=== PATIENT | female | born 1955 | race Caucasian/White ===

== ENCOUNTER 2020-07-11 12:40 | Inpatient (IN) ==
[2020-07-11] MEDS ORDERED: 0.9 % SODIUM CHLORIDE 1,000 ML IV ONE ×2 (13:06→14:48)
--- NOTE | 2020-07-11 13:45 | Cat Scan Report ---
CLINICAL INFORMATION: Acute confusion COMPARISON: 10/19/2019 TECHNIQUE: 2.5 mm helical slices were obtained in the skull base to vertex. Following reconstruction, axial reformatted images were reviewed at bone and parenchymal windows. The exam was performed using radiation dose optimization techniques including, but not limited to, automated exposure control, adjustment of the mA and/or kV according to patient size and use of iterative reconstruction technique. FINDINGS: The ventricles, sulci, fissures, and cisterns are symmetrically enlarged patible with mild age-related atrophy. No extra-axial fluid collections are identified. Mild patchy chronic ischemic changes in the deep cerebral white matter, slightly more than expected for age, are unchanged. There is no lytic hemorrhage, mass effect, or edema. Bone windows show no osseous abnormality. IMPRESSION: Mild atrophy and patchy chronic ischemic changes in the cerebral white matter, slightly more than expected for age, but unchanged. No acute finding. Interpreted and Authenticated by: Rory High 07/11/20
--- NOTE | 2020-07-11 14:06 | Emergency Department Note ---
Weakness HPI General Chief complaint: Weakness Stated complaint: weakness Time Seen by Provider: 07/11/20 12:57 Mode of arrival: wheelchair Limitations: no limitations History of Present Illness HPI Narrative: This is a 61-year-old female patient at [facility] who was sent over for acute weakness and some increased confusion. She was evaluated here in the ER for stroke given confusion with an NIH score of 2. She was sent to CT for urgent head imaging, which came back negative for acute intracranial bleeding. She is tachycardic to 104 and IV fluids were started. She became more alert and was able to tell me that she has been having increased weakness and not feeling well for the past 4 days. She denies fever/chills/sw eats. She denies abdominal pain, hematuria or dysuria, shortness of breath. She does endorse some "chest pressure" across the bilateral front of the chest. Initial troponin is less than 0.01 and an EKG shows sinus tachycardia with a rate of 105 bpm, normal axis and normal intervals and no acute ST changes. Related Data Home Medications Medication Instructions Recorded Confirmed lubiprostone 24 mcg capsule 24 mcg PO DAILY 11/17/16 03/14/20 bisacodyl 10 mg PO DAILY 10/28/17 03/14/20 lactulose 10 gram/15 mL oral 20 g PO BID 01/07/18 03/14/20 solution hydrochlorothiazide 12.5 mg capsule 12.5 mg PO QDAY 07/07/18 03/14/20 insulin glargine 100 unit/mL (3 44 unit SUB-Q QDAY ml 07/07/18 03/14/20 mL) subcutaneous pen lisinopril 5 mg tablet 2.5 mg PO QDAY tab 07/07/18 03/14/20 pregabalin 150 mg capsule 150 mg PO Q8H cap 07/07/18 03/14/20 cholecalciferol (vitamin D3) 25 1,000 unit PO QDAY 12/02/18 03/14/20 mcg (1,000 unit) capsule docusate sodium 100 mg capsule 100 mg PO QDAY 12/02/18 03/14/20 ibuprofen 200 mg tablet 600 mg PO BID PRN tab 05/04/19 03/14/20 rifaximin 550 mg tablet 550 mg PO BID 05/04/19 03/14/20 pravastatin 20 mg PO DAILY 01/29/20 03/14/20 Previous Rx's Medication Instructions Recorded Disability Parking Permit #1 each 10/27/14 blood-glucose meter #1 each 01/23/16 pen needle, diabetic 32 gauge x #100 each 09/23/17 1/" lancets #100 each 01/26/18 allopurinol 100 mg tablet 100 mg PO QDAY #30 tab 02/08/18 blood sugar diagnostic #100 each 02/08/18 levothyroxine 137 mcg capsule 137 mcg PO QDAY #30 cap 02/08/18 metformin 500 mg tablet,extended 1,000 mg PO BID #120 tab 02/08/18 release 24 hr polyethylene glycol 3350 17 gram 17 g PO BID #100 each 11/30/18 oral powder packet albuterol sulfate 90 mcg/actuation 2 puff INHALATION 6XD PRN #18 g 04/21/19 aerosol inhaler aripiprazole 400 mg intramuscular See Rx Instructions IM PER PKG DIR 03/13/20 suspension,extended release #1 each bupropion HCl 150 mg 24 hr tablet, 150 mg PO QAM #30 tab 03/14/20 extended release duloxetine 60 mg capsule,delayed 120 mg PO QDAY #60 cap 03/14/20 release lamotrigine 150 mg tablet 150 mg PO QHS #30 tab 03/14/20 quetiapine 25 mg tablet See Rx Instructions .ROUTE 03/14/20 .COMPLEX #75 tab Allergies Allergy/AdvReac Type Severity Reaction Status Date / Time morphine AdvReac Mild Agitated Verified 07/11/20 12:48 Trulicity AdvReac pancreatiti Uncoded 03/14/20 13:20 s Review of Systems ROS ROS Narrative: Narrative: PFSH Narrative Patient History Narrative: Narrative: Medical/Surgical/Family History All Active Problems (Updated 07/11/20 @ 18:47 by Suly Arango PA-C) AMS (altered mental status) (Acute) Sepsis (Acute) Weakness (Acute) NATASHA (acute kidney injury) (Acute) Tremor (Chronic) Type 2 diabetes mellitus (Acute) Hyperglycemia due to type 2 diabetes mellitus (Acute) Acidosis, lactic (Acute) Expiratory wheezing (Acute) Depression (Chronic) Hypertension (Chronic) Low back pain (Chronic) Chronic pain (Chronic) Spinal stenosis, lumbar region with neurogenic claudication (Chronic) Fall from, out of or through window, initial encounter (Acute) Laceration of scalp (Acute) Acute pain of right knee (Acute) Acute pain of right hip (Acute) Major neurocognitive disorder (Acute) Concussion without loss of consciousness (Acute) Head contusion (Acute) Abdominal distention, non-gaseous (Acute) Anxiety disorder, unspecified (Acute) Acute bronchitis (Acute) Bipolar affective disorder (Chronic) Edema of lower extremity (Chronic) Allergic rhinitis (Chronic) Tinea corporis (Chronic) Dyspnea (Chronic) Liver function test abnormality (Chronic) Postmenopausal (Chronic) Excessive bleeding (Chronic) Easy bruising (Chronic) Rash (Chronic) Urinary frequency (Chronic) Ankle swelling (Chronic) Sinus problem (Chronic) Flatulence (Chronic) Bloating (Chronic) RUQ abdominal pain (Chronic) Chest pressure (Chronic) Parkinson disease (Chronic) Confusion (Chronic) Edema (Chronic) Morbid obesity (Chronic) Hallucination (Chronic) SOB (shortness of breath) (Chronic) Nonalcoholic steatohepatitis (Chronic) Abnormal MRI of head (Chronic) Carpal tunnel syndrome, bilateral (Chronic) Pain in both hands (Chronic) Fall in home (Chronic) Fall (Chronic) Suicide attempt (Chronic) Local infection of wound (Chronic) Amnesia (Chronic) Costal chondritis (Chronic) Trigger finger of both hands (Chronic) Joint pain (Chronic) Cirrhosis of liver (Chronic) Homonymous hemianopia (Chronic) Diabetic neuropathy (Chronic) Psychotic disorder (Acute) Spinal stenosis (Chronic) Lumbar spinal stenosis (Chronic) Calcium oxalate crystals in urine (Chronic) Diffuse abdominal pain (Chronic) Urinary tract infection (Chronic) Upper respiratory infection (Chronic) Sinusitis, acute (Chronic) Lumbar radiculopathy (Chronic) Spinal stenosis at L4-L5 level (Chronic) Pancreatitis (Chronic) Back pain (Chronic) Lumbar disc disease (Chronic) Obesity (BMI 30-39.9) (Chronic) Abdominal pain (Chronic) Depression, major, recurrent, severe with psychosis (Chronic) Snoring (Chronic) Daytime somnolence (Chronic) Atypical nevus (Chronic) Chest pain of unknown etiology (Chronic) Insomnia (Chronic) Arthralgia of both hands (Chronic) Paresthesia and pain of extremity (Chronic) Weight gain (Chronic) Abnormality of gait (Chronic) White matter abnormality on MRI of brain (Chronic) Diabetes mellitus (Chronic) Postcholecystectomy syndrome (Chronic) Post traumatic stress disorder (Chronic) Microscopic hematuria (Chronic 03/31/13) Memory loss (Chronic) Chronic nonalcoholic liver disease (Chronic) Hypothyroidism (acquired) (Chronic) Essential hypertension (Chronic 01/06/14) Head injury, closed (Chronic) Gout (Chronic) Diabetes mellitus with neurological manifestation (Chronic 02/17/13) Deviated nasal septum (Chronic) Depressive disorder (Chronic) Degeneration of thoracic or thoracolumbar intervertebral disc (Chronic) Constipation (Chronic) Chronic interstitial cystitis (Chronic) Anxiety (Acute) Medical History (Updated 07/11/20 @ 18:47 by Suly Arango PA-C) Abdominal pain Abnormal MRI of head Abnormality of gait 11/23/2014 - Poli Virgen PA-C Allergic rhinitis Amnesia Ankle swelling Anxiety Arthralgia (07/06/13) Bilateral Hands Arthralgia of both hands Back pain Bilateral carpal tunnel syndrome Bloating Carpal tunnel syndrome, bilateral Chest pressure Chronic interstitial cystitis Chronic nonalcoholic liver disease Secondary to cholecystectomy complications Chronic pain Cirrhosis of liver Confusion Constipation Costal chondritis Costochondritis Daytime somnolence Degeneration of thoracic or thoracolumbar intervertebral disc L5-S1 documented on CT of Abdomen 03/24/2013 Depression Depressive disorder Deviated nasal septum 05/01/2014 Diabetes mellitus Diabetes mellitus with neurological manifestation (02/17/13) Diabetic neuropathy Dyspnea Easy bruising Edema Edema of lower extremity Essential hypertension (01/06/14) Excessive bleeding Fall 04/14/17 down escalator Fall Fall at home recurrent falls at home, not precipitated by any movement or event Fall in home Flatulence Gout Hallucination Head injury, closed Homonymous hemianopia Homonymous hemianopsia Hypertension Hypothyroidism (acquired) Insomnia Joint pain Liver function test abnormality Local infection of wound Low back pain Lumbar disc disease CT 10/2017 showed Large broad L4-5 disc spur complex resulting in severe central canal, left lateral recess and IV foraminal narrowing. The exiting left L4 descending L5 nerve roots are impinged. 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 Rash RUQ abdominal pain Sinus problem Snoring SOB (shortness of breath) Spinal stenosis at L4-L5 level Spinal stenosis, lumbar region with neurogenic claudication Suicide attempt 2010-Pill overdose in [place] Suicide attempt Tinea corporis Tremor Trigger finger of both hands bilateral 3rd digit Trigger finger of both hands Urinary frequency Weight gain White matter abnormality on MRI of brain White matter abnormality advanced for age 709/26/14 Wound infection Minor Surgical History History of breast surgery 1999-Breast Lift History of section 1974, 1978 x2 History of ECG 10/11/14 - Shaye History of esophagogastroduodenoscopy (05/05/13) History of esophagogastroduodenoscopy (EGD) (11/20/17) History of liver biopsy (08/31/13) Right History of liver excision (08/31/13) Right 60% removal History of plastic surgery Juventino Young History of surgery LESI #1 L4-5 w/o sed 08/08/201902/24 LESI #2 L4-5 w/o sed 02/09/201901/25 LESI #1 L4-5 w/o sed 01/20/1910/25 LESI #3 L4-5 w/o sed 10/14/201807/25 LESI #2 L4-5 w/o sed 07/07/1804/27 LESI #1 L4-5 w/o sed 04/26/18 Hx of cholecystectomy August 1997- Had complication with this of having her bile duct stapled shut with subsequent bile leakage into her peritoneum; she had to have 5 additio nal surgeries Hx of colonoscopy (03/21/13) Family History (Updated 07/06/20 @ 10:46 by Ivis Haines) Mother , age 83. Cardiomyopathy Cerebrovascular accident, Onset Age: 79 Lost Vision in one eye Depression Lung cancer Father Chronic Kidney Disease Atherosclerosis of coronary artery Dementia Hyperlipidemia Cerebrovascular accident, Onset Age: 82 x3 Unknown Diabetes mellitus Daughter Disorder of thyroid Social History Smoking Status: Never smoker Alcohol Intake Frequency: does not drink Substance Use: does not use Exam Narrative Narrative: Narrative: General Limitations: no limitations Course Course Course Narrative: 65-year-old female presents with acute weakness and confusion Reevaluation(s) Reevaluation #1: EKG acute ST changes and initial troponin is negative. CBC shows an elevated blood cell count of 13,200 CMP with creatinine of 1.8 which is up from 1.0 in 02/25. No history of CKD. Anion gap is elevated at 20 Reevaluation #2: Check lactic acid Give additional 1 L IV fluids Awaiting urine sample Reevaluation #3: Lactic acid is 4.1. Anion gap is 20. Blood glucose is 318. White count is elevated at 13,200. Urinalysis shows leukocyte esterase and few bacteria but it is not all that remarkable. Chest x-ray without infiltrates. I have started ceftriaxone IV for this patient and she is received 2 L of normal saline. She is had improvement of her heart rate to below 100. She been ruled out for ACS with negative troponin and negative EKG. At this time source is not been identified. I discussed case with Dr. Page, hospitalist and he has requested I obtain a CT without contrast of the abdomen chest and pelvis to look for source. He has accepted the patient for admission. Vital Signs Vital signs: Vital Signs Temperature 98.8 F 07/11/20 12:40 Pulse Rate 111 H 07/11/20 12:40 Respiratory Rate 16 07/11/20 12:40 Blood Pressure 101/89 07/11/20 12:40 Pulse Oximetry (%) 2 L 07/11/20 12:40 Temperature 98.8 F 07/11/20 12:40 Pulse Rate 91 H 07/11/20 17:31 Respiratory Rate 14 07/11/20 18:16 Blood Pressure 131/71 07/11/20 18:16 Pulse Oximetry (%) 92 07/11/20 17:31 [facility] MDM Narrative Medical decision making narrative: Altered mental status Weakness Sepsis Acute kidney injury Patient is being admitted to the hospitalist service and has been signed out to Dr. Page. CT of the C/A/P are pending. 2 g IV ceftriaxone infusing. She is finishing her second liter of fluid resuscitation. Lab Data Result diagrams: 07/11/20 12:58 07/11/20 12:58 Labs: Lab Results 07/11/20 07/11/20 07/11/20 Range/Units 12:58 12:58 12:58 WBC 13.2 H (4.5-11.0) K/mcL RBC 4.73 (4.00-5.20) M/mcL Hgb 13.8 (12.0-15.0) g/dL Hct 41.4 (36.0-48.0) % MCV 87.5 (80.0-100.0) fL MCH 29.2 (26.0-34.0) pg MCHC 33.3 (31.0-36.0) g/dL RDW 13.0 (11.5-14.5) % Plt Count 215 (140-440) K/mcL MPV 12.5 H (7.4-10.4) fL Seg Neutrophils % 69 (38-78) % Lymphocytes % 21 (15-49) % Monocytes % (Manual) 6 (1-12) % Eosinophils % (Manual) 1 (0-7) % Myelocytes % 1 % Reactive Lymphocytes 2 (0-2) % Platelet Estimate Normal (Normal) RBC Morphology Abnormal A (Normal) VBG Lactic Acid (0.5-2.0) mmol/L Sodium 135 (133-145) mmol/L Potassium 5.2 H (3.3-5.1) mmol/L Chloride 92 L (96-108) mmol/L Carbon Dioxide 23 (22-30) mmol/L Anion Gap 20.0 H (8.0-16.0) BUN 39 H (8-23) mg/dL Creatinine 1.8 H (0.6-1.1) mg/dL GFR Calculation 29 Glucose 318 H (70-105) mg/dL Calcium 10.0 (8.6-10.4) mg/dL Total Bilirubin 0.6 (0.1-1.0) mg/dL AST 43 H (<32) U/L ALT 38 (<40) U/L Alkaline Phosphatase 160 H (39-117) U/L Troponin T < 0.01 (<0.03) ng/mL Total Protein 7.0 (5.9-8.4) gm/dL Albumin 4.5 (3.2-5.2) gm/dL Globulin 2.5 (2.2-3.7) gm/dL Albumin/Globulin Ratio 1.8 (1.0-2.3) Urine Color Urine Appearance (Clear) Urine pH (5.0-9.0) Ur Specific [place] (1.000-1.035) Urine Protein (Negative) mg/dL Urine Glucose (UA) (Negative) mg/dL Urine Ketones (Negative) mg/dL Urine Occult Blood (Negative) mg/dL Urine Nitrate (Negative) Urine Bilirubin (Negative) mg/dL Urine Urobilinogen mg/dL Ur Leukocyte Esterase (Negative) /ug Urine RBC (0-3) /hpf Urine WBC (0-4) /hpf Ur Squamous Epith Cells (0-4) /hpf Urine Bacteria (0) /hpf Hyaline Casts (0-2) /lph Ur Culture Indicated? 07/11/20 07/11/20 Range/Units 15:00 15:20 WBC (4.5-11.0) K/mcL RBC (4.00-5.20) M/mcL Hgb (12.0-15.0) g/dL Hct (36.0-48.0) % MCV (80.0-100.0) fL MCH (26.0-34.0) pg MCHC (31.0-36.0) g/dL RDW (11.5-14.5) % Plt Count (140-440) K/mcL MPV (7.4-10.4) fL Seg Neutrophils % (38-78) % Lymphocytes % (15-49) % Monocytes % (Manual) (1-12) % Eosinophils % (Manual) (0-7) % Myelocytes % % Reactive Lymphocytes (0-2) % Platelet Estimate (Normal) RBC Morphology (Normal) VBG Lactic Acid 4.1 H* (0.5-2.0) mmol/L Sodium (133-145) mmol/L Potassium (3.3-5.1) mmol/L Chloride (96-108) mmol/L Carbon Dioxide (22-30) mmol/L Anion Gap (8.0-16.0) BUN (8-23) mg/dL Creatinine (0.6-1.1) mg/dL GFR Calculation Glucose (70-105) mg/dL Calcium (8.6-10.4) mg/dL Total Bilirubin (0.1-1.0) mg/dL AST (<32) U/L ALT (<40) U/L Alkaline Phosphatase (39-117) U/L Troponin T (<0.03) ng/mL Total Protein (5.9-8.4) gm/dL Albumin (3.2-5.2) gm/dL Globulin (2.2-3.7) gm/dL Albumin/Globulin Ratio (1.0-2.3) Urine Color Yellow Urine Appearance Hazy A (Clear) Urine pH 5.0 (5.0-9.0) Ur Specific [place] 1.014 (1.000-1.035) Urine Protein Negative (Negative) mg/dL Urine Glucose (UA) Negative (Negative) mg/dL Urine Ketones Negative (Negative) mg/dL Urine Occult Blood Negative (Negative) mg/dL Urine Nitrate Negative (Negative) Urine Bilirubin Negative (Negative) mg/dL Urine Urobilinogen 2.0 A mg/dL Ur Leukocyte Esterase 25 A (Negative) /ug Urine RBC 1 (0-3) /hpf Urine WBC 4 (0-4) /hpf Ur Squamous Epith Cells 11 H (0-4) /hpf Urine Bacteria Few A (0) /hpf Hyaline Casts 24 H (0-2) /lph Ur Culture Indicated? No ED POC Tests ED POC Tests: AIME - SARS Antigen Negative Discharge Plan Patient/Caregiver Discharge Instructions Pt seen by WEB OPERATIONS MANAGER/PA only: Yes Clinical Impression: AMS (altered mental status), Sepsis, Weakness, NATASHA (acute kidney injury) Patient Disposition: Xfer As Inpt ([facility]) Condition: Fair Follow up with: Maryuri Cr, OSVALDO, MANAGER CARDIAC CATH [Primary Care Provider] - Prescriptions: No Action rifaximin 550 mg tablet 550 mg PO BID RF: 0 ibuprofen 200 mg tablet 600 mg PO BID PRN (Reason: Pain) RF: 0 bupropion HCl 150 mg tablet extended release 24 hr 150 mg PO QAM Qty: 30 RF: 5 duloxetine 60 mg capsule,delayed release(DR/EC) 120 mg PO QDAY Qty: 60 RF: 3 lamotrigine 150 mg tablet 150 mg PO QHS Qty: 30 RF: 3 quetiapine 25 mg tablet See Rx Instructions .ROUTE .COMPLEX Qty: 75 RF: 2 (DME) Disability Parking Permit Qty: 1 RF: 0 (DME) blood-glucose meter [True Metrix Air Glucose Meter] mis See Dose Instructions .ROUTE .MEDSUPPLY Qty: 1 RF: 0 (DME) pen needle, diabetic [Comfort EZ Pen Breaks] 32 gauge x 1/4" needle See Dose Instructions .ROUTE .MEDSUPPLY Qty: 100 RF: 12 (DME) lancets [facility] [place] See Dose Instructions .ROUTE .MEDSUPPLY Qty: 100 RF: 2 allopurinol 100 mg tablet 100 mg PO QDAY Qty: 30 RF: 5 (DME) blood sugar diagnostic [True Metrix Glucose Test Strip] strip See Dose Instructions .ROUTE .MEDSUPPLY Qty: 100 RF: 5 levothyroxine 137 mcg capsule 137 mcg PO QDAY Qty: 30 RF: 5 metformin 500 mg tablet extended release 24 hr 1,000 mg PO BID Qty: 120 RF: 5 Abilify Maintena 400 mg suspension,extended rel recon See Rx Instructions IM PER PKG DIR Qty: 1 RF: 5 lubiprostone [Amitiza] 24 mcg capsule 24 mcg PO DAILY RF: 0 lactulose [Constulose] 10 gram/15 mL solution 20 g PO BID RF: 0 Basaglar KwikPen U-100 Insulin 100 unit/mL (3 mL) insulin pen 44 unit SUB-Q QDAY RF: 0 hydrochlorothiazide 12.5 mg capsule 12.5 mg PO QDAY RF: 0 lisinopril 5 mg tablet 2.5 mg PO QDAY RF: 0 pregabalin 150 mg capsule 150 mg PO Q8H RF: 0 polyethylene glycol 3350 [Miralax] 17 gram powder in packet 17 g PO BID Qty: 100 RF: 0 albuterol sulfate [ProAir HFA] 90 mcg/actuation HFA aerosol inhaler 2 puff INHALATION 6XD PRN (Reason: shortness of breath or wheezing) Qty: 18 RF: 0 bisacodyl 5 MG tablet 10 mg PO DAILY RF: 0 pravastatin 20 mg Tablet 20 mg PO DAILY RF: 0 docusate sodium [Stool Softener] 100 mg capsule 100 mg PO QDAY RF: 0 cholecalciferol (vitamin D3) 1,000 unit capsule 1,000 unit PO QDAY RF: 0
[2020-07-11 14:18] LABS: Hematocrit 41.4 % (36.0-48.0); Hemoglobin 13.8 g/dL (12.0-15.0); Mean Cell Volume 87.5 fL (80.0-100.0); Mean Corpuscular HGB Conc 33.3 g/dL (31.0-36.0); Mean Platelet Volume 12.5 fL (7.4-10.4); Platelet Count 215 K/mcL (140-440); RBC 4.73 M/mcL (4.00-5.20); WBC 13.2 K/mcL (4.5-11.0)
[2020-07-11 14:20] LABS: ALT/SGPT 38 U/L (<40); AST/SGOT 43 U/L (<32); Albumin 4.5 gm/dL (3.2-5.2); Albumin/Globulin Ratio 1.8 (1.0-2.3); Alkaline Phosphatase 160 U/L (39-117); Bilirubin,Total 0.6 mg/dL (0.1-1.0); Blood Urea Nitrogen 39 mg/dL (8-23); Carbon Dioxide 23 mmol/L (22-30); Chloride 92 mmol/L (96-108); Globulin 2.5 gm/dL (2.2-3.7); Glomerular Filtration Rate 29; Glucose 318 mg/dL (70-105)
--- NOTE | 2020-07-11 15:37 | XRay Report ---
CLINICAL INFORMATION: Weakness and chest pain COMPARISON: 03/03/2020. TECHNIQUE: Portable FINDINGS: The heart size, mediastinum and pulmonary vessels are unremarkable. The lungs are clear. There are no effusions. The bones and soft tissues are within normal limits. IMPRESSION: Normal chest. Interpreted and Authenticated by: Rory High 07/11/20
[2020-07-11 15:38] LABS: Eosinophils % (Manual) 1 % (0-7); Lymphocytes % 21 % (15-49); Monocytes % (Manual) 6 % (1-12); Myelocytes % 1 %; RBC Morphology ABNORMAL (Normal); Reactive Lymphocytes 2 % (0-2); Segmented Neutrophils % 69 % (38-78)
[2020-07-11 15:39] LABS: Platelet Estimate NORMAL (Normal)
[2020-07-11] MEDS ORDERED: cefTRIAXone 2 GM in DEXTROSE 5% IN WATER 50 ML IV ONE (16:16)
[2020-07-11 16:42] LABS: Appearance,Urine HAZY (Clear); Bacteria,Urine FEW /hpf (0); Bilirubin,Urine Negative (Negative); Color,Urine YELLOW; Culture Indicated,Urine No; Glucose,Urine (UA) Negative (Negative); Ketones,Urine Negative (Negative); Leukocyte Esterase,Urine 25 /ug (Negative); Nitrate,Urine Negative (Negative); Protein,Urine Negative (Negative); Specific Gravity,Urine 1.014 (1.000-1.035); Urine Blood Negative (Negative); Urine Hyaline Cast 24 /lph (0-2); Urine RBC 1 /hpf (0-3); Urine Squamous Epithelial Cell 11 /hpf (0-4); Urine WBC 4 /hpf (0-4)
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
[2020-07-11] MEDS ORDERED: ONDANSETRON 4 MG/2 ML VIAL IV PRN (20:11)
[2020-07-11] MEDS ORDERED: 0.9 % SODIUM CHLORIDE 1,000 ML IV SCH (20:11)
[2020-07-11] MEDS ORDERED: DEXTROSE 50% 50 ML VIAL IV PRN (20:11)
[2020-07-11] MEDS ORDERED: ACETAMINOPHEN 650 MG/65 ML BAG IV PRN (20:11)
[2020-07-11] MEDS ORDERED: MAGNESIUM SULFATE 2 GM/50 ML BAG IV PRN (20:11)
[2020-07-11] MEDS ORDERED: VANCOMYCIN PER PHARMACY IV SCH (20:11)
[2020-07-11] MEDS ORDERED: POTASSIUM CHLORIDE 40 MEQ in DEXTROSE 5% IN WATER 500 ML IV PRN (20:11)
[2020-07-11] MEDS ORDERED: DEXTROSE 31 GM ORAL.SUSP PO PRN (20:11)
[2020-07-11] MEDS ORDERED: ONDANSETRON 4 MG ODT TABLET SL PRN (20:11)
[2020-07-11] MEDS ORDERED: MELATONIN 3 MG TABLET PO PRN (20:11)
[2020-07-11] MEDS ORDERED: POLYETHYLENE GLYCOL 3350 17 GM PACKET PO PRN (20:11)
[2020-07-11] MEDS ORDERED: BISACODYL 10 MG SUPP.RECT PR PRN (20:11)
[2020-07-11] MEDS ORDERED: ACETAMINOPHEN 325 MG TABLET PO PRN (20:11)
[2020-07-11] MEDS ORDERED: NEUTRA PHOS 1 PACKET PO PRN (20:11)
[2020-07-11] MEDS ORDERED: SENNOSIDES/DOCUSATE SODIUM 1 TAB TABLET PO SCH (21:00)
[2020-07-11] MEDS: DOCUSATE SODIUM 100 MG CAPSULE PO SCH (21:13)
[2020-07-11] MEDS: HEPARIN 5,000 UNIT/ML VIAL SQ SCH (21:13)
[2020-07-11] MEDS: INSULIN LISPRO 1 UNIT/0.01 ML UNIT SQ SCH (21:13)
[2020-07-11] MEDS: 0.9 % SODIUM CHLORIDE 10 ML SYRINGE IV SCH (21:15)
[2020-07-11] MEDS: VANCOMYCIN 1,000 MG in 0.9 % SODIUM CHLORIDE 250 ML IV SCH (21:16)
[2020-07-11] MEDS: PIPERACILLIN SODIUM/TAZOBACTAM 3.375 GM in DEXTROSE 5% IN WATER 50 ML IV SCH (23:46)
--- NOTE | 2020-07-12 04:33 | Cat Scan Report ---
CLINICAL INFORMATION: Sepsis COMPARISON: Abdomen and pelvic CT 09/12/2019. Chest CT 06/27/2016 TECHNIQUE: 0.625 mm helical slices were obtained from the lung apices through the subtrochanteric regions of the femurs. Following reconstruction, 2.5 mm sagittal, coronal and axial reformatted images were processed and reviewed at multiple windows and levels. 7 mm MIP reconstructions were obtained through the lungs to optimize nodule detection.The exam was performed using radiation dose optimization techniques including, but not limited to, automated exposure control, adjustment of the mA and/or kV according to patient size and use of iterative reconstruction technique. FINDINGS: Pulmonary parenchymal windows show only minimal scattered scarring and/or atelectasis in both mid and lower lungs. There are no infiltrates or nodules. No effusions. Mediastinal windows show the heart is normal in size. There is moderate calcific plaque in the proximal LAD and scattered throughout the remaining coronary arteries. The noncontrast thoracic aorta and pulmonary arteries are normal in contour and caliber. There is no adenopathy in the mediastinal hilar or axillary region. The esophagus is grossly normal. Thyroid is diminutive but without focal lesion. Abdominal images show resection of the right hepatic lobe with compensatory hypertrophy of the caudate and left hepatic lobes. No focal lesions appreciated this noncontrast exam. Spleen is moderately enlarged spanning 17 cm in length. Both noncontrasted kidneys, adrenal glands, pancreas and aorta are unremarkable. There is no free air, free fluid or adenopathy. Pelvic images show anteflexed uterus which is normal in size 8 x 3 cm. The region of the ovaries is normal. Urinary bladder is mildly distended. The stomach, small and large bowel show mild symmetric dilatation with a moderate amount of colonic stool compatible with mild ileus. Bone windows show large L4-5 disc spur complex resulting in severe central canal, left lateral recess and left IV foraminal narrowing. There is impingement of the exiting left L4 and descending left L5 nerve root.. IMPRESSION: 1. No evidence of infection throughout the chest, abdomen or pelvis. Sepsis source is not identified. 2. Partial hepatectomy-resection of the right hepatic lobe with compensatory hypertrophy of the left hepatic lobe and caudate lobe. 3. Moderate splenomegaly-stable. Although unlikely, given the stability of the spleen, the possibility of lymphoma or leukemia should be entertained as a cause cause for patient's symptoms 4. Mild ileus with moderate colonic stool. 5. At L4-5: large broad disc spur complex resulting in severe central canal, left lateral recess and IV foraminal narrowing with impingement of the exiting left L4 and descending left L5 nerve roots. L5-S1 large broad disc spur complex results in severe right IV foraminal narrowing with impingement of the exiting right L5 nerve root. Interpreted and Authenticated by: Rory High 07/12/20
[2020-07-12] MEDS: PIPERACILLIN SODIUM/TAZOBACTAM 3.375 GM in DEXTROSE 5% IN WATER 50 ML IV SCH ×4 (05:28→23:30)
[2020-07-12] MEDS: 0.9 % SODIUM CHLORIDE 10 ML SYRINGE IV SCH ×3 (05:28→20:44)
[2020-07-12] MEDS: INSULIN LISPRO 1 UNIT/0.01 ML UNIT SQ SCH ×4 (07:33→20:40)
[2020-07-12 07:39] LABS: Basophils # (Auto) 0.07 K/mcL (0.00-0.20); Basophils % (Auto) 0.8 % (0.0-2.0); Eosinophils # (Auto) 0.44 K/mcL (0.00-0.70); Eosinophils % (Auto) 5.2 % (0.0-7.0); Hematocrit 36.4 % (36.0-48.0); Hemoglobin 11.8 g/dL (12.0-15.0); Lymphocytes # (Auto) 3.63 K/mcL (1.50-4.80); Lymphocytes % (Auto) 42.7 % (15.0-49.0); Mean Cell Volume 89.7 fL (80.0-100.0); Mean Corpuscular HGB Conc 32.4 g/dL (31.0-36.0); Mean Platelet Volume 11.8 fL (7.4-10.4); Monocytes # (Auto) 0.67 K/mcL (0.10-0.90); Monocytes % (Auto) 7.9 % (1.0-12.0); Neutrophils % (Auto) 43.4 % (38.0-78.0); Platelet Count 144 K/mcL (140-440); RBC 4.06 M/mcL (4.00-5.20); Red Cell Distribution Width 13.1 % (11.5-14.5); WBC 8.5 K/mcL (4.5-11.0)
[2020-07-12] MEDS: HEPARIN 5,000 UNIT/ML VIAL SQ SCH ×2 (08:47→20:40)
[2020-07-12] MEDS: VANCOMYCIN 1,000 MG in 0.9 % SODIUM CHLORIDE 250 ML IV SCH ×2 (08:47→20:41)
[2020-07-12] MEDS: DOCUSATE SODIUM 100 MG CAPSULE PO SCH ×2 (08:47→20:43)
[2020-07-12 08:58] LABS: ALT/SGPT 30 U/L (<40); AST/SGOT 36 U/L (<32); Albumin 3.7 gm/dL (3.2-5.2); Albumin/Globulin Ratio 1.6 (1.0-2.3); Alkaline Phosphatase 134 U/L (39-117); Bilirubin,Direct 0.2 mg/dL (<0.3); Bilirubin,Total 0.6 mg/dL (0.1-1.0); Blood Urea Nitrogen 26 mg/dL (8-23); Calcium 8.5 mg/dL (8.6-10.4); Carbon Dioxide 27 mmol/L (22-30); Chloride 101 mmol/L (96-108); Globulin 2.3 gm/dL (2.2-3.7); Glomerular Filtration Rate 53; Glucose 221 mg/dL (70-105); Lactate Dehydrogenase 200 U/L (135-225); Phosphorous 3.3 mg/dL (2.5-4.5); Triglycerides 214 mg/dL (<150); Uric Acid 6.7 mg/dL (2.5-8.0)
[2020-07-12] MEDS ORDERED: MULTIVIT,THER IRON,CA,FA & MIN 1 TABLET PO SCH (09:00)
[2020-07-12] MEDS ORDERED: BUTALB/ACETAMINOPHEN/CAFFEINE 1 TABLET PO PRN (09:09)
[2020-07-12] MEDS ORDERED: POLYETHYLENE GLYCOL 3350 17 GM PACKET PO PRN ×2 (11:34→14:36)
[2020-07-12] MEDS ORDERED: ALBUTEROL SULFATE 200 PUFF INHALER INH PRN ×2 (11:34→14:36)
--- NOTE | 2020-07-12 11:34 | Internal Med Progress Note ---
SUBJECTIVE Subjective Patient information: Note initiated : 07/12/20 at 11:28 am Service Date, if different from initiated Date: [] Patient: Mic Hein a 65 y/o F admitted on 07/11/20 for Weakness. Chief Complaint: Interval history: Ms. Hein is a 65 year old F with a history of HTN/anxiety/DM type II/hypothyroidism/neuropathy/DJD residing at [place] and was referred to [facility] ER with progressive worsening weakness over the last few days. This morning she was unable to get out of bed. She says that her body felt like noodles. She became increasingly confused and concerns was raised at the facility about possible stroke. Initial work-up in the ER was unremarkable negative head CT however NIH score of 2. Patient was hypotensive tachycardic and with a high white count. CT chest abdomen pelvis did not reveal obvious source of infection. Minimal pyuria on UA. Cultures were drawn and antibiotics initiated. Hospitalist service was consulted for admission in light of severe sepsis with mental status change, white count 3.2, elevated lactic acid 4.1, potassium 5.2, creatinine 1.8 and blood sugar 318. At the time of my evaluation patient is very drowsy. She endorses to progression of symptoms over the last 3 months with increasing weakness however this morning she was unable to get out of bed. She endorses to history as above. She endorses to associated cough but denies fever, diarrhea, dysuria, bloody urine or bloody stool. She further denies weight loss or weight gain. She denies headache, photophobia, chills 5/6-patient doing a lot better. No overnight events. More lucid since admission but remains intermittently confused. Responding well to crystalloids/antibiotics. White count down from 13.2-8.5. Renal function improved from creatinine 1.8-1.1. Restart home medications. Continue physical therapy/nutrition support. Transfer to medical floor Constitutional Vitals: Vital Signs Temp Pulse Resp BP Pulse Ox 98.1 F 84 16 131/62 97 07/12/20 08:02 07/12/20 06:09 07/12/20 08:02 07/12/20 08:02 07/12/20 06:09 Period Temp Pulse Resp BP Sys/Panchal Pulse Ox Last 24 Hr 98.1 F-98.8 F 84-111 9-20 101-137/59-89 2-97 Intake and Output 07/11/20 07/12/20 07/12/20 21:59 05:59 13:59 Intake Total 2050 350 490 Output Total 700 0 1150 Balance 1350 350 -660 Weight 95.118 kg More alert and lucid Nonlabored breathing No anxiety Nondistended abdomen Intake & Output: Intake & Output 07/11/20 07/12/20 07/12/20 21:59 05:59 13:59 Intake Total 2050 350 490 Output Total 700 0 1150 Balance 1350 350 -660 Weight 95.118 kg Intake: IV 2049 350 250 Sodium Chloride 0.9% 1,000 ml @ 2000 Wide Open IV [facility] Rx#: [id number] Zosyn 3.375 gm In Dextrose 5% 100 in Water 50 ml @ 100 mls/hr IV Q6H [facility] Rx#:[id number] Vancomycin 1,000 mg In Sodium 250 250 Chloride 0.9% 250 ml @ 250 mls/ hr IV Q12H [facility] Rx#:[id number] Rocephin 2 gm In Dextrose 5% in 50 Water 50 ml @ 100 mls/hr IV ONCE ONE Rx#:[id number] Oral 0 240 Output: Void Amount 700 0 1150 Other: Meal Breakfast Percent of Meal Consumed 100% Urine Appearance Sediment Cloudy Mucous Threads Urine Color Dark Yellow Bright Yellow Urine Odor Foul OBJ DATA Labs CBC & Chem 7: 07/12/20 06:26 07/12/20 06:26 Labs: Abnormal Lab Results 07/12/20 07/12/20 07/11/20 06:26 06:26 20:50 WBC Hgb 11.8 L MPV 11.8 H RBC Morphology VBG Lactic Acid Potassium Chloride Anion Gap BUN 26 H Creatinine Glucose 221 H Calcium 8.5 L GGT 73 H AST 36 H Alkaline Phosphatase 134 H Ammonia 86 H Triglycerides 214 H Procalcitonin Urine Appearance Urine Urobilinogen Ur Leukocyte Esterase Ur Squamous Epith Cells Urine Bacteria Hyaline Casts 07/11/20 07/11/20 07/11/20 15:20 15:00 12:58 WBC Hgb MPV RBC Morphology VBG Lactic Acid 4.1 H* Potassium Chloride Anion Gap BUN Creatinine Glucose Calcium GGT AST Alkaline Phosphatase Ammonia Triglycerides Procalcitonin 0.46 H Urine Appearance Hazy A Urine Urobilinogen 2.0 A Ur Leukocyte Esterase 25 A Ur Squamous Epith Cells 11 H Urine Bacteria Few A Hyaline Casts 24 H 07/11/20 07/11/20 12:58 12:58 WBC 13.2 H Hgb MPV 12.5 H RBC Morphology Abnormal A VBG Lactic Acid Potassium 5.2 H Chloride 92 L Anion Gap 20.0 H BUN 39 H Creatinine 1.8 H Glucose 318 H Calcium GGT AST 43 H Alkaline Phosphatase 160 H Ammonia Triglycerides Procalcitonin Urine Appearance Urine Urobilinogen Ur Leukocyte Esterase Ur Squamous Epith Cells Urine Bacteria Hyaline Casts Meds: Medications Acetaminophen (Acetaminophen 325 Mg Tablet) 650 mg PO Q6HP PRN; Protocol PRN Reason: Per Pain Protocol/Fever > 101 Acetaminophen/Butalbital/Caffeine (Butalb/Acetaminophen/Caffeine 1 Tablet) 1 tab PO Q6HP PRN PRN Reason: Headache Last Admin: 07/12/20 10:11 Dose: 1 tab Documented by: Bisacodyl (Bisacodyl 10 Mg Supp.Rect) 10 mg [place] Q2-3DAYS PRN PRN Reason: Constipation Dextrose (Dextrose 50% 50 Ml Vial) 0 ml IV UD PRN PRN Reason: Hypoglycemia Diagnostic Test (Pha) (Accu-Chek 1 Each Strip) 1 each FS ACHS [facility] Last Admin: 07/12/20 07:33 Dose: 1 each Documented by: Docusate Sodium (Docusate Sodium 100 Mg Capsule) 100 mg PO BID [facility] Last Admin: 07/12/20 08:47 Dose: 100 mg Documented by: Glucose (Dextrose 31 Gm Oral.Susp) 15 gm PO PRN PRN PRN Reason: Hypoglycemia Heparin Sodium (Porcine) (Heparin 5,000 Unit/Ml Vial) 5,000 unit SQ Q12 [facility] Last Admin: 07/12/20 08:47 Dose: 5,000 unit Documented by: Potassium Chloride 40 meq/ (Dextrose) 520 mls @ 130 mls/hr IV UD PRN PRN Reason: K+ = or < 3.5 Acetaminophen (Ofirmev) 650 mg in 65 mls @ 130 mls/hr IV Q6HP PRN; Protocol PRN Reason: Per Pain Protocol/Fever > 101 Magnesium Sulfate (Magnesium Sulfate) 2 gm in 50 mls @ 50 mls/hr IV UD PRN PRN Reason: MG = or < 1.7 Last Admin: 07/12/20 11:04 Dose: 50 mls/hr Documented by: Sodium Chloride (Sodium Chloride 0.9%) 1,000 mls @ 50 mls/hr IV .Q20H [facility] Stop: 07/14/20 08:10 Last Admin: 07/11/20 20:38 Dose: 50 mls/hr Documented by: Piperacillin Sod/Tazobactam (Sod 3.375 gm/ Dextrose) 50 mls @ 100 mls/hr IV Q6H [facility]; Protocol Last Infusion: 07/12/20 05:58 Dose: Infused Documented by: Vancomycin HCl 1,000 mg/ (Sodium Chloride) 250 mls @ 250 mls/hr IV Q12H [facility] Last Infusion: 07/12/20 09:47 Dose: Infused Documented by: Insulin Human Lispro (Insulin Lispro 1 Unit/0.01 Ml Unit) 0 unit SQ ACHS [facility]; Protocol Last Admin: 07/12/20 07:33 Dose: 3 units Documented by: Iron Carb/Multivit/[place]/Folic Acid (Multivit,Ther Iron,Ca,Fa & Min 1 Tablet) 1 tab PO DAILY [facility] Last Admin: 07/12/20 08:47 Dose: 1 tab Documented by: Melatonin (Melatonin 3 Mg Tablet) 3 mg PO HSP PRN PRN Reason: Insomnia Ondansetron HCl (Ondansetron 4 Mg Odt Tablet) 4 mg SL Q4-6HP PRN; Protocol PRN Reason: Nausea And Vomiting Ondansetron HCl (Ondansetron 4 Mg/2 Ml Vial) 4 mg IV Q4-6HP PRN; Protocol PRN Reason: Nausea And Vomiting Polyethylene Glycol (Polyethylene Glycol 3350 17 Gm Packet) 17 gm PO DAILYP PRN PRN Reason: Constipation Potassium/Phosphorus/Sodium (Neutra Phos 1 Packet) 2 packet PO DAILY PRN PRN Reason: PHOS <2.5 Senna/Docusate Sodium (Sennosides/Docusate Sodium 1 Tab Tablet) 1 tab PO HS [facility] Last Admin: 07/11/20 21:13 Dose: 1 tab Documented by: Sodium Chloride (0.9 % Sodium Chloride 10 Ml Syringe) 10 ml IV Q8 [facility] Last Admin: 07/12/20 05:28 Dose: 10 ml Documented by: Vancomycin HCl (Vancomycin Per Pharmacy) 1 order IV UD [facility]; Protocol A/P Narrative A/P Narrative: * Acute change in mental status-secondary to volume depletion severe sepsis endorgan manifestation -clinically improved. * Severe sepsis secondary with evidence of endorgan dysfunction, clinically improving, white count down from 13.2-8.1. Abdominal imaging negative. * Hyperkalemia 5.2 resolved * Acute renal failure, Creatinine down from 1.8 to 1.1 * anion gap acidosis secondary to lactic acidosis-resolved * Poorly controlled diabetes-continue basal prandial insulin/CC diet * History of hepatic encephalopathy restart home dose lactulose and rifaximin * Neuropathy continue Lyrica * Hyperlipidemia continue statin * Hypertension-held antihypertensives until sepsis resolves * Hypothyroidism continue thyroxine * Bipolar disorder continue lamotrigine * Anxiety disorder continue duloxetine * History of reactive airway disease continue bronchodilators * Full code * Prophylaxis Heparin Plan * Transfer to medical floor * De-escalate antibiotics in 24 hours * Continue crystalloid * Pre-existing medical condition management as above * PT OT nutrition support * Discharge planning per case management Time Spent With Patient Time: Total time spent is greater than 50% in coordination of care (as documented) at patient's floor/unit and/or counseling patient: QUALITY VTE Deep Vein Thrombosis/Pulmonary Embolism Present on Admission: No
[2020-07-12] MEDS ORDERED: ARIPIPRAZOLE 400 MG IM SCH (11:45)
[2020-07-12] MEDS ORDERED: PREGABALIN 150 MG CAPSULE PO SCH (14:00)
[2020-07-12] MEDS ORDERED: DEXTROSE 50% 50 ML VIAL IV PRN (14:36)
[2020-07-12] MEDS ORDERED: BISACODYL 10 MG SUPP.RECT PR PRN (14:36)
[2020-07-12] MEDS ORDERED: ONDANSETRON 4 MG/2 ML VIAL IV PRN (14:36)
[2020-07-12] MEDS ORDERED: VANCOMYCIN PER PHARMACY IV SCH (14:36)
[2020-07-12] MEDS ORDERED: DEXTROSE 31 GM ORAL.SUSP PO PRN (14:36)
[2020-07-12] MEDS ORDERED: ACETAMINOPHEN 650 MG/65 ML BAG IV PRN (14:36)
[2020-07-12] MEDS ORDERED: ONDANSETRON 4 MG ODT TABLET SL PRN (14:36)
[2020-07-12] MEDS ORDERED: POTASSIUM CHLORIDE 40 MEQ in DEXTROSE 5% IN WATER 500 ML IV PRN (14:36)
[2020-07-12] MEDS ORDERED: NEUTRA PHOS 1 PACKET PO PRN (14:36)
[2020-07-12] MEDS ORDERED: ACETAMINOPHEN 325 MG TABLET PO PRN (14:36)
[2020-07-12] MEDS ORDERED: LACTULOSE 20 GM/30 ML ORAL.SOL PO SCH (15:00)
[2020-07-12] MEDS: 0.9 % SODIUM CHLORIDE 1,000 ML IV SCH ×2 (16:39→20:46)
[2020-07-12] MEDS: LACTULOSE 20 GM/30 ML ORAL.SOL PO SCH ×3 (16:39→20:53)
[2020-07-12] MEDS: metFORMIN 500 MG TAB.XL.24H PO SCH (17:07)
[2020-07-12] MEDS ORDERED: metFORMIN 500 MG TAB.XL.24H PO SCH (17:30)
[2020-07-12] MEDS: INSULIN GLARGINE, HUMAN 1 UNIT/0.01 ML SQ SCH (20:40)
[2020-07-12] MEDS: DULoxetine 30 MG CAPSULE PO SCH (20:41)
[2020-07-12] MEDS: SENNOSIDES/DOCUSATE SODIUM 1 TAB TABLET PO SCH (20:42)
[2020-07-12] MEDS: lamoTRIgine 100 MG TABLET PO SCH (20:42)
[2020-07-12] MEDS: PREGABALIN 150 MG CAPSULE PO SCH (20:43)
[2020-07-12] MEDS: RIFAXIMIN 550 MG TABLET PO SCH (20:43)
[2020-07-12] MEDS: QUEtiapine 25 MG TABLET PO SCH (20:43)
[2020-07-12] MEDS: NYSTATIN POWDER BOTTLE 15GM TOPICAL SCH (20:44)
[2020-07-12] MEDS ORDERED: SIMVASTATIN 10 MG TABLET PO SCH (21:00)
[2020-07-12] MEDS ORDERED: DULoxetine 30 MG CAPSULE PO SCH (21:00)
[2020-07-12] MEDS ORDERED: NYSTATIN POWDER BOTTLE 15GM TOPICAL SCH (21:00)
[2020-07-12] MEDS ORDERED: MELATONIN 3 MG TABLET PO PRN (21:00)
[2020-07-12] MEDS ORDERED: lamoTRIgine 100 MG TABLET PO SCH (21:00)
[2020-07-12] MEDS ORDERED: RIFAXIMIN 550 MG TABLET PO SCH (21:00)
[2020-07-12] MEDS ORDERED: INSULIN GLARGINE, HUMAN 1 UNIT/0.01 ML SQ SCH (21:00)
[2020-07-13] MEDS: PIPERACILLIN SODIUM/TAZOBACTAM 3.375 GM in DEXTROSE 5% IN WATER 50 ML IV SCH ×3 (05:47→17:19)
[2020-07-13] MEDS: 0.9 % SODIUM CHLORIDE 10 ML SYRINGE IV SCH ×3 (05:47→20:48)
[2020-07-13] MEDS: LEVOTHYROXINE 25 MCG TABLET PO SCH (07:06)
[2020-07-13] MEDS: LEVOTHYROXINE SODIUM 112 MCG TABLET PO SCH (07:07)
[2020-07-13] MEDS: metFORMIN 500 MG TAB.XL.24H PO SCH ×2 (07:07→17:19)
[2020-07-13] MEDS: INSULIN LISPRO 1 UNIT/0.01 ML UNIT SQ SCH ×4 (07:48→20:47)
[2020-07-13 07:58] LABS: Basophils # (Auto) 0.04 K/mcL (0.00-0.20); Basophils % (Auto) 0.7 % (0.0-2.0); Eosinophils # (Auto) 0.31 K/mcL (0.00-0.70); Eosinophils % (Auto) 5.3 % (0.0-7.0); Hematocrit 36.2 % (36.0-48.0); Hemoglobin 11.8 g/dL (12.0-15.0); Lymphocytes # (Auto) 2.75 K/mcL (1.50-4.80); Lymphocytes % (Auto) 47.3 % (15.0-49.0); Mean Cell Volume 90.5 fL (80.0-100.0); Mean Corpuscular HGB Conc 32.6 g/dL (31.0-36.0); Mean Platelet Volume 12.2 fL (7.4-10.4); Monocytes # (Auto) 0.37 K/mcL (0.10-0.90); Monocytes % (Auto) 6.4 % (1.0-12.0); Neutrophils % (Auto) 40.3 % (38.0-78.0); Platelet Count 118 K/mcL (140-440); WBC 5.8 K/mcL (4.5-11.0)
[2020-07-13] MEDS: MULTIVIT,THER IRON,CA,FA & MIN 1 TABLET PO SCH (08:45)
[2020-07-13] MEDS: buPROPion 150 MG TAB.XL.24H PO SCH (08:46)
[2020-07-13] MEDS: ALLOPURINOL 100 MG TABLET PO SCH (08:46)
[2020-07-13] MEDS: FUROSEMIDE 40 MG TABLET PO SCH (08:47)
[2020-07-13] MEDS: LISINOPRIL 5 MG TABLET PO SCH (08:49)
[2020-07-13 08:50] LABS: ALT/SGPT 32 U/L (<40); AST/SGOT 36 U/L (<32); Albumin 3.7 gm/dL (3.2-5.2); Albumin/Globulin Ratio 1.5 (1.0-2.3); Alkaline Phosphatase 135 U/L (39-117); Bilirubin,Direct 0.2 mg/dL (<0.3); Bilirubin,Total 0.6 mg/dL (0.1-1.0); Blood Urea Nitrogen 16 mg/dL (8-23); Calcium 8.7 mg/dL (8.6-10.4); Carbon Dioxide 23 mmol/L (22-30); Chloride 103 mmol/L (96-108); Globulin 2.5 gm/dL (2.2-3.7); Glomerular Filtration Rate 59; Glucose 172 mg/dL (70-105); Lactate Dehydrogenase 194 U/L (135-225); Phosphorous 2.9 mg/dL (2.5-4.5); Triglycerides 179 mg/dL (<150)
[2020-07-13] MEDS: SIMVASTATIN 10 MG TABLET PO SCH (08:50)
[2020-07-13] MEDS: SPIRONOLACTONE 25 MG TABLET PO SCH (08:53)
[2020-07-13] MEDS: RIFAXIMIN 550 MG TABLET PO SCH ×2 (08:54→20:51)
[2020-07-13] MEDS: CETIRIZINE 10 MG TABLET PO SCH (08:54)
[2020-07-13] MEDS: DOCUSATE SODIUM 100 MG CAPSULE PO SCH ×2 (08:55→20:51)
[2020-07-13] MEDS: HEPARIN 5,000 UNIT/ML VIAL SQ SCH ×2 (08:56→20:48)
[2020-07-13] MEDS: LACTULOSE 20 GM/30 ML ORAL.SOL PO SCH ×3 (08:58→20:47)
[2020-07-13] MEDS ORDERED: LISINOPRIL 5 MG TABLET PO SCH (09:00)
[2020-07-13] MEDS ORDERED: QUEtiapine 25 MG TABLET PO SCH (09:00)
[2020-07-13] MEDS ORDERED: buPROPion 150 MG TAB.XL.24H PO SCH (09:00)
[2020-07-13] MEDS ORDERED: SPIRONOLACTONE 25 MG TABLET PO SCH (09:00)
[2020-07-13] MEDS ORDERED: FUROSEMIDE 20 MG TABLET PO SCH (09:00)
[2020-07-13] MEDS ORDERED: LEVOTHYROXINE 137 MCG PO SCH (09:00)
[2020-07-13] MEDS ORDERED: CETIRIZINE 10 MG TABLET PO SCH (09:00)
[2020-07-13] MEDS ORDERED: ALLOPURINOL 100 MG TABLET PO SCH (09:00)
[2020-07-13] MEDS: BUTALB/ACETAMINOPHEN/CAFFEINE 1 TABLET PO PRN ×2 (09:50→21:03)
[2020-07-13] MEDS: NYSTATIN POWDER BOTTLE 15GM TOPICAL SCH ×2 (09:57→20:52)
[2020-07-13] MEDS: QUEtiapine 25 MG TABLET PO SCH ×2 (09:58→20:51)
--- NOTE | 2020-07-13 10:05 | XRay Report ---
CLINICAL INFORMATION: Interval Change COMPARISON: 07/11/2020 FINDINGS: Heart size, mediastinum and pulmonary vessels are normal. Lungs are clear. No effusions. Bones soft tissues normal. IMPRESSION: Normal Interpreted and Authenticated by: Rory High 07/13/20
[2020-07-13] MEDS: VANCOMYCIN 1,000 MG in 0.9 % SODIUM CHLORIDE 250 ML IV SCH ×2 (10:33→20:54)
[2020-07-13] MEDS: 0.9 % SODIUM CHLORIDE 1,000 ML IV SCH ×2 (12:18→16:31)
[2020-07-13] MEDS: INSULIN GLARGINE, HUMAN 1 UNIT/0.01 ML SQ SCH (20:47)
[2020-07-13] MEDS: DULoxetine 30 MG CAPSULE PO SCH (20:48)
[2020-07-13] MEDS: PREGABALIN 150 MG CAPSULE PO SCH (20:48)
[2020-07-13] MEDS: lamoTRIgine 100 MG TABLET PO SCH (20:49)
[2020-07-13] MEDS: SENNOSIDES/DOCUSATE SODIUM 1 TAB TABLET PO SCH (20:51)
[2020-07-14] MEDS: PIPERACILLIN SODIUM/TAZOBACTAM 3.375 GM in DEXTROSE 5% IN WATER 50 ML IV SCH ×5 (00:16→23:38)
[2020-07-14] MEDS: 0.9 % SODIUM CHLORIDE 10 ML SYRINGE IV SCH ×4 (04:05→20:06)
[2020-07-14] MEDS: 0.9 % SODIUM CHLORIDE 1,000 ML IV SCH (06:36)
[2020-07-14 06:55] LABS: Basophils # (Auto) 0.06 K/mcL (0.00-0.20); Basophils % (Auto) 0.9 % (0.0-2.0); Eosinophils # (Auto) 0.31 K/mcL (0.00-0.70); Eosinophils % (Auto) 4.7 % (0.0-7.0); Hematocrit 35.7 % (36.0-48.0); Hemoglobin 11.7 g/dL (12.0-15.0); Lymphocytes # (Auto) 3.16 K/mcL (1.50-4.80); Lymphocytes % (Auto) 47.5 % (15.0-49.0); Mean Cell Volume 90.2 fL (80.0-100.0); Mean Corpuscular HGB Conc 32.8 g/dL (31.0-36.0); Mean Platelet Volume 11.9 fL (7.4-10.4); Monocytes # (Auto) 0.39 K/mcL (0.10-0.90); Monocytes % (Auto) 5.9 % (1.0-12.0); Platelet Count 116 K/mcL (140-440); RBC 3.96 M/mcL (4.00-5.20); Red Cell Distribution Width 12.9 % (11.5-14.5); WBC 6.7 K/mcL (4.5-11.0)
[2020-07-14 07:07] LABS: ALT/SGPT 33 U/L (<40); AST/SGOT 37 U/L (<32); Albumin 3.7 gm/dL (3.2-5.2); Albumin/Globulin Ratio 1.5 (1.0-2.3); Alkaline Phosphatase 134 U/L (39-117); Bilirubin,Direct < 0.2 mg/dL (0-0.3); Bilirubin,Total 0.5 mg/dL (0.1-1.0); Blood Urea Nitrogen 14 mg/dL (8-23); Calcium 8.8 mg/dL (8.6-10.4); Carbon Dioxide 24 mmol/L (22-30); Chloride 105 mmol/L (96-108); Globulin 2.4 gm/dL (2.2-3.7); Glomerular Filtration Rate 59; Glucose 140 mg/dL (70-105); Lactate Dehydrogenase 194 U/L (135-225); Phosphorous 3.5 mg/dL (2.5-4.5); Triglycerides 192 mg/dL (<150); Uric Acid 4.2 mg/dL (2.5-8.0)
[2020-07-14] MEDS: INSULIN LISPRO 1 UNIT/0.01 ML UNIT SQ SCH ×4 (07:10→20:26)
[2020-07-14] MEDS: DOCUSATE SODIUM 100 MG CAPSULE PO SCH ×2 (08:36→20:27)
[2020-07-14] MEDS: LEVOTHYROXINE 25 MCG TABLET PO SCH (08:36)
[2020-07-14] MEDS: LACTULOSE 20 GM/30 ML ORAL.SOL PO SCH ×3 (08:36→20:05)
[2020-07-14] MEDS: LEVOTHYROXINE SODIUM 112 MCG TABLET PO SCH (08:36)
[2020-07-14] MEDS: SPIRONOLACTONE 25 MG TABLET PO SCH (08:37)
[2020-07-14] MEDS: RIFAXIMIN 550 MG TABLET PO SCH ×2 (08:38→20:28)
[2020-07-14] MEDS: BUTALB/ACETAMINOPHEN/CAFFEINE 1 TABLET PO PRN (08:38)
[2020-07-14] MEDS: LISINOPRIL 5 MG TABLET PO SCH (08:39)
[2020-07-14] MEDS: ALLOPURINOL 100 MG TABLET PO SCH (08:39)
[2020-07-14] MEDS: FUROSEMIDE 40 MG TABLET PO SCH (08:39)
[2020-07-14] MEDS: buPROPion 150 MG TAB.XL.24H PO SCH (08:39)
[2020-07-14] MEDS: CETIRIZINE 10 MG TABLET PO SCH (08:39)
[2020-07-14] MEDS: SIMVASTATIN 10 MG TABLET PO SCH (08:39)
[2020-07-14] MEDS: metFORMIN 500 MG TAB.XL.24H PO SCH ×2 (08:40→16:54)
[2020-07-14] MEDS: QUEtiapine 25 MG TABLET PO SCH ×2 (08:40→20:27)
[2020-07-14] MEDS: MULTIVIT,THER IRON,CA,FA & MIN 1 TABLET PO SCH (08:40)
[2020-07-14] MEDS: HEPARIN 5,000 UNIT/ML VIAL SQ SCH ×2 (08:41→20:27)
[2020-07-14] MEDS: MAGNESIUM SULFATE 2 GM/50 ML BAG IV PRN (08:41)
[2020-07-14] MEDS: NYSTATIN POWDER BOTTLE 15GM TOPICAL SCH ×2 (08:51→20:06)
[2020-07-14] MEDS: VANCOMYCIN 1,000 MG in 0.9 % SODIUM CHLORIDE 250 ML IV SCH ×2 (10:06→20:22)
--- NOTE | 2020-07-14 10:23 | Internal Med Progress Note ---
SUBJECTIVE Subjective Patient information: Note initiated : 07/13/20 at 10:18 am Service Date, if different from initiated Date: [] Patient: Mic Hein a 65 y/o F admitted on 07/11/20 for Weakness. Chief Complaint: [] Interval history: Ms. Hein is a 65 year old F with a history of HTN/anxiety/DM type II/hypothyroidism/neuropathy/DJD residing at [place] and was referred to located within [facility] ER with progressive worsening weakness over the last f ew days. This morning she was unable to get out of bed. She says that her body felt like noodles. She became increasingly confused and concerns was raised at the facility about possible stroke. Initial work-up in the ER was unremarkable negative head CT however NIH score of 2. Patient was hypotensive tachycardic and with a high white count. CT chest abdomen pelvis did not reveal obvious source of infection. Minimal pyuria on UA. Cultures were drawn and antibiotics initiated. Hospitalist service was consulted for admission in light of severe sepsis with mental status change, white count 3.2, elevated lactic acid 4.1, potassium 5.2, creatinine 1.8 and blood sugar 318. At the time of my evaluation patient is very drowsy. She endorses to progression of symptoms over the last 3 months with increasing weakness however this morning she was unable to get out of bed. She endorses to history as above. She endorses to associated cough but denies fever, diarrhea, dysuria, bloody urine or bloody stool. She further denies weight loss or weight gain. She denies headache, photophobia, chills 5/6-patient doing a lot better. No overnight events. More lucid since admission but remains intermittently confused. Responding well to crystalloids/antibiotics. White count down from 13.2-8.5. Renal function improved from creatinine 1.8-1.1. Restart home medications. Continue physical therapy/nutrition support. Transfer to medical floor 07/13-patient clinically improving. White count normalizing. Tolerating diet. No concerns expressed with nursing staff. Hemoglobin 11.7, blood sugars improving, magnesium 1.8, LFTs downtrending, cultures negative so far, GNR on urine culture. De-escalate antibiotics in 24 hours Constitutional Vitals: Vital Signs Temp Pulse Resp BP Pulse Ox 97.8 F 68 20 115/69 95 05/08/21 06:47 07/14/20 06:47 07/14/20 06:47 07/14/20 06:47 07/14/20 06:47 Period Temp Pulse Resp BP Sys/Panchal Pulse Ox Last 24 Hr 97.1 F-98.2 F 63-82 16-20 110-134/64-84 95-97 Intake and Output 07/13/20 07/14/20 07/14/20 21:59 05:59 13:59 Intake Total 1338 780 290 Output Total 900 400 Balance 438 380 290 Weight 94.999 kg alert and respond to commands, nonlabored breathing Nondistended abdomen No anxiety Intake & Output: Intake & Output 07/13/20 07/14/20 07/14/20 21:59 05:59 13:59 Intake Total 1338 780 290 Output Total 900 400 Balance 438 380 290 Weight 94.999 kg Intake: IV 1338 300 50 Sodium Chloride 0.9% 1,000 ml @ 988 50 mls/hr IV .Q20H [facility] Rx#: [id number] Zosyn 3.375 gm In Dextrose 5% 100 50 50 in Water 50 ml @ 100 mls/hr IV Q6H [facility] Rx#:[id number] Vancomycin 1,000 mg In Sodium 250 250 Chloride 0.9% 250 ml @ 250 mls/ hr IV Q12H [facility] Rx#:[id number] Oral 480 240 Output: Void Amount 900 400 Other: Meal Dinner Breakfast Percent of Meal Consumed 100% 100% Feeding Ability Independent Urine Appearance Clear Clear Urine Color Dark Yellow Bright Yellow Stool Size Moderate # Bowel Movements 1 OBJ DATA Labs CBC & Chem 7: 07/14/20 05:49 07/14/20 05:49 Labs: Abnormal Lab Results 07/14/20 07/14/20 07/13/20 05:49 05:49 06:25 WBC RBC 3.96 L Hgb 11.7 L Hct 35.7 L Plt Count 116 L MPV 11.9 H RBC Morphology VBG Lactic Acid Potassium Chloride Anion Gap BUN Creatinine Glucose 140 H 172 H Calcium Magnesium 1.5 L GGT 79 H 79 H AST 37 H 36 H Alkaline Phosphatase 134 H 135 H Ammonia Triglycerides 192 H 179 H Procalcitonin Urine Appearance Urine Urobilinogen Ur Leukocyte Esterase Ur Squamous Epith Cells Urine Bacteria Hyaline Casts 07/13/20 07/12/20 07/12/20 05:25 06:26 06:26 WBC RBC Hgb 11.8 L 11.8 L Hct Plt Count 118 L MPV 12.2 H 11.8 H RBC Morphology VBG Lactic Acid Potassium Chloride Anion Gap BUN 26 H Creatinine Glucose 221 H Calcium 8.5 L Magnesium GGT 73 H AST 36 H Alkaline Phosphatase 134 H Ammonia Triglycerides 214 H Procalcitonin Urine Appearance Urine Urobilinogen Ur Leukocyte Esterase Ur Squamous Epith Cells Urine Bacteria Hyaline Casts 07/11/20 07/11/20 07/11/20 20:50 15:20 15:00 WBC RBC Hgb Hct Plt Count MPV RBC Morphology VBG Lactic Acid 4.1 H* Potassium Chloride Anion Gap BUN Creatinine Glucose Calcium Magnesium GGT AST Alkaline Phosphatase Ammonia 86 H Triglycerides Procalcitonin Urine Appearance Hazy A Urine Urobilinogen 2.0 A Ur Leukocyte Esterase 25 A Ur Squamous Epith Cells 11 H Urine Bacteria Few A Hyaline Casts 24 H 07/11/20 07/11/20 07/11/20 12:58 12:58 12:58 WBC 13.2 H RBC Hgb Hct Plt Count MPV 12.5 H RBC Morphology Abnormal A VBG Lactic Acid Potassium 5.2 H Chloride 92 L Anion Gap 20.0 H BUN 39 H Creatinine 1.8 H Glucose 318 H Calcium Magnesium GGT AST 43 H Alkaline Phosphatase 160 H Ammonia Triglycerides Procalcitonin 0.46 H Urine Appearance Urine Urobilinogen Ur Leukocyte Esterase Ur Squamous Epith Cells Urine Bacteria Hyaline Casts Meds: Medications Acetaminophen (Acetaminophen 325 Mg Tablet) 650 mg PO Q6HP PRN; Protocol PRN Reason: Per Pain Protocol/Fever > 101 Acetaminophen/Butalbital/Caffeine (Butalb/Acetaminophen/Caffeine 1 Tablet) 1 tab PO Q6HP PRN PRN Reason: Headache Last Admin: 07/14/20 08:38 Dose: 1 tab Documented by: Albuterol Sulfate (Albuterol Sulfate 200 Puff Inhaler) 2 puff INH Q4HP PRN PRN Reason: shortness of breath or wheezin Allopurinol (Allopurinol 100 Mg Tablet) 100 mg PO QDAY [facility] Last Admin: 07/14/20 08:39 Dose: 100 mg Documented by: Bisacodyl (Bisacodyl 10 Mg Supp.Rect) 10 mg [place] Q2-3DAYS PRN PRN Reason: Constipation Bupropion HCl (Bupropion 150 Mg Tab.Xl.24h) 150 mg PO QAM [facility] Last Admin: 07/14/20 08:39 Dose: 150 mg Documented by: Cetirizine HCl (Cetirizine 10 Mg Tablet) 10 mg PO QDAY [facility] Last Admin: 07/14/20 08:39 Dose: 10 mg Documented by: Dextrose (Dextrose 50% 50 Ml Vial) 0 ml IV UD PRN PRN Reason: Hypoglycemia Diagnostic Test (Pha) (Accu-Chek 1 Each Strip) 1 each FS ACHS [facility] Last Admin: 07/14/20 07:10 Dose: 1 each Documented by: Docusate Sodium (Docusate Sodium 100 Mg Capsule) 100 mg PO BID [facility] Last Admin: 07/14/20 08:36 Dose: 100 mg Documented by: Duloxetine HCl (Duloxetine 30 Mg Capsule) 120 mg PO HS [facility] Last Admin: 07/13/20 20:48 Dose: 120 mg Documented by: Furosemide (Furosemide 40 Mg Tablet) [facility] Last Admin: 07/14/20 08:39 Dose: 20 mg Documented by: Glucose (Dextrose 31 Gm Oral.Susp) 15 gm PO PRN PRN PRN Reason: Hypoglycemia Heparin Sodium (Porcine) (Heparin 5,000 Unit/Ml Vial) 5,000 unit SQ Q12 [facility] Last Admin: 07/14/20 08:41 Dose: 5,000 unit Documented by: Acetaminophen (Ofirmev) 650 mg in 65 mls @ 130 mls/hr IV Q6HP PRN; Protocol PRN Reason: Per Pain Protocol/Fever > 101 Last Admin: 07/14/20 10:17 Dose: 130 mls/hr Documented by: Magnesium Sulfate (Magnesium Sulfate) 2 gm in 50 mls @ 50 mls/hr IV UD PRN PRN Reason: MG = or < 1.7 Last Admin: 07/14/20 08:41 Dose: 50 mls/hr Documented by: Piperacillin Sod/Tazobactam (Sod 3.375 gm/ Dextrose) 50 mls @ 100 mls/hr IV Q6H [facility]; Protocol Last Infusion: 07/14/20 06:30 Dose: Infused Documented by: Vancomycin HCl 1,000 mg/ (Sodium Chloride) 250 mls @ 250 mls/hr IV Q12H [facility] Last Admin: 07/14/20 10:06 Dose: 250 mls/hr Documented by: Potassium Chloride 40 meq/ (Dextrose) 520 mls @ 130 mls/hr IV UD PRN PRN Reason: K+ = or < 3.5 Insulin Glargine (Insulin Glargine, Human 1 Unit/0.01 Ml) 50 unit SQ [facility] Last Admin: 07/13/20 20:47 Dose: 50 unit Documented by: Insulin Human Lispro (Insulin Lispro 1 Unit/0.01 Ml Unit) 0 unit SQ [facility]; Protocol Last Admin: 07/14/20 07:10 Dose: 1 units Documented by: Iron Carb/Multivit/[place]/Folic Acid (Multivit,Ther Iron,Ca,Fa & Min 1 Tablet) 1 tab PO DAILY [facility] Last Admin: 07/14/20 08:40 Dose: 1 tab Documented by: Lactulose (Lactulose 20 Gm/30 Ml Oral.Oct[place]) 20 gm PO TID [facility] Last Admin: 07/14/20 08:36 Dose: 20 gm Documented by: Lamotrigine (Lamotrigine 100 Mg Tablet) 150 mg PO [facility] Last Admin: 07/13/20 20:49 Dose: 150 mg Documented by: Levothyroxine Sodium ([facility] 25 Mcg Tablet) [facility] Admin: 07/14/20 08:36 Dose: 25 mcg Documented by: Levothyroxine Sodium (Levothyroxine Sodium 112 Mcg Tablet) 112 mcg PO [facility] Last Admin: 07/14/20 08:36 Dose: 112 mcg Documented by: Lisinopril (Lisinopril 5 Mg Tablet) 2.5 mg PO QDAY [facility] Last Admin: 07/14/20 08:39 Dose: 2.5 mg Documented by: Melatonin (Melatonin 3 Mg Tablet) 3 mg PO HSP PRN PRN Reason: Insomnia Metformin HCl (Metformin 500 Mg Tab.Xl.24h) 1,000 mg PO BIDCC [facility] Last Admin: 07/14/20 08:40 Dose: 1,000 mg Documented by: Nystatin (Nystatin Powder Bottle 15gm) 1 dose TOPICAL BID [facility] Last Admin: 07/14/20 08:51 Dose: Not Given Documented by: Ondansetron HCl (Ondansetron 4 Mg Odt Tablet) 4 mg SL Q4-6HP PRN; Protocol PRN Reason: Nausea And Vomiting Ondansetron HCl (Ondansetron 4 Mg/2 Ml Vial) 4 mg IV Q4-6HP PRN; Protocol PRN Reason: Nausea And Vomiting Lubiprostone [ Amitiza] 24 Mcg Capsule 1 dose PO BID [facility] Last Admin: 07/14/20 08:51 Dose: Not Given Documented by: Polyethylene Glycol (Polyethylene Glycol 3350 17 Gm Packet) 17 gm PO DAILYP PRN PRN Reason: Constipation Potassium/Phosphorus/Sodium (Neutra Phos 1 Packet) 2 packet PO DAILY PRN PRN Reason: PHOS <2.5 Pregabalin (Pregabalin 150 Mg Capsule) 150 mg PO 2200 [facility] Last Admin: 07/13/20 20:48 Dose: 150 mg Documented by: Quetiapine Fumarate (Quetiapine 25 Mg Tablet) 50 mg PO [facility] Last Admin: 07/13/20 20:51 Dose: 50 mg Documented by: Quetiapine Fumarate (Quetiapine 25 Mg Tablet) 12.5 mg PO DAILY [facility] Last Admin: 07/14/20 08:40 Dose: 12.5 mg Documented by: Senna/Docusate Sodium (Sennosides/Docusate Sodium 1 Tab Tablet) 1 tab PO [facility] Last Admin: 07/13/20 20:51 Dose: 1 tab Documented by: Simvastatin (Simvastatin 10 Mg Tablet) 10 mg PO DAILY [facility] Last Admin: 07/14/20 08:39 Dose: 10 mg Documented by: Sodium Chloride (0.9 % Sodium Chloride 10 Ml Syringe) 10 ml IV Q8 [facility] Last Admin: 07/14/20 04:05 Dose: 10 ml Documented by: Spironolactone (Spironolactone 25 Mg Tablet) 50 mg PO DAILY [facility] Last Admin: 07/14/20 08:37 Dose: 50 mg Documented by: Vancomycin HCl (Vancomycin Per Pharmacy) 1 order IV UD [facility]; Protocol A/P Narrative A/P Narrative: * Acute change in mental status-secondary sepsis/volume depletion, clinically improved * Severe sepsis secondary with evidence of endorgan dysfunction, clinically improved white count down from 13.2-8.5 * Complicated GNR UTI-clinically improving. Continue antibiotic coverage and de-escalate in 24 hours * Acute renal failure, Creatinine down from 1.8 to 1 * anion gap acidosis secondary to lactic acidosis-resolved * Poorly controlled diabetes-continue basal prandial insulin/CC diet * History of hepatic encephalopathy continue home dose lactulose and rifaximin * Neuropathy continue Lyrica * Hyperlipidemia continue statin * Hypertension-held antihypertensives until sepsis resolves * Hypothyroidism continue thyroxine * Bipolar disorder continue lamotrigine * Anxiety disorder continue duloxetine * History of reactive airway disease continue bronchodilators * Full code * Prophylaxis Heparin Plan * De-escalate antibiotics in 24 hours * Continue crystalloid * Pre-existing medical condition management as above * PT OT nutrition support * Discharge planning per case management Time Spent With Patient Time: Total time spent is greater than 50% in coordination of care (as document ed) at patient's floor/unit and/or counseling patient: QUALITY VTE Deep Vein Thrombosis/Pulmonary Embolism Present on Admission: No
--- NOTE | 2020-07-14 10:53 | Internal Med Progress Note ---
SUBJECTIVE Subjective Patient information: Note initiated : 07/14/20 at 10:51 am Service Date, if different from initiated Date: [] Patient: Mic Hein a 65 y/o F admitted on 07/11/20 for Weakness. Chief Complaint: [] Interval history: Ms. Hein is a 65 year old F with a history of HTN/anxiety/DM type II/hypothyroidism/neuropathy/DJD residing at [place] and was referred to [facility] ER with progressive worsening weakness over the last f ew days. This morning she was unable to get out of bed. She says that her body felt like noodles. She became increasingly confused and concerns was raised at the facility about possible stroke. Initial work-up in the ER was unremarkable negative head CT however NIH score of 2. Patient was hypotensive tachycardic and with a high white count. CT chest abdomen pelvis did not reveal obvious source of infection. Minimal pyuria on UA. Cultures were drawn and antibiotics initiated. Hospitalist service was consulted for admission in light of severe sepsis with mental status change, white count 3.2, elevated lactic acid 4.1, potassium 5.2, creatinine 1.8 and blood sugar 318. At the time of my evaluation patient is very drowsy. She endorses to progression of symptoms over the last 3 months with increasing weakness however this morning she was unable to get out of bed. She endorses to history as above. She endorses to associated cough but denies fever, diarrhea, dysuria, bloody urine or bloody stool. She further denies weight loss or weight gain. She denies headache, photophobia, chills 07/12-patient doing a lot better. No overnight events. More lucid since admission but remains intermittently confused. Responding well to crystalloids/antibiotics. White count down from 13.2-8.5. Renal function improved from creatinine 1.8-1.1. Restart home medications. Continue physical therapy/nutrition support. Transfer to medical floor 07/13-patient clinically improving. White count normalizing. Tolerating diet. No concerns expressed with nursing staff. Hemoglobin 11.7, blood sugars improving, magnesium 1.8, LFTs downtrending, cultures negative so far, GNR on urine culture. De-escalate antibiotics in 24 hours 07/14-patient clinically improved. White count stable. GNR on urine culture. No fever chills. Clinically responding to treatment. Magnesium 1.5 on replacemen t. LFTs downtrending. Tolerating diet and ambulating. No concerns per nursing staff. DC IV fluids Constitutional Vitals: Vital Signs Temp Pulse Resp BP Pulse Ox 97.8 F 68 20 115/69 95 07/14/20 06:47 07/14/20 06:47 07/14/20 06:47 07/14/20 06:47 07/14/20 06:47 Period Temp Pulse Resp BP Sys/Panchal Pulse Ox Last 24 Hr 97.1 F-98.2 F 63-82 16-20 110-134/64-84 95-97 Intake and Output 07/13/20 07/14/20 07/14/20 21:59 05:59 13:59 Intake Total 2812 771 7998 Output Total 900 400 Balance 869 822 2214 Weight 94.999 kg Alert and respond to commands Only breathing No anxiety Nondistended abdomen Intake & Output: Intake & Output 07/13/20 07/14/20 07/14/20 21:59 05:59 13:59 Intake Total 7653 547 6925 Output Total 900 400 Balance 809 585 6780 Weight 94.999 kg Intake: IV 3306 957 7854 Sodium Chloride 0.9% 1,000 ml @ 988 1000 50 mls/hr IV .Q20H [facility] Rx#: [id number] Zosyn 3.375 gm In Dextrose 5% 100 50 50 in Water 50 ml @ 100 mls/hr IV Q6H [facility] Rx#:[id number] Vancomycin 1,000 mg In Sodium 250 250 250 Chloride 0.9% 250 ml @ 250 mls/ hr IV Q12H [facility] Rx#:[id number] Oral 480 240 Output: Void Amount 900 400 Other: Meal Dinner Breakfast Percent of Meal Consumed 100% 100% Feeding Ability Independent Urine Appearance Clear Clear Urine Color Dark Yellow Bright Yellow Stool Size Moderate # Bowel Movements 1 OBJ DATA Labs CBC & Chem 7: 07/14/20 05:49 07/14/20 05:49 Labs: Abnormal Lab Results 07/14/20 07/14/20 07/13/20 05:49 05:49 06:25 WBC RBC 3.96 L Hgb 11.7 L Hct 35.7 L Plt Count 116 L MPV 11.9 H RBC Morphology VBG Lactic Acid Potassium Chloride Anion Gap BUN Creatinine Glucose 140 H 172 H Calcium Magnesium 1.5 L GGT 79 H 79 H AST 37 H 36 H Alkaline Phosphatase 134 H 135 H Ammonia Triglycerides 192 H 179 H Procalcitonin Urine Appearance Urine Urobilinogen Ur Leukocyte Esterase Ur Squamous Epith Cells Urine Bacteria Hyaline Casts 07/13/20 07/12/20 07/12/20 05:25 06:26 06:26 WBC RBC Hgb 11.8 L 11.8 L Hct Plt Count 118 L MPV 12.2 H 11.8 H RBC Morphology VBG Lactic Acid Potassium Chloride Anion Gap BUN 26 H Creatinine Glucose 221 H Calcium 8.5 L Magnesium GGT 73 H AST 36 H Alkaline Phosphatase 134 H Ammonia Triglycerides 214 H Procalcitonin Urine Appearance Urine Urobilinogen Ur Leukocyte Esterase Ur Squamous Epith Cells Urine Bacteria Hyaline Casts 07/11/20 07/11/20 07/11/20 20:50 15:20 15:00 WBC RBC Hgb Hct Plt Count MPV RBC Morphology VBG Lactic Acid 4.1 H* Potassium Chloride Anion Gap BUN Creatinine Glucose Calcium Magnesium GGT AST Alkaline Phosphatase Ammonia 86 H Triglycerides Procalcitonin Urine Appearance Hazy A Urine Urobilinogen 2.0 A Ur Leukocyte Esterase 25 A Ur Squamous Epith Cells 11 H Urine Bacteria Few A Hyaline Casts 24 H 07/11/20 07/11/20 07/11/20 12:58 12:58 12:58 WBC 13.2 H RBC Hgb Hct Plt Count MPV 12.5 H RBC Morphology Abnormal A VBG Lactic Acid Potassium 5.2 H Chloride 92 L Anion Gap 20.0 H BUN 39 H Creatinine 1.8 H Glucose 318 H Calcium Magnesium GGT AST 43 H Alkaline Phosphatase 160 H Ammonia Triglycerides Procalcitonin 0.46 H Urine Appearance Urine Urobilinogen Ur Leukocyte Esterase Ur Squamous Epith Cells Urine Bacteria Hyaline Casts Meds: Medications Acetaminophen (Acetaminophen 325 Mg Tablet) 650 mg PO Q6HP PRN; Protocol PRN Reason: Per Pain Protocol/Fever > 101 Acetaminophen/Butalbital/Caffeine (Butalb/Acetaminophen/Caffeine 1 Tablet) 1 tab PO Q6HP PRN PRN Reason: Headache Last Admin: 07/14/20 08:38 Dose: 1 tab Documented by: Albuterol Sulfate (Albuterol Sulfate 200 Puff Inhaler) 2 puff INH Q4HP PRN PRN Reason: shortness of breath or wheezin Allopurinol (Allopurinol 100 Mg Tablet) 100 mg PO QDAY [facility] Last Admin: 07/14/20 08:39 Dose: 100 mg Documented by: Bisacodyl (Bisacodyl 10 Mg Supp.Rect) 10 mg [place] Q2-3DAYS PRN PRN Reason: Constipation Bupropion HCl (Bupropion 150 Mg Tab.Xl.24h) 150 mg PO QAM [facility] Last Admin: 07/14/20 08:39 Dose: 150 mg Documented by: Cetirizine HCl (Cetirizine 10 Mg Tablet) 10 mg PO QDAY [facility] Last Admin: 07/14/20 08:39 Dose: 10 mg Documented by: Dextrose (Dextrose 50% 50 Ml Vial) 0 ml IV UD PRN PRN Reason: Hypoglycemia Diagnostic Test (Pha) (Accu-Chek 1 Each Strip) 1 each FS ACHS [facility] Last Admin: 07/14/20 07:10 Dose: 1 each Documented by: Docusate Sodium (Docusate Sodium 100 Mg Capsule) 100 mg PO BID [facility] Last Admin: 07/14/20 08:36 Dose: 100 mg Documented by: Duloxetine HCl (Duloxetine 30 Mg Capsule) 120 mg PO [facility] Last Admin: 07/13/20 20:48 Dose: 120 mg Documented by: Furosemide (Furosemide 40 Mg Tablet) [facility] Admin: 07/14/20 08:39 Dose: 20 mg Documented by: Glucose (Dextrose 31 Gm Oral.Susp) 15 gm PO PRN PRN PRN Reason: Hypoglycemia Heparin Sodium (Porcine) (Heparin 5,000 Unit/Ml Vial) 5,000 unit SQ Q12 [facility] Last Admin: 07/14/20 08:41 Dose: 5,000 unit Documented by: Acetaminophen (Ofirmev) 650 mg in 65 mls @ 130 mls/hr IV Q6HP PRN; Protocol PRN Reason: Per Pain Protocol/Fever > 101 Last Infusion: 07/14/20 10:50 Dose: Infused Documented by: Magnesium Sulfate (Magnesium Sulfate) 2 gm in 50 mls @ 50 mls/hr IV UD PRN PRN Reason: MG = or < 1.7 Last Infusion: 07/14/20 10:22 Dose: Infused Documented by: Piperacillin Sod/Tazobactam (Sod 3.375 gm/ Dextrose) 50 mls @ 100 mls/hr IV Q6H [facility]; Protocol Last Infusion: 07/14/20 06:30 Dose: Infused Documented by: Vancomycin HCl 1,000 mg/ (Sodium Chloride) 250 mls @ 250 mls/hr IV Q12H [facility] Last Infusion: 07/14/20 10:22 Dose: Infused Documented by: Potassium Chloride 40 meq/ (Dextrose) 520 mls @ 130 mls/hr IV UD PRN PRN Reason: K+ = or < 3.5 Insulin Glargine (Insulin Glargine, Human 1 Unit/0.01 Ml) 50 unit SQ [facility] Last Admin: 07/13/20 20:47 Dose: 50 unit Documented by: Insulin Human Lispro (Insulin Lispro 1 Unit/0.01 Ml Unit) 0 unit SQ [facility]; Protocol Last Admin: 07/14/20 07:10 Dose: 1 units Documented by: Iron Carb/Multivit/[place]/Folic Acid (Multivit,Ther Iron,Ca,Fa & Min 1 Tablet) 1 tab PO DAILY [facility] Last Admin: 07/14/20 08:40 Dose: 1 tab Documented by: Lactulose (Lactulose 20 Gm/30 Ml Oral.Octavia) 20 gm PO TID [facility] Last Admin: 07/14/20 08:36 Dose: 20 gm Documented by: Lamotrigine (Lamotrigine 100 Mg Tablet) 150 mg PO [facility] Last Admin: 07/13/20 20:49 Dose: 150 mg Documented by: Levothyroxine Sodium (Levothyroxine 25 Mcg Tablet) 25 mcg PO [facility] Last Admin: 07/14/20 08:36 Dose: 25 mcg Documented by: Levothyroxine Sodium (Levothyroxine Sodium 112 Mcg Tablet) [facility] Last Admin: 07/14/20 08:36 Dose: 112 mcg Documented by: Lisinopril (Lisinopril 5 Mg Tablet) 2.5 mg PO QDAY [facility] Last Admin: 07/14/20 08:39 Dose: 2.5 mg Documented by: Melatonin (Melatonin 3 Mg Tablet) 3 mg PO HSP PRN PRN Reason: Insomnia Metformin HCl (Metformin 500 Mg Tab.Xl.24h) 1,000 mg PO BIDCC [facility] Last Admin: 07/14/20 08:40 Dose: 1,000 mg Documented by: Nystatin (Nystatin Powder Bottle 15gm) 1 dose TOPICAL BID [facility] Last Admin: 07/14/20 08:51 Dose: Not Given Documented by: Ondansetron HCl (Ondansetron 4 Mg Odt Tablet) 4 mg SL Q4-6HP PRN; Protocol PRN Reason: Nausea And Vomiting Ondansetron HCl (Ondansetron 4 Mg/2 Ml Vial) 4 mg IV Q4-6HP PRN; Protocol PRN Reason: Nausea And Vomiting Lubiprostone [ Amitiza] 24 Mcg Capsule 1 dose PO BID [facility] Last Admin: 07/14/20 08:51 Dose: Not Given Documented by: Polyethylene Glycol (Polyethylene Glycol 3350 17 Gm Packet) 17 gm PO DAILYP PRN PRN Reason: Constipation Potassium/Phosphorus/Sodium (Neutra Phos 1 Packet) 2 packet PO DAILY PRN PRN Reason: PHOS <2.5 Pregabalin (Pregabalin 150 Mg Capsule) 150 mg PO 2200 [facility] Last Admin: 07/13/20 20:48 Dose: 150 mg Documented by: Quetiapine Fumarate (Quetiapine 25 Mg Tablet) 50 mg PO [facility] Last Admin: 07/13/20 20:51 Dose: 50 mg Documented by: Quetiapine Fumarate (Quetiapine 25 Mg Tablet) 12.5 mg PO DAILY [facility] Last Admin: 07/14/20 08:40 Dose: 12.5 mg Documented by: Senna/Docusate Sodium (Sennosides/Docusate Sodium 1 Tab Tablet) 1 tab PO [facility] Last Admin: 07/13/20 20:51 Dose: 1 tab Documented by: Simvastatin (Simvastatin 10 Mg Tablet) 10 mg PO DAILY [facility] Last Admin: 07/14/20 08:39 Dose: 10 mg Documented by: Sodium Chloride (0.9 % Sodium Chloride 10 Ml Syringe) 10 ml IV Q8 [facility] Last Admin: 07/14/20 04:05 Dose: 10 ml Documented by: Spironolactone (Spironolactone 25 Mg Tablet) 50 mg PO DAILY [facility] Last Admin: 07/14/20 08:37 Dose: 50 mg Documented by: Vancomycin HCl (Vancomycin Per Pharmacy) 1 order IV UD [facility]; Protocol A/P Narrative A/P Narrative: * Acute change in mental status-secondary sepsis/volume depletion, clinically resolved * Severe sepsis secondary with evidence of endorgan dysfunction, clinically improved white count down from 13.2-> 5.5 * Complicated GNR UTI-clinically improving. De-escalate antibiotics * Acute renal failure, Creatinine down from 1.8 to 1 * anion gap acidosis secondary to lactic acidosis-resolved * Poorly controlled diabetes-continue basal prandial insulin/CC diet * History of hepatic encephalopathy continue home dose lactulose and rifaximin * Neuropathy continue Lyrica * Hyperlipidemia continue statin * Hypertension-held antihypertensives until sepsis resolves * Hypothyroidism continue thyroxine * Bipolar disorder continue lamotrigine * Anxiety disorder continue duloxetine * History of reactive airway disease continue bronchodilators * Full code * Prophylaxis Heparin Plan * De-escalate antibiotics today * Encourage oral fluids, DC crystalloids * Pre-existing medical condition management as above * PT OT nutrition support * Discharge planning per case management Time Spent With Patient Time: Total time spent is greater than 50% in coordination of care (as documented) at patient's floor/unit and/or counseling patient: QUALITY VTE Deep Vein Thrombosis/Pulmonary Embolism Present on Admission: No
[2020-07-14] MEDS ORDERED: FUROSEMIDE 40 MG/4 ML VIAL IV ONE (11:08)
[2020-07-14] MEDS ORDERED: SPIRONOLACTONE 25 MG TABLET PO ONE (11:12)
[2020-07-14] MEDS: INSULIN GLARGINE, HUMAN 1 UNIT/0.01 ML SQ SCH (20:26)
[2020-07-14] MEDS: DULoxetine 30 MG CAPSULE PO SCH (20:27)
[2020-07-14] MEDS: PREGABALIN 150 MG CAPSULE PO SCH (20:28)
[2020-07-14] MEDS: lamoTRIgine 100 MG TABLET PO SCH (20:28)
[2020-07-14] MEDS: SENNOSIDES/DOCUSATE SODIUM 1 TAB TABLET PO SCH (20:28)
[2020-07-15] MEDS: PIPERACILLIN SODIUM/TAZOBACTAM 3.375 GM in DEXTROSE 5% IN WATER 50 ML IV SCH (05:22)
[2020-07-15] MEDS: 0.9 % SODIUM CHLORIDE 10 ML SYRINGE IV SCH ×3 (05:23→20:43)
[2020-07-15 06:22] LABS: Basophils # (Auto) 0.05 K/mcL (0.00-0.20); Basophils % (Auto) 0.7 % (0.0-2.0); Eosinophils # (Auto) 0.38 K/mcL (0.00-0.70); Eosinophils % (Auto) 5.3 % (0.0-7.0); Hemoglobin 12.6 g/dL (12.0-15.0); Lymphocytes # (Auto) 3.01 K/mcL (1.50-4.80); Lymphocytes % (Auto) 41.9 % (15.0-49.0); Mean Corpuscular HGB Conc 33.2 g/dL (31.0-36.0); Mean Platelet Volume 11.9 fL (7.4-10.4); Monocytes # (Auto) 0.46 K/mcL (0.10-0.90); Monocytes % (Auto) 6.4 % (1.0-12.0); Neutrophils % (Auto) 45.7 % (38.0-78.0); Platelet Count 115 K/mcL (140-440); RBC 4.22 M/mcL (4.00-5.20); WBC 7.2 K/mcL (4.5-11.0)
[2020-07-15 06:34] LABS: ALT/SGPT 34 U/L (<40); AST/SGOT 36 U/L (<32); Albumin 3.8 gm/dL (3.2-5.2); Albumin/Globulin Ratio 1.7 (1.0-2.3); Alkaline Phosphatase 137 U/L (39-117); Bilirubin,Direct < 0.2 mg/dL (0-0.3); Bilirubin,Total 0.4 mg/dL (0.1-1.0); Blood Urea Nitrogen 12 mg/dL (8-23); Calcium 9.1 mg/dL (8.6-10.4); Carbon Dioxide 25 mmol/L (22-30); Chloride 103 mmol/L (96-108); Globulin 2.3 gm/dL (2.2-3.7); Glomerular Filtration Rate 53; Glucose 117 mg/dL (70-105); Lactate Dehydrogenase 199 U/L (135-225); Triglycerides 168 mg/dL (<150); Uric Acid 4.7 mg/dL (2.5-8.0)
[2020-07-15] MEDS: NYSTATIN POWDER BOTTLE 15GM TOPICAL SCH ×2 (08:06→20:05)
[2020-07-15] MEDS: INSULIN LISPRO 1 UNIT/0.01 ML UNIT SQ SCH ×5 (08:11→20:40)
[2020-07-15] MEDS: RIFAXIMIN 550 MG TABLET PO SCH ×2 (08:37→20:41)
[2020-07-15] MEDS: ALLOPURINOL 100 MG TABLET PO SCH (08:37)
[2020-07-15] MEDS: CETIRIZINE 10 MG TABLET PO SCH (08:37)
[2020-07-15] MEDS: metFORMIN 500 MG TAB.XL.24H PO SCH ×2 (08:37→16:26)
[2020-07-15] MEDS: FUROSEMIDE 40 MG TABLET PO SCH (08:38)
[2020-07-15] MEDS: DOCUSATE SODIUM 100 MG CAPSULE PO SCH ×2 (08:38→20:41)
[2020-07-15] MEDS: SPIRONOLACTONE 25 MG TABLET PO SCH (08:38)
[2020-07-15] MEDS: MULTIVIT,THER IRON,CA,FA & MIN 1 TABLET PO SCH (08:38)
[2020-07-15] MEDS: SIMVASTATIN 10 MG TABLET PO SCH (08:38)
[2020-07-15] MEDS: LEVOTHYROXINE SODIUM 112 MCG TABLET PO SCH (08:39)
[2020-07-15] MEDS: LISINOPRIL 5 MG TABLET PO SCH (08:39)
[2020-07-15] MEDS: QUEtiapine 25 MG TABLET PO SCH ×2 (08:39→20:42)
[2020-07-15] MEDS: LACTULOSE 20 GM/30 ML ORAL.SOL PO SCH ×3 (08:40→20:40)
[2020-07-15] MEDS: HEPARIN 5,000 UNIT/ML VIAL SQ SCH ×2 (08:40→20:40)
[2020-07-15] MEDS: LEVOTHYROXINE 25 MCG TABLET PO SCH (08:40)
[2020-07-15] MEDS: buPROPion 150 MG TAB.XL.24H PO SCH (08:40)
[2020-07-15] MEDS: VANCOMYCIN 1,000 MG in 0.9 % SODIUM CHLORIDE 250 ML IV SCH (09:00)
[2020-07-15] MEDS: MAGNESIUM SULFATE 2 GM/50 ML BAG IV PRN (10:13)
--- NOTE | 2020-07-15 11:13 | Internal Med Progress Note ---
SUBJECTIVE Subjective Patient information: Note initiated : 07/15/20 at 11:09 am Service Date, if different from initiated Date: [] Patient: Mic Hein a 65 y/o F admitted on 07/11/20 for Weakness. Chief Complaint: [] Interval history: Ms. Hein is a 65 year old F with a history of HTN/anxiety/DM type II/hypothyroidism/neuropathy/DJD residing at [place] and was referred to [facility] ER with progressive worsening weakness over the last f ew days. This morning she was unable to get out of bed. She says that her body felt like noodles. She became increasingly confused and concerns was raised at the facility about possible stroke. Initial work-up in the ER was unremarkable negative head CT however NIH score of 2. Patient was hypotensive tachycardic and with a high white count. CT chest abdomen pelvis did not reveal obvious source of infection. Minimal pyuria on UA. Cultures were drawn and antibiotics initiated. Hospitalist service was consulted for admission in light of severe sepsis with mental status change, white count 3.2, elevated lactic acid 4.1, potassium 5.2, creatinine 1.8 and blood sugar 318. At the time of my evaluation patient is very drowsy. She endorses to progression of symptoms over the last 3 months with increasing weakness however this morning she was unable to get out of bed. She endorses to history as above. She endorses to associated cough but denies fever, diarrhea, dysuria, bloody urine or bloody stool. She further denies weight loss or weight gain. She denies headache, photophobia, chills 07/12-patient doing a lot better. No overnight events. More lucid since admission but remains intermittently confused. Responding well to crystalloids/antibiotics. White count down from 13.2-8.5. Renal function improved from creatinine 1.8-1.1. Restart home medications. Continue physical therapy/nutrition support. Transfer to medical floor 07/13-patient clinically improving. White count normalizing. Tolerating diet. No concerns expressed with nursing staff. Hemoglobin 11.7, blood sugars improving, magnesium 1.8, LFTs downtrending, cultures negative so far, GNR on urine culture. De-escalate antibiotics in 24 hours 07/14-patient clinically improved. White count stable. GNR on urine culture. No fever chills. Clinically responding to treatment. Magnesium 1.5 on replacemen t. LFTs downtrending. Tolerating diet and ambulating. No concerns per nursing staff. DC IV fluids 07/15-patient doing well. No overnight events. Feels 70% back to passive baseline. Refusing SNF transfer. Would want to return to [place] assisted. Continuing diet and therapies. Responding to diuretics. Tolerating diet. No concerns expressed with nursing staff Constitutional Vitals: Vital Signs Temp Pulse Resp BP Pulse Ox 98 F 73 16 120/67 95 07/15/20 07:21 07/15/20 07:21 07/15/20 07:21 07/15/20 07:21 07/15/20 07:21 Period Temp Pulse Resp BP Sys/Panchal Pulse Ox Last 24 Hr 96.9 F-98.8 F 66-76 16-18 97-120/57-73 94-96 Intake and Output 07/14/20 07/15/20 07/15/20 21:59 05:59 13:59 Intake Total 980 770 450 Output Total 1600 400 Balance -620 370 450 Weight 94.546 kg Alert oriented Nonlabored breathing Minimal distended abdomen No lymphedema Intake & Output: Intake & Output 07/14/20 07/15/20 07/15/20 21:59 05:59 13:59 Intake Total 980 770 450 Output Total 1600 400 Balance -620 370 450 Weight 94.546 kg Intake: IV 300 50 50 Zosyn 3.375 gm In Dextrose 5% 50 50 50 in Water 50 ml @ 100 mls/hr IV Q6H [facility] Rx#:[id number] Vancomycin 1,000 mg In Sodium 250 Chloride 0.9% 250 ml @ 250 mls/ hr IV Q12H [facility] Rx#:[id number] Oral 680 720 400 Output: Void Amount 1600 400 Other: Meal Dinner Breakfast Percent of Meal Consumed 100% 100% Feeding Ability Independent Independent Urine Appearance Clear Urine Color Bright Yellow Urine Odor Normal OBJ DATA Labs CBC & Chem 7: 07/15/20 05:20 07/15/20 05:20 Labs: Abnormal Lab Results 07/15/20 07/15/20 07/14/20 05:20 05:20 05:49 RBC Hgb Hct Plt Count 115 L MPV 11.9 H Glucose 117 H 140 H Magnesium 1.5 L GGT 87 H 79 H AST 36 H 37 H Alkaline Phosphatase 137 H 134 H Triglycerides 168 H 192 H 07/14/20 07/13/20 07/13/20 05:49 06:25 05:25 RBC 3.96 L Hgb 11.7 L 11.8 L Hct 35.7 L Plt Count 116 L 118 L MPV 11.9 H 12.2 H Glucose 172 H Magnesium GGT 79 H AST 36 H Alkaline Phosphatase 135 H Triglycerides 179 H Meds: Medications Acetaminophen (Acetaminophen 325 Mg Tablet) 650 mg PO Q6HP PRN; Protocol PRN Reason: Per Pain Protocol/Fever > 101 Acetaminophen/Butalbital/Caffeine (Butalb/Acetaminophen/Caffeine 1 Tablet) 1 tab PO Q6HP PRN PRN Reason: Headache Last Admin: 07/14/20 08:38 Dose: 1 tab Documented by: Albuterol Sulfate (Albuterol Sulfate 200 Puff Inhaler) 2 puff INH Q4HP PRN PRN Reason: shortness of breath or wheezin Allopurinol (Allopurinol 100 Mg Tablet) 100 mg PO QDAY [facility] Last Admin: 07/15/20 08:37 Dose: 100 mg Documented by: Bisacodyl (Bisacodyl 10 Mg Supp.Rect) 10 mg [place] Q2-3DAYS PRN PRN Reason: Constipation Bupropion HCl (Bupropion 150 Mg Tab.Xl.24h) [facility] Last Admin: 07/15/20 08:40 Dose: 150 mg Documented by: Cetirizine HCl (Cetirizine 10 Mg Tablet) 10 mg PO QDAY [facility] Last Admin: 07/15/20 08:37 Dose: 10 mg Documented by: Dextrose (Dextrose 50% 50 Ml Vial) 0 ml IV UD PRN PRN Reason: Hypoglycemia Diagnostic Test (Pha) (Accu-Chek 1 Each Strip) 1 each FS ACHS [facility] Last Admin: 07/15/20 08:11 Dose: 1 each Documented by: Docusate Sodium (Docusate Sodium 100 Mg Capsule) 100 mg PO BID [facility] Last Admin: 07/15/20 08:38 Dose: 100 mg Documented by: Duloxetine HCl (Duloxetine 30 Mg Capsule) 120 mg PO HS [facility] Last Admin: 07/14/20 20:27 Dose: 120 mg Documented by: Furosemide (Furosemide 40 Mg Tablet) 40 mg PO QAM [facility] Last Admin: 07/15/20 08:38 Dose: 40 mg Documented by: Glucose (Dextrose 31 Gm Oral.Susp) 15 gm PO PRN PRN PRN Reason: Hypoglycemia Heparin Sodium (Porcine) (Heparin 5,000 Unit/Ml Vial) 5,000 unit SQ Q12 [facility] Last Admin: 07/15/20 08:40 Dose: 5,000 unit Documented by: Acetaminophen (Ofirmev) 650 mg in 65 mls @ 130 mls/hr IV Q6HP PRN; Protocol PRN Reason: Per Pain Protocol/Fever > 101 Last Infusion: 07/14/20 10:50 Dose: Infused Documented by: Magnesium Sulfate (Magnesium Sulfate) 2 gm in 50 mls @ 50 mls/hr IV UD PRN PRN Reason: MG = or < 1.7 Last Admin: 07/15/20 10:13 Dose: 50 mls/hr Documented by: Piperacillin Sod/Tazobactam (Sod 3.375 gm/ Dextrose) 50 mls @ 100 mls/hr IV Q6H [facility]; Protocol Last Infusion: 07/15/20 06:00 Dose: Infused Documented by: Vancomycin HCl 1,000 mg/ (Sodium Chloride) 250 mls @ 250 mls/hr IV Q12H [facility] Last Admin: 07/15/20 09:00 Dose: 250 mls/hr Documented by: Potassium Chloride 40 meq/ (Dextrose) 520 mls @ 130 mls/hr IV UD PRN PRN Reason: K+ = or < 3.5 Insulin Glargine (Insulin Glargine, Human 1 Unit/0.01 Ml) 50 unit SQ HS [facility] Last Admin: 07/14/20 20:26 Dose: 50 unit Documented by: Insulin Human Lispro (Insulin Lispro 1 Unit/0.01 Ml Unit) 0 unit SQ ACHS [facility]; Protocol Last Admin: 07/15/20 08:11 Dose: Not Given Documented by: Iron Carb/Multivit/[place]/Folic Acid (Multivit,Ther Iron,Ca,Fa & Min 1 Tablet) 1 tab PO DAILY [facility] Last Admin: 07/15/20 08:38 Dose: 1 tab Documented by: Lactulose (Lactulose 20 Gm/30 Ml Oral.Octavia) 20 gm PO TID [facility] Last Admin: 07/15/20 08:40 Dose: 20 gm Documented by: Lamotrigine (Lamotrigine 100 Mg Tablet) 150 mg PO HS [facility] Last Admin: 07/14/20 20:28 Dose: 150 mg Documented by: Levothyroxine Sodium (Levothyroxine 25 Mcg Tablet) [facility] Last Admin: 07/15/20 08:40 Dose: 25 mcg Documented by: Levothyroxine Sodium (Levothyroxine Sodium 112 Mcg Tablet) 112 [facility] Last Admin: 07/15/20 08:39 Dose: 112 mcg Documented by: Lisinopril (Lisinopril 5 Mg Tablet) 2.5 mg PO QDAY [facility] Last Admin: 07/15/20 08:39 Dose: 2.5 mg Documented by: Melatonin (Melatonin 3 Mg Tablet) 3 mg PO HSP PRN PRN Reason: Insomnia Metformin HCl (Metformin 500 Mg Tab.Xl.24h) 1,000 mg PO BIDCC [facility] Last Admin: 07/15/20 08:37 Dose: 1,000 mg Documented by: Nystatin (Nystatin Powder Bottle 15gm) 1 dose TOPICAL BID [facility] Last Admin: 07/15/20 08:06 Dose: Not Given Documented by: Ondansetron HCl (Ondansetron 4 Mg Odt Tablet) 4 mg SL Q4-6HP PRN; Protocol PRN Reason: Nausea And Vomiting Ondansetron HCl (Ondansetron 4 Mg/2 Ml Vial) 4 mg IV Q4-6HP PRN; Protocol PRN Reason: Nausea And Vomiting Lubiprostone [ Amitiza] 24 Mcg Capsule 1 dose PO BID [facility] Last Admin: 07/15/20 08:06 Dose: Not Given Documented by: Polyethylene Glycol (Polyethylene Glycol 3350 17 Gm Packet) 17 gm PO DAILYP PRN PRN Reason: Constipation Potassium/Phosphorus/Sodium (Neutra Phos 1 Packet) 2 packet PO DAILY PRN PRN Reason: PHOS <2.5 Pregabalin (Pregabalin 150 Mg Capsule) 150 mg PO 2200 [facility] Last Admin: 07/14/20 20:28 Dose: 150 mg Documented by: Quetiapine Fumarate (Quetiapine 25 Mg Tablet) 50 mg PO HS [facility] Last Admin: 07/14/20 20:27 Dose: 50 mg Documented by: Quetiapine Fumarate (Quetiapine 25 Mg Tablet) 12.5 mg PO DAILY [facility] Last Admin: 07/15/20 08:39 Dose: 12.5 mg Documented by: Senna/Docusate Sodium (Sennosides/Docusate Sodium 1 Tab Tablet) 1 tab PO HS [facility] Last Admin: 07/14/20 20:28 Dose: 1 tab Documented by: Simvastatin (Simvastatin 10 Mg Tablet) 10 mg PO DAILY [facility] Last Admin: 07/15/20 08:38 Dose: 10 mg Documented by: Sodium Chloride (0.9 % Sodium Chloride 10 Ml Syringe) 10 ml IV Q8 [facility] Last Admin: 07/15/20 05:23 Dose: 10 ml Documented by: Spironolactone (Spironolactone 25 Mg Tablet) 100 mg PO DAILY [facility] Last Admin: 07/15/20 08:38 Dose: 100 mg Documented by: Vancomycin HCl (Vancomycin Per Pharmacy) 1 order IV UD [facility]; Protocol A/P Narrative A/P Narrative: * Acute change in mental status-secondary sepsis/volume depletion, clinically resolved * Severe sepsis-clinically resolved * Complicated pansensitive E. coli UTI-transition to oral ciprofloxacin * Acute renal failure, resolved creatinine now at baseline * Poorly controlled diabetes-continue basal prandial insulin/CC diet * History of hepatic encephalopathy -stable on lactulose and rifaximin * History of cirrhosis continue with spironolactone/Lasix * Neuropathy continue Lyrica * Hyperlipidemia continue statin * Hypertension-restart with holding parameters * Hypothyroidism continue thyroxine * Bipolar disorder continue lamotrigine * Anxiety disorder continue duloxetine * History of reactive airway disease continue bronchodilators * Full code * Prophylaxis Heparin Plan * Switch to ciprofloxacin * Pre-existing medical condition management as above * PT OT nutrition support * Discharge planning per case management Time Spent With Patient Time: Total time spent is greater than 50% in coordination of care (as documented) at patient's floor/unit and/or counseling patient: QUALITY VTE Deep Vein Thrombosis/Pulmonary Embolism Present on Admission: No
[2020-07-15] MEDS: INSULIN GLARGINE, HUMAN 1 UNIT/0.01 ML SQ SCH (20:40)
[2020-07-15] MEDS: PREGABALIN 150 MG CAPSULE PO SCH (20:41)
[2020-07-15] MEDS: DULoxetine 30 MG CAPSULE PO SCH (20:42)
[2020-07-15] MEDS: CIPROFLOXACIN 500 MG TABLET PO SCH (20:43)
[2020-07-15] MEDS: SENNOSIDES/DOCUSATE SODIUM 1 TAB TABLET PO SCH (20:43)
[2020-07-15] MEDS: lamoTRIgine 100 MG TABLET PO SCH (20:44)
[2020-07-16] MEDS: 0.9 % SODIUM CHLORIDE 10 ML SYRINGE IV SCH ×2 (03:38→04:45)
[2020-07-16 06:49] LABS: Basophils # (Auto) 0.06 K/mcL (0.00-0.20); Basophils % (Auto) 0.8 % (0.0-2.0); Eosinophils # (Auto) 0.35 K/mcL (0.00-0.70); Eosinophils % (Auto) 4.4 % (0.0-7.0); Hematocrit 40.7 % (36.0-48.0); Hemoglobin 12.9 g/dL (12.0-15.0); Lymphocytes # (Auto) 2.79 K/mcL (1.50-4.80); Lymphocytes % (Auto) 35.1 % (15.0-49.0); Mean Cell Volume 92.1 fL (80.0-100.0); Mean Corpuscular HGB Conc 31.7 g/dL (31.0-36.0); Mean Platelet Volume 12.1 fL (7.4-10.4); Monocytes % (Auto) 6.3 % (1.0-12.0); Neutrophils % (Auto) 53.4 % (38.0-78.0); Platelet Count 118 K/mcL (140-440); RBC 4.42 M/mcL (4.00-5.20); Red Cell Distribution Width 13.2 % (11.5-14.5); WBC 7.9 K/mcL (4.5-11.0)
[2020-07-16] MEDS: INSULIN LISPRO 1 UNIT/0.01 ML UNIT SQ SCH ×2 (07:11→11:55)
[2020-07-16] MEDS: LEVOTHYROXINE SODIUM 112 MCG TABLET PO SCH (07:28)
[2020-07-16] MEDS: metFORMIN 500 MG TAB.XL.24H PO SCH (07:28)
[2020-07-16] MEDS: LEVOTHYROXINE 25 MCG TABLET PO SCH (07:28)
[2020-07-16 07:43] LABS: ALT/SGPT 32 U/L (<40); AST/SGOT 39 U/L (<32); Albumin 3.8 gm/dL (3.2-5.2); Albumin/Globulin Ratio 1.5 (1.0-2.3); Alkaline Phosphatase 144 U/L (39-117); Bilirubin,Direct < 0.2 mg/dL (0-0.3); Bilirubin,Total 0.3 mg/dL (0.1-1.0); Blood Urea Nitrogen 16 mg/dL (8-23); Calcium 9.3 mg/dL (8.6-10.4); Carbon Dioxide 21 mmol/L (22-30); Chloride 103 mmol/L (96-108); Globulin 2.5 gm/dL (2.2-3.7); Glomerular Filtration Rate 48; Glucose 179 mg/dL (70-105); Lactate Dehydrogenase 260 U/L (135-225); Phosphorous 4.3 mg/dL (2.5-4.5); Triglycerides 255 mg/dL (<150); Uric Acid 6.1 mg/dL (2.5-8.0)
[2020-07-16] MEDS: LACTULOSE 20 GM/30 ML ORAL.SOL PO SCH (09:08)
[2020-07-16] MEDS: HEPARIN 5,000 UNIT/ML VIAL SQ SCH (09:09)
[2020-07-16] MEDS: SIMVASTATIN 10 MG TABLET PO SCH (09:10)
[2020-07-16] MEDS: ALLOPURINOL 100 MG TABLET PO SCH (09:10)
[2020-07-16] MEDS: RIFAXIMIN 550 MG TABLET PO SCH (09:10)
[2020-07-16] MEDS: MULTIVIT,THER IRON,CA,FA & MIN 1 TABLET PO SCH (09:10)
[2020-07-16] MEDS: buPROPion 150 MG TAB.XL.24H PO SCH (09:10)
[2020-07-16] MEDS: QUEtiapine 25 MG TABLET PO SCH (09:10)
[2020-07-16] MEDS: SPIRONOLACTONE 25 MG TABLET PO SCH (09:12)
[2020-07-16] MEDS: DOCUSATE SODIUM 100 MG CAPSULE PO SCH (09:13)
[2020-07-16] MEDS: LISINOPRIL 5 MG TABLET PO SCH (09:13)
[2020-07-16] MEDS: NYSTATIN POWDER BOTTLE 15GM TOPICAL SCH (09:13)
[2020-07-16] MEDS: CETIRIZINE 10 MG TABLET PO SCH (09:13)
[2020-07-16] MEDS: FUROSEMIDE 40 MG TABLET PO SCH (09:13)
[2020-07-16] MEDS: CIPROFLOXACIN 500 MG TABLET PO SCH (09:13)
[2020-07-16] MEDS: MAGNESIUM SULFATE 2 GM/50 ML BAG IV PRN (09:35)
--- NOTE | 2020-07-16 10:38 | Discharge Summary ---
Discharge Provider Provider Patient information: Note initiated : 07/16/20 at 10:35 am Service Date, if different from initiated Date: [] Patient: Mic Hein a 65 y/o F admitted on 07/11/20 for Weakness. Discharge diagnosis * Complicated UTI secondary to pansensitive E. coli. Continue additional 48 hours ciprofloxacin * Acute change in mental status- clinically resolved now at baseline * Severe sepsis with endorgan dysfunction clinically resolved * Acute renal failure, resolved creatinine now at baseline * Poorly controlled diabetes-improved control basal prandial insulin/CC diet * History of hepatic encephalopathy -stable on lactulose and rifaximin * History of cirrhosis stable onhome dose spironolactone/Lasix * Neuropathy continue Lyrica * Hyperlipidemia continue statin * Hypertension-restart with holding parameters * Hypothyroidism continue thyroxine * Bipolar disorder continue lamotrigine * Anxiety disorder continue duloxetine * History of reactive airway disease continue bronchodilators Brief hospital course Ms. Hein is a 65 year old F with a history of HTN/anxiety/DM type II/hypothyroidism/neuropathy/DJD residing at [place] and was referred to [facility] ER with progressive worsening weakness over the last few days. This m orning she was unable to get out of bed. She says that her body felt like noodles. She became increasingly confused and concerns was raised at the facility about possible stroke. Initial work-up in the ER was unremarkable negative head CT however NIH score of 2. Patient was hypotensive tachycardic and with a high white count. CT chest abdomen pelvis did not reveal obvious source of infection. Minimal pyuria on UA. Cultures were drawn and antibiotics initiated. Hospitalist service was consulted for admission in light of severe sepsis with mental status change, white count 3.2, elevated lactic acid 4.1, potassium 5.2, creatinine 1.8 and blood sugar 318. At the time of my evaluation patient is very drowsy. She endorses to progression of symptoms over the last 3 months with increasing weakness however this morning she was unable to get out of bed. She endorses to history as above. She endorses to associated cough but denies fever, diarrhea, dysuria, bloody urine or bloody stool. She further denies weight loss or weight gain. She denies headache, photophobia, chills 5/6-patient doing a lot better. No overnight events. More lucid since admission but remains intermittently confused. Responding well to crystalloids/antibiotics. White count down from 13.2-8.5. Renal function improved from creatinine 1.8-1.1. Restart home medications. Continue physical therapy/nutrition support. Transfer to medical floor 07/13-patient clinically improving. White count normalizing. Tolerating diet. No concerns expressed with nursing staff. Hemoglobin 11.7, blood sugars improvi ng, magnesium 1.8, LFTs downtrending, cultures negative so far, GNR on urine culture. De-escalate antibiotics in 24 hours 07/14-patient clinically improved. White count stable. GNR on urine culture. No fever chills. Clinically responding to treatment. Magnesium 1.5 on replacement. LFTs downtrending. Tolerating diet and ambulating. No concerns per nursing staff. DC IV fluids 07/15-patient doing well. No overnight events. Feels 70% back to passive baseline. Refusing SNF transfer. Would want to return to [place] assisted. Continuing diet and therapies. Responding to diuretics. Tolerating diet. No concerns expressed with nursing staff 07/16- patient clinically improved. No overnight events. No concerns per staff. No fever chills nausea vomiting. Tolerating diet and ambulating. Lymphedema improved. Mentation back at baseline. Stable labs and hemodynamics. Please ready for discharge. Refusing SNF and would want to go back to assisted living. Date of admission: 07/11/20 20:08 Discharge date: 07/16/20 Primary care physician: Maryuri Cr Consults: 07/11/20 Consult to Physician [CONS] Stat Comment: Consulting Provider: Georgi Manning Reason For Exam: Physician to Consult Discharge Meds Discharge Medications Home Medications Disability Parking Permit #1 each 10/27/14 [Rx Confirmed 07/12/20 Last Taken Unknown] blood-glucose meter #1 each 01/23/16 [Rx Confirmed 07/12/20 Last Taken Unknown] lubiprostone 24 mcg capsule 24 mcg PO BID 11/17/16 [History Confirmed 07/12/20 Last Taken 07/11/20 09:00] pen needle, diabetic 32 gauge x 1/4" #100 each 09/23/17 [Rx Confirmed 07/12/20 Last Taken Unknown] bisacodyl 10 mg PO DAILY 10/28/17 [History Confirmed 07/12/20 Last Taken 07/11/20 08:00] lactulose 10 gram/15 mL oral solution 20 g PO TID 01/07/18 [History Confirmed 07/12/20 Last Taken 07/11/20 06:00] lancets #100 each 01/26/18 [Rx Confirmed 07/12/20 Last Taken Unknown] allopurinol 100 mg tablet 100 mg PO QDAY #30 tab 02/08/18 [Rx Confirmed 07/12/20 Last Taken 07/11/20 08:00] blood sugar diagnostic #100 each 02/08/18 [Rx Confirmed 07/12/20 Last Taken Unknown] levothyroxine 137 mcg capsule 137 mcg PO QDAY #30 cap 02/08/18 [Rx Confirmed 07/12/20 Last Taken 07/12/20 06:00] metformin 500 mg tablet,extended release 24 hr 1,000 mg PO BID #120 tab 02/08/18 [Rx Confirmed 07/12/20 Last Taken 07/11/20 08:00] insulin glargine 100 unit/mL (3 mL) subcutaneous pen 50 unit SUB-Q QHS ml 07/07/18 [History Confirmed 07/12/20 Last Taken 07/11/20 17:00] lisinopril 5 mg tablet 2.5 mg PO QDAY tab 07/07/18 [History Confirmed 07/12/20 Last Taken 07/12/20 09:00] pregabalin 150 mg capsule 150 mg PO Q8H cap 07/07/18 [History Confirmed 07/12/20 Last Taken 07/11/20 17:00] cholecalciferol (vitamin D3) 25 mcg (1,000 unit) capsule 1,000 unit PO QDAY 12/02/18 [History Confirmed 07/12/20 Last Taken 07/12/20 08:00] docusate sodium 100 mg capsule 100 mg PO QDAY 12/02/18 [History Confirmed 08/27 Last Taken 07/11/20 08:00] ibuprofen 200 mg tablet 600 mg PO BID PRN tab 05/04/19 [History Confirmed 07/12/20 Last Taken Unknown] rifaximin 550 mg tablet 550 mg PO BID 05/04/19 [History Confirmed 07/12/20 Last Taken 07/11/20 08:00] pravastatin 20 mg PO DAILY 01/29/20 [History Confirmed 07/12/20 Last Taken 07/10/20 20:00] aripiprazole 400 mg intramuscular suspension,extended release See Rx In structions IM PER PKG DIR #1 each 03/13/20 [Rx Confirmed 07/12/20 Last Taken 07/09/20 10:00] bupropion HCl 150 mg 24 hr tablet, extended release 150 mg PO QAM #30 tab 03/14/20 [Rx Confirmed 07/12/20 Last Taken 07/11/20 09:00] lamotrigine 150 mg tablet 150 mg PO QHS #30 tab 03/14/20 [Rx Confirmed 07/12/20 Last Taken 07/12/20] quetiapine 25 mg tablet See Rx Instructions .ROUTE .COMPLEX #75 tab 03/14/20 [Rx Confirmed 07/12/20 Last Taken 07/11/20 09:00] albuterol sulfate [ProAir HFA] 2 puff INHALATION Q4H PRN 07/12/20 [History Confirmed 07/12/20 Last Taken Unknown] carboxymethylcellulose sodium 1 - 2 drp OPHTHALMIC (EYE) Q1H PRN 07/12/20 [History Confirmed 07/12/20 Last Taken Unknown] cetirizine 10 mg PO QDAY 07/12/20 [History Confirmed 07/12/20 Last Taken 07/11/20 09:00] duloxetine 120 mg PO QHS 07/12/20 [History Confirmed 07/12/20 Last Taken 07/10/20 20:00] furosemide 40 mg PO QAM 07/12/20 [History Confirmed 07/12/20 Last Taken 07/11/20 06:00] insulin aspart U-100 [Novolog Flexpen U-100 Insulin] See Rx Instructions .ROUTE .COMPLEX 07/12/20 [History Confirmed 07/12/20 Last Taken Unknown] nystatin 1 applic TOPICAL BID 07/12/20 [History Confirmed 07/12/20 Last Taken 07/11/20 10:00] polyethylene glycol 3350 [Miralax] 17 g PO BID PRN 07/12/20 [History Confirmed 07/12/20 Last Taken Unknown] spironolactone 100 mg PO QAM 07/12/20 [History Confirmed 07/12/20 Last Taken 07/10/20 14:00] ciprofloxacin HCl 500 mg PO BID #5 tab 07/16/20 [Rx Last Taken Unknown] COURSE Hospital Course Hospital course: . Discharge diagnosis: . Time Spent with Patient Time attestation: Total time spent providing and/or coordinating discharge services: EXAM Constitutional Vitals: Temp Pulse Resp BP Pulse Ox 97.9 F 79 14 134/70 95 07/16/20 07:01 07/16/20 07:01 07/16/20 07:01 07/16/20 07:01 07/16/20 07:01 Discharge Data Data Completed and Pending Labs on day of discharge: Labs from last 24 hours 07/16/20 07/16/20 05:25 05:25 WBC 7.9 RBC 4.42 Hgb 12.9 Hct 40.7 MCV 92.1 MCH 29.2 MCHC 31.7 RDW 13.2 Plt Count 118 L MPV 12.1 H Neut % (Auto) 53.4 Lymph % (Auto) 35.1 [place] % (Auto) 6.3 Eos % (Auto) 4.4 Baso % (Auto) 0.8 Lymph # (Auto) 2.79 [place] # (Auto) 0.50 Eos # (Auto) 0.35 Baso # (Auto) 0.06 Absolute Neutrophils 4.24 Sodium 138 Potassium 4.4 Chloride 103 Carbon Dioxide 21 L Anion Gap 14.0 BUN 16 Creatinine 1.2 H GFR Calculation 48 Glucose 179 H Uric Acid 6.1 Calcium 9.3 Phosphorus 4.3 Magnesium 1.6 Total Bilirubin 0.3 Direct Bilirubin < 0.2 GGT 94 H AST 39 H ALT 32 Alkaline Phosphatase 144 H Lactate Dehydrogenase 260 H Total Protein 6.3 Albumin 3.8 Globulin 2.5 Albumin/Globulin Ratio 1.5 Triglycerides 255 H Preliminary micro results at discharge 07/11/20 16:33 Blood Culture - Preliminary Blood 07/11/20 16:30 Blood Culture - Preliminary Blood Discharge Plan Patient/Caregiver Discharge Instructions Activity: increase activity as tolerated Diet: Consistent Carbohydrate Activity Restrictions/Additional Instructions: Continue antibiotic for additional 48 hours Return to ER if fever chills nausea vomiting Continue therapies as advised Prescriptions: New ciprofloxacin HCl 500 mg Tablet 500 mg PO BID Qty: 5 RF: 0 Continued rifaximin 550 mg tablet 550 mg PO BID RF: 0 ibuprofen 200 mg tablet 600 mg PO BID PRN (Reason: Pain) RF: 0 bupropion HCl 150 mg tablet extended release 24 hr 150 mg PO QAM Qty: 30 RF: 5 lamotrigine 150 mg tablet 150 mg PO QHS Qty: 30 RF: 3 quetiapine 25 mg tablet See Rx Instructions .ROUTE .COMPLEX Qty: 75 RF: 2 (DME) Disability Parking Permit Qty: 1 RF: 0 (DME) blood-glucose meter [True Metrix Air Glucose Meter] misc See Dose Instructions .ROUTE .MEDSUPPLY Qty: 1 RF: 0 (DME) pen needle, diabetic [Comfort EZ Pen [place]] 32 gauge x 1/4" needle See Dose Instructions .ROUTE .MEDSUPPLY Qty: 100 RF: 12 (DME) lancets misc See Dose Instructions .ROUTE .MEDSUPPLY Qty: 100 RF: 2 allopurinol 100 mg tablet 100 mg PO QDAY Qty: 30 RF: 5 (DME) blood sugar diagnostic [True Metrix Glucose Test Strip] strip See Dose Instructions .ROUTE .MEDSUPPLY Qty: 100 RF: 5 levothyroxine 137 mcg capsule 137 mcg PO QDAY Qty: 30 RF: 5 metformin 500 mg tablet extended release 24 hr 1,000 mg PO BID Qty: 120 RF: 5 Abilify Maintena 400 mg suspension,extended rel recon See Rx Instructions IM PER PKG DIR Qty: 1 RF: 5 lubiprostone [Amitiza] 24 mcg capsule 24 mcg PO BID RF: 0 lactulose [Constulose] 10 gram/15 mL solution 20 g PO TID RF: 0 Basaglar KwikPen U-100 Insulin 100 unit/mL (3 mL) insulin pen 50 unit SUB-Q QHS RF: 0 lisinopril 5 mg tablet 2.5 mg PO QDAY RF: 0 pregabalin 150 mg capsule 150 mg PO Q8H RF: 0 bisacodyl 5 MG tablet 10 mg PO DAILY RF: 0 pravastatin 20 mg Tablet 20 mg PO DAILY RF: 0 albuterol sulfate [ProAir HFA] 90 mcg/actuation HFA aerosol inhaler 2 puff INHALATION Q4H PRN (Reason: shortness of breath or wheezing) RF: 0 duloxetine 60 mg capsule,delayed release(DR/EC) 120 mg PO QHS RF: 0 furosemide 40 mg Tablet 40 mg PO QAM RF: 0 cetirizine 10 mg Tablet 10 mg PO QDAY RF: 0 spironolactone 100 mg Tablet 100 mg PO QAM RF: 0 nystatin 100,000 unit/gram Powder 1 applic TOPICAL BID RF: 0 polyethylene glycol 3350 [Miralax] 17 gram powder in packet 17 g PO BID PRN (Reason: constipation ) RF: 0 insulin aspart U-100 [Novolog Flexpen U-100 Insulin] 100 unit/mL (3 mL) Insulin Pen See Rx Instructions .ROUTE .COMPLEX RF: 0 carboxymethylcellulose sodium 1 % Drops, Liquid Gel 1 - 2 drp OPHTHALMIC (EYE) Q1H PRN (Reason: Eye Irritation) RF: 0 docusate sodium [Stool Softener] 100 mg capsule 100 mg PO QDAY RF: 0 cholecalciferol (vitamin D3) 1,000 unit capsule 1,000 unit PO QDAY RF: 0 Follow Up Plan Follow up with: Maryuri Cr, [employer], [employer] [Primary Care Provider] - Patient Disposition: Xfer Assisted Living Facility Prognosis: Fair Rehab Potential: Fair I certify that the patient requires SNF services: No Overall status at discharge: patient is progressing back to baseline Discharge Orders: Discharge Order (Routine); Ordered 07/16/20 Ordered By: Georgi HOLLIS VTE Deep Vein Thrombosis/Pulmonary Embolism Present on Admission: No
== END 2020-07-16 15:35 | DRG 871 ==
LOC: ED 12:40 → ICU 20:08 → MEDSUR 07-12 14:45
PROVIDERS: ADMIT Internal Medicine; ATTEND Internal Medicine

== ENCOUNTER 2020-08-05 12:00 | Inpatient (IN) ==
[~2020-08-05 12:00] MED LIST: 0.9 % SODIUM CHLORIDE 1,000 ML IV ONE
[2020-08-05] MEDS ORDERED: 0.9 % SODIUM CHLORIDE 1,000 ML IV ONE (12:36)
[2020-08-05] MEDS ORDERED: cefTRIAXone 1 GM VIAL IV ONE (12:45)
--- NOTE | 2020-08-05 12:47 | Emergency Department Note ---
Weakness HPI General Chief complaint: Weakness Stated complaint: Shaky/weak Time Seen by Provider: 08/05/20 12:35 Mode of arrival: wheelchair History of Present Illness HPI Narrative: This a 65-year-old female who was seen in our ER on for drug rash related to ciprofloxacin that she had been on for lutz sensitive e coli urinary tract infection during an admission here from 07/11/20-07/16/20. She was given 125 IV Solu-Medrol and sent home on a prednisone taper. Her drug rash has resolved, but unfortunately, she developed fairly severe weakness this morning with acute fall x2 and came into the emergency room for evaluation. She is currently tachycardic and unwell appearing. She's had some nausea, but no vomiting. No changes in bowel habits. She denies significant abdominal pain. Denies hematuria or dysuria. No cough or shortness of breath. Work-up for sepsis during her admission in early July found no clear source; however, she was treated for pansensitive E. coli UTI. She had a CT of the chest abdomen and pelvis at that time which identified no source. Related Data Home Medications Medication Instructions Recorded Confirmed lubiprostone 24 mcg capsule 24 mcg PO BID 11/17/16 07/12/20 bisacodyl 10 mg PO DAILY 10/28/17 07/12/20 lactulose 10 gram/15 mL oral 20 g PO TID 01/07/18 07/12/20 solution insulin glargine 100 unit/mL (3 50 unit SUB-Q QHS ml 07/07/18 07/12/20 mL) subcutaneous pen lisinopril 5 mg tablet 2.5 mg PO QDAY tab 07/07/18 07/12/20 pregabalin 150 mg capsule 150 mg PO Q8H cap 07/07/18 07/12/20 cholecalciferol (vitamin D3) 25 1,000 unit PO QDAY 12/02/18 07/12/20 mcg (1,000 unit) capsule docusate sodium 100 mg capsule 100 mg PO QDAY 12/02/18 07/12/20 ibuprofen 200 mg tablet 600 mg PO BID PRN tab 05/04/19 07/12/20 rifaximin 550 mg tablet 550 mg PO BID 05/04/19 07/12/20 pravastatin 20 mg PO DAILY 01/29/20 07/12/20 albuterol sulfate [ProAir HFA] 2 puff INHALATION Q4H PRN 07/12/20 07/12/20 carboxymethylcellulose sodium 1 - 2 drp OPHTHALMIC (EYE) Q1H PRN 07/12/20 07/12/20 cetirizine 10 mg PO QDAY 07/12/20 07/12/20 duloxetine 120 mg PO QHS 07/12/20 07/12/20 furosemide 40 mg PO QAM 07/12/20 07/12/20 insulin aspart U-100 [Novolog See Rx Instructions .ROUTE .COMPLEX 07/12/20 07/12/20 Flexpen U-100 Insulin] nystatin 1 applic TOPICAL BID 07/12/20 07/12/20 polyethylene glycol 3350 [Miralax] 17 g PO BID PRN 07/12/20 07/12/20 spironolactone 100 mg PO QAM 07/12/20 07/12/20 Previous Rx's Medication Instructions Recorded Disability Parking Permit #1 each 10/27/14 blood-glucose meter #1 each 01/23/16 pen needle, diabetic 32 gauge x #100 each 09/23/1703/12" lancets #100 each 01/26/18 allopurinol 100 mg tablet 100 mg PO QDAY #30 tab 02/08/18 blood sugar diagnostic #100 each 02/08/18 levothyroxine 137 mcg capsule 137 mcg PO QDAY #30 cap 02/08/18 metformin 500 mg tablet,extended 1,000 mg PO BID #120 tab 02/08/18 release 24 hr aripiprazole 400 mg intramuscular See Rx Instructions IM PER PKG DIR 03/13/20 suspension,extended release #1 each bupropion HCl 150 mg 24 hr tablet, 150 mg PO QAM #30 tab 03/14/20 extended release lamotrigine 150 mg tablet 150 mg PO QHS #30 tab 03/14/20 quetiapine 25 mg tablet See Rx Instructions .ROUTE 03/14/20 .COMPLEX #75 tab ciprofloxacin HCl 500 mg PO BID #5 tab 07/16/20 diphenhydramine HCl [Benadryl] 50 mg PO Q6H PRN #30 cap 07/19/20 methylprednisolone [Medrol (Cj)] 4 mg PO DAILY #21 tab 07/19/20 diphenhydramine HCl [Benadryl] 25 mg PO TID #30 cap 07/23/20 prednisone 60 mg PO QDAY #21 tab 07/23/20 Allergies Allergy/AdvReac Type Severity Reaction Status Date / Time morphine AdvReac Mild Agitated Verified 07/19/20 13:32 Trulicity AdvReac pancreatiti Uncoded 03/14/20 13:20 s Review of Systems ROS ROS Narrative: Narrative: All systems ED: reviewed and negative except as stated. [facility] Narrative Patient History Narrative: Narrative: Medical/Surgical/Family History All Active Problems (Updated 08/05/20 @ 16:48 by Don Vogel MD) Diabetes mellitus with stage 3 chronic kidney disease (Acute) Hyperkalemia (Acute) Hyponatremia (Acute) Stage 1 acute kidney injury (Acute) AMS (altered mental status) (Acute) Sepsis (Acute) Weakness (Acute) NATASHA (acute kidney injury) (Acute) Allergic drug reaction (Acute) Urticaria (Acute) Uncontrolled diabetes mellitus (Acute) Allergic reaction caused by a drug (Acute) Steroid-induced hyperglycemia (Acute) Tremor (Chronic) Type 2 diabetes mellitus (Acute) Hyperglycemia due to type 2 diabetes mellitus (Acute) Acidosis, lactic (Acute) Expiratory wheezing (Acute) Depression (Chronic) Hypertension (Chronic) Low back pain (Chronic) Chronic pain (Chronic) Spinal stenosis, lumbar region with neurogenic claudication (Chronic) Fall from, out of or through window, initial encounter (Acute) Laceration of scalp (Acute) Acute pain of right knee (Acute) Acute pain of right hip (Acute) Major neurocognitive disorder (Acute) Concussion without loss of consciousness (Acute) Head contusion (Acute) Abdominal distention, non-gaseous (Acute) Anxiety disorder, unspecified (Acute) Acute bronchitis (Acute) Bipolar affective disorder (Chronic) Edema of lower extremity (Chronic) Allergic rhinitis (Chronic) Tinea corporis (Chronic) Dyspnea (Chronic) Liver function test abnormality (Chronic) Postmenopausal (Chronic) Excessive bleeding (Chronic) Easy bruising (Chronic) Rash (Chronic) Urinary frequency (Chronic) Ankle swelling (Chronic) Sinus problem (Chronic) Flatulence (Chronic) Bloating (Chronic) RUQ abdominal pain (Chronic) Chest pressure (Chronic) Parkinson disease (Chronic) Confusion (Chronic) Edema (Chronic) Morbid obesity (Chronic) Hallucination (Chronic) SOB (shortness of breath) (Chronic) Nonalcoholic steatohepatitis (Chronic) Abnormal MRI of head (Chronic) Carpal tunnel syndrome, bilateral (Chronic) Pain in both hands (Chronic) Fall in home (Chronic) Fall (Chronic) Suicide attempt (Chronic) Local infection of wound (Chronic) Amnesia (Chronic) Costal chondritis (Chronic) Trigger finger of both hands (Chronic) Joint pain (Chronic) Cirrhosis of liver (Chronic) Homonymous hemianopia (Chronic) Diabetic neuropathy (Chronic) Psychotic disorder (Acute) Spinal stenosis (Chronic) Lumbar spinal stenosis (Chronic) Calcium oxalate crystals in urine (Chronic) Diffuse abdominal pain (Chronic) Urinary tract infection (Chronic) Upper respiratory infection (Chronic) Sinusitis, acute (Chronic) Lumbar radiculopathy (Chronic) Spinal stenosis at L4-L5 level (Chronic) Pancreatitis (Chronic) Back pain (Chronic) Lumbar disc disease (Chronic) Obesity (BMI 30-39.9) (Chronic) Abdominal pain (Chronic) Depression, major, recurrent, severe with psychosis (Chronic) Snoring (Chronic) Daytime somnolence (Chronic) Atypical nevus (Chronic) Chest pain of unknown etiology (Chronic) Insomnia (Chronic) Arthralgia of both hands (Chronic) Paresthesia and pain of extremity (Chronic) Weight gain (Chronic) Abnormality of gait (Chronic) White matter abnormality on MRI of brain (Chronic) Diabetes mellitus (Chronic) Postcholecystectomy syndrome (Chronic) Post traumatic stress disorder (Chronic) Microscopic hematuria (Chronic 03/31/13) Memory loss (Chronic) Chronic nonalcoholic liver disease (Chronic) Hypothyroidism (acquired) (Chronic) Essential hypertension (Chronic 01/06/14) Head injury, closed (Chronic) Gout (Chronic) Diabetes mellitus with neurological manifestation (Chronic 02/17/13) Deviated nasal septum (Chronic) Depressive disorder (Chronic) Degeneration of thoracic or thoracolumbar intervertebral disc (Chronic) Constipation (Chronic) Chronic interstitial cystitis (Chronic) Anxiety (Acute) Medical History Abdominal pain Abnormal MRI of head Abnormality of gait 11/23/2014 - Poli Virgen PA-C Allergic rhinitis Amnesia Ankle swelling Anxiety Arthralgia (07/06/13) Bilateral Hands Arthralgia of both hands Back pain Bilateral carpal tunnel syndrome Bloating Carpal tunnel syndrome, bilateral Chest pressure Chronic interstitial cystitis Chronic nonalcoholic liver disease Secondary to cholecystectomy complications Chronic pain Cirrhosis of liver Confusion Constipation Costal chondritis Costochondritis Daytime somnolence Degeneration of thoracic or thoracolumbar intervertebral disc L5-S1 documented on CT of Abdomen 03/24/2013 Depression Depressive disorder Deviated nasal septum 05/01/2014 Diabetes mellitus Diabetes mellitus with neurological manifestation (02/17/13) Diabetic neuropathy Dyspnea Easy bruising Edema Edema of lower extremity Essential hypertension (01/06/14) Excessive bleeding Fall 04/14/17 down escalator Fall Fall at home recurrent falls at home, not precipitated by any movement or event Fall in home Flatulence Gout Hallucination Head injury, closed Homonymous hemianopia Homonymous hemianopsia Hypertension Hypothyroidism (acquired) Insomnia Joint pain Liver function test abnormality Local infection of wound Low back pain Lumbar disc disease CT 10/2017 showed Large broad L4-5 disc spur complex resulting in severe central canal, left lateral recess and IV foraminal narrowing. The exiting left L4 descending L5 nerve roots are impinged. Lumbar radiculopathy Memory loss slowed mental cognition Microscopic hematuria (03/31/13) Morbid obesity Nonalcoholic steatohepatitis Obesity (BMI 30-39.9) Pain in both hands Paresthesia hands and feet Paresthesia and pain of extremity Parkinson disease Post traumatic stress disorder Postcholecystectomy syndrome Postmenopausal Psychotic disorder Likely due to CAMP NURSE diseaseparkinsonism Rash RUQ abdominal pain Sinus problem Snoring SOB (shortness of breath) Spinal stenosis at L4-L5 level Spinal stenosis, lumbar region with neurogenic claudication Suicide attempt 2010-Pill overdose in [place] Suicide attempt Tinea corporis Tremor Trigger finger of both hands bilateral 3rd digit Trigger finger of both hands Urinary frequency Weight gain White matter abnormality on MRI of brain White matter abnormality advanced for age 709/26/14 Wound infection Minor Surgical History History of breast surgery 1999-Breast Lift History of section 1974, 1978 x2 History of ECG 10/11/14 - Shaye History of esophagogastroduodenoscopy (05/05/13) History of esophagogastroduodenoscopy (EGD) (11/20/17) History of liver biopsy (08/31/13) Right History of liver excision (08/31/13) Right 60% removal History of plastic surgery Juventino Young History of surgery LESI #1 L4-5 w/o sed 08/08/201902/24 LESI #2 L4-5 w/o sed 02/09/201901/25 LESI #1 L4-5 w/o sed 01/20/1910/25 LESI #3 L4-5 w/o sed 10/14/201807/25 LESI #2 L4-5 w/o sed 07/07/1804/27 LESI #1 L4-5 w/o sed 04/26/18 Hx of cholecystectomy August 1997- Had complication with this of having her bile duct stapled shut with subsequent bile leakage into her peritoneum; she had to have 5 additional surgeries Hx of colonoscopy (03/21/13) Family History Mother , age 83. Cardiomyopathy Cerebrovascular accident, Onset Age: 79 Lost Vision in one eye Depression Lung cancer Father Chronic Kidney Disease Atherosclerosis of coronary artery Dementia Hyperlipidemia Cerebrovascular accident, Onset Age: 82 x3 Unknown Diabetes mellitus Daughter Disorder of thyroid Social History Smoking Status: Never smoker Alcohol Intake Frequency: does not drink Substance Use: does not use Exam Narrative Narrative: General: AOx3, NAD, toxic appearing. Pleasant and conversant. HEENT: PERRLA, EOMI, normocephalic. Moist mucous membranes. Normal facies and normal dentition. Chest: Symmetric, no pain to palpation Respiratory: Lungs clear to auscultation bilaterally. No respiratory distress. Unlabored breathing. Heart: Tachycardic rate and normal normal rhythm, no murmurs/clicks/rubs. Abdomen: Non-tender, Non distended, normal bowel tones. No organomegaly. Extremities: Warm and well perfused. No edema. DP 2+ bilaterally. No venous stasis. Neuro: No focal deficits. Cranial nerves II-XII normal. Skin: Warm dry, no rashes or lesions, no cyanosis. Psych: Normal mood and affect Heme/Lymph: No bruising Course Course Course Narrative: This a 65-year-old female patient who presents with weakness, fall x2 this morning with altered mental status, and sepsis. Reevaluation(s) Reevaluation #1: CBC with manual differential, CMP, lactic acid, UA Head CT and chest x-ray Start IV fluids 30 mL/kg Start IV ceftriaxone with urosepsis as suspected source given recent admission for UTI. Reevaluation #2: Patient's lactic acid is 3.9, CBC shows a elevated white blood cell cell count of 17,900. UA is negative. CMP shows endorgan dysfunction with a creatinine that is now 2.0. Patient also has a sodium of 125. Potassium of 5.3. Head CT is negative and chest x-ray is within normal limits. Will order a non CT of the abdomen pelvis to query for source of infection. Patient meets criteria for admission and I am awaiting the call from the hospitalist if a bed is available Vital Signs Vital signs: Vital Signs Temperature 98 F 08/05/20 12:01 Pulse Rate 106 H 08/05/20 12:01 Respiratory Rate 16 08/05/20 12:01 Blood Pressure 120/64 08/05/20 12:01 Pulse Oximetry (%) 94 08/05/20 12:01 Temperature 100.1 F H 08/05/20 18:01 Pulse Rate 103 H 08/05/20 17:01 Respiratory Rate 16 08/05/20 18:01 Blood Pressure 103/53 08/05/20 18:01 Pulse Oximetry (%) 97 08/05/20 18:01 [facility] MDM Narrative Medical decision making narrative: Sepsis Patient meets criteria for admission with a elevated lactic acid of 3.9, and evidence of endorgan dysfunction with a rising creatinine to 2.0. In addition, she has a fairly significant hyponatremia and mild hyperkalemia. Source has not been identified as a chest x-ray is negative and her urine is normal. I have discussed this case with the hospitalist who states that this may be related to administration of steroids for her recent acute drug reaction. Regardless, she has been started on IV ceftriaxone and given 2 L of IV fluids with an additional liter anticipated for the 30 mL/kg goal. Repeat lactic acid has been ordered. Cultures x2 are pending. Lab Data Result diagrams: 08/05/20 17:08 08/05/20 18:15 Labs: Lab Results 08/05/20 08/05/20 08/05/20 Range/Units 12:51 12:51 12:51 WBC 17.9 H (4.5-11.0) K/mcL RBC 4.30 (4.00-5.20) M/mcL Hgb 12.8 (12.0-15.0) g/dL Hct 38.1 (36.0-48.0) % MCV 88.6 (80.0-100.0) fL MCH 29.8 (26.0-34.0) pg MCHC 33.6 (31.0-36.0) g/dL RDW 14.9 H (11.5-14.5) % Plt Count 197 (140-440) K/mcL MPV 11.9 H (7.4-10.4) fL Neut % (Auto) (38.0-78.0) % Lymph % (Auto) (15.0-49.0) % [place] % (Auto) (1.0-12.0) % Eos % (Auto) (0.0-7.0) % Baso % (Auto) (0.0-2.0) % Lymph # (Auto) (1.50-4.80) K/mcL [place] # (Auto) (0.10-0.90) K/mcL Eos # (Auto) (0.00-0.70) K/mcL Baso # (Auto) (0.00-0.20) K/mcL Seg Neutrophils % 73 (38-78) % Band Neutrophils % 1 (0-10) % Lymphocytes % 18 (15-49) % Monocytes % (Manual) 5 (1-12) % Absolute Neutrophils (1.80-8.00) K/mcL Reactive Lymphocytes 2 (0-2) % Platelet Estimate Normal (Normal) RBC Morphology Normal (Normal) VBG Lactic Acid 3.9 H* (0.5-2.0) mmol/L Sodium 125 L (133-145) mmol/L Potassium 5.3 H (3.3-5.1) mmol/L Chloride 87 L (96-108) mmol/L Carbon Dioxide 20 L (22-30) mmol/L Anion Gap 18.0 H (8.0-16.0) BUN 58 H (8-23) mg/dL Creatinine 2.0 H (0.6-1.1) mg/dL GFR Calculation 26 Glucose 176 H (70-105) mg/dL Hemoglobin A1c (4.0-6.0) % Hgb Estim Average Glucose mg/dL Calcium 9.7 (8.6-10.4) mg/dL Total Bilirubin 0.9 (0.1-1.0) mg/dL AST 137 H (<32) U/L ALT 145 H (<40) U/L Alkaline Phosphatase 173 H (39-117) U/L Total Protein 6.4 (5.9-8.4) gm/dL Albumin 4.1 (3.2-5.2) gm/dL Globulin 2.3 (2.2-3.7) gm/dL Albumin/Globulin Ratio 1.8 (1.0-2.3) Urine Color Urine Appearance (Clear) Urine pH (5.0-9.0) Ur Specific [place] (1.000-1.035) Urine Protein (Negative) mg/dL Urine Glucose (UA) (Negative) mg/dL Urine Ketones (Negative) mg/dL Urine Occult Blood (Negative) mg/dL Urine Nitrate (Negative) Urine Bilirubin (Negative) mg/dL Urine Urobilinogen mg/dL Ur Leukocyte Esterase (Negative) /ug Ur Culture Indicated? 08/05/20 08/05/20 08/05/20 Range/Units 13:57 16:45 17:08 WBC 15.8 H (4.5-11.0) K/mcL RBC 3.78 L (4.00-5.20) M/mcL Hgb 11.2 L (12.0-15.0) g/dL Hct 34.3 L (36.0-48.0) % MCV 90.7 (80.0-100.0) fL MCH 29.6 (26.0-34.0) pg MCHC 32.7 (31.0-36.0) g/dL RDW 15.0 H (11.5-14.5) % Plt Count 156 (140-440) K/mcL MPV 12.3 H (7.4-10.4) fL Neut % (Auto) 61.4 (38.0-78.0) % Lymph % (Auto) 30.9 (15.0-49.0) % [place] % (Auto) 6.9 (1.0-12.0) % Eos % (Auto) 0.4 (0.0-7.0) % Baso % (Auto) 0.4 (0.0-2.0) % Lymph # (Auto) 4.88 H (1.50-4.80) K/mcL [place] # (Auto) 1.09 H (0.10-0.90) K/mcL Eos # (Auto) 0.06 (0.00-0.70) K/mcL Baso # (Auto) 0.06 (0.00-0.20) K/mcL Seg Neutrophils % (38-78) % Band Neutrophils % (0-10) % Lymphocytes % (15-49) % Monocytes % (Manual) (1-12) % Absolute Neutrophils 9.71 H (1.80-8.00) K/mcL Reactive Lymphocytes (0-2) % Platelet Estimate (Normal) RBC Morphology (Normal) VBG Lactic Acid 1.8 (0.5-2.0) mmol/L Sodium (133-145) mmol/L Potassium (3.3-5.1) mmol/L Chloride (96-108) mmol/L Carbon Dioxide (22-30) mmol/L Anion Gap (8.0-16.0) BUN (8-23) mg/dL Creatinine (0.6-1.1) mg/dL GFR Calculation Glucose (70-105) mg/dL Hemoglobin A1c (4.0-6.0) % Hgb Estim Average Glucose mg/dL Calcium (8.6-10.4) mg/dL Total Bilirubin (0.1-1.0) mg/dL AST (<32) U/L ALT (<40) U/L Alkaline Phosphatase (39-117) U/L Total Protein (5.9-8.4) gm/dL Albumin (3.2-5.2) gm/dL Globulin (2.2-3.7) gm/dL Albumin/Globulin Ratio (1.0-2.3) Urine Color Yellow Urine Appearance Clear (Clear) Urine pH 5.0 (5.0-9.0) Ur Specific [place] 1.008 (1.000-1.035) Urine Protein Negative (Negative) mg/dL Urine Glucose (UA) Negative (Negative) mg/dL Urine Ketones Negative (Negative) mg/dL Urine Occult Blood Negative (Negative) mg/dL Urine Nitrate Negative (Negative) Urine Bilirubin Negative (Negative) mg/dL Urine Urobilinogen Negative mg/dL Ur Leukocyte Esterase Negative (Negative) /ug Ur Culture Indicated? No 08/05/20 Range/Units 17:08 WBC (4.5-11.0) K/mcL RBC (4.00-5.20) M/mcL Hgb (12.0-15.0) g/dL Hct (36.0-48.0) % MCV (80.0-100.0) fL MCH (26.0-34.0) pg MCHC (31.0-36.0) g/dL RDW (11.5-14.5) % Plt Count (140-440) K/mcL MPV (7.4-10.4) fL Neut % (Auto) (38.0-78.0) % Lymph % (Auto) (15.0-49.0) % [place] % (Auto) (1.0-12.0) % Eos % (Auto) (0.0-7.0) % Baso % (Auto) (0.0-2.0) % Lymph # (Auto) (1.50-4.80) K/mcL [place] # (Auto) (0.10-0.90) K/mcL Eos # (Auto) (0.00-0.70) K/mcL Baso # (Auto) (0.00-0.20) K/mcL Seg Neutrophils % (38-78) % Band Neutrophils % (0-10) % Lymphocytes % (15-49) % Monocytes % (Manual) (1-12) % Absolute Neutrophils (1.80-8.00) K/mcL Reactive Lymphocytes (0-2) % Platelet Estimate (Normal) RBC Morphology (Normal) VBG Lactic Acid (0.5-2.0) mmol/L Sodium (133-145) mmol/L Potassium (3.3-5.1) mmol/L Chloride (96-108) mmol/L Carbon Dioxide (22-30) mmol/L Anion Gap (8.0-16.0) BUN (8-23) mg/dL Creatinine (0.6-1.1) mg/dL GFR Calculation Glucose (70-105) mg/dL Hemoglobin A1c 8.8 H (4.0-6.0) % Hgb Estim Average Glucose 206 mg/dL Calcium (8.6-10.4) mg/dL Total Bilirubin (0.1-1.0) mg/dL AST (<32) U/L ALT (<40) U/L Alkaline Phosphatase (39-117) U/L Total Protein (5.9-8.4) gm/dL Albumin (3.2-5.2) gm/dL Globulin (2.2-3.7) gm/dL Albumin/Globulin Ratio (1.0-2.3) Urine Color Urine Appearance (Clear) Urine pH (5.0-9.0) Ur Specific [place] (1.000-1.035) Urine Protein (Negative) mg/dL Urine Glucose (UA) (Negative) mg/dL Urine Ketones (Negative) mg/dL Urine Occult Blood (Negative) mg/dL Urine Nitrate (Negative) Urine Bilirubin (Negative) mg/dL Urine Urobilinogen mg/dL Ur Leukocyte Esterase (Negative) /ug Ur Culture Indicated? ED POC Tests ED POC Tests: AIME - SARS Antigen Negative Discharge Plan Patient/Caregiver Discharge Instructions Pt seen by BURNING MACHINE OPERATOR/PA only: Yes Patient Disposition: Xfer As Inpt ([facility]) Condition: Fair Discharge Date/Time: 08/05/20 17:20
[2020-08-05 13:40] LABS: Hematocrit 38.1 % (36.0-48.0); Hemoglobin 12.8 g/dL (12.0-15.0); Mean Cell Volume 88.6 fL (80.0-100.0); Mean Corpuscular HGB Conc 33.6 g/dL (31.0-36.0); Mean Platelet Volume 11.9 fL (7.4-10.4); Platelet Count 197 K/mcL (140-440); Red Cell Distribution Width 14.9 % (11.5-14.5); WBC 17.9 K/mcL (4.5-11.0)
[2020-08-05 13:55] LABS: ALT/SGPT 145 U/L (<40); AST/SGOT 137 U/L (<32); Albumin 4.1 gm/dL (3.2-5.2); Albumin/Globulin Ratio 1.8 (1.0-2.3); Alkaline Phosphatase 173 U/L (39-117); Bilirubin,Total 0.9 mg/dL (0.1-1.0); Blood Urea Nitrogen 58 mg/dL (8-23); Calcium 9.7 mg/dL (8.6-10.4); Carbon Dioxide 20 mmol/L (22-30); Chloride 87 mmol/L (96-108); Globulin 2.3 gm/dL (2.2-3.7); Glomerular Filtration Rate 26; Glucose 176 mg/dL (70-105)
--- NOTE | 2020-08-05 14:08 | Cat Scan Report ---
INDICATION: fall, weakness COMPARISON: Previous CT scans dated 07/11/2020, 10/19/2019. Previous MRI scan dated 04/02/2015 TECHNIQUE: Axial noncontrast-enhanced images through the brain. Sagittally and coronally reformatted images. FINDINGS: Cerebral hemispheres:Negative. No intra-axial abnormality. No intra-axial hematoma. No localized mass effect. There is cerebral atrophy for age. There are prominent superficial subarachnoid spaces. There is ventricular enlargement. Findings are unchanged. There is white matter abnormality in a predominantly periventricular distribution. Findings are nonspecific. This is also slightly advanced for age. Clinical correlation for diabetes or hypertension recommended. Brainstem and cerebellum:No intra-axial abnormality Extra-axial:No acute hemorrhage. No subdural or epidural hematoma. No subarachnoid hemorrhage. Basilar cisterns are normal Calvarial:No calvarial fracture. No lytic lesion Temporal bones are negative. No destructive lesions Soft tissue, orbits, sinuses:Orbits and visualized facial soft tissues and paranasal sinuses are negative IMPRESSION: 1. Mild cerebral atrophy and white matter abnormality. No change 2. No acute abnormality The exam was performed using radiation dose optimization techniques including, but not limited to, automated exposure control, adjustment of the mA and/or kV according to patient size and use of iterative reconstruction technique. Interpreted and Authenticated by: Rory Sheets 08/05/20
[2020-08-05 14:15] LABS: Band Neutrophils % 1 % (0-10); Lymphocytes % 18 % (15-49); Monocytes % (Manual) 5 % (1-12); Platelet Estimate NORMAL (Normal); RBC Morphology NORMAL (Normal); Reactive Lymphocytes 2 % (0-2); Segmented Neutrophils % 73 % (38-78)
--- NOTE | 2020-08-05 14:17 | XRay Report ---
INDICATION: sepsis TECHNIQUE: AP portable semierect chest x-ray COMPARISON: Previous examinations dated 07/13/2020, 07/11/2020 FINDINGS: Lungs:Lungs are negative. No focal pulmonary parenchymal infiltrate or mass Heart, vascular:No significant cardiomegaly. Pulmonary vascularity is normal. No pulmonary edema or pulmonary congestion Mediastinum, lesa:No mediastinal widening. No hilar mass Pleura:No pleural fluid. No pleural-based mass or calcification Skeletal:Negative. IMPRESSION: Negative AP chest x-ray Interpreted and Authenticated by: Rory Sheets 08/05/20
[2020-08-05 15:02] LABS: Appearance,Urine CLEAR (Clear); Bilirubin,Urine Negative (Negative); Color,Urine YELLOW; Culture Indicated,Urine No; Glucose,Urine (UA) Negative (Negative); Ketones,Urine Negative (Negative); Leukocyte Esterase,Urine Negative /ug (Negative); Nitrate,Urine Negative (Negative); Protein,Urine Negative (Negative); Specific Gravity,Urine 1.008 (1.000-1.035); Urine Blood Negative (Negative); Urobilinogen,Urine Negative
--- NOTE | 2020-08-05 16:01 | Cat Scan Report ---
INDICATION: Sepsis, ro source COMPARISON: Previous noncontrast enhanced CT scan dated 07/11/2020 TECHNIQUE: Axial images were obtained through the abdomen and pelvis. Sagittally and coronally reformatted images. FINDINGS: Lung bases:No pulmonary parenchymal density. No calcified or noncalcified nodule. No pleural or pericardial effusion Liver:Previous partial hepatectomy. There are changes consistent with compensatory hypertrophy of the caudate and left lobes. Gallbladder, bilary:Gallbladder is not present. No dilated bile ducts Spleen:Splenomegaly. Spleen measures 10.4 x 5.1 x 16.2. The findings are unchanged since 07/11/2020 Pancreas:There are pancreatic calcifications. No pancreatic mass. No peripancreatic abnormality Adrenal glands:Negative Kidneys, ureters, bladder:No obstructing or nonobstructing renal calculi. No hydronephrosis. No renal mass identified on this noncontrast enhanced examination No hydroureter. No ureteral stone No bladder calculus Gastrointestinal:No significant diverticulosis or evidence for diverticulitis. No detectable colonic mass No mechanical small bowel obstruction. No small bowel dilatation. Appendix: The appendix is negative Vascular:There is severe calcification of the abdominal aorta. No abdominal aortic aneurysm. There is severe calcification of the common iliac arteries with probable high-grade left common iliac artery stenosis. Lymphatic:No retroperitoneal adenopathy. No significant mesenteric adenopathy. Mesentery, peritoneum:No free intraperitoneal fluid. No intra-abdominal abscess. No pneumoperitoneum. No intra-abdominal abscess Reproductive:Uterus is anteflexed. No adnexal mass Musculoskeletal:Severe degenerative disc disease at L4-L5 and L5-S1. There is a large calcified disc osteophyte at L4-L5 with high-grade spinal canal stenosis. Sacrum is negative. Pelvis is negative. No lytic lesions. No fracture. There is a 1.4 cm umbilical hernia containing only fat. No inguinal hernia IMPRESSION: 1. Previous partial hepatectomy 2. Splenomegaly 3. Atherosclerotic calcification. Probable stenosis of the left common iliac artery 4. No intra-abdominal abscess 5. Degenerative disc disease and spinal canal stenosis at L4-L5 6. No interval change since 07/11/2020 The exam was performed using radiation dose optimization techniques including, but not limited to, automated exposure control, adjustment of the mA and/or kV according to patient size and use of iterative reconstruction technique. Interpreted and Authenticated by: Rory Sheets 08/05/20
[2020-08-05] MEDS ORDERED: SENNOSIDES 1 TABLET PO PRN ×2 (16:29→17:40)
[2020-08-05] MEDS ORDERED: ONDANSETRON 4 MG/2 ML VIAL IV PRN ×2 (16:29→17:40)
[2020-08-05] MEDS ORDERED: 0.9 % SODIUM CHLORIDE 1,000 ML IV SCH (16:30)
[2020-08-05] MEDS ORDERED: PIPERACILLIN SODIUM/TAZOBACTAM 3.375 GM in DEXTROSE 5% IN WATER 50 ML IV SCH ×2 (16:30→22:30)
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
[2020-08-05] MEDS ORDERED: VANCOMYCIN 1,000 MG in 0.9 % SODIUM CHLORIDE 250 ML IV SCH (17:40)
[2020-08-05] MEDS ORDERED: DEXTROSE 31 GM ORAL.SUSP PO PRN (17:40)
[2020-08-05] MEDS ORDERED: FUROSEMIDE 40 MG/4 ML VIAL IV ONE (17:40)
[2020-08-05] MEDS ORDERED: DEXTROSE 50% 50 ML VIAL IV PRN (17:40)
[2020-08-05 17:57] LABS: Basophils # (Auto) 0.06 K/mcL (0.00-0.20); Basophils % (Auto) 0.4 % (0.0-2.0); Eosinophils # (Auto) 0.06 K/mcL (0.00-0.70); Eosinophils % (Auto) 0.4 % (0.0-7.0); Hematocrit 34.3 % (36.0-48.0); Hemoglobin 11.2 g/dL (12.0-15.0); Lymphocytes # (Auto) 4.88 K/mcL (1.50-4.80); Lymphocytes % (Auto) 30.9 % (15.0-49.0); Mean Cell Volume 90.7 fL (80.0-100.0); Mean Corpuscular HGB Conc 32.7 g/dL (31.0-36.0); Mean Platelet Volume 12.3 fL (7.4-10.4); Monocytes # (Auto) 1.09 K/mcL (0.10-0.90); Monocytes % (Auto) 6.9 % (1.0-12.0); Neutrophils % (Auto) 61.4 % (38.0-78.0); Platelet Count 156 K/mcL (140-440); RBC 3.78 M/mcL (4.00-5.20); WBC 15.8 K/mcL (4.5-11.0)
[2020-08-05 18:10] LABS: Hemoglobin A1C 8.8 % Hgb (4.0-6.0)
[2020-08-05] MEDS ORDERED: VANCOMYCIN PER PHARMACY IV SCH (18:15)
[2020-08-05] MEDS ORDERED: VANCOMYCIN 1,500 MG in 0.9 % SODIUM CHLORIDE 500 ML IV ONE (19:00)
[2020-08-05] MEDS: 0.9 % SODIUM CHLORIDE 1,000 ML IV SCH (19:07)
[2020-08-05 19:41] LABS: Blood Urea Nitrogen 53 mg/dL (8-23); Calcium 8.7 mg/dL (8.6-10.4); Carbon Dioxide 22 mmol/L (22-30); Chloride 95 mmol/L (96-108); Glomerular Filtration Rate 29; Glucose 140 mg/dL (70-105)
[2020-08-05] MEDS: PIPERACILLIN SODIUM/TAZOBACTAM 2.25 GM in DEXTROSE 5% IN WATER 50 ML IV SCH (19:43)
[2020-08-05] MEDS: INSULIN LISPRO 1 UNIT/0.01 ML UNIT SQ SCH ×2 (19:56→22:47)
[2020-08-05] MEDS ORDERED: LACTULOSE 20 GM/30 ML ORAL.SOL PO SCH (21:00)
[2020-08-05] MEDS ORDERED: DOCUSATE SODIUM 100 MG CAPSULE PO SCH (21:00)
[2020-08-05] MEDS ORDERED: INSULIN GLARGINE, HUMAN 1 UNIT/0.01 ML SQ SCH (21:00)
[2020-08-05] MEDS ORDERED: 0.9 % SODIUM CHLORIDE 10 ML SYRINGE IV SCH (22:00)
[2020-08-05] MEDS: 0.9 % SODIUM CHLORIDE 10 ML SYRINGE IV SCH (22:40)
[2020-08-05] MEDS: LACTULOSE 20 GM/30 ML ORAL.SOL PO SCH (22:46)
[2020-08-05] MEDS: DOCUSATE SODIUM 100 MG CAPSULE PO SCH (22:46)
[2020-08-05] MEDS: ACETAMINOPHEN 325 MG TABLET PO PRN (23:30)
[2020-08-05] MEDS ORDERED: ACETAMINOPHEN 325 MG TABLET PO ONE (23:48)
[2020-08-06] MEDS: PIPERACILLIN SODIUM/TAZOBACTAM 2.25 GM in DEXTROSE 5% IN WATER 50 ML IV SCH ×2 (00:02→05:31)
[2020-08-06 01:06] LABS: Blood Urea Nitrogen 54 mg/dL (8-23); Calcium 8.6 mg/dL (8.6-10.4); Carbon Dioxide 22 mmol/L (22-30); Chloride 97 mmol/L (96-108); Glomerular Filtration Rate 27; Glucose 168 mg/dL (70-105)
[2020-08-06] MEDS: 0.9 % SODIUM CHLORIDE 10 ML SYRINGE IV SCH ×3 (06:00→21:40)
[2020-08-06] MEDS: 0.9 % SODIUM CHLORIDE 1,000 ML IV SCH (06:35)
[2020-08-06 06:39] LABS: Basophils # (Auto) 0.05 K/mcL (0.00-0.20); Basophils % (Auto) 0.4 % (0.0-2.0); Eosinophils # (Auto) 0.14 K/mcL (0.00-0.70); Eosinophils % (Auto) 1.2 % (0.0-7.0); Hematocrit 33.6 % (36.0-48.0); Lymphocytes % (Auto) 26.8 % (15.0-49.0); Mean Cell Volume 88.9 fL (80.0-100.0); Mean Corpuscular HGB Conc 32.7 g/dL (31.0-36.0); Mean Platelet Volume 12.3 fL (7.4-10.4); Monocytes # (Auto) 0.68 K/mcL (0.10-0.90); Monocytes % (Auto) 5.9 % (1.0-12.0); Neutrophils % (Auto) 65.7 % (38.0-78.0); Platelet Count 142 K/mcL (140-440); RBC 3.78 M/mcL (4.00-5.20); Red Cell Distribution Width 15.3 % (11.5-14.5); WBC 11.6 K/mcL (4.5-11.0)
[2020-08-06 07:13] LABS: ALT/SGPT 242 U/L (<40); AST/SGOT 241 U/L (<32); Albumin 3.2 gm/dL (3.2-5.2); Albumin/Globulin Ratio 1.8 (1.0-2.3); Alkaline Phosphatase 137 U/L (39-117); Bilirubin,Total 0.7 mg/dL (0.1-1.0); Blood Urea Nitrogen 51 mg/dL (8-23); Calcium 8.1 mg/dL (8.6-10.4); Carbon Dioxide 22 mmol/L (22-30); Chloride 101 mmol/L (96-108); Globulin 1.8 gm/dL (2.2-3.7); Glomerular Filtration Rate 29; Glucose 136 mg/dL (70-105)
[2020-08-06] MEDS: INSULIN LISPRO 1 UNIT/0.01 ML UNIT SQ SCH ×4 (07:59→21:54)
[2020-08-06] MEDS: DOCUSATE SODIUM 100 MG CAPSULE PO SCH ×2 (08:00→21:27)
[2020-08-06] MEDS: LACTULOSE 20 GM/30 ML ORAL.SOL PO SCH ×3 (08:00→21:39)
[2020-08-06 08:42] LABS: Vancomycin,Random 18.4 ug/mL
[2020-08-06] MEDS ORDERED: diphenhydrAMINE 25 MG CAPSULE PO PRN ×2 (08:44→12:24)
[2020-08-06] MEDS ORDERED: POLYETHYLENE GLYCOL 3350 17 GM PACKET PO PRN ×2 (08:44→12:24)
[2020-08-06] MEDS ORDERED: BROMPHENIRAMINE PO PRN (08:44)
[2020-08-06] MEDS ORDERED: PSEUDOEPHEDRINE PO PRN (08:44)
[2020-08-06] MEDS ORDERED: [UNRECOGNIZED DRUG - OTHER] PO PRN (08:44)
[2020-08-06] MEDS ORDERED: DEXTROMETHORPHAN PO PRN (08:44)
[2020-08-06] MEDS ORDERED: ALBUTEROL SULFATE 200 PUFF INHALER INH PRN ×2 (08:44→12:24)
[2020-08-06] MEDS ORDERED: CARBOXYMETHYLCELLULOSE SODIUM 1 EACH DROPER.GEL OU PRN ×2 (08:56→12:24)
[2020-08-06] MEDS ORDERED: SPIRONOLACTONE 25 MG TABLET PO SCH (09:00)
[2020-08-06] MEDS ORDERED: PREGABALIN 75 MG CAPSULE PO SCH (09:00)
[2020-08-06] MEDS ORDERED: DOCUSATE SODIUM 100 MG CAPSULE PO SCH (09:00)
[2020-08-06] MEDS ORDERED: ALLOPURINOL 100 MG TABLET PO SCH (09:00)
[2020-08-06] MEDS ORDERED: CETIRIZINE 10 MG TABLET PO SCH (09:00)
[2020-08-06] MEDS ORDERED: VITAMIN D3 1,000 UNIT TABLET PO SCH (09:00)
[2020-08-06] MEDS ORDERED: ATORVASTATIN 10 MG TABLET PO SCH (09:00)
[2020-08-06] MEDS ORDERED: RIFAXIMIN 550 MG TABLET PO SCH (09:00)
[2020-08-06] MEDS ORDERED: buPROPion 150 MG TAB.XL.24H PO SCH (09:00)
[2020-08-06] MEDS ORDERED: LACTULOSE 20 GM/30 ML ORAL.SOL PO SCH (09:00)
[2020-08-06] MEDS ORDERED: FUROSEMIDE 40 MG TABLET PO SCH (09:00)
[2020-08-06] MEDS ORDERED: NYSTATIN POWDER BOTTLE 15GM TOPICAL SCH (09:00)
[2020-08-06] MEDS ORDERED: IBUPROFEN 600 MG TABLET PO PRN ×2 (09:04→12:24)
--- NOTE | 2020-08-06 09:40 | Internal Med Progress Note ---
SUBJECTIVE Subjective Patient information: Note initiated : 08/06/20 at 9:35 am Service Date, if different from initiated Date: [] Patient: Mic Hein a 65 y/o F admitted on 08/05/20 for Shaky/weak. Chief Complaint: [General body weakness] History of present illness: Ms. Hein is a 65 year old F history of type 2 diabetes mellitus insulin dependent, recent UTI, cirrhosis, presenting with 2- week history of general body weakness. She was recently been hospitalized in our facility from 07/11 to 07/16 for pansensitive E. coli urinary tract infections. She was being prescribed with ciprofloxacin. She was seen again in the ED on 07/23 for drug related skin rash. She was being given 1 dose of Solu-Medrol and was sent home on a prednisone taper. Today she presented to the ED for 2 weeks history of general body weakness. She is complaining of decreased appetite. She denies any dysuria but she is complaining of increased urinary symptoms. She denies any fever or chills. She denies any chest pain or shortness of breath. She denies any fever or chills. Vital signs were within normal limits. Labs significant with leukocytosis with WBC 17.9. Serum lactic acid 3.9. Serum creatinine level 2.0 with baseline of 1.5. Hyponatremia of 125 and hyperkalemia of 5.3 also presents. Chest x-ray no sign of pneumonia. Urine analysis does not show any signs of ongoing urinary tract infections. 08/06/20: Afebrile overnight. Cultures no growth to date. Hyponatremia and hyperkalemia resolved. Constitutional Vitals: Vital Signs Temp Pulse Resp BP Pulse Ox 36.3 C 94 H 15 125/66 96 08/06/20 08:20 08/06/20 00:05 08/06/20 07:09 08/06/20 07:50 08/06/20 08:20 Period Temp Pulse Resp BP Sys/Panchal Pulse Ox Last 24 Hr 36.3 C-37.8 C 94-111 86-132/53-100 91-99 Intake and Output 08/05/20 08/06/20 08/06/20 21:59 05:59 13:59 Intake Total 2550 100 50 Output Total 1 275 400 Balance 2549 -175 -350 Weight 90.718 kg 89.993 kg Intake & Output: Intake & Output 08/05/20 08/06/20 08/06/20 21:59 05:59 13:59 Intake Total 2550 100 50 Output Total 1 275 400 Balance 6264 -175 -350 Weight 90.718 kg 89.993 kg Intake: IV 2550 50 50 Sodium Chloride 0.9% 1,000 ml @ 2000 Wide Open IV BOLUS ONE Rx#: [id number] Zosyn 2.25 gm In Dextrose 5% in 50 50 50 Water 50 ml @ 100 mls/hr IV Q6H [facility] Rx#:[id number] Vancomycin 1,500 mg In Sodium 500 Chloride 0.9% 500 ml @ 333.3 mls/hr IV ONCE ONE Rx#: [id number] Oral 50 Output: Void Amount 275 400 # of times incontinent of urine 1 Other: Urine Appearance Clear Clear Urine Color Bright Yellow Dark Yellow Urine Odor Strong # Voids 1 General appearance: cooperative and no acute distress Head Head exam: Present atraumatic and normocephalic Eye Eye exam: Present EOMI and PERRL ENT ENT exam: Present mucous membranes moist, normal exam and normal external ear exam Neck Neck exam: Present normal inspection; Absent lymphadenopathy, tenderness and thyromegaly Respiratory Respiratory exam: Absent accessory muscle use, respiratory distress and wheezes Cardiovascular Cardiovascular exam: Present normal rate and rhythm; Absent JVD GI/Abdominal GI/Abdominal exam: Present normal bowel sounds and soft; Absent organomegaly and tenderness Extremities Exam Extremities exam: Present full ROM, normal capillary refill and normal inspection; Absent tenderness Neurological Exam Neurological exam: Present alert, CN II-XII intact and oriented X3; Absent motor sensory deficit Psychiatric Psychiatric exam: Present normal affect and normal mood; Absent anxious and depressed Skin Skin exam: Present dry and intact OBJ DATA Labs CBC & Chem 7: 08/06/20 05:05 08/06/20 05:05 Labs: Abnormal Lab Results 08/06/20 08/06/20 08/05/20 05:05 05:05 23:40 WBC 11.6 H RBC 3.78 L Hgb 11.0 L Hct 33.6 L RDW 15.3 H MPV 12.3 H Lymph # (Auto) Mathews # (Auto) Absolute Neutrophils VBG Lactic Acid Sodium 131 L Potassium Chloride Carbon Dioxide Anion Gap BUN 51 H 54 H Creatinine 1.8 H 1.9 H Glucose 136 H 168 H Hemoglobin A1c Calcium 8.1 L AST 241 H ALT 242 H Alkaline Phosphatase 137 H Ammonia C-Reactive Protein Total Protein 5.0 L Globulin 1.8 L Procalcitonin 08/05/20 08/05/20 08/05/20 18:15 18:15 18:15 WBC RBC Hgb Hct RDW MPV Lymph # (Auto) Mathews # (Auto) Absolute Neutrophils VBG Lactic Acid Sodium 131 L Potassium Chloride 95 L Carbon Dioxide Anion Gap BUN 53 H Creatinine 1.8 H Glucose 140 H Hemoglobin A1c Calcium AST ALT Alkaline Phosphatase Ammonia 156 H C-Reactive Protein 1.80 H Total Protein Globulin Procalcitonin 1.38 H 08/05/20 08/05/20 08/05/20 17:08 17:08 12:51 WBC 15.8 H 17.9 H RBC 3.78 L Hgb 11.2 L Hct 34.3 L RDW 15.0 H 14.9 H MPV 12.3 H 11.9 H Lymph # (Auto) 4.88 H Mathews # (Auto) 1.09 H Absolute Neutrophils 9.71 H VBG Lactic Acid Sodium Potassium Chloride Carbon Dioxide Anion Gap BUN Creatinine Glucose Hemoglobin A1c 8.8 H Calcium AST ALT Alkaline Phosphatase Ammonia C-Reactive Protein Total Protein Globulin Procalcitonin 08/05/20 08/05/20 12:51 12:51 WBC RBC Hgb Hct RDW MPV Lymph # (Auto) Mathews # (Auto) Absolute Neutrophils VBG Lactic Acid 3.9 H* Sodium 125 L Potassium 5.3 H Chloride 87 L Carbon Dioxide 20 L Anion Gap 18.0 H BUN 58 H Creatinine 2.0 H Glucose 176 H Hemoglobin A1c Calcium AST 137 H ALT 145 H Alkaline Phosphatase 173 H Ammonia C-Reactive Protein Total Protein Globulin Procalcitonin Meds: Medications Acetaminophen (Acetaminophen 325 Mg Tablet) 650 mg PO Q6HP PRN; Protocol PRN Reason: Per Pain Protocol/Fever > 101 Last Admin: 08/05/20 23:30 Dose: 650 mg Documented by: Albuterol Sulfate (Albuterol Sulfate 200 Puff Inhaler) 2 puff INH Q4HP PRN PRN Reason: shortness of breath or wheezin Allopurinol (Allopurinol 100 Mg Tablet) 50 mg PO DAILY ABBY Artificial Tears (Carboxymethylcellulose Sodium 1 Each Droper.Gel) 1 - 2 each OU Q1HP PRN PRN Reason: DRY EYES Atorvastatin Calcium (Atorvastatin 10 Mg Tablet) 5 mg PO DAILY ABBY Bupropion HCl (Bupropion 150 Mg Tab.Xl.24h) 150 mg PO QAM [facility] Ceftriaxone Sodium (Ceftriaxone 1 Gm Vial) 1 gm IV Q24H [facility]; Protocol Cetirizine HCl (Cetirizine 10 Mg Tablet) 10 mg PO DAILY ABBY Dextrose (Dextrose 50% 50 Ml Vial) 0 ml IV UD PRN PRN Reason: Hypoglycemia Diagnostic Test (Pha) (Accu-Chek 1 Each Strip) 1 each FS [facility] Last Admin: 08/06/20 07:06 Dose: 1 each Documented by: Diphenhydramine HCl (Diphenhydramine 25 Mg Capsule) 50 mg PO Q6HP PRN PRN Reason: allergic reaction Docusate Sodium (Docusate Sodium 100 Mg Capsule) 100 mg PO BID [facility] Last Admin: 08/06/20 08:00 Dose: 100 mg Documented by: Duloxetine HCl (Duloxetine 30 Mg Capsule) 120 mg PO HS [facility] Furosemide (Furosemide 40 Mg Tablet) 40 mg PO QAM [facility] Glucose (Dextrose 31 Gm Oral.Susp) 15 gm PO PRN PRN PRN Reason: Hypoglycemia Ibuprofen (Ibuprofen 600 Mg Tablet) 600 mg PO BIDP PRN PRN Reason: Pain Insulin Glargine (Insulin Glargine, Human 1 Unit/0.01 Ml) 50 unit SQ HS [facility] Last Admin: 08/05/20 22:43 Dose: 50 unit Documented by: Insulin Human Lispro (Insulin Lispro 1 Unit/0.01 Ml Unit) 0 unit SQ [facility]; Protocol Last Admin: 08/06/20 07:59 Dose: 1 unit Documented by: Lactulose (Lactulose 20 Gm/30 Ml Oral.Octavia) 20 gm PO TID [facility] Lamotrigine (Lamotrigine 100 Mg Tablet) 150 mg PO HS [facility] Levothyroxine Sodium (Levothyroxine Sodium 112 Mcg Tablet) 112 mcg PO QAMAC [facility] Levothyroxine Sodium (Levothyroxine 25 Mcg Tablet) 25 mcg PO QAMAC [facility] Nystatin (Nystatin Powder Bottle 15gm) 1 dose TOPICAL BID [facility] Ondansetron HCl (Ondansetron 4 Mg/2 Ml Vial) 4 mg IV Q4HP PRN; Protocol PRN Reason: Nausea And Vomiting Lubiprostone [ Amitiza] 24 Mcg Capsule 1 dose PO BID [facility] Polyethylene Glycol (Polyethylene Glycol 3350 17 Gm Packet) 17 gm PO BIDP PRN PRN Reason: constipation Pregabalin (Pregabalin 75 Mg Capsule) 75 mg PO Q8H [facility] Quetiapine Fumarate (Quetiapine 25 Mg Tablet) 12.5 mg PO DAILY [facility] Quetiapine Fumarate (Quetiapine 25 Mg Tablet) 50 mg PO HS [facility] Senna (Sennosides 1 Tablet) 2 tab PO HSP PRN PRN Reason: Constipation Sodium Chloride (0.9 % Sodium Chloride 10 Ml Syringe) 10 ml IV Q8 [facility] Last Admin: 08/06/20 06:00 Dose: 10 ml Documented by: Spironolactone (Spironolactone 25 Mg Tablet) 100 mg PO DAILY [facility] Vitamin D (Vitamin D3 1,000 Unit Tablet) 1,000 unit PO DAILY [facility] A/P Assessment and plan (1) Hyperkalemia: Status: Acute (2) Hyponatremia: Status: Acute (3) Diabetes mellitus with stage 3 chronic kidney disease: Status: Acute (4) Stage 1 acute kidney injury: Status: Acute (5) AMS (altered mental status): Status: Acute (6) Type 2 diabetes mellitus: Status: Acute Qualifiers: Diabetes mellitus complication status: with hyperglycemia Diabetes mellitus jail insulin use: with jail use Qualified Code(s): E11.65 - Type 2 diabetes mellitus with hyperglycemia; Z79.4 - penitentiary (current) use of insulin (7) Cirrhosis of liver: Status: Chronic Narrative A/P Narrative: 1. General body weakness: Sepsis with unknown source of infection vs adrenal insufficiency from high dose sternoid therapy: Transfer from PCU to inpatient med surg Serial lactic acid ESR CRP 1.80 elevated procalcitonin 1.38 elevated, suggesting ongoing infection. Given presence of symptoms (increased urinary frequency), will treat for presumed UTI Blood culture X2, no growth to date Urine culture, no growth to date d/c Vancomycin and Zosyn and switch to Rocephin for continue treatment for UTI, until repeat urine cultures results available for further antibiotics guidance Saline lock cbc w/ auto diff in the AM to trend WBC AM cortisol 8.2, suggests AGAINST adrenal insufficiency ; and random plasma ACTH level to look for evidence of adrenal insufficiency; if proven, will given glucocorticoid and mineralocorticoid PT OT evaluation and treatment and for placement planning 2. Hyperkalemia, Hyponatremia: RESOLVED DDx: Adrenal insufficiency vs isolated electrolyte imbalance AM cortisol 8.2, suggests AGAINST adrenal insufficiency Saline lock CMP daily to continue to trend electrolytes levels 3. T2DM: HgA1c 8.8 Hold oral hypoglycemics Glargine 50 unit HS Tier 1 SSI AC HS Accu Chek AC HS Hypoglycemia protocol Diabetic diet 4. Dehydration and Stage 1 acute kidney injury (in the context of CKD stage 3) Avoid nephrotoxic agents 2L NS bolus followed by NS@75cc/hr CMP in the AM to trend kidney functions 5. h/o cirrhosis: Continue lactulose and rifaximin and Spironolactone Check serum ammonium level--> 156 elevated 6. Hypothyroidism: TSH level 0.50 within normal limits Continue oral thyroid replacement therapy GI ppx: not currently indicated DVT ppx: SCDs Code status: Full Prognosis: stable Disposition: inpatient med surg; PT OT evaluation and treatment and for placement planning Time Spent With Patient Time: Total time spent is greater than 50% in coordination of care (as documented) at patient's floor/unit and/or counseling patient: Total time spent with greater than 50% in coordination of care (as documented) at patient's floor/unit and/or counseling patient:: 25 - 35 minutes QUALITY VTE Deep Vein Thrombosis/Pulmonary Embolism Present on Admission: No
[2020-08-06] MEDS ORDERED: cefTRIAXone 1 GM VIAL IV SCH (09:45)
[2020-08-06] MEDS: ACETAMINOPHEN 325 MG TABLET PO PRN (10:45)
[2020-08-06] MEDS ORDERED: VANCOMYCIN 750 MG in 0.9 % SODIUM CHLORIDE 250 ML IV ONE (12:00)
[2020-08-06] MEDS ORDERED: DEXTROSE 31 GM ORAL.SUSP PO PRN (12:24)
[2020-08-06] MEDS ORDERED: DEXTROSE 50% 50 ML VIAL IV PRN (12:24)
[2020-08-06] MEDS ORDERED: SENNOSIDES 1 TABLET PO PRN (12:24)
[2020-08-06] MEDS ORDERED: ONDANSETRON 4 MG/2 ML VIAL IV PRN (12:24)
[2020-08-06] MEDS ORDERED: ACETAMINOPHEN 325 MG TABLET PO PRN (12:24)
[2020-08-06] MEDS: PREGABALIN 75 MG CAPSULE PO SCH (16:36)
[2020-08-06] MEDS ORDERED: NON FORMULARY MEDICATION 1 DOSE MISCELL (Insulin Glargine [Basaglar Kwikpen U-100 Insulin] SUB-Q SCH (21:00)
[2020-08-06] MEDS ORDERED: lamoTRIgine 100 MG TABLET PO SCH (21:00)
[2020-08-06] MEDS ORDERED: DULoxetine 30 MG CAPSULE PO SCH (21:00)
[2020-08-06] MEDS ORDERED: INSULIN GLARGINE, HUMAN 1 UNIT/0.01 ML SQ SCH (21:00)
[2020-08-06] MEDS ORDERED: QUEtiapine 25 MG TABLET PO SCH (21:00)
[2020-08-06] MEDS: DULoxetine 30 MG CAPSULE PO SCH (21:23)
[2020-08-06] MEDS: RIFAXIMIN 550 MG TABLET PO SCH (21:23)
[2020-08-06] MEDS: QUEtiapine 25 MG TABLET PO SCH (21:24)
[2020-08-06] MEDS: lamoTRIgine 100 MG TABLET PO SCH (21:27)
[2020-08-06] MEDS: NYSTATIN POWDER BOTTLE 15GM TOPICAL SCH (21:29)
[2020-08-07] MEDS: PREGABALIN 75 MG CAPSULE PO SCH ×3 (00:44→17:36)
[2020-08-07] MEDS: INSULIN LISPRO 1 UNIT/0.01 ML UNIT SQ SCH ×5 (07:20→20:43)
[2020-08-07] MEDS: LEVOTHYROXINE SODIUM 112 MCG TABLET PO SCH (07:24)
[2020-08-07] MEDS: LEVOTHYROXINE 25 MCG TABLET PO SCH (07:24)
[2020-08-07] MEDS ORDERED: LEVOTHYROXINE 25 MCG TABLET PO SCH (07:30)
[2020-08-07] MEDS ORDERED: LEVOTHYROXINE SODIUM 112 MCG TABLET PO SCH (07:30)
[2020-08-07] MEDS ORDERED: cefTRIAXone 1 GM VIAL IV SCH (09:00)
[2020-08-07] MEDS ORDERED: QUEtiapine 25 MG TABLET PO SCH (09:00)
[2020-08-07] MEDS ORDERED: SPIRONOLACTONE 25 MG TABLET PO SCH (09:00)
[2020-08-07] MEDS ORDERED: FUROSEMIDE 40 MG TABLET PO SCH (09:00)
[2020-08-07] MEDS: LACTULOSE 20 GM/30 ML ORAL.SOL PO SCH ×3 (09:03→20:19)
[2020-08-07] MEDS: CETIRIZINE 10 MG TABLET PO SCH (09:03)
[2020-08-07] MEDS: ATORVASTATIN 10 MG TABLET PO SCH (09:03)
[2020-08-07] MEDS: VITAMIN D3 1,000 UNIT TABLET PO SCH (09:04)
[2020-08-07] MEDS: buPROPion 150 MG TAB.XL.24H PO SCH (09:04)
[2020-08-07] MEDS: ALLOPURINOL 100 MG TABLET PO SCH (09:04)
[2020-08-07] MEDS: QUEtiapine 25 MG TABLET PO SCH ×2 (09:04→20:18)
[2020-08-07] MEDS: RIFAXIMIN 550 MG TABLET PO SCH ×2 (09:05→20:18)
[2020-08-07] MEDS: 0.9 % SODIUM CHLORIDE 10 ML SYRINGE IV SCH ×3 (09:05→20:19)
[2020-08-07] MEDS: DOCUSATE SODIUM 100 MG CAPSULE PO SCH ×2 (09:05→20:19)
[2020-08-07 09:56] LABS: Basophils # (Auto) 0.05 K/mcL (0.00-0.20); Basophils % (Auto) 0.3 % (0.0-2.0); Eosinophils # (Auto) 0.37 K/mcL (0.00-0.70); Eosinophils % (Auto) 2.1 % (0.0-7.0); Hemoglobin 12.3 g/dL (12.0-15.0); Lymphocytes # (Auto) 4.28 K/mcL (1.50-4.80); Lymphocytes % (Auto) 24.5 % (15.0-49.0); Mean Cell Volume 88.9 fL (80.0-100.0); Mean Corpuscular HGB Conc 33.2 g/dL (31.0-36.0); Mean Platelet Volume 12.6 fL (7.4-10.4); Monocytes # (Auto) 0.96 K/mcL (0.10-0.90); Monocytes % (Auto) 5.5 % (1.0-12.0); Neutrophils % (Auto) 67.6 % (38.0-78.0); Platelet Count 137 K/mcL (140-440); RBC 4.16 M/mcL (4.00-5.20); Red Cell Distribution Width 15.6 % (11.5-14.5); WBC 17.4 K/mcL (4.5-11.0)
[2020-08-07 10:32] LABS: ALT/SGPT 377 U/L (<40); AST/SGOT 279 U/L (<32); Albumin 3.6 gm/dL (3.2-5.2); Albumin/Globulin Ratio 1.6 (1.0-2.3); Alkaline Phosphatase 217 U/L (39-117); Bilirubin,Total 0.7 mg/dL (0.1-1.0); Blood Urea Nitrogen 47 mg/dL (8-23); Calcium 8.8 mg/dL (8.6-10.4); Carbon Dioxide 16 mmol/L (22-30); Chloride 98 mmol/L (96-108); Globulin 2.2 gm/dL (2.2-3.7); Glomerular Filtration Rate 29; Glucose 244 mg/dL (70-105)
[2020-08-07] MEDS: NYSTATIN POWDER BOTTLE 15GM TOPICAL SCH ×2 (10:55→20:20)
[2020-08-07] MEDS ORDERED: DEXTROSE 31 GM ORAL.SUSP PO PRN (11:34)
[2020-08-07] MEDS ORDERED: DEXTROSE 50% 50 ML VIAL IV PRN (11:34)
[2020-08-07] MEDS ORDERED: VANCOMYCIN PER PHARMACY IV SCH (11:55)
--- NOTE | 2020-08-07 12:02 | Internal Med Progress Note ---
SUBJECTIVE Subjective Patient information: Note initiated : 08/07/20 at 11:55 am Service Date, if different from initiated Date: [] Patient: Mic Hein 65 y/o F admitted on 08/05/20 for Shaky/weak. Chief Complaint: [UTI] History of present illness: Ms. Hein is a 65 year old F history of type 2 diabetes mellitus insulin dependent, recent UTI, cirrhosis, presenting with 2- week history of general body weakness. She was recently been hospitalized in our facility from 07/11 to 07/16 for pansensitive E. coli urinary tract infections. She was being prescribed with ciprofloxacin. She was seen again in the ED on 07/23 for drug related skin rash. She was being given 1 dose of Solu-Medrol and was sent home on a prednisone taper. Today she presented to the ED for 2 weeks history of general body weakness. She is complaining of decreased appetite. She denies any dysuria but she is complaining of increased urinary symptoms. She denies any fever or chills. She denies any chest pain or shortness of breath. She denies any fever or chills. Vital signs were within normal limits. Labs significant with leukocytosis with WBC 17.9. Serum lactic acid 3.9. Serum creatinine level 2.0 with baseline of 1.5. Hyponatremia of 125 and hyperkalemia of 5.3 also presents. Chest x-ray no sign of pneumonia. Urine analysis does not show any signs of ongoing urinary tract infections. 08/06/20: Afebrile overnight. Cultures no growth to date. Hyponatremia and hyperkalemia resolved. 08/07: Afebrile overnight. Leukocytosis with WBC 17.4. Fasting glucose 244. Blood and urine cultures no growth to date. Patient is feeling very weak. Denies any fever or chills. Denies any dysuria. Constitutional Vitals: Vital Signs Temp Pulse Resp BP Pulse Ox 36.7 C 94 H 18 125/61 97 08/07/20 08:00 08/07/20 08:00 08/07/20 08:00 08/07/20 08:00 08/07/20 08:00 Period Temp Pulse Resp BP Sys/Panchal Pulse Ox Last 24 Hr 36.2 C-37.1 C 72-108 14-18 105-125/61-69 91-97 Intake and Output 05/31/21 06/01/21 06/01/21 21:59 05:59 13:59 Intake Total 680 400 Output Total 750 100 Balance -70 400 -100 Weight 92.941 kg Intake & Output: Intake & Output 08/06/20 08/07/20 08/07/20 21:59 05:59 13:59 Intake Total 680 400 Output Total 750 100 Balance -70 400 -100 Weight 92.941 kg Intake: Oral 680 400 Output: Void Amount 750 100 Other: Meal Dinner Percent of Meal Consumed 100% Feeding Ability Independent Urine Appearance Clear Clear Urine Color Bright Yellow Dark Yellow Urine Odor Normal Normal Stool Size Moderate Large Stool Color Brown Brown Stool Consistency Dry and Hard Dry and Hard Formed # Voids 1 1 # Bowel Movements 1 General appearance: cooperative and no acute distress Head Head exam: Present atraumatic and normocephalic Eye Eye exam: Present EOMI and PERRL ENT ENT exam: Present mucous membranes moist, normal exam and normal external ear exam Neck Neck exam: Present normal inspection; Absent lymphadenopathy, tenderness and thyromegaly Respiratory Respiratory exam: Absent accessory muscle use, respiratory distress and wheezes Cardiovascular Cardiovascular exam: Present normal rate and rhythm; Absent JVD GI/Abdominal GI/Abdominal exam: Present normal bowel sounds and soft; Absent organomegaly and tenderness Extremities Exam Extremities exam: Present full ROM, normal capillary refill and normal inspection; Absent tenderness Neurological Exam Neurological exam: Present alert, CN II-XII intact and oriented X3; Absent motor sensory deficit Psychiatric Psychiatric exam: Present normal affect and normal mood; Absent anxious and depressed Skin Skin exam: Present dry and intact OBJ DATA Labs CBC & Chem 7: 08/07/20 07:20 08/07/20 07:20 Labs: Abnormal Lab Results 08/07/20 08/07/20 08/06/20 07:20 07:20 05:05 WBC 17.4 H 11.6 H RBC 3.78 L Hgb 11.0 L Hct 33.6 L RDW 15.6 H 15.3 H Plt Count 137 L MPV 12.6 H 12.3 H Lymph # (Auto) Bennett # (Auto) 0.96 H Absolute Neutrophils 11.78 H VBG Lactic Acid Sodium Potassium 5.4 H Chloride Carbon Dioxide 16 L Anion Gap 21.0 H BUN 47 H Creatinine 1.8 H Glucose 244 H Hemoglobin A1c Calcium AST 279 H ALT 377 H Alkaline Phosphatase 217 H Ammonia C-Reactive Protein Total Protein 5.8 L Globulin Procalcitonin 08/06/20 08/05/20 08/05/20 05:05 23:40 18:15 WBC RBC Hgb Hct RDW Plt Count MPV Lymph # (Auto) Bennett # (Auto) Absolute Neutrophils VBG Lactic Acid Sodium 131 L Potassium Chloride Carbon Dioxide Anion Gap BUN 51 H 54 H Creatinine 1.8 H 1.9 H Glucose 136 H 168 H Hemoglobin A1c Calcium 8.1 L AST 241 H ALT 242 H Alkaline Phosphatase 137 H Ammonia C-Reactive Protein Total Protein 5.0 L Globulin 1.8 L Procalcitonin 1.38 H 08/05/20 08/05/20 08/05/20 18:15 18:15 17:08 WBC RBC Hgb Hct RDW Plt Count MPV Lymph # (Auto) Bennett # (Auto) Absolute Neutrophils VBG Lactic Acid Sodium 131 L Potassium Chloride 95 L Carbon Dioxide Anion Gap BUN 53 H Creatinine 1.8 H Glucose 140 H Hemoglobin A1c 8.8 H Calcium AST ALT Alkaline Phosphatase Ammonia 156 H C-Reactive Protein 1.80 H Total Protein Globulin Procalcitonin 08/05/20 08/05/20 08/05/20 17:08 12:51 12:51 WBC 15.8 H 17.9 H RBC 3.78 L Hgb 11.2 L Hct 34.3 L RDW 15.0 H 14.9 H Plt Count MPV 12.3 H 11.9 H Lymph # (Auto) 4.88 H Bennett # (Auto) 1.09 H Absolute Neutrophils 9.71 H VBG Lactic Acid 3.9 H* Sodium Potassium Chloride Carbon Dioxide Anion Gap BUN Creatinine Glucose Hemoglobin A1c Calcium AST ALT Alkaline Phosphatase Ammonia C-Reactive Protein Total Protein Globulin Procalcitonin 08/05/20 12:51 WBC RBC Hgb Hct RDW Plt Count MPV Lymph # (Auto) Bennett # (Auto) Absolute Neutrophils VBG Lactic Acid Sodium 125 L Potassium 5.3 H Chloride 87 L Carbon Dioxide 20 L Anion Gap 18.0 H BUN 58 H Creatinine 2.0 H Glucose 176 H Hemoglobin A1c Calcium AST 137 H ALT 145 H Alkaline Phosphatase 173 H Ammonia C-Reactive Protein Total Protein Globulin Procalcitonin Meds: Medications Acetaminophen (Acetaminophen 325 Mg Tablet) 650 mg PO Q6HP PRN; Protocol PRN Reason: Per Pain Protocol/Fever > 101 Albuterol Sulfate (Albuterol Sulfate 200 Puff Inhaler) 2 puff INH Q4HP PRN PRN Reason: shortness of breath or wheezin Allopurinol (Allopurinol 100 Mg Tablet) 50 mg PO DAILY [facility] Last Admin: 08/07/20 09:04 Dose: 50 mg Documented by: Artificial Tears (Carboxymethylcellulose Sodium 1 Each Droper.Gel) 1 - 2 each OU Q1HP PRN PRN Reason: DRY EYES Atorvastatin Calcium (Atorvastatin 10 Mg Tablet) 5 mg PO DAILY [facility] Last Admin: 08/07/20 09:03 Dose: 5 mg Documented by: Bupropion HCl (Bupropion 150 Mg Tab.Xl.24h) 150 mg PO QAM [facility] Last Admin: 08/07/20 09:04 Dose: 150 mg Documented by: Cetirizine HCl (Cetirizine 10 Mg Tablet) 10 mg PO DAILY [facility] Last Admin: 08/07/20 09:03 Dose: 10 mg Documented by: Dextrose (Dextrose 50% 50 Ml Vial) 0 ml IV UD PRN PRN Reason: Hypoglycemia Dextrose (Dextrose 50% 50 Ml Vial) 0 ml IV UD PRN PRN Reason: Hypoglycemia Diagnostic Test (Pha) (Accu-Chek 1 Each Strip) 1 each FS ACHS [facility] Last Admin: 08/07/20 07:20 Dose: 1 each Documented by: Diagnostic Test (Pha) (Accu-Chek 1 Each Strip) 1 each FS [facility] Diphenhydramine HCl (Diphenhydramine 25 Mg Capsule) 50 mg PO Q6HP PRN PRN Reason: allergic reaction Docusate Sodium (Docusate Sodium 100 Mg Capsule) 100 mg PO BID [facility] Last Admin: 08/07/20 09:05 Dose: 100 mg Documented by: Duloxetine HCl (Duloxetine 30 Mg Capsule) 120 mg PO HS [facility] Last Admin: 08/06/20 21:23 Dose: 120 mg Documented by: Furosemide (Furosemide 40 Mg Tablet) 40 mg PO QAM [facility] Last Admin: 08/07/20 09:05 Dose: 40 mg Documented by: Glucose (Dextrose 31 Gm Oral.Susp) 15 gm PO PRN PRN PRN Reason: Hypoglycemia Glucose (Dextrose 31 Gm Oral.Susp) 15 gm PO PRN PRN PRN Reason: Hypoglycemia Ibuprofen (Ibuprofen 600 Mg Tablet) 600 mg PO BIDP PRN PRN Reason: Pain Last Admin: 08/06/20 19:07 Dose: 600 mg Documented by: Insulin Glargine (Insulin Glargine, Human 1 Unit/0.01 Ml) 60 unit SQ [facility] Insulin Human Lispro (Insulin Lispro 1 Unit/0.01 Ml Unit) 0 unit SQ [facility]; Protocol Lactulose (Lactulose 20 Gm/30 Ml Oral.Octavia) 20 gm PO TID [facility] Last Admin: 08/07/20 09:03 Dose: 20 gm Documented by: Lamotrigine (Lamotrigine 100 Mg Tablet) 150 mg PO [facility] Last Admin: 08/06/20 21:27 Dose: 150 mg Documented by: Levothyroxine Sodium (Levothyroxine Sodium 112 Mcg Tablet) 112 mcg PO [facility] Last Admin: 08/07/20 07:24 Dose: 112 mcg Documented by: Levothyroxine Sodium (Levothyroxine 25 Mcg Tablet) 25 mcg PO [facility] Last Admin: 08/07/20 07:24 Dose: 25 mcg Documented by: Nystatin (Nystatin Powder Bottle 15gm) 1 dose TOPICAL BID [facility] Last Admin: 08/07/20 10:55 Dose: 1 dose Documented by: Ondansetron HCl (Ondansetron 4 Mg/2 Ml Vial) 4 mg IV Q4HP PRN; Protocol PRN Reason: Nausea And Vomiting Lubiprostone [ Amitiza] 24 Mcg Capsule 1 dose PO BID [facility] Last Admin: 08/07/20 09:31 Dose: Not Given Documented by: Polyethylene Glycol (Polyethylene Glycol 3350 17 Gm Packet) 17 gm PO BIDP PRN PRN Reason: constipation Last Admin: 08/06/20 16:36 Dose: 17 gm Documented by: Pregabalin (Pregabalin 75 Mg Capsule) 75 mg PO Q8H [facility] Last Admin: 08/07/20 10:55 Dose: 75 mg Documented by: Quetiapine Fumarate (Quetiapine 25 Mg Tablet) 12.5 mg PO DAILY [facility] Last Admin: 08/07/20 09:04 Dose: 12.5 mg Documented by: Quetiapine Fumarate (Quetiapine 25 Mg Tablet) 50 mg PO [facility] Last Admin: 08/06/20 21:24 Dose: 50 mg Documented by: Senna (Sennosides 1 Tablet) 2 tab PO HSP PRN PRN Reason: Constipation Sodium Chloride (0.9 % Sodium Chloride 10 Ml Syringe) 10 ml IV Q8 [facility] Last Admin: 08/07/20 09:05 Dose: 10 ml Documented by: Spironolactone (Spironolactone 25 Mg Tablet) 100 mg PO DAILY [facility] Last Admin: 08/07/20 09:05 Dose: 100 mg Documented by: Vitamin D (Vitamin D3 1,000 Unit Tablet) 1,000 unit PO DAILY [facility] Last Admin: 08/07/20 09:04 Dose: 1,000 unit Documented by: A/P Assessment and plan (1) Hyperkalemia: Status: Acute (2) Hyponatremia: Status: Acute (3) Diabetes mellitus with stage 3 chronic kidney disease: Status: Acute (4) Stage 1 acute kidney injury: Status: Acute (5) AMS (altered mental status): Status: Acute (6) Type 2 diabetes mellitus: Status: Acute Qualifiers: Diabetes mellitus complication status: with hyperglycemia Diabetes mellitus assisted insulin use: with assisted use Qualified Code(s): E11.65 - Type 2 diabetes mellitus with hyperglycemia; Z79.4 - intermediate card tender (current) use of insulin (7) Cirrhosis of liver: Status: Chronic (8) Metabolic acidosis: Status: Acute Narrative A/P Narrative: 1. General body weakness: Sepsis with unknown source of infection vs adrenal insufficiency from high dose sternoid therapy: Serial lactic acid ESR CRP 1.80 elevated procalcitonin 1.38 elevated, suggesting ongoing infection. Given presence of symptoms (increased urinary frequency), will treat for presumed UTI Blood culture X2, no growth to date Urine culture, no growth to date Switching back from Rocephin to Vancomycin and Zosyn given increased tiredness and increasing WBC for broader antibiotics spectrum Saline lock cbc w/ auto diff in the AM to trend WBC AM cortisol 8.2, suggests AGAINST adrenal insufficiency ; and random plasma ACTH level to look for evidence of adrenal insufficiency; if proven, will given glu cocorticoid and mineralocorticoid PT OT evaluation and treatment and for placement planning 2. Hyperkalemia: DDx: Adrenal insufficiency vs isolated electrolyte imbalance AM cortisol 8.2, suggests AGAINST adrenal insufficiency Saline lock CMP daily to continue to trend electrolytes levels Consult nephrology Dr. Cohen, recs. appreciated 3. T2DM: HgA1c 8.8 Hold oral hypoglycemics Glargine 50-->60 unit HS for better glycemic coverage Tier 1-->2 SSI AC HS for better glycemic coverage Accu Chek AC HS Hypoglycemia protocol Diabetic diet 4. Dehydration and Stage 1 acute kidney injury (in the context of CKD stage 3): Avoid nephrotoxic agents Currently saline lock CMP in the AM to trend kidney functions 5. h/o cirrhosis: Continue lactulose and rifaximin and Spironolactone Check serum ammonium level--> 156 elevated 6. Hypothyroidism: TSH level 0.50 within normal limits Continue oral thyroid replacement therapy 7. Metabolic acidosis: Consult nephrology Dr. Cohen, recs. appreciated GI ppx: not currently indicated DVT ppx: SCDs Code status: Full Prognosis: Guarded Disposition: inpatient med surg telemetry; PT OT evaluation and treatment and for placement planning Time Spent With Patient Time: Total time spent is greater than 50% in coordination of care (as documented) at patient's floor/unit and/or counseling patient: Total time spent with greater than 50% in coordination of care (as documented) at patient's floor/unit and/or counseling patient:: 25 - 35 minutes QUALITY VTE Deep Vein Thrombosis/Pulmonary Embolism Present on Admission: No
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
[2020-08-07] MEDS: VANCOMYCIN 1,500 MG in 0.9 % SODIUM CHLORIDE 500 ML IV SCH (13:01)
[2020-08-07] MEDS: PIPERACILLIN SODIUM/TAZOBACTAM 3.375 GM in DEXTROSE 5% IN WATER 50 ML IV SCH ×2 (15:28→17:36)
[2020-08-07] MEDS: lamoTRIgine 100 MG TABLET PO SCH (20:19)
[2020-08-07] MEDS: DULoxetine 30 MG CAPSULE PO SCH (20:19)
[2020-08-07] MEDS ORDERED: INSULIN GLARGINE, HUMAN 1 UNIT/0.01 ML SQ SCH (21:00)
[2020-08-08] MEDS: PIPERACILLIN SODIUM/TAZOBACTAM 3.375 GM in DEXTROSE 5% IN WATER 50 ML IV SCH ×4 (00:01→17:59)
[2020-08-08] MEDS: PREGABALIN 75 MG CAPSULE PO SCH ×3 (03:25→17:59)
[2020-08-08] MEDS: 0.9 % SODIUM CHLORIDE 10 ML SYRINGE IV SCH ×3 (05:45→21:37)
--- NOTE | 2020-08-08 06:38 | Nephrology Progress Note ---
SUBJECTIVE Subjective Patient information: Note initiated : 08/08/20 at 6:31 am Service Date, if different from initiated Date: [] Patient: Mic Hein 65 y/o F admitted on 08/05/20 for Shaky/weak. Chief Complaint: [weakness] Polypharmacy in the setting of ARF and pre-existing hepatic disease. In terms of acute renal failure, the combination of nonsteroidal anti- inflammatories, and ABEBA inhibitor, spironolactone and furosemide would be to acute renal failure interference with the renal autoregulation glomerular filtration and blood flow. The offending medications were stopped last yesterday and this could take to 72 hours to improve. Bigger concern is the number of psychotropic medications given this patient, and some of her confusion, myoclonic jerking and perhaps tardive dyskinesia. There is no fever or stiff muscles to suggest malignant neuroleptic syndrome. Her metabolic acidosis is new and in the past she has had no evidence of an RTA, or lithium carbonate. Will require a lactate level if she remains acidotic with positive anion gap. Anticipate her hyperkalemia will improve after stopping nonsteroidals, lisinopril, and spironolactone. Laboratory Tests 08/05/20 08/08/20 08/08/20 18:15 06:10 06:10 Sodium 134 Potassium 4.8 Chloride 100 Carbon Dioxide 23 Anion Gap 11.0 BUN 27 H Creatinine 1.3 H GFR Calculation 43 Glucose 223 H Osmolality 294 Calcium 8.5 L Total Bilirubin 0.6 AST 158 H ALT 296 H Alkaline Phosphatase 198 H Ammonia 156 H Total Protein 5.4 L Albumin 3.2 Globulin 2.2 Albumin/Globulin Ratio 1.5 08/05/20 08/05/20 12:51 13:57 VBG Lactic Acid 3.9 H* Urine Color Yellow Urine Appearance Clear Urine pH 5.0 Ur Specific [place] 1.008 Urine Protein Negative Urine Glucose (UA) Negative Urine Ketones Negative Urine Occult Blood Negative Urine Nitrate Negative Urine Bilirubin Negative Urine Urobilinogen Negative Ur Leukocyte Esterase Negative Ur Culture Indicated? No MELD Score on 08/05 was 13 and based largely on ARF/elevated SCr CT 08/05/20: Liver:Previous partial hepatectomy. There are changes consistent with compensatory hypertrophy of the caudate and left lobes. Gallbladder, bilary:Gallbladder is not present. No dilated bile ducts Spleen:Splenomegaly. Spleen measures 10.4 x 5.1 x 16.2. The findings are unchanged since 07/11/2020 Pancreas:There are pancreatic calcifications. No pancreatic mass. No peripancreatic abnormality Adrenal glands:Negative Kidneys, ureters, bladder:No obstructing or nonobstructing renal calculi. No hydronephrosis. No renal mass identified on this noncontrast enhanced examination So the real question is how to this lady's ammonia level to 156 given infection trivial increase in her meld, lack of any coagulopathy, and the absence of any radiographic evidence of cirrhosis. Options are medication effect (have not seen any valproic acid but there are other medications including thiazide diuretics) as well as metabolic defects such as urea cycle issues. If she does have hepatic insufficiency then perhaps the problem is lack of lactic acid metabolism as opposed to overproduction of lactic acid. Constitutional Vitals: Vital Signs Temp Pulse Resp BP Pulse Ox 36.8 C 89 18 125/60 97 08/08/20 04:17 08/08/20 04:17 08/08/20 04:17 08/08/20 04:17 08/08/20 04:17 Period Temp Pulse Resp BP Sys/Panchal Pulse Ox Last 24 Hr 36.6 C-37.2 C 89-103 16-18 101-132/60-70 94-97 Intake and Output 08/07/20 08/08/20 08/08/20 21:59 05:59 13:59 Intake Total 1090 1650 Output Total 452 800 Balance 638 850 Weight 93.168 kg Intake & Output: Intake & Output 08/07/20 08/08/20 08/08/20 21:59 05:59 13:59 Intake Total 1090 1650 Output Total 452 800 Balance 638 850 Weight 93.168 kg Intake: IV 600 50 Zosyn 3.375 gm In Dextrose 5% 100 50 in Water 50 ml @ 100 mls/hr IV Q6H [facility] Rx#:[id number] Vancomycin 1,500 mg In Sodium 500 Chloride 0.9% 500 ml @ 333.3 mls/hr IV Q24H [facility] Rx#: [id number] Oral 490 1600 Output: Void Amount 450 800 # of times incontinent of urine 2 Other: Meal Dinner Percent of Meal Consumed 75% Feeding Ability Independent Urine Appearance Clear Urine Color Bright Yellow Bright Yellow Urine Odor Normal Stool Size Moderate Moderate Stool Color Brown Brown Stool Consistency Soft Formed # Bowel Movements 1 Physical Exam: Exam Narrative: Obese, non-toxic but sluggish speech EENT EENT: ATNC, PERRL, mucous membranes moist, mucous membranes dry, hearing intact and vision intact Neck Neck: no JVD, no carotid bruit and supple Respiratory Respiratory: clear and rhonchi Cardiovascular Cardiology: no rub, no gallops, edema (trace), regular rate, regular rhythm, normal S1 and normal S2 Gastrointestinal Gastrointestinal: no tenderness Integumentary Integumentary: warm and dry and erythema (actually, more like flushed) Neurologic Neurologic: asterixis (and myoclonic twitching), confused and CN 3-12 intact Musculoskeletal Musculoskeletal: decreased ROM Psychiatric Psychiatric: depressed A/P Assessment and plan (1) NATASAH (acute kidney injury): Assessment and plan: Improved with d/c of offending Rx and IVF Status: Acute Comment: Recurrent Stop RAASI (ACEi and aldactone), Stop loop diuretic, stop NSAIDs Trend GFR (2) Hyperkalemia: Status: Acute Comment: Stop ACEi and spironolactone=> probably forever Stop NSAIDS (3) Metabolic acidosis: Status: Chronic Comment: Check urine AG => improved If lactate elevated may need to stop metformin...It is not (4) Polypharmacy: Status: Acute Comment: Not only involved in ARF with metabolic acidosis and hyperkalemia But I suspect too many psychiatric Rx..Need to start tapering down Who ever is prescribing all this needs to be involved (Dr Maurice Castro). Here are my suggestions to run by mental health: 1. I'd start by tapering the aripipraole as its side effect profile looks similar to her neurologic Sx, flushing etc => apparently this has been completed/discontinued 2. Get rid of bromphemiramine/pseudophen DM 3. Buproprion has a lot of drug interactions based on P450 interference and can cause constipation so taper to off. 4. Duloxetine with SNRI effect + Buproprion with DNRI means two Rx effecting Norepi Reuptake pathway in [employer]. Pick bupropinion to taper slowly. 5. Stop Benadryl with anticholinergic activity 5. Quetiapine further inhibits central dopamine and serotonin pathways, however, since the aripiprazole has been stopped, you should chose either this or lamotrigine BUT NOT BOTH DUE TO DRUG INTERACTION RISK 6. Pregabalin: not a fan but in this case anti-seizure activity may be keeping the lid on other adverse effects. Taper to lowest effective dose for neuropathic pain. (5) Hyperammonemia: Assessment and plan: This patient presented with encephalopathy and a serum ammonia level 152. Sent to have hepatic cirrhosis but I do not get it. Her liver is not small, there is a diffusely echogenic 1 would expect with Le or alcoholic liver disease. She has had a partial hepatectomy with compensatory hypertrophy of the left lobe of liver. She has no coagulopathy, MELD scores are not elevated now that her ARF has improved. She has a mild transaminitis but this could easily be from one of the 100 symptom medicine she takes. Unlikely that she has a congenital urea cycle term and long ago. Not been on any valproic acid but that is not to say some of the combinations of medicine she has been on could impair hepatic metabolism of ammonia through the urea cycle. At best thought though is that she has such severe constipation that t his leads for increased generation of ammonia by an alteration in her bowel ericka that cannot be cleared by her current level of liver function. Therefore every effort to stop any of her constipating medications. She is on at least 3 different medicines to promote GI motility but they are obviously ineffective and probably will remain that way until her constipating medicines have been completely weaned off. Status: Acute Narrative A/P Narrative: Upon discharge, snf, physician in charge, and her mental health physician must have a clear medication list and a plan of action to get this patient off many of her medicines to see if this improves her elevated ammonia levels, transaminitis, mental status, myoclonus (which has already improved), and perhaps even her tardive dyskinesia which does not seem all that bad to me. If she has Parkinson's disease I think this was myoclonic jerking. As for the reason I was consulted, should not have access to nonsteroidal anti- inflammatories, ABEBA inhibitors or ARB medications, spironolactone, review loop diuretics at this point. Time Spent With Patient Time: Total time spent is greater than 50% in coordination of care (as documented) at patient's floor/unit and/or counseling patient:
[2020-08-08 07:01] LABS: Basophils # (Auto) 0.02 K/mcL (0.00-0.20); Basophils % (Auto) 0.2 % (0.0-2.0); Eosinophils # (Auto) 0.21 K/mcL (0.00-0.70); Eosinophils % (Auto) 2.3 % (0.0-7.0); Hematocrit 30.8 % (36.0-48.0); Hemoglobin 10.1 g/dL (12.0-15.0); Lymphocytes % (Auto) 26.5 % (15.0-49.0); Mean Cell Volume 90.1 fL (80.0-100.0); Mean Corpuscular HGB Conc 32.8 g/dL (31.0-36.0); Mean Platelet Volume 11.9 fL (7.4-10.4); Monocytes # (Auto) 0.54 K/mcL (0.10-0.90); Platelet Count 103 K/mcL (140-440); RBC 3.42 M/mcL (4.00-5.20); Red Cell Distribution Width 15.4 % (11.5-14.5)
[2020-08-08] MEDS: INSULIN LISPRO 1 UNIT/0.01 ML UNIT SQ SCH ×4 (07:55→21:30)
[2020-08-08] MEDS: LEVOTHYROXINE 25 MCG TABLET PO SCH (07:56)
[2020-08-08] MEDS: LEVOTHYROXINE SODIUM 112 MCG TABLET PO SCH (07:56)
[2020-08-08 08:00] LABS: ALT/SGPT 296 U/L (<40); AST/SGOT 158 U/L (<32); Albumin 3.2 gm/dL (3.2-5.2); Albumin/Globulin Ratio 1.5 (1.0-2.3); Alkaline Phosphatase 198 U/L (39-117); Bilirubin,Total 0.6 mg/dL (0.1-1.0); Blood Urea Nitrogen 27 mg/dL (8-23); Calcium 8.5 mg/dL (8.6-10.4); Carbon Dioxide 23 mmol/L (22-30); Chloride 100 mmol/L (96-108); Globulin 2.2 gm/dL (2.2-3.7); Glomerular Filtration Rate 43; Glucose 223 mg/dL (70-105)
[2020-08-08] MEDS: LACTULOSE 20 GM/30 ML ORAL.SOL PO SCH ×3 (09:57→21:31)
[2020-08-08] MEDS: DOCUSATE SODIUM 100 MG CAPSULE PO SCH ×2 (09:57→21:32)
[2020-08-08] MEDS: VANCOMYCIN 1,500 MG in 0.9 % SODIUM CHLORIDE 500 ML IV SCH (09:57)
[2020-08-08] MEDS: buPROPion 150 MG TAB.XL.24H PO SCH (09:57)
[2020-08-08] MEDS: ATORVASTATIN 10 MG TABLET PO SCH (09:58)
[2020-08-08] MEDS: CETIRIZINE 10 MG TABLET PO SCH (09:58)
[2020-08-08] MEDS: VITAMIN D3 1,000 UNIT TABLET PO SCH (09:58)
[2020-08-08] MEDS: QUEtiapine 25 MG TABLET PO SCH ×2 (09:59→21:33)
[2020-08-08] MEDS: ALLOPURINOL 100 MG TABLET PO SCH (09:59)
[2020-08-08] MEDS: NYSTATIN POWDER BOTTLE 15GM TOPICAL SCH ×2 (10:01→21:32)
[2020-08-08] MEDS: RIFAXIMIN 550 MG TABLET PO SCH ×2 (10:57→21:31)
--- NOTE | 2020-08-08 16:13 | Internal Med Progress Note ---
SUBJECTIVE Subjective Patient information: Note initiated : 08/08/20 at 4:04 pm Service Date, if different from initiated Date: [] Patient: Mic Hein a 65 y/o F admitted on 08/05/20 for Shaky/weak. Chief Complaint: [] History of present illness: Ms. Hein is a 65 year old F history of type 2 diabetes mellitus insulin dependent, recent UTI, cirrhosis, presenting with 2- week history of general body weakness. She was recently been hospitalized in our facility from 07/11 to 07/16 for pansensitive E. coli urinary tract infections. She was being prescribed with ciprofloxacin. She was seen again in the ED on 07/23 for drug related skin rash. She was being given 1 dose of Solu-Medrol and was sent home on a prednisone taper. Today she presented to the ED for 2 weeks history of general body weakness. She is complaining of decreased appetite. She denies any dysuria but she is complaining of increased urinary symptoms. She denies any fever or chills. She denies any chest pain or shortness of breath. She denies any fever or chills. Vital signs were within normal limits. Labs significant with leukocytosis with WBC 17.9. Serum lactic acid 3.9. Serum creatinine level 2.0 with baseline of 1.5. Hyponatremia of 125 and hyperkalemia of 5.3 also presents. Chest x-ray no sign of pneumonia. Urine analysis does not show any signs of ongoing urinary tract infections. 08/06/20: Afebrile overnight. Cultures no growth to date. Hyponatremia and hyperkalemia resolved. 08/07: Afebrile overnight. Leukocytosis with WBC 17.4. Fasting glucose 244. Blood and urine cultures no growth to date. Patient is feeling very weak. Denies any fever or chills. Denies any dysuria. 08/08: NSAID, Lasix, Lisinopril, and Spironolactone were stopped yesterday as per Dr. Noel pascal. Patient is c/o general body weakness. She is c/o insomnia. Denies depression or anxiety. Constitutional Vitals: Vital Signs Temp Pulse Resp BP Pulse Ox 36.9 C 93 H 20 111/67 95 08/08/20 15:39 08/08/20 15:39 08/08/20 15:39 08/08/20 15:39 08/08/20 15:39 Period Temp Pulse Resp BP Sys/Panchal Pulse Ox Last 24 Hr 36.1 C-37.2 C 84-103 16-22 101-125/60-68 94-97 Intake and Output 08/08/20 08/08/20 08/08/20 05:59 13:59 21:59 Intake Total 1650 550 290 Output Total 800 Balance 850 550 290 Intake & Output: Intake & Output 08/08/20 08/08/20 08/08/20 05:59 13:59 21:59 Intake Total 1650 550 290 Output Total 800 Balance 850 550 290 Intake: IV 50 550 50 Zosyn 3.375 gm In Dextrose 5% 50 50 50 in Water 50 ml @ 100 mls/hr IV Q6H [facility] Rx#:[id number] Vancomycin 1,500 mg In Sodium 500 Chloride 0.9% 500 ml @ 333.3 mls/hr IV Q24H [facility] Rx#: [id number] Oral 1600 240 Output: Void Amount 800 Other: Meal Lunch Percent of Meal Consumed 100% Urine Appearance Clear Urine Color Bright Yellow Urine Odor Normal Stool Size Moderate Stool Color Brown Stool Consistency Formed # Voids 1 # Bowel Movements 1 General appearance: cooperative and no acute distress Head Head exam: Present atraumatic and normocephalic Eye Eye exam: Present EOMI and PERRL ENT ENT exam: Present mucous membranes moist, normal exam and normal external ear exam Neck Neck exam: Present normal inspection; Absent lymphadenopathy, tenderness and thyromegaly Respiratory Respiratory exam: Absent accessory muscle use, respiratory distress and wheezes Cardiovascular Cardiovascular exam: Present normal rate and rhythm; Absent JVD GI/Abdominal GI/Abdominal exam: Present normal bowel sounds and soft; Absent organomegaly and tenderness Extremities Exam Extremities exam: Present full ROM, normal capillary refill and normal inspection; Absent tenderness Neurological Exam Neurological exam: Present alert, CN II-XII intact and oriented X3; Absent motor sensory deficit Psychiatric Psychiatric exam: Present normal affect and normal mood; Absent anxious and depressed Skin Skin exam: Present dry and intact OBJ DATA Labs CBC & Chem 7: 08/08/20 06:10 08/08/20 06:10 Labs: Abnormal Lab Results 08/08/20 08/08/20 08/07/20 06:10 06:10 07:20 WBC 17.4 H RBC 3.42 L Hgb 10.1 L Hct 30.8 L RDW 15.4 H 15.6 H Plt Count 103 L 137 L MPV 11.9 H 12.6 H Lymph # (Auto) [place] # (Auto) 0.96 H Absolute Neutrophils 11.78 H Sodium Potassium Chloride Carbon Dioxide Anion Gap BUN 27 H Creatinine 1.3 H Glucose 223 H Hemoglobin A1c Calcium 8.5 L AST 158 H ALT 296 H Alkaline Phosphatase 198 H Ammonia C-Reactive Protein Total Protein 5.4 L Globulin Procalcitonin 08/07/20 08/06/20 08/06/20 07:20 05:05 05:05 WBC 11.6 H RBC 3.78 L Hgb 11.0 L Hct 33.6 L RDW 15.3 H Plt Count MPV 12.3 H Lymph # (Auto) [place] # (Auto) Absolute Neutrophils Sodium Potassium 5.4 H Chloride Carbon Dioxide 16 L Anion Gap 21.0 H BUN 47 H 51 H Creatinine 1.8 H 1.8 H Glucose 244 H 136 H Hemoglobin A1c Calcium 8.1 L AST 279 H 241 H ALT 377 H 242 H Alkaline Phosphatase 217 H 137 H Ammonia C-Reactive Protein Total Protein 5.8 L 5.0 L Globulin 1.8 L Procalcitonin 08/05/20 08/05/20 08/05/20 23:40 18:15 18:15 WBC RBC Hgb Hct RDW Plt Count MPV Lymph # (Auto) [place] # (Auto) Absolute Neutrophils Sodium 131 L Potassium Chloride Carbon Dioxide Anion Gap BUN 54 H Creatinine 1.9 H Glucose 168 H Hemoglobin A1c Calcium AST ALT Alkaline Phosphatase Ammonia 156 H C-Reactive Protein Total Protein Globulin Procalcitonin 1.38 H 08/05/20 08/05/20 08/05/20 18:15 17:08 17:08 WBC 15.8 H RBC 3.78 L Hgb 11.2 L Hct 34.3 L RDW 15.0 H Plt Count MPV 12.3 H Lymph # (Auto) 4.88 H [place] # (Auto) 1.09 H Absolute Neutrophils 9.71 H Sodium 131 L Potassium Chloride 95 L Carbon Dioxide Anion Gap BUN 53 H Creatinine 1.8 H Glucose 140 H Hemoglobin A1c 8.8 H Calcium AST ALT Alkaline Phosphatase Ammonia C-Reactive Protein 1.80 H Total Protein Globulin Procalcitonin Meds: Medications Acetaminophen (Acetaminophen 325 Mg Tablet) 650 mg PO Q6HP PRN; Protocol PRN Reason: Per Pain Protocol/Fever > 101 Last Admin: 08/08/20 09:59 Dose: 650 mg Documented by: Albuterol Sulfate (Albuterol Sulfate 200 Puff Inhaler) 2 puff INH Q4HP PRN PRN Reason: shortness of breath or wheezin Allopurinol (Allopurinol 100 Mg Tablet) 50 mg PO DAILY [facility] Last Admin: 08/08/20 09:59 Dose: 50 mg Documented by: Artificial Tears (Carboxymethylcellulose Sodium 1 Each Droper.Gel) 1 - 2 each OU Q1HP PRN PRN Reason: DRY EYES Atorvastatin Calcium (Atorvastatin 10 Mg Tablet) 5 mg PO DAILY [facility] Last Admin: 08/08/20 09:58 Dose: 5 mg Documented by: Bupropion HCl (Bupropion 150 Mg Tab.Xl.24h) 150 mg PO QAM [facility] Last Admin: 08/08/20 09:57 Dose: 150 mg Documented by: Cetirizine HCl (Cetirizine 10 Mg Tablet) 10 mg PO DAILY [facility] Last Admin: 08/08/20 09:58 Dose: 10 mg Documented by: Dextrose (Dextrose 50% 50 Ml Vial) 0 ml IV UD PRN PRN Reason: Hypoglycemia Diagnostic Test (Pha) (Accu-Chek 1 Each Strip) 1 each FS ACHS [facility] Last Admin: 08/08/20 12:09 Dose: 1 each Documented by: Diphenhydramine HCl (Diphenhydramine 25 Mg Capsule) 50 mg PO Q6HP PRN PRN Reason: allergic reaction Docusate Sodium (Docusate Sodium 100 Mg Capsule) 100 mg PO BID [facility] Last Admin: 08/08/20 09:57 Dose: 100 mg Documented by: Duloxetine HCl (Duloxetine 30 Mg Capsule) 120 mg PO HS [facility] Last Admin: 08/07/20 20:19 Dose: 120 mg Documented by: Glucose (Dextrose 31 Gm Oral.Susp) 15 gm PO PRN PRN PRN Reason: Hypoglycemia Piperacillin Sod/Tazobactam (Sod 3.375 gm/ Dextrose) 50 mls @ 100 mls/hr IV Q6H [facility]; Protocol Last Infusion: 08/08/20 14:15 Dose: Infused Documented by: Vancomycin HCl 1,500 mg/ (Sodium Chloride) 500 mls @ 333.3 mls/hr IV Q24H [facility] Last Infusion: 08/08/20 11:28 Dose: Infused Documented by: Insulin Glargine (Insulin Glargine, Human 1 Unit/0.01 Ml) 60 unit SQ [facility] Last Admin: 08/07/20 20:43 Dose: 60 units Documented by: Insulin Human Lispro (Insulin Lispro 1 Unit/0.01 Ml Unit) 0 unit SQ [facility]; Protocol Last Admin: 08/08/20 12:09 Dose: 6 units Documented by: Lactulose (Lactulose 20 Gm/30 Ml Oral.Octavia) 20 gm PO TID [facility] Last Admin: 08/08/20 09:57 Dose: 20 gm Documented by: Lamotrigine (Lamotrigine 100 Mg Tablet) 150 mg PO [facility] Last Admin: 08/07/20 20:19 Dose: 150 mg Documented by: Levothyroxine Sodium (Levothyroxine Sodium 112 Mcg Tablet) 112 mcg PO [facility] Last Admin: 08/08/20 07:56 Dose: 112 mcg Documented by: Levothyroxine Sodium (Levothyroxine 25 Mcg Tablet) 25 mcg PO [facility] Last Admin: 08/08/20 07:56 Dose: 25 mcg Documented by: Nystatin (Nystatin Powder Bottle 15gm) 1 dose TOPICAL BID [facility] Last Admin: 08/08/20 10:01 Dose: 1 dose Documented by: Ondansetron HCl (Ondansetron 4 Mg/2 Ml Vial) 4 mg IV Q4HP PRN; Protocol PRN Reason: Nausea And Vomiting Lubiprostone [ Amitiza] 24 Mcg Capsule 1 dose PO BID [facility] Last Admin: 08/08/20 09:28 Dose: Not Given Documented by: Polyethylene Glycol (Polyethylene Glycol 3350 17 Gm Packet) 17 gm PO BIDP PRN PRN Reason: constipation Last Admin: 08/06/20 16:36 Dose: 17 gm Documented by: Pregabalin (Pregabalin 75 Mg Capsule) 75 mg PO Q8H [facility] Last Admin: 08/08/20 10:04 Dose: 75 mg Documented by: Quetiapine Fumarate (Quetiapine 25 Mg Tablet) 12.5 mg PO DAILY [facility] Last Admin: 08/08/20 09:59 Dose: 12.5 mg Documented by: Quetiapine Fumarate (Quetiapine 25 Mg Tablet) 50 mg PO [facility] Last Admin: 08/07/20 20:18 Dose: 50 mg Documented by: Senna (Sennosides 1 Tablet) 2 tab PO [facility] PRN PRN Reason: Constipation Sodium Chloride (0.9 % Sodium Chloride 10 Ml Syringe) 10 ml IV Q8 [facility] Last Admin: 08/08/20 12:57 Dose: 10 ml Documented by: Vancomycin HCl (Vancomycin Per Pharmacy) 1 order IV UD [facility]; Protocol Vitamin D (Vitamin D3 1,000 Unit Tablet) 1,000 unit PO DAILY [facility] Last Admin: 08/08/20 09:58 Dose: 1,000 unit Documented by: A/P Assessment and plan (1) Hyperkalemia: Status: Acute Comment: Stop ACEi and spironolactone=> probably forever Stop NSAIDS (2) Hyponatremia: Status: Acute (3) Diabetes mellitus with stage 3 chronic kidney disease: Status: Acute (4) Stage 1 acute kidney injury: Status: Acute (5) AMS (altered mental status): Status: Acute (6) Type 2 diabetes mellitus: Status: Acute Qualifiers: Diabetes mellitus complication status: with hyperglycemia Diabetes mellitus senior living insulin use: with senior living use Qualified Code(s): E11.65 - Type 2 diabetes mellitus with hyperglycemia; Z79.4 - care home (current) use of insulin (7) Cirrhosis of liver: Status: Chronic (8) Metabolic acidosis: Status: Chronic Comment: Check urine AG If lactate elevated may need to stop metformin (9) Polypharmacy: Status: Acute Comment: Not only involved in ARF with metabolic acidosis and hyperkalemia But I suspect too many psychiatric Rx..Need to start tapering down Who ever is prescribing all this needs to be involved (Dr Maurice Castro). Here are my suggestions to run by mental health: I'd start by tapering the aripipraole as its side effect profile looks similar to her neurologic Sx, flushing etc Get rid of bromphemiramine/pseudophen DM Buproprion has a lot of drug interactions base on P450 interference Duloxetine with SNRI effect + Buproprion with DNRI means two Rx effecting Norepi Reuptake pathway in [employer]. Pick either /or bupropinion or duloxetine but not both. Taper slowly. Benadryl with anticholinergic activity Quetiapine further inhibits central dopamine and seritonin pathways Pregabalin: not a fan but in this case anti-seizure activity may be keeping the lid on other adverse effects Narrative A/P Narrative: 1. Sepsis with unknown source of infection: Serial lactic acid ESR CRP 1.80 elevated procalcitonin 1.38 elevated, suggesting ongoing infection. Given presence of symptoms (increased urinary frequency), will treat for presumed UTI Blood culture X2, no growth to date Urine culture, no growth to date Vancomycin and Zosyn for now. Consider de-escalate when clinical improvement Saline lock cbc w/ auto diff in the AM to trend WBC PT OT evaluation and treatment and for placement planning-->recs. SNF placement. Patient refuses and insists on going back to assisted living facility [place] upon medical stability. 2. Hyperkalemia: Resolved Consult nephrology Dr. Cohen, recs. appreciated Secondary to polypharmacy. d/c Lisinopril and Spironolactone Daily CMP to trend serum potassium level 3. T2DM: HgA1c 8.8 Hold oral hypoglycemics Glargine 60-->70 unit HS for better glycemic coverage Tier 2 SSI AC HS Accu Chek AC HS Hypoglycemia protocol Diabetic diet 4. Dehydration and Stage 1 acute kidney injury (in the context of CKD stage 3): Improving Avoid nephrotoxic agents (Lisinopril, Lasix, Spironolactone, NSAID) Currently saline lock CMP in the AM to trend kidney functions 5. h/o cirrhosis: Continue lactulose and rifaximin; d/c Spironolactone Check serum ammonium level--> 156 elevated 6. Hypothyroidism: TSH level 0.50 within normal limits Continue oral thyroid replacement therapy 7. Metabolic acidosis: Consult nephrology Dr. Cohen, recs. appreciated d/c Lisinopril, Lasix, Spironolactone, NSAID 8. Polypharmacy: d/c Lisinopril, Lasix, Spironolactone, NSAID Communicate with Dr. Elías Galvan regarding indications and possibility of changing or stopping her psychiatric medications (Bupropion, Duloxetine, Quetiapine, Pregabalin, Benadryl) GI ppx: not currently indicated DVT ppx: SCDs Code status: Full Prognosis: Stable Disposition: inpatient med surg telemetry; PT OT evaluation and treatment and for placement planning-->recs. SNF placement. Patient refuses and insists on going back to assisted living facility [place] upon medical stability. Time Spent With Patient Time: Total time spent is greater than 50% in coordination of care (as documented) at patient's floor/unit and/or counseling patient: Total time spent with greater than 50% in coordination of care (as documented) at patient's floor/unit and/or counseling patient:: 25 - 35 minutes QUALITY VTE Deep Vein Thrombosis/Pulmonary Embolism Present on Admission: No
[2020-08-08] MEDS: INSULIN GLARGINE, HUMAN 1 UNIT/0.01 ML SQ SCH (21:29)
[2020-08-08] MEDS: lamoTRIgine 100 MG TABLET PO SCH (21:32)
[2020-08-08] MEDS: DULoxetine 30 MG CAPSULE PO SCH (21:32)
[2020-08-09] MEDS: PIPERACILLIN SODIUM/TAZOBACTAM 3.375 GM in DEXTROSE 5% IN WATER 50 ML IV SCH ×2 (00:23→05:02)
[2020-08-09] MEDS: PREGABALIN 75 MG CAPSULE PO SCH ×3 (00:24→16:55)
[2020-08-09] MEDS: 0.9 % SODIUM CHLORIDE 10 ML SYRINGE IV SCH ×3 (05:03→20:45)
[2020-08-09 06:46] LABS: Basophils # (Auto) 0.02 K/mcL (0.00-0.20); Basophils % (Auto) 0.3 % (0.0-2.0); Eosinophils # (Auto) 0.22 K/mcL (0.00-0.70); Eosinophils % (Auto) 3.7 % (0.0-7.0); Hematocrit 31.9 % (36.0-48.0); Hemoglobin 9.8 g/dL (12.0-15.0); Lymphocytes # (Auto) 2.23 K/mcL (1.50-4.80); Lymphocytes % (Auto) 37.7 % (15.0-49.0); Mean Cell Volume 94.4 fL (80.0-100.0); Mean Corpuscular HGB Conc 30.7 g/dL (31.0-36.0); Mean Platelet Volume 11.6 fL (7.4-10.4); Monocytes # (Auto) 0.43 K/mcL (0.10-0.90); Monocytes % (Auto) 7.3 % (1.0-12.0); Platelet Count 90 K/mcL (140-440); RBC 3.38 M/mcL (4.00-5.20); Red Cell Distribution Width 15.9 % (11.5-14.5); WBC 5.9 K/mcL (4.5-11.0)
[2020-08-09] MEDS: LEVOTHYROXINE 25 MCG TABLET PO SCH (07:15)
[2020-08-09] MEDS: INSULIN LISPRO 1 UNIT/0.01 ML UNIT SQ SCH ×4 (07:15→20:45)
[2020-08-09] MEDS: LEVOTHYROXINE SODIUM 112 MCG TABLET PO SCH (07:15)
[2020-08-09 07:17] LABS: ALT/SGPT 231 U/L (<40); AST/SGOT 91 U/L (<32); Albumin 3.1 gm/dL (3.2-5.2); Albumin/Globulin Ratio 1.5 (1.0-2.3); Alkaline Phosphatase 199 U/L (39-117); Bilirubin,Total 0.5 mg/dL (0.1-1.0); Blood Urea Nitrogen 14 mg/dL (8-23); Calcium 8.5 mg/dL (8.6-10.4); Carbon Dioxide 24 mmol/L (22-30); Chloride 105 mmol/L (96-108); Globulin 2.1 gm/dL (2.2-3.7); Glomerular Filtration Rate 53; Glucose 156 mg/dL (70-105)
--- NOTE | 2020-08-09 07:19 | Nephrology Progress Note ---
SUBJECTIVE Subjective Patient information: Note initiated : 08/09/20 at 7:18 am Service Date, if different from initiated Date: [] Patient: Mic Hein 65 y/o F admitted on 08/05/20 for Shaky/weak. Chief Complaint: [weakness] Polypharmacy in the setting of ARF and pre-existing hepatic disease. In terms of acute renal failure, the combination of nonsteroidal anti- inflammatories, and ABEBA inhibitor, spironolactone and furosemide would be to acute renal failure interference with the renal autoregulation glomerular filtration and blood flow. The offending medications were stopped last yesterday and this could take to 72 hours to improve. Bigger concern is the number of psychotropic medications given this patient, and some of her confusion, myoclonic jerking and perhaps tardive dyskinesia. There is no fever or stiff muscles to suggest malignant neuroleptic syndrome. Her metabolic acidosis is new and in the past she has had no evidence of an RTA, or lithium carbonate. Will require a lactate level if she remains acidotic with positive anion gap. Anticipate her hyperkalemia will improve after stopping nonsteroidals, lisinopril, and spironolactone. Laboratory Tests 08/09/20 04:53 WBC 5.9 Hgb 9.8 L Hct 31.9 L Plt Count 90 L Eos % (Auto) 3.7 08/09/20 04:53 Sodium 137 Potassium 4.4 Chloride 105 Carbon Dioxide 24 Anion Gap 8.0 BUN 14 Creatinine 1.1 GFR Calculation 53 Glucose 156 H Calcium 8.5 L Total Bilirubin 0.5 AST 91 H ALT 231 H Alkaline Phosphatase 199 H Total Protein 5.2 L Albumin 3.1 L Globulin 2.1 L Albumin/Globulin Ratio 1.5 Microbiology 08/05/20 13:02 Blood Blood Culture - Preliminary (no growth) 08/05/20 12:52 Blood Blood Culture - Preliminary (no growth) 08/05/20 13:56 Urine - Clean Void Mid-Stream Urine Culture - Final ARF, hyperkalemia and Metabolic acidosis have all resolved. Developing thrombocytopenia SO STOP Pip/Som Psychotropic Rx / Polypharmacy I'd start by tapering the aripipraole as its side effect profile looks similar to her neurologic Sx, flushing etc. Goal is lowest effective dose. Get rid of bromphemiramine/pseudophen DM Buproprion has a lot of drug interactions base on P450 interference Duloxetine with SNRI effect + Buproprion with DNRI means two Rx effecting Norepi Reuptake pathway in [employer]. I favor either/or bupropinion or duloxetine but not both. Taper slowly. Do to constipation that may be increasing NH3, level STOP the BUPROPION and keep the Duloxetine Benadryl with anticholinergic activity Quetiapine further inhibits central dopamine and seritonin pathways. Anticholinergic effects may contribute to constipation. Ariprparole + Quetipine carries risk of extrapyramidal Sx and psychomotor retardation so I would taper this off and just use the aripiparole Pregabalin: not a fan but in this case and may be contributing to the constipation so Taper this Rx as well Any changes will require imput/follow up with MH (Dr Castro) Constitutional Vitals: Vital Signs Temp Pulse Resp BP Pulse Ox 36.4 C 78 16 122/76 93 08/09/20 05:47 08/09/20 05:47 08/09/20 05:47 08/09/20 05:47 08/09/20 05:47 Period Temp Pulse Resp BP Sys/Panchal Pulse Ox Last 24 Hr 36.4 C-36.9 C 78-96 14-20 111-122/59-78 93-96 Intake and Output 08/08/20 08/09/20 08/09/20 21:59 05:59 13:59 Intake Total 460 100 Output Total 300 Balance 160 100 Weight 92.533 kg Physical Exam: Exam Narrative: Obese, non-toxic but sluggish speech EENT EENT: ATNC, PERRL, mucous membranes moist, mucous membranes dry, hearing intact and vision intact Neck Neck: no JVD, no carotid bruit and supple Respiratory Respiratory: clear and rhonchi Cardiovascular Cardiology: no rub, no gallops, edema (trace), regular rate, regular rhythm, normal S1 and normal S2 Gastrointestinal Gastrointestinal: no tenderness Integumentary Integumentary: warm and dry and erythema (actually, more like flushed) Neurologic Neurologic: asterixis (and myoclonic twitching), confused and CN 3-12 intact Musculoskeletal Musculoskeletal: decreased ROM Psychiatric Psychiatric: depressed Intake & Output: Intake & Output 08/08/20 08/09/20 08/09/20 21:59 05:59 13:59 Intake Total 460 100 Output Total 300 Balance 160 100 Weight 92.533 kg Intake: IV 100 100 Zosyn 3.375 gm In Dextrose 5% 100 100 in Water 50 ml @ 100 mls/hr IV Q6H [facility] Rx#:[id number] Oral 360 Output: Void Amount 300 Other: Meal Lunch Percent of Meal Consumed 100% Urine Appearance Clear Urine Color Bright Yellow Urine Odor Normal # Voids 1 A/P Assessment and plan (1) NATASHA (acute kidney injury): Assessment and plan: Improved with d/c of offending Rx and IVF Status: Acute Comment: Recurrent Stop RAASI (ACEi and aldactone), Stop loop diuretic, stop NSAIDs Trend GFR (2) Hyperkalemia: Status: Acute Comment: Stop ACEi and spironolactone=> probably forever Stop NSAIDS (3) Metabolic acidosis: Status: Chronic Comment: Check urine AG => improved If lactate elevated may need to stop metformin...It is not (4) Polypharmacy: Status: Acute Comment: Not only involved in ARF with metabolic acidosis and hyperkalemia But I suspect too many psychiatric Rx..Need to start tapering down Who ever is prescribing all this needs to be involved (Dr Maurice Castro). Here are my suggestions to run by mental health: 1. I'd start by tapering the aripipraole as its side effect profile looks similar to her neurologic Sx, flushing etc => apparently this has been completed/discontinued 2. Get rid of bromphemiramine/pseudophen DM 3. Buproprion has a lot of drug interactions based on P450 interference and can cause constipation so taper to off. 4. Duloxetine with SNRI effect + Buproprion with DNRI means two Rx effecting Norepi Reuptake pathway in [employer]. Pick bupropinion to taper slowly. 5. Stop Benadryl with anticholinergic activity 5. Quetiapine further inhibits central dopamine and serotonin pathways, however, since the aripiprazole has been stopped, you should chose either this or lamotrigine BUT NOT BOTH DUE TO DRUG INTERACTION RISK 6. Pregabalin: not a fan but in this case anti-seizure activity may be keeping the lid on other adverse effects. Taper to lowest effective dose for neuropathic pain. (5) Hyperammonemia: Assessment and plan: This patient presented with encephalopathy and a serum ammonia level 152. Sent to have hepatic cirrhosis but I do not get it. Her liver is not small, there is a diffusely echogenic 1 would expect with Le or alcoholic liver disease. She has had a partial hepatectomy with compensatory hypertrophy of the left lobe of liver. She has no coagulopathy, MELD scores are not elevated now that her ARF has improved. She has a mild transaminitis but this could easily be from one of the 100 symptom medicine she takes. Unlikely that she has a congenital urea cycle term and long ago. Not been on any valproic acid but that is not to say some of the combinations of medicine she has been on could impair hepatic metabolism of ammonia through the urea cycle. At best thought though is that she has such severe constipation that this leads for increased generation of ammonia by an alteration in her bowel ericka that cannot be cleared by her current level of liver function. Therefore every effort to stop any of her constipating medications. She is on at least 3 different medicines to promote GI motility but they are obviously ineffective and probably will remain that way until her constipating medicines have been completely weaned off. Status: Acute Narrative A/P Narrative: Upon discharge, longterm, physician in charge, and her mental health physician must have a clear medication list and a plan of action to get this patient off many of her medicines to see if this improves her elevated ammonia levels, transaminitis, mental status, myoclonus (which has already improved), and perhaps even her tardive dyskinesia which does not seem all that bad to me. If she has Parkinson's disease I think this was myoclonic jerking. As for the reason I was consulted, should not have access to nonsteroidal anti- inflammatories, ABEBA inhibitors or ARB medications, spironolactone, review loop diuretics at this point. Time Spent With Patient Time: Total time spent is greater than 50% in coordination of care (as documented) at patient's floor/unit and/or counseling patient:
[2020-08-09] MEDS: CETIRIZINE 10 MG TABLET PO SCH (08:43)
[2020-08-09] MEDS: ATORVASTATIN 10 MG TABLET PO SCH (08:43)
[2020-08-09] MEDS: RIFAXIMIN 550 MG TABLET PO SCH ×2 (08:43→20:41)
[2020-08-09] MEDS: VITAMIN D3 1,000 UNIT TABLET PO SCH (08:44)
[2020-08-09] MEDS: ALLOPURINOL 100 MG TABLET PO SCH (08:44)
[2020-08-09] MEDS: QUEtiapine 25 MG TABLET PO SCH ×2 (08:44→20:44)
[2020-08-09] MEDS: buPROPion 150 MG TAB.XL.24H PO SCH (08:44)
[2020-08-09] MEDS: DOCUSATE SODIUM 100 MG CAPSULE PO SCH ×2 (08:44→20:41)
[2020-08-09] MEDS: NYSTATIN POWDER BOTTLE 15GM TOPICAL SCH ×2 (08:45→20:46)
[2020-08-09] MEDS: LACTULOSE 20 GM/30 ML ORAL.SOL PO SCH ×4 (08:45→20:29)
[2020-08-09] MEDS: VANCOMYCIN 1,500 MG in 0.9 % SODIUM CHLORIDE 500 ML IV SCH (10:36)
[2020-08-09] MEDS: cefTRIAXone 2 GM in DEXTROSE 5% IN WATER 50 ML IV SCH (11:11)
--- NOTE | 2020-08-09 12:27 | Internal Med Progress Note ---
SUBJECTIVE Subjective Patient information: Note initiated : 08/09/20 at 12:19 pm Service Date, if different from initiated Date: [] Patient: Mic Hein a 65 y/o F admitted on 08/05/20 for Shaky/weak. Chief Complaint: [shaky/weakness] History of present illness: Ms. Hein is a 65 year old F history of type 2 diabetes mellitus insulin dependent, recent UTI, cirrhosis, presenting with 2-week history of general body weakness. She was recently been hospitalized in our facility from 07/11 to 07/16 for pansensitive E. coli urinary tract infections. She was being prescribed with ciprofloxacin. She was seen again in the ED on 07/23 for drug related skin rash. She was being given 1 dose of Solu-Medrol and was sent home on a prednisone taper. Today she presented to the ED for 2 weeks history of general body weakness. She is complaining of decreased appetite. She denies any dysuria but she is complaining of increased urinary symptoms. She denies any fever or chills. She denies any chest pain or shortness of breath. She denies any fever or chills. Vital signs were within normal limits. Labs significant with leukocytosis with WBC 17.9. Serum lactic acid 3.9. Serum creatinine level 2.0 with baseline of 1.5. Hyponatremia of 125 and hyperkalemia of 5.3 also presents. Chest x-ray no sign of pneumonia. Urine analysis does not show any signs of ongoing urinary tract infections. 08/06/20: Afebrile overnight. Cultures no growth to date. Hyponatremia and hyperkalemia resolved. 08/07: Afebrile overnight. Leukocytosis with WBC 17.4. Fasting glucose 244. Blood and urine cultures no growth to date. Patient is feeling very weak. Denies any fever or chills. Denies any dysuria. 08/08: NSAID, Lasix, Lisinopril, and Spironolactone were stopped yesterday as per Dr. Noel pascal. Patient is c/o general body weakness. She is c/o insomnia. Denies depression or anxiety. 08/09: Had a phone call conversation with Dr. Elías Galvan and decided to d/c Wellbutrin and Abilify; continue rest of the psychiatric medications (Cymbalta, Seroquel, Lyrica). After talking to sister, patient is now agreeable to SNF placement. Constitutional Vitals: Vital Signs Temp Pulse Resp BP Pulse Ox 37.0 C 82 18 113/59 95 08/09/20 11:43 08/09/20 11:43 08/09/20 11:43 08/09/20 11:43 08/09/20 11:43 Period Temp Pulse Resp BP Sys/Panchal Pulse Ox Last 24 Hr 36.3 C-37.0 C 76-93 14-20 97-122/59-78 93-96 Intake and Output 08/08/20 08/09/20 08/09/20 21:59 05:59 13:59 Intake Total 460 100 50 Output Total 300 Balance 160 100 50 Weight 92.533 kg Intake & Output: Intake & Output 08/08/20 08/09/20 08/09/20 21:59 05:59 13:59 Intake Total 460 100 50 Output Total 300 Balance 160 100 50 Weight 92.533 kg Intake: IV 100 100 50 Zosyn 3.375 gm In Dextrose 5% 100 100 in Water 50 ml @ 100 mls/hr IV Q6H [facility] Rx#:[id number] Rocephin 2 gm In Dextrose 5% in 50 Water 50 ml @ 100 mls/hr IV Q24H [facility] Rx#:[id number] Oral 360 Output: Void Amount 300 Other: Meal Lunch Percent of Meal Consumed 100% Urine Appearance Clear Urine Color Bright Yellow Urine Odor Normal # Voids 1 General appearance: cooperative and no acute distress Head Head exam: Present atraumatic and normocephalic Eye Eye exam: Present EOMI and PERRL ENT ENT exam: Present mucous membranes moist, normal exam and normal external ear exam Neck Neck exam: Present normal inspection; Absent lymphadenopathy, tenderness and thyromegaly Respiratory Respiratory exam: Absent accessory muscle use, respiratory distress and wheezes Cardiovascular Cardiovascular exam: Present normal rate and rhythm; Absent JVD GI/Abdominal GI/Abdominal exam: Present normal bowel sounds and soft; Absent organomegaly and tenderness Extremities Exam Extremities exam: Present full ROM, normal capillary refill and normal inspection; Absent tenderness Neurological Exam Neurological exam: Present alert, CN II-XII intact and oriented X3; Absent motor sensory deficit Psychiatric Psychiatric exam: Present normal affect and normal mood; Absent anxious and depressed Skin Skin exam: Present dry and intact OBJ DATA Labs CBC & Chem 7: 08/09/20 04:53 08/09/20 04:53 Labs: Abnormal Lab Results 08/09/20 08/09/20 08/08/20 04:53 04:53 06:10 WBC RBC 3.38 L 3.42 L Hgb 9.8 L 10.1 L Hct 31.9 L 30.8 L MCHC 30.7 L RDW 15.9 H 15.4 H Plt Count 90 L 103 L MPV 11.6 H 11.9 H [place] # (Auto) Absolute Neutrophils Potassium Carbon Dioxide Anion Gap BUN Creatinine Glucose 156 H Calcium 8.5 L AST 91 H ALT 231 H Alkaline Phosphatase 199 H Total Protein 5.2 L Albumin 3.1 L Globulin 2.1 L 08/08/20 08/07/20 08/07/20 06:10 07:20 07:20 WBC 17.4 H RBC Hgb Hct MCHC RDW 15.6 H Plt Count 137 L MPV 12.6 H [place] # (Auto) 0.96 H Absolute Neutrophils 11.78 H Potassium 5.4 H Carbon Dioxide 16 L Anion Gap 21.0 H BUN 27 H 47 H Creatinine 1.3 H 1.8 H Glucose 223 H 244 H Calcium 8.5 L AST 158 H 279 H ALT 296 H 377 H Alkaline Phosphatase 198 H 217 H Total Protein 5.4 L 5.8 L Albumin Globulin Meds: Medications Acetaminophen (Acetaminophen 325 Mg Tablet) 650 mg PO Q6HP PRN; Protocol PRN Reason: Per Pain Protocol/Fever > 101 Last Admin: 08/08/20 09:59 Dose: 650 mg Documented by: Albuterol Sulfate (Albuterol Sulfate 200 Puff Inhaler) 2 puff INH Q4HP PRN PRN Reason: shortness of breath or wheezin Allopurinol (Allopurinol 100 Mg Tablet) 50 mg PO DAILY [facility] Last Admin: 08/09/20 08:44 Dose: 50 mg Documented by: Artificial Tears (Carboxymethylcellulose Sodium 1 Each Droper.Gel) 1 - 2 each OU Q1HP PRN PRN Reason: DRY EYES Atorvastatin Calcium (Atorvastatin 10 Mg Tablet) 5 mg PO DAILY [facility] Last Admin: 08/09/20 08:43 Dose: 5 mg Documented by: Cetirizine HCl (Cetirizine 10 Mg Tablet) 10 mg PO DAILY [facility] Last Admin: 08/09/20 08:43 Dose: 10 mg Documented by: Dextrose (Dextrose 50% 50 Ml Vial) 0 ml IV UD PRN PRN Reason: Hypoglycemia Diagnostic Test (Pha) (Accu-Chek 1 Each Strip) 1 each FS [facility] Last Admin: 08/09/20 11:27 Dose: 1 each Documented by: Diphenhydramine HCl (Diphenhydramine 25 Mg Capsule) 50 mg PO Q6HP PRN PRN Reason: allergic reaction Docusate Sodium (Docusate Sodium 100 Mg Capsule) 100 mg PO BID [facility] Last Admin: 08/09/20 08:44 Dose: 100 mg Documented by: Duloxetine HCl (Duloxetine 30 Mg Capsule) 120 mg PO [facility] Last Admin: 08/08/20 21:32 Dose: 120 mg Documented by: Glucose (Dextrose 31 Gm Oral.Susp) 15 gm PO PRN PRN PRN Reason: Hypoglycemia Ceftriaxone Sodium 2 gm/ (Dextrose) 50 mls @ 100 mls/hr IV Q24H [facility] Last Infusion: 08/09/20 11:55 Dose: Infused Documented by: Insulin Glargine (Insulin Glargine, Human 1 Unit/0.01 Ml) 70 unit SQ [facility] Last Admin: 08/08/20 21:29 Dose: 70 units Documented by: Insulin Human Lispro (Insulin Lispro 1 Unit/0.01 Ml Unit) 0 unit SQ [facility]; Protocol Last Admin: 08/09/20 11:27 Dose: 8 units Documented by: Lactulose (Lactulose 20 Gm/30 Ml Oral.Octavia) 20 gm PO TID [facility] Last Admin: 08/09/20 08:57 Dose: Not Given Documented by: Lamotrigine (Lamotrigine 100 Mg Tablet) 150 mg PO [facility] Last Admin: 08/08/20 21:32 Dose: 150 mg Documented by: Levothyroxine Sodium (Levothyroxine Sodium 112 Mcg Tablet) [facility] Last Admin: 08/09/20 07:15 Dose: 112 mcg Documented by: Levothyroxine Sodium (Levothyroxine 25 Mcg Tablet) [facility] Last Admin: 08/09/20 07:15 Dose: 25 mcg Documented by: Nystatin (Nystatin Powder Bottle 15gm) 1 dose TOPICAL BID [facility] Last Admin: 08/09/20 08:45 Dose: 1 dose Documented by: Ondansetron HCl (Ondansetron 4 Mg/2 Ml Vial) 4 mg IV Q4HP PRN; Protocol PRN Reason: Nausea And Vomiting Lubiprostone [ Amitiza] 24 Mcg Capsule 1 dose PO BID [facility] Last Admin: 08/09/20 08:47 Dose: Not Given Documented by: Polyethylene Glycol (Polyethylene Glycol 3350 17 Gm Packet) 17 gm PO BIDP PRN PRN Reason: constipation Last Admin: 08/06/20 16:36 Dose: 17 gm Documented by: Pregabalin (Pregabalin 75 Mg Capsule) 75 mg PO Q8H [facility] Last Admin: 08/09/20 08:49 Dose: 75 mg Documented by: Quetiapine Fumarate (Quetiapine 25 Mg Tablet) 12.5 mg PO DAILY [facility] Last Admin: 08/09/20 08:44 Dose: 12.5 mg Documented by: Quetiapine Fumarate (Quetiapine 25 Mg Tablet) 50 mg PO HS [facility] Last Admin: 08/08/20 21:33 Dose: 50 mg Documented by: Senna (Sennosides 1 Tablet) 2 tab PO HSP PRN PRN Reason: Constipation Sodium Chloride (0.9 % Sodium Chloride 10 Ml Syringe) 10 ml IV Q8 [facility] Last Admin: 08/09/20 05:03 Dose: 10 ml Documented by: Vitamin D (Vitamin D3 1,000 Unit Tablet) 1,000 unit PO DAILY [facility] Last Admin: 08/09/20 08:44 Dose: 1,000 unit Documented by: A/P Assessment and plan (1) Hyperkalemia: Status: Acute Comment: Stop ACEi and spironolactone=> probably forever Stop NSAIDS (2) Hyponatremia: Status: Acute (3) Diabetes mellitus with stage 3 chronic kidney disease: Status: Acute (4) Stage 1 acute kidney injury: Status: Acute (5) AMS (altered mental status): Status: Acute (6) Type 2 diabetes mellitus: Status: Acute Qualifiers: Diabetes mellitus complication status: with hyperglycemia Diabetes mellitus care home insulin use: with bed bug exterminator use Qualified Code(s): E11.65 - Type 2 diabetes mellitus with hyperglycemia; Z79.4 - bed bug exterminator (current) use of insulin (7) Cirrhosis of liver: Status: Chronic (8) Metabolic acidosis: Status: Chronic Comment: Check urine AG If lactate elevated may need to stop metformin (9) Polypharmacy: Status: Acute Comment: Not only involved in ARF with metabolic acidosis and hyperkalemia But I suspect too many psychiatric Rx..Need to start tapering down Who ever is prescribing all this needs to be involved (Dr Maurice Castro). Here are my suggestions to run by mental health: I'd start by tapering the aripipraole as its side effect profile looks similar to her neurologic Sx, flushing etc Get rid of bromphemiramine/pseudophen DM Buproprion has a lot of drug interactions base on P450 interference Duloxetine with SNRI effect + Buproprion with DNRI means two Rx effecting Norepi Reuptake pathway in [employer]. Pick either /or bupropinion or duloxetine but not both. Taper slowly. Benadryl with anticholinergic activity Quetiapine further inhibits central dopamine and seritonin pathways Pregabalin: not a fan but in this case anti-seizure activity may be keeping the lid on other adverse effects Narrative A/P Narrative: 1. Urinary tract infection: Serial lactic acid ESR CRP 1.80 elevated procalcitonin 1.38 elevated, suggesting ongoing infection. Given presence of symptoms (increased urinary frequency), will treat for presumed UTI Blood culture X2, no growth to date Urine culture, no growth to date d/c Vancomycin and Zosyn; switch to Rocephin for now Saline lock cbc w/ auto diff in the AM to trend WBC PT OT evaluation and treatment and for placement planning-->recs. SNF placement. Patient refuses and insists on going back to assisted living facility [facility] upon medical stability. 2. Hyperkalemia: Resolved Consult nephrology Dr. Cohen, recs. appreciated Secondary to polypharmacy. d/c Lisinopril and Spironolactone Daily CMP to trend serum potassium level 3. T2DM: HgA1c 8.8 Hold oral hypoglycemics Glargine 70 unit HS Tier 2 SSI AC HS Accu Chek AC HS Hypoglycemia protocol Diabetic diet 4. Dehydration and Stage 1 acute kidney injury (in the context of CKD stage 3): Improving Avoid nephrotoxic agents (Lisinopril, Lasix, Spironolactone, NSAID) Currently saline lock CMP in the AM to trend kidney functions 5. h/o cirrhosis: Continue lactulose and rifaximin; d/c Spironolactone Check serum ammonium level--> 156 elevated 6. Hypothyroidism: TSH level 0.50 within normal limits Continue oral thyroid replacement therapy 7. Metabolic acidosis: RESOLVED Consult nephrology Dr. Cohen, recs. appreciated d/c Lisinopril, Lasix, Spironolactone, NSAID 8. Polypharmacy: d/c Lisinopril, Lasix, Spironolactone, NSAID Had a phone call conversation with Dr. Elías Galvan and decided to d/c Wellbutrin and Abilify; continue rest of the psychiatric medications (Cymbalta, Seroquel, Lyrica) GI ppx: not currently indicated DVT ppx: SCDs Code status: Full Prognosis: Stable Disposition: inpatient med surg telemetry; PT OT evaluation and treatment and for placement planning-->recs. SNF placement. After talking to sister, patient is now agreeable to SNF placement. Time Spent With Patient Time: Total time spent is greater than 50% in coordination of care (as documented) at patient's floor/unit and/or counseling patient: QUALITY VTE Deep Vein Thrombosis/Pulmonary Embolism Present on Admission: No
[2020-08-09] MEDS: lamoTRIgine 100 MG TABLET PO SCH (20:41)
[2020-08-09] MEDS: DULoxetine 30 MG CAPSULE PO SCH (20:44)
[2020-08-09] MEDS: INSULIN GLARGINE, HUMAN 1 UNIT/0.01 ML SQ SCH (20:45)
[2020-08-10] MEDS: PREGABALIN 75 MG CAPSULE PO SCH ×2 (02:09→09:29)
[2020-08-10] MEDS: 0.9 % SODIUM CHLORIDE 10 ML SYRINGE IV SCH (04:35)
[2020-08-10] MEDS: LEVOTHYROXINE SODIUM 112 MCG TABLET PO SCH (07:12)
[2020-08-10] MEDS: INSULIN LISPRO 1 UNIT/0.01 ML UNIT SQ SCH ×2 (07:12→12:00)
[2020-08-10] MEDS: LEVOTHYROXINE 25 MCG TABLET PO SCH (07:13)
--- NOTE | 2020-08-10 08:09 | Nephrology Progress Note ---
SUBJECTIVE Subjective Patient information: Note initiated : 08/10/20 at 8:08 am Service Date, if different from initiated Date: [] Patient: Mic Hein 65 y/o F admitted on 08/05/20 for Shaky/weak. Chief Complaint: [alteration in MS with shakiness] Acute renal failure, metabolic acidosis, hyperkalemia all improved by stopping nonsteroidals, lisinopril, spironolactone and furosemide. Altered mental status, myoclonus, psychomotor retardation improved by discontinuing several of her psychotropic medications. She apparently is new to the area from [place] and was on numerous medications with a high potential for drug interactions and adverse effects. Dr. Castro has been helpful in tr imming back her medications. He will be communicating changes to the halfway at the time of discharge. She had a high ammonia level that may have contributed to her neurologic symptoms, I cannot wrap my head around the diagnosis of hepatic cirrhosis. She has had a partial lobectomy of her liver due to a surgical misadventure with compensatory hypertrophy of the left hepatic lobe in the distant past. Her meld score does not suggest significant cirrhotic physiology, she does not have a coagulopathy, she is not have evidence of portal hypertension so I question the diagnosis of hepatic cirrhosis and wonder if there are other causes of her elevated ammonia level. In my mind, stopping any medicines that are contributing to her marked constipation is thacker to reestablishing normal GI fun ction and bowel ericka which could help reduce the generation of ammonia in the GI tract. These include various psychotropic medications such as bupropion Hcl and multiple anticholinergic medications she was on at presentation. Perhaps then her lactulose, MiraLAX, and rifaximin From My point of view, ready for D/C with follow up to continue to adjust psychotropic Rx. D/C Med Rec per Hospitalist New sulfamethoxazole-trimethoprim [Bactrim DS] 800-160 mg tablet 1 tab PO BID Qty: 6 RF: 0 Continued rifaximin 550 mg tablet 550 mg PO BID RF: 0 lamotrigine 150 mg tablet 150 mg PO QHS Qty: 30 RF: 3 quetiapine 25 mg tablet See Rx Instructions .ROUTE .COMPLEX Qty: 75 RF: 2 (DME) Disability Parking Permit Qty: 1 RF: 0 (DME) blood-glucose meter [True Metrix Air Glucose Meter] mis See Dose Instructions .ROUTE .MEDSUPPLY Qty: 1 RF: 0 (DME) pen needle, diabetic [Comfort EZ Pen [place]] 32 gauge x 1/4" needle See Dose Instructions .ROUTE .MEDSUPPLY Qty: 100 RF: 12 (DME) lancets [facility] [place] See Dose Instructions .ROUTE .MEDSUPPLY Qty: 100 RF: 2 allopurinol 100 mg tablet 100 mg PO QDAY Qty: 30 RF: 5 (DME) blood sugar diagnostic [True Metrix Glucose Test Strip] strip See Dose Instructions .ROUTE .MEDSUPPLY Qty: 100 RF: 5 levothyroxine 137 mcg capsule 137 mcg PO QDAY Qty: 30 RF: 5 metformin 500 mg tablet extended release 24 hr 1,000 mg PO BID Qty: 120 RF: 5 lubiprostone [Amitiza] 24 mcg capsule 24 mcg PO BID RF: 0 lactulose [Constulose] 10 gram/15 mL solution 20 g PO TID RF: 0 Basaglar KwikPen U-100 Insulin 100 unit/mL (3 mL) insulin pen 54 unit SUB-Q QHS RF: 0 pregabalin 150 mg capsule 150 mg PO Q8H RF: 0 bisacodyl 5 MG tablet 10 mg PO DAILY RF: 0 pravastatin 20 mg Tablet 20 mg PO DAILY RF: 0 albuterol sulfate [ProAir HFA] 90 mcg/actuation HFA aerosol inhaler 2 puff INHALATION Q4H PRN (Reason: shortness of breath or wheezing) RF: 0 duloxetine 60 mg capsule,delayed release(DR/EC) 120 mg PO QHS RF: 0 cetirizine 10 mg Tablet 10 mg PO QDAY RF: 0 nystatin 100,000 unit/gram Powder 1 applic TOPICAL BID RF: 0 polyethylene glycol 3350 [Miralax] 17 gram powder in packet 17 g PO BID PRN (Reason: constipation ) RF: 0 insulin aspart U-100 [Novolog Flexpen U-100 Insulin] 100 unit/mL (3 mL) Insulin Pen See Rx Instructions .ROUTE .COMPLEX RF: 0 carboxymethylcellulose sodium 1 % Drops, Liquid Gel 1 - 2 drp OPHTHALMIC (EYE) Q1H PRN (Reason: Eye Irritation) RF: 0 diphenhydramine HCl [Benadryl] 25 mg capsule 50 mg PO Q6H PRN (Reason: allergic reaction) Qty: 30 RF: 0 phenazopyridine 95 mg Tablet 95 mg PO TID PRN (Reason: bladder discomfort) RF: 0 docusate sodium [Stool Softener] 100 mg capsule 100 mg PO QDAY RF: 0 cholecalciferol (vitamin D3) 1,000 unit capsule 1,000 unit PO QDAY RF: 0 Discontinued ibuprofen 200 mg tablet 600 mg PO BID PRN (Reason: Pain) RF: 0 lisinopril 5 mg tablet 5 mg PO QAM RF: 0 furosemide 40 mg Tablet 40 mg PO QAM RF: 0 spironolactone 100 mg Tablet 100 mg PO QAM RF: 0 toxktljmdkobcjx-lmhxjnair-UT 2-30-10 mg/5 mL Syrup 10 ml PO Q6HP PRN (Reason: Cough) RF: 0 Laboratory Tests 08/10/20 05:15 Sodium 140 Potassium 4.5 Chloride 108 Carbon Dioxide 22 BUN 10 Creatinine 1.0 GFR Calculation 59 Glucose 149 H Calcium 8.3 L Total Bilirubin 0.4 AST 51 H ALT 170 H Alkaline Phosphatase 194 H Total Protein 5.2 L Albumin 3.1 L Globulin 2.1 L Albumin/Globulin Ratio 1.5 Constitutional Vitals: Vital Signs Temp Pulse Resp BP Pulse Ox 36.5 C 72 16 107/65 98 08/10/20 06:40 08/10/20 06:40 08/10/20 06:40 08/10/20 06:40 08/10/20 06:40 Period Temp Pulse Resp BP Sys/Panchal Pulse Ox Last 24 Hr 36.5 C-37.1 C 72-92 16-20 107-122/59-69 94-98 Intake and Output 08/09/20 08/10/20 08/10/20 21:59 05:59 13:59 Intake Total 1200 300 Output Total 200 Balance 1000 300 Weight 91.898 kg Intake & Output: Intake & Output 08/09/20 08/10/20 08/10/20 21:59 05:59 13:59 Intake Total 1200 300 Output Total 200 Balance 1000 300 Weight 91.898 kg Intake: Oral 1200 300 Output: Void Amount 200 Other: Meal Dinner Percent of Meal Consumed 100% Feeding Ability Assist with Tray Set Up Urine Color Red Brown Stool Size Moderate Stool Color Brown Stool Consistency Formed # Voids 1 1 # Bowel Movements 1 General appearance: obese Exam: Myoclonus has resolved as has her asterixis Mental status improved No elevated JVD Clear lungs with diminished breath sounds Normal S1 and S2 without S3 Abdomen obese, soft, normoactive bowel sounds Nonfocal neurologic exam No asterixis No myoclonus Able to ambulate yesterday Skin less flushed than on admission Trace edema A/P Assessment and plan (1) NATASHA (acute kidney injury): Assessment and plan: Improved with d/c of offending Rx and IVF Status: Acute Comment: Recurrent Stop RAASI (ACEi and aldactone), Stop loop diuretic, stop NSAIDs Trend GFR (2) Hyperkalemia: Status: Acute Comment: Stop ACEi and spironolactone=> probably forever Stop NSAIDS (3) Metabolic acidosis: Status: Chronic Comment: Check urine AG => improved If lactate elevated may need to stop metformin...It is not (4) Polypharmacy: Status: Acute Comment: Not only involved in ARF with metabolic acidosis and hyperkalemia But I suspect too many psychiatric Rx..Need to start tapering down Who ever is prescribing all this needs to be involved (Dr Maurice Castro). Here are my suggestions to run by mental health: 1. I'd start by tapering the aripipraole as its side effect profile looks similar to her neurologic Sx, flushing etc => apparently this has been completed/discontinued 2. Get rid of bromphemiramine/pseudophen DM 3. Buproprion has a lot of drug interactions based on P450 interference and can cause constipation so taper to off. 4. Duloxetine with SNRI effect + Buproprion with DNRI means two Rx effecting Norepi Reuptake pathway in [employer]. Pick bupropinion to taper slowly. 5. Stop Benadryl with anticholinergic activity 5. Quetiapine further inhibits central dopamine and serotonin pathways, however, since the aripiprazole has been stopped, you should chose either this or lamotrigine BUT NOT BOTH DUE TO DRUG INTERACTION RISK 6. Pregabalin: not a fan but in this case anti-seizure activity may be keeping the lid on other adverse effects. Taper to lowest effective dose for neuropathic pain. (5) Hyperammonemia: Assessment and plan: This patient presented with encephalopathy and a serum ammonia level 152. Sent to have hepatic cirrhosis but I do not get it. Her liver is not small, there is a diffusely echogenic 1 would expect with Le or alcoholic liver disease. She has had a partial hepatectomy with compensatory hypertrophy of the left lobe of liver. She has no coagulopathy, MELD scores are not elevated now that her ARF has improved. She has a mild transaminitis but this could easily be from one of the 100 symptom medicine she takes. Unlikely that she has a congenital urea cycle term and long ago. Not been on any valproic acid but that is not to say some of the combinations of medicine she has been on could impair hepatic metabolism of ammonia through the urea cycle. At best thought though is that she has such severe constipation that this leads for increased generation of ammonia by an alteration in her bowel reicka that cannot be cleared by her current level of liver function. Therefore every effort to stop any of her constipating medications. She is on at least 3 different medicines to promote GI motility but they are obviously ineffective and probably will remain that way until her constipating medicines have been completely weaned off. Status: Acute Narrative A/P Narrative: Assessment and plan (1) NATASHA (acute kidney injury): Assessment and plan: Improved with d/c of offending Rx and IVF (2) Hyperkalemia: (3) Metabolic acidosis: (4) Polypharmacy: (5) Hyperammonemia: Assessment and plan: This patient presented with encephalopathy and a serum ammonia level 152. Sent to have hepatic cirrhosis but I do not get it. Her liver is not small, there is a diffusely echogenic 1 would expect with Le or alcoholic liver disease. She has had a partial hepatectomy with compensatory hypertrophy of the left lobe of liver. She has no coagulopathy, MELD scores are not elevated now that her ARF has improved. She has a mild transaminitis but this could easily be from one of the 100 symptom medicine she takes. Unlikely that she has a congenital urea cycle term and long ago. Not been on any valproic acid but that is not to say some of the combinations of medicine she has been on could impair hepatic metabolism of ammonia through the urea cycle. At best thought though is that she has such severe constipation that this leads for increased generation of ammonia by an alteration in her bowel ericka that cannot be cleared by her current level of liver function. Therefore every effort to stop any of her constipating medications. She is on at least 3 different medicines to promote GI motility but they are obviously ineffective and probably will remain that way until her constipating medicines have been completely weaned off. Narrative A/P Narrative: Upon discharge, halfway, physician in charge, and her mental health physician must have a clear medication list and a plan of action to get this patient off many of her medicines to see if this improves her elevated ammonia levels, transaminitis, mental status, myoclonus (which has already improved), and perhaps even her tardive dyskinesia which does not seem all that bad to me. If she has Parkinson's disease I think this was myoclonic jerking. As for the reason I was consulted, should not have access to nonsteroidal anti- inflammatories, ABEBA inhibitors or ARB medications, spironolactone, review loop diuretics at this point. Time Spent With Patient Time: Total time spent is greater than 50% in coordination of care (as documented) at patient's floor/unit and/or counseling patient: Time Spent With Patient Time: Total time spent is greater than 50% in coordination of care (as documented) at patient's floor/unit and/or counseling patient:
[2020-08-10 08:17] LABS: ALT/SGPT 170 U/L (<40); AST/SGOT 51 U/L (<32); Albumin 3.1 gm/dL (3.2-5.2); Albumin/Globulin Ratio 1.5 (1.0-2.3); Alkaline Phosphatase 194 U/L (39-117); Bilirubin,Total 0.4 mg/dL (0.1-1.0); Blood Urea Nitrogen 10 mg/dL (8-23); Calcium 8.3 mg/dL (8.6-10.4); Carbon Dioxide 22 mmol/L (22-30); Chloride 108 mmol/L (96-108); Globulin 2.1 gm/dL (2.2-3.7); Glomerular Filtration Rate 59; Glucose 149 mg/dL (70-105)
--- NOTE | 2020-08-10 08:40 | Discharge Summary ---
Discharge Provider Provider Patient information: Note initiated : 08/10/20 at 8:35 am Service Date, if different from initiated Date: [] Patient: Mic Hein a 65 y/o F admitted on 08/05/20 for Shaky/weak. Chief Complaint: [] History of present illness: Ms. Hein is a 65 year old F history of type 2 diabetes mellitus insulin dependent, recent UTI, cirrhosis, presenting with 2- week history of general body weakness. She was recently been hospitalized in our facility from 07/11 to 07/16 for pansensitive E. coli urinary tract infections. She was being prescribed with ciprofloxacin. She was seen again in the ED on 07/23 for drug related skin rash. She was being given 1 dose of Solu-Medrol and was sent home on a prednisone taper. Today she presented to the ED for 2 weeks history of general body weakness. She is complaining of decreased appetite. She denies any dysuria but she is complaining of increased urinary symptoms. She denies any fever or chills. She denies any chest pain or shortness of breath. She denies any fever or chills. Vital signs were within normal limits. Labs significant with leukocytosis with WBC 17.9. Serum lactic acid 3.9. Serum creatinine level 2.0 with baseline of 1.5. Hyponatremia of 125 and hyperkalemia of 5.3 also presents. Chest x-ray no sign of pneumonia. Urine analysis does not show any signs of ongoing urinary tract infections. 08/06/20: Afebrile overnight. Cultures no growth to date. Hyponatremia and hyperkalemia resolved. 08/07: Afebrile overnight. Leukocytosis with WBC 17.4. Fasting glucose 244. Blood and urine cultures no growth to date. Patient is feeling very weak. Denies any fever or chills. Denies any dysuria. 08/08: NSAID, Lasix, Lisinopril, and Spironolactone were stopped yesterday as per Dr. Noel pascal. Patient is c/o general body weakness. She is c/o insomnia. Denies depression or anxiety. 08/09: Had a phone call conversation with Dr. Iliana Mcfadden and decided to d/c Wellbutrin and Abilify; continue rest of the psychiatric medications (Cymbalta, Seroquel, Lyrica). After talking to sister, patient is now agreeable to SNF placement. Date of admission: 08/05/20 17:25 Discharge date: 08/10/20 Primary care physician: Maryuri Cr Consults: 08/06/20 07:39 Consult to Physician [CONS] Routine Comment: Consulting Provider: Don Vogel Reason For Exam: Physician to Consult 08/07/20 11:53 Consult to Physician [CONS] Routine Comment: presistent hyperkalemia and metabolic acidosis Consulting Provider: Lincoln Ramos Reason For Exam: Physician to Consult Discharge Meds Discharge Medications Home Medications Disability Parking Permit #1 each 10/27/14 [Rx Confirmed 08/06/20 Last Taken Unknown] blood-glucose meter #1 each 01/23/16 [Rx Confirmed 08/06/20 Last Taken Unknown] lubiprostone 24 mcg capsule 24 mcg PO BID 11/17/16 [History Confirmed 08/06/20 Last Taken 07/11/20 09:00] pen needle, diabetic 32 gauge x 1/4" #100 each 09/23/17 [Rx Confirmed 08/06/20 Last Taken Unknown] bisacodyl 10 mg PO DAILY 10/28/17 [History Confirmed 08/06/20 Last Taken 07/11/20 08:00] lactulose 10 gram/15 mL oral solution 20 g PO TID 01/07/18 [History Confirmed 08/06/20 Last Taken 07/11/20 06:00] lancets #100 each 01/26/18 [Rx Confirmed 08/06/20 Last Taken Unknown] allopurinol 100 mg tablet 100 mg PO QDAY #30 tab 02/08/18 [Rx Confirmed 08/06/20 Last Taken 07/11/20 08:00] blood sugar diagnostic #100 each 02/08/18 [Rx Confirmed 08/06/20 Last Taken Unknown] levothyroxine 137 mcg capsule 137 mcg PO QDAY #30 cap 02/08/18 [Rx Confirmed 08/06/20 Last Taken 07/12/20 06:00] metformin 500 mg tablet,extended release 24 hr 1,000 mg PO BID #120 tab 02/08/18 [Rx Confirmed 08/06/20 Last Taken 07/11/20 08:00] insulin glargine 100 unit/mL (3 mL) subcutaneous pen 54 unit SUB-Q QHS ml 07/07/18 [History Confirmed 08/06/20 Last Taken 07/11/20 17:00] pregabalin 150 mg capsule 150 mg PO Q8H cap 07/07/18 [History Confirmed 08/06/20 Last Taken 07/11/20 17:00] cholecalciferol (vitamin D3) 25 mcg (1,000 unit) capsule 1,000 unit PO QDAY 12/02/18 [History Confirmed 08/06/20 Last Taken 07/12/20 08:00] docusate sodium 100 mg capsule 100 mg PO QDAY 12/02/18 [History Confirmed 08/06/20 Last Taken 07/11/20 08:00] rifaximin 550 mg tablet 550 mg PO BID 05/04/19 [History Confirmed 08/06/20 Last Taken 07/11/20 08:00] pravastatin 20 mg PO DAILY 01/29/20 [History Confirmed 08/06/20 Last Taken 07/10/20 20:00] lamotrigine 150 mg tablet 150 mg PO QHS #30 tab 03/14/20 [Rx Confirmed 08/06/20 Last Taken 07/12/20] quetiapine 25 mg tablet See Rx Instructions .ROUTE .COMPLEX #75 tab 03/14/20 [Rx Confirmed 08/06/20 Last Taken 07/11/20 09:00] albuterol sulfate [ProAir HFA] 2 puff INHALATION Q4H PRN 07/12/20 [History Confirmed 08/06/20 Last Taken Unknown] carboxymethylcellulose sodium 1 - 2 drp OPHTHALMIC (EYE) Q1H PRN 07/12/20 [History Confirmed 08/06/20 Last Taken Unknown] cetirizine 10 mg PO QDAY 07/12/20 [History Confirmed 08/06/20 Last Taken 07/11/20 09:00] duloxetine 120 mg PO QHS 07/12/20 [History Confirmed 08/06/20 Last Taken 07/10/20 20:00] insulin aspart U-100 [Novolog Flexpen U-100 Insulin] See Rx Instructions .ROUTE .COMPLEX 07/12/20 [History Confirmed 08/06/20 Last Taken Unknown] nystatin 1 applic TOPICAL BID 07/12/20 [History Confirmed 08/06/20 Last Taken 07/11/20 10:00] polyethylene glycol 3350 [Miralax] 17 g PO BID PRN 07/12/20 [History Confirmed 08/06/20 Last Taken Unknown] diphenhydramine HCl [Benadryl] 50 mg PO Q6H PRN #30 cap 07/19/20 [Rx Confirmed 08/06/20 Last Taken Unknown] phenazopyridine 95 mg PO TID PRN 08/06/20 [History Confirmed 08/06/20 Last Taken Unknown] sulfamethoxazole-trimethoprim [Bactrim DS] 1 tab PO BID #6 tab 08/10/20 [Rx Last Taken Unknown] COURSE Hospital Course Hospital course: Polypharmacy: Lasix, Lisinopril, NSAIDs, Spironolactone were all stopped. Abilify and Wellbutrin were also stopped after I had a phone call conversation with Dr. Mcfadden psychiatrist. Patient's mental status gradually went back to her baseline. Sepsis with urinary tract infection. After blood and urine cultures were collected, patient was started with IV fluid and antibiotics including Vancomycin and Zosyn which were later being transitioned to Rocephin. Fever and leukocytosis eventually resolved. Patient returned back to baseline mental status and reached clinical stability by 08/10. PT/OT recommended SNF placement. Patient discharged on 08/10. Need PCP and Dr. Mcfadden f/u appointments within 2 week timeframe. Discharge diagnosis: Polypharmacy Time Spent with Patient Time attestation: Total time spent providing and/or coordinating discharge services: EXAM Constitutional Vitals: Temp Pulse Resp BP Pulse Ox 36.5 C 72 16 107/65 98 08/10/20 06:40 08/10/20 06:40 08/10/20 06:40 08/10/20 06:40 08/10/20 06:40 General appearance: cooperative and no acute distress Head Head exam: Present atraumatic and normocephalic Eye Eye exam: Present EOMI and PERRL ENT ENT exam: Present mucous membranes moist, normal exam and normal external ear exam Neck Neck exam: Present normal inspection; Absent lymphadenopathy, tenderness and thyromegaly Respiratory Respiratory exam: Absent accessory muscle use, respiratory distress and wheezes Cardiovascular Cardiovascular exam: Present normal rate and rhythm; Absent JVD GI/Abdominal GI/Abdominal exam: Present normal bowel sounds and soft; Absent organomegaly and tenderness Extremities Exam Extremities exam: Present full ROM, normal capillary refill and normal inspection; Absent tenderness Neurological Exam Neurological exam: Present alert, CN II-XII intact and oriented X3; Absent motor sensory deficit Psychiatric Psychiatric exam: Present normal affect and normal mood; Absent anxious and depressed Skin Skin exam: Present dry and intact Discharge Data Data Completed and Pending Labs on day of discharge: Labs from last 24 hours 08/10/20 08/09/20 05:15 08:05 Sodium 140 Potassium 4.5 Chloride 108 Carbon Dioxide 22 Anion Gap 10.0 BUN 10 Creatinine 1.0 GFR Calculation 59 Glucose 149 H Calcium 8.3 L Total Bilirubin 0.4 AST 51 H ALT 170 H Alkaline Phosphatase 194 H Total Protein 5.2 L Albumin 3.1 L Globulin 2.1 L Albumin/Globulin Ratio 1.5 Vancomycin Trough 10.2 Preliminary micro results at discharge 08/05/20 13:02 Blood Culture - Preliminary Blood 08/05/20 12:52 Blood Culture - Preliminary Blood Discharge Plan Patient/Caregiver Discharge Instructions Activity: as per physical therapy Diet: Consistent Carbohydrate Prescriptions: New sulfamethoxazole-trimethoprim [Bactrim DS] 800-160 mg tablet 1 tab PO BID Qty: 6 RF: 0 Continued rifaximin 550 mg tablet 550 mg PO BID RF: 0 lamotrigine 150 mg tablet 150 mg PO QHS Qty: 30 RF: 3 quetiapine 25 mg tablet See Rx Instructions .ROUTE .COMPLEX Qty: 75 RF: 2 (DME) Disability Parking Permit Qty: 1 RF: 0 (DME) blood-glucose meter [True Metrix Air Glucose Meter] [facility] [place] See Dose Instructions .ROUTE .MEDSUPPLY Qty: 1 RF: 0 (DME) pen needle, diabetic [Comfort EZ Pen [place]] 32 gauge x 1/4" needle See Dose Instructions .ROUTE .MEDSUPPLY Qty: 100 RF: 12 (DME) lancets [facility] [place] See Dose Instructions .ROUTE .MEDSUPPLY Qty: 100 RF: 2 allopurinol 100 mg tablet 100 mg PO QDAY Qty: 30 RF: 5 (DME) blood sugar diagnostic [True Metrix Glucose Test Strip] strip See Dose Instructions .ROUTE .MEDSUPPLY Qty: 100 RF: 5 levothyroxine 137 mcg capsule 137 mcg PO QDAY Qty: 30 RF: 5 metformin 500 mg tablet extended release 24 hr 1,000 mg PO BID Qty: 120 RF: 5 lubiprostone [Amitiza] 24 mcg capsule 24 mcg PO BID RF: 0 lactulose [Constulose] 10 gram/15 mL solution 20 g PO TID RF: 0 Basaglar KwikPen U-100 Insulin 100 unit/mL (3 mL) insulin pen 54 unit SUB-Q QHS RF: 0 pregabalin 150 mg capsule 150 mg PO Q8H RF: 0 bisacodyl 5 MG tablet 10 mg PO DAILY RF: 0 pravastatin 20 mg Tablet 20 mg PO DAILY RF: 0 albuterol sulfate [ProAir HFA] 90 mcg/actuation HFA aerosol inhaler 2 puff INHALATION Q4H PRN (Reason: shortness of breath or wheezing) RF: 0 duloxetine 60 mg capsule,delayed release(DR/EC) 120 mg PO QHS RF: 0 cetirizine 10 mg Tablet 10 mg PO QDAY RF: 0 nystatin 100,000 unit/gram Powder 1 applic TOPICAL BID RF: 0 polyethylene glycol 3350 [Miralax] 17 gram powder in packet 17 g PO BID PRN (Reason: constipation ) RF: 0 insulin aspart U-100 [Novolog Flexpen U-100 Insulin] 100 unit/mL (3 mL) Insulin Pen See Rx Instructions .ROUTE .COMPLEX RF: 0 carboxymethylcellulose sodium 1 % Drops, Liquid Gel 1 - 2 drp OPHTHALMIC (EYE) Q1H PRN (Reason: Eye Irritation) RF: 0 diphenhydramine HCl [Benadryl] 25 mg capsule 50 mg PO Q6H PRN (Reason: allergic reaction) Qty: 30 RF: 0 phenazopyridine 95 mg Tablet 95 mg PO TID PRN (Reason: bladder discomfort) RF: 0 docusate sodium [Stool Softener] 100 mg capsule 100 mg PO QDAY RF: 0 cholecalciferol (vitamin D3) 1,000 unit capsule 1,000 unit PO QDAY RF: 0 Discontinued ibuprofen 200 mg tablet 600 mg PO BID PRN (Reason: Pain) RF: 0 lisinopril 5 mg tablet 5 mg PO QAM RF: 0 furosemide 40 mg Tablet 40 mg PO QAM RF: 0 spironolactone 100 mg Tablet 100 mg PO QAM RF: 0 hfppxsuvsngoqrl-bnqoouwei-AZ 2-30-10 mg/5 mL Syrup 10 ml PO Q6HP PRN (Reason: Cough) RF: 0 Follow Up Plan Follow up with: iliana mcfadden [Other] (psychiatrist) Maryuri Cr, OSVALDO, APPLICATIONS INTERN [Primary Care Provider] - Don Vogel MD [Physician] - Patient Disposition: [facility] Prognosis: Fair Rehab Potential: Good Overall status at discharge: patient is not back to baseline Discharge Orders: Discharge Order (Routine); Ordered 08/10/20 Ordered By: Don Vogel QUALITY VTE Deep Vein Thrombosis/Pulmonary Embolism Present on Admission: No
[2020-08-10] MEDS: LACTULOSE 20 GM/30 ML ORAL.SOL PO SCH (09:28)
[2020-08-10] MEDS: DOCUSATE SODIUM 100 MG CAPSULE PO SCH (09:28)
[2020-08-10] MEDS: ATORVASTATIN 10 MG TABLET PO SCH (09:29)
[2020-08-10] MEDS: NYSTATIN POWDER BOTTLE 15GM TOPICAL SCH (09:29)
[2020-08-10] MEDS: VITAMIN D3 1,000 UNIT TABLET PO SCH (09:30)
[2020-08-10] MEDS: QUEtiapine 25 MG TABLET PO SCH (09:30)
[2020-08-10] MEDS: cefTRIAXone 2 GM in DEXTROSE 5% IN WATER 50 ML IV SCH (09:30)
[2020-08-10] MEDS: RIFAXIMIN 550 MG TABLET PO SCH (09:31)
[2020-08-10] MEDS: ALLOPURINOL 100 MG TABLET PO SCH (09:31)
[2020-08-10] MEDS: CETIRIZINE 10 MG TABLET PO SCH (09:31)
== END 2020-08-10 13:45 | DRG 682 ==
LOC: ED 12:00 → ICU 17:20 → MEDSUR 08-06 15:18
PROVIDERS: ADMIT Internal Medicine; ATTEND Internal Medicine

== ENCOUNTER 2020-09-19 11:15 | Inpatient (IN) ==
[2020-09-19] MEDS ORDERED: LACTATED RINGERS 1,000 ML IV ONE (12:25)
--- NOTE | 2020-09-19 13:23 | XRay Report ---
CLINICAL INFORMATION: Dyspnea COMPARISON: 08/05/2020. TECHNIQUE: Portable FINDINGS: The heart size, mediastinum and pulmonary vessels are unremarkable. The lungs are clear. There are no effusions. The bones and soft tissues are within normal limits. IMPRESSION: Normal chest. Interpreted and Authenticated by: Rory High 09/19/20
[2020-09-19 13:33] LABS: Basophils # (Auto) 0.09 K/mcL (0.00-0.20); Basophils % (Auto) 0.7 % (0.0-2.0); Eosinophils % (Auto) 1.5 % (0.0-7.0); Hematocrit 38.9 % (36.0-48.0); Hemoglobin 12.7 g/dL (12.0-15.0); Lymphocytes # (Auto) 3.05 K/mcL (1.50-4.80); Lymphocytes % (Auto) 22.6 % (15.0-49.0); Mean Cell Volume 87.8 fL (80.0-100.0); Mean Corpuscular HGB Conc 32.6 g/dL (31.0-36.0); Mean Platelet Volume 12.7 fL (7.4-10.4); Monocytes # (Auto) 0.96 K/mcL (0.10-0.90); Monocytes % (Auto) 7.1 % (1.0-12.0); Neutrophils % (Auto) 68.1 % (38.0-78.0); Platelet Count 186 K/mcL (140-440); RBC 4.43 M/mcL (4.00-5.20); WBC 13.5 K/mcL (4.5-11.0)
[2020-09-19 14:16] LABS: ALT/SGPT 41 U/L (<40); AST/SGOT 106 U/L (<32); Albumin 4.5 gm/dL (3.2-5.2); Alkaline Phosphatase 136 U/L (39-117); Bilirubin,Total 0.6 mg/dL (0.1-1.0); Blood Urea Nitrogen 35 mg/dL (8-23); Calcium 9.4 mg/dL (8.6-10.4); Carbon Dioxide 17 mmol/L (22-30); Chloride 94 mmol/L (96-108); Globulin 2.3 gm/dL (2.2-3.7); Glomerular Filtration Rate 19; Glucose 103 mg/dL (70-105)
[2020-09-19] MEDS ORDERED: VANCOMYCIN PER PHARMACY IV ONE ×2 (14:47→22:24)
[2020-09-19] MEDS ORDERED: CEFEPIME 2 GM VIAL IV ONE (14:47)
[2020-09-19] MEDS ORDERED: 0.9 % SODIUM CHLORIDE 1,000 ML IV ONE ×2 (14:49→19:35)
[2020-09-19] MEDS ORDERED: CALCIUM GLUCONATE 7 MEQ in DEXTROSE 5% IN WATER 50 ML IV ONE (15:14)
[2020-09-19] MEDS ORDERED: DEXTROSE 50% 50 ML VIAL IV ONE (15:14)
[2020-09-19] MEDS ORDERED: INSULIN REGULAR, HUMAN 1 UNIT/0.01 ML UNIT IV ONE (15:14)
[2020-09-19] MEDS: VANCOMYCIN 1,500 MG in 0.9 % SODIUM CHLORIDE 500 ML IV ONE ×2 (15:15→15:17)
[2020-09-19 16:07] LABS: Appearance,Urine CLEAR (Clear); Bacteria,Urine FEW /hpf (0); Bilirubin,Urine Negative (Negative); Color,Urine Orange; Culture Indicated,Urine Yes; Glucose,Urine (UA) Negative (Negative); Ketones,Urine Color Interference mg/dL (Negative); Leukocyte Esterase,Urine Color Interference /ug (Negative); Nitrate,Urine Color Interference (Negative); Protein,Urine Negative (Negative); Specific Gravity,Urine 1.012 (1.000-1.035); Sulfosalicylic Acid,Urine Negative (NEGATIVE); Urine Blood Negative (Negative); Urine Hyaline Cast 9 /lph (0-2); Urine RBC < 1 /hpf (0-3); Urine Squamous Epithelial Cell 3 /hpf (0-4); Urine WBC 1 /hpf (0-4); Urobilinogen,Urine Color Interfernce mg/dL
--- NOTE | 2020-09-19 17:45 | Emergency Department Note ---
HPI General Chief complaint: Urogenital-Female Stated complaint: UTI s/s Time Seen by Provider: 09/19/20 11:29 Source: patient and RN notes reviewed Mode of arrival: wheelchair Limitations: no limitations History of Present Illness HPI Narrative: Narrative:Patient presents to the emergency department for altered mental status, diffuse weakness. Patient resides in a nursing facility and history was primarily obtained via report. Patient has been afebrile but was noted to have low blood pressures with systolics in the 90s at home. Patient was recently seen and evaluated in the emergency department for urinary tract infection. Patient has been on Bactrim. Patient currently denies any chest pain, shortness of breath or abdominal pain. She states she just feels weak. Related Data Home Medications Medication Instructions Recorded Confirmed lubiprostone 24 mcg capsule 24 mcg PO BID 11/17/16 09/20/20 bisacodyl 10 mg PO DAILY 10/28/17 09/20/20 lactulose 10 gram/15 mL oral 30 g PO TID 01/07/18 09/20/20 solution insulin glargine 100 unit/mL (3 54 unit SUB-Q QPM ml 07/07/18 09/20/20 mL) subcutaneous pen cholecalciferol (vitamin D3) 25 1,000 unit PO QDAY 12/02/18 09/20/20 mcg (1,000 unit) capsule docusate sodium 100 mg capsule 100 mg PO QDAY 12/02/18 09/20/20 rifaximin 550 mg tablet 550 mg PO BID 05/04/19 09/20/20 pravastatin 20 mg PO DAILY 01/29/20 09/20/20 albuterol sulfate [ProAir HFA] 2 puff INHALATION Q4H PRN 07/12/20 09/20/20 carboxymethylcellulose sodium 1 - 2 drp OPHTHALMIC (EYE) Q1H PRN 07/12/20 09/20/20 cetirizine 10 mg PO QDAY 07/12/20 09/20/20 duloxetine 120 mg PO QHS 07/12/20 09/20/20 insulin aspart U-100 [Novolog See Rx Instructions .ROUTE .COMPLEX 07/12/20 09/20/20 Flexpen U-100 Insulin] nystatin 1 applic TOPICAL BID 07/12/20 09/20/20 polyethylene glycol 3350 [Miralax] 17 g PO BID PRN 07/12/20 09/20/20 phenazopyridine 95 mg PO TID PRN 08/06/20 09/20/20 aripiprazole 400 mg suspension, 400 mg IM QMONTH 09/06/20 09/20/20 extended rel.intramuscular syringe stvognmmorgxrfy-wjnxssjqqzoqefa-JA 5 ml PO Q6H PRN ml 09/06/20 09/20/20 2 mg-30 mg-10 mg/5 mL oral syrup bupropion HCl 150 mg tablet,12 hr 150 mg PO QAM 09/06/20 09/20/20 sustained-release diphenhydramine HCl 25 mg capsule 50 mg PO Q6H PRN 09/06/20 09/20/20 ferrous sulfate 325 mg (65 mg 325 mg PO BID 09/06/20 09/20/20 iron) tablet ibuprofen 200 mg tablet 600 mg PO BID tab 09/06/20 09/20/20 lisinopril 5 mg tablet 5 mg PO QDAY 09/06/20 09/20/20 spironolactone 100 mg tablet 100 mg PO QAM 09/06/20 09/20/20 furosemide 40 mg PO QAM 09/19/20 09/20/20 Previous Rx's Medication Instructions Recorded Disability Parking Permit #1 each 10/27/14 pen needle, diabetic 32 gauge x #100 each 09/23/1703/12" lancets #100 each 01/26/18 allopurinol 100 mg tablet 100 mg PO QDAY #30 tab 02/08/18 blood sugar diagnostic #100 each 02/08/18 levothyroxine 137 mcg capsule 137 mcg PO QDAY #30 cap 02/08/18 metformin 500 mg tablet,extended 1,000 mg PO BID #120 tab 02/08/18 release 24 hr lamotrigine 150 mg tablet 150 mg PO QHS #30 tab 03/14/20 pregabalin 150 mg PO Q8H #20 cap 08/10/20 phenazopyridine [Pyridium] 200 mg PO TID #6 tab 09/15/20 sulfamethoxazole-trimethoprim 1 tab PO BID #14 tab 09/15/20 [Bactrim DS] quetiapine 25 mg tablet See Rx Instructions .ROUTE 09/17/20 .COMPLEX #75 tab Allergies Allergy/AdvReac Type Severity Reaction Status Date / Time ciprofloxacin AdvReac Severe Rash Verified 09/19/20 11:17 morphine AdvReac Mild Agitated Verified 09/19/20 11:17 Trulicity AdvReac Intermediate pancreatiti Uncoded 09/06/20 16:39 s Review of Systems ROS ROS Narrative: Narrative: All systems ED: reviewed and negative except as stated. [facility] Narrative Patient History Narrative: Narrative: Medical/Surgical/Family History All Active Problems (Updated 09/19/20 @ 20:53 by Hung Gray MD) Acute renal failure superimposed on stage 3a chronic kidney disease (Acute) UTI (urinary tract infection) (Acute) Restrictive lung disease (Chronic) Dysphagia (Chronic) Anxiety (Acute) Chronic interstitial cystitis (Chronic) Constipation (Chronic) Degeneration of thoracic or thoracolumbar intervertebral disc (Chronic) Depressive disorder (Chronic) Deviated nasal septum (Chronic) Diabetes mellitus with neurological manifestation (Chronic 02/17/13) Gout (Chronic) Head injury, closed (Chronic) Essential hypertension (Chronic 01/06/14) Hypothyroidism (acquired) (Chronic) Chronic nonalcoholic liver disease (Chronic) Memory loss (Chronic) Microscopic hematuria (Chronic 03/31/13) Post traumatic stress disorder (Chronic) Postcholecystectomy syndrome (Chronic) Diabetes mellitus (Chronic) White matter abnormality on MRI of brain (Chronic) Abnormality of gait (Chronic) Weight gain (Chronic) Paresthesia and pain of extremity (Chronic) Arthralgia of both hands (Chronic) Insomnia (Chronic) Chest pain of unknown etiology (Chronic) Atypical nevus (Chronic) Daytime somnolence (Chronic) Snoring (Chronic) Pancreatitis (Chronic) Depression, major, recurrent, severe with psychosis (Chronic) Abdominal pain (Chronic) Obesity (BMI 30-39.9) (Chronic) Lumbar disc disease (Chronic) Back pain (Chronic) Lumbar radiculopathy (Chronic) Spinal stenosis at L4-L5 level (Chronic) Spinal stenosis (Chronic) Lumbar spinal stenosis (Chronic) Sinusitis, acute (Chronic) Upper respiratory infection (Chronic) Urinary tract infection (Chronic) Diffuse abdominal pain (Chronic) Calcium oxalate crystals in urine (Chronic) Psychotic disorder (Acute) Diabetic neuropathy (Chronic) Homonymous hemianopia (Chronic) Cirrhosis of liver (Chronic) Joint pain (Chronic) Trigger finger of both hands (Chronic) Costal chondritis (Chronic) Amnesia (Chronic) Local infection of wound (Chronic) Suicide attempt (Chronic) Fall (Chronic) Fall in home (Chronic) Pain in both hands (Chronic) Carpal tunnel syndrome, bilateral (Chronic) Abnormal MRI of head (Chronic) Nonalcoholic steatohepatitis (Chronic) SOB (shortness of breath) (Chronic) Hallucination (Chronic) Morbid obesity (Chronic) Edema (Chronic) Confusion (Chronic) Parkinson disease (Chronic) Chest pressure (Chronic) RUQ abdominal pain (Chronic) Bloating (Chronic) Flatulence (Chronic) Sinus problem (Chronic) Ankle swelling (Chronic) Urinary frequency (Chronic) Rash (Chronic) Easy bruising (Chronic) Excessive bleeding (Chronic) Postmenopausal (Chronic) Liver function test abnormality (Chronic) Dyspnea (Chronic) Tinea corporis (Chronic) Allergic rhinitis (Chronic) Edema of lower extremity (Chronic) Bipolar affective disorder (Chronic) Concussion without loss of consciousness (Acute) Head contusion (Acute) Acute bronchitis (Acute) Abdominal distention, non-gaseous (Acute) Anxiety disorder, unspecified (Acute) Major neurocognitive disorder (Acute) Fall from, out of or through window, initial encounter (Acute) Laceration of scalp (Acute) Acute pain of right knee (Acute) Acute pain of right hip (Acute) Spinal stenosis, lumbar region with neurogenic claudication (Chronic) Chronic pain (Chronic) Low back pain (Chronic) Hypertension (Chronic) Depression (Chronic) Type 2 diabetes mellitus (Acute) Hyperglycemia due to type 2 diabetes mellitus (Acute) Acidosis, lactic (Acute) Expiratory wheezing (Acute) Tremor (Chronic) AMS (altered mental status) (Acute) Sepsis (Acute) Weakness (Acute) NATASHA (acute kidney injury) (Acute) Allergic drug reaction (Acute) Urticaria (Acute) Uncontrolled diabetes mellitus (Acute) Allergic reaction caused by a drug (Acute) Steroid-induced hyperglycemia (Acute) Stage 1 acute kidney injury (Acute) Hyponatremia (Acute) Hyperkalemia (Acute) Diabetes mellitus with stage 3 chronic kidney disease (Acute) Metabolic acidosis (Acute) Polypharmacy (Acute) Hyperammonemia (Acute) Medical History Abdominal pain Abnormal MRI of head Abnormality of gait 11/23/2014 - Poli Virgen PA-C Allergic rhinitis Amnesia Ankle swelling Anxiety Arthralgia (07/06/13) Bilateral Hands Arthralgia of both hands Back pain Bilateral carpal tunnel syndrome Bloating Carpal tunnel syndrome, bilateral Chest pressure Chronic interstitial cystitis Chronic nonalcoholic liver disease Secondary to cholecystectomy complications Chronic pain Cirrhosis of liver Confusion Constipation Costal chondritis Costochondritis Daytime somnolence Degeneration of thoracic or thoracolumbar intervertebral disc L5-S1 documented on CT of Abdomen 03/24/2013 Depression Depressive disorder Deviated nasal septum 05/01/2014 Diabetes mellitus Diabetes mellitus with neurological manifestation (02/17/13) Diabetic neuropathy Dysphagia Dyspnea Easy bruising Edema Edema of lower extremity Essential hypertension (01/06/14) Excessive bleeding Fall 04/14/17 down escalator Fall Fall at home recurrent falls at home, not precipitated by any movement or event Fall in home Flatulence Gout Hallucination Head injury, closed Homonymous hemianopia Homonymous hemianopsia Hypertension Hypothyroidism (acquired) Insomnia Joint pain Liver function test abnormality Local infection of wound Low back pain Lumbar disc disease CT 10/2017 showed Large broad L4-5 disc spur complex resulting in severe central canal, left lateral recess and IV foraminal narrowing. The exiting left L4 descending L5 nerve roots are impinged. 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 SERVICE CLERK diseaseparkinsonism Rash Restrictive lung disease RUQ abdominal pain Sinus problem Snoring SOB (shortness of breath) Spinal stenosis at L4-L5 level Spinal stenosis, lumbar region with neurogenic claudication Suicide attempt 2010-Pill overdose in [place] Suicide attempt Tinea corporis Tremor Trigger finger of both hands bilateral 3rd digit Trigger finger of both hands Urinary frequency Weight gain White matter abnormality on MRI of brain White matter abnormality advanced for age 709/26/14 Wound infection Minor Surgical History History of breast surgery 1999-Breast Lift History of section 1974, 1978 x2 History of ECG 10/11/14 - Shaye History of esophagogastroduodenoscopy (05/05/13) History of esophagogastroduodenoscopy (EGD) (11/20/17) History of liver biopsy (08/31/13) Right History of liver excision (08/31/13) Right 60% removal History of plastic surgery Ju[facility]ino Young History of surgery LESI #1 L4-5 w/o sed 08/08/201902/24 LESI #2 L4-5 w/o sed 02/09/201901/25 LESI #1 L4-5 w/o sed 01/20/1910/25 LESI #3 L4-5 w/o sed 10/14/201807/25 LESI #2 L4-5 w/o sed 07/07/1804/27 LESI #1 L4-5 w/o sed 04/26/18 Hx of cholecystectomy August 1997- Had complication with this of having her bile duct stapled shut with subsequent bile leakage into her peritoneum; she had to have 5 additional surgeries Hx of colonoscopy (03/21/13) Family History Mother , age 83. Cardiomyopathy Cerebrovascular accident, Onset Age: 79 Lost Vision in one eye Depression Lung cancer Father Chronic Kidney Disease Atherosclerosis of coronary artery Dementia Hyperlipidemia Cerebrovascular accident, Onset Age: 82 x3 Unknown Diabetes mellitus Daughter Disorder of thyroid Social History Smoking Status: Never smoker Alcohol Intake Frequency: does not drink Substance Use: does not use Exam Narrative Narrative: Narrative:Appears chronically ill but acutely nontoxic, patient is o riented to self she begins giving history but has difficulty with memory she reports. General Limitations: no limitations General appearance: Present alert, in no apparent distress and nontoxic Head Head: Present atraumatic, normocephalic and normal inspection ENT ENT: Present normal exam Neck Neck: Present normal inspection Chest Chest: Present normal inspection Respiratory Respiratory: Present normal lung sounds bilaterally; Absent wheezes, stridor and decreased breath sounds Cardiovascular Cardiovascular: Present regular rate, normal rhythm and normal heart sounds Adbominal Abdominal: Present soft, normal bowel sounds and other (Nontender, no guarding or rigidity) Extremities Extremities: Present normal inspection and full ROM Back Back: Absent CVA tenderness (R) and CVA tenderness (L) Neurological Neurological: Present alert and other (moves all extremities equally and fully. no facial droop. sensation to light touch in tact throughout. ) Expanded Neurological Patient oriented to: Present person and place Psychiatric Psychiatric: Present normal affect Skin Skin: Present warm (WNL) and dry; Absent rash Course Vital Signs Vital signs: Vital Signs Temperature 97.7 F 09/19/20 11:18 Pulse Rate 97 H 09/19/20 11:18 Respiratory Rate 18 09/19/20 11:18 Blood Pressure 105/65 09/19/20 11:18 Pulse Oximetry (%) 94 09/19/20 11:18 Temperature 97.8 F 09/20/20 04:01 Pulse Rate 85 09/20/20 06:01 Respiratory Rate 15 09/20/20 06:01 Blood Pressure 103/55 09/20/20 06:01 Pulse Oximetry (%) 92 09/20/20 06:01 [facility] MDM Narrative Medical decision making narrative: Narrative: Patient presents to the emergency department for diffuse weakness and altered mental status and low blood pressures at home. Patient complains of diffuse weakness and memory difficulties. No fall, no focal weakness. Work-up was s ignificant for a potassium of 6.9, creatinine of 2.5. Patient's lactic acid was 5.5 with an elevated white blood cell count. Procalcitonin was also mildly elevated. Chest x-ray was without acute cardiopulmonary process, EKG showed no interval derangement or T wave changes. Patient was given insulin, dextrose, calcium gluconate, 2 L of IV fluids, vancomycin and cefepime. Nephrology was consulted over the phone and would be willing to follow the patient should her potassium be stable or improved however there is no services that are able to provide vascular access. Patient's potassium slightly improved. Patient will require admission to the hospitalist. Patient was signed out to Dr. Gray. Lab Data Result diagrams: 09/20/20 05:31 09/20/20 05:32 Labs: Lab Results 09/19/20 09/19/20 09/19/20 Range/Units 12:15 12:15 12:15 WBC 13.5 H (4.5-11.0) K/mcL RBC 4.43 (4.00-5.20) M/mcL Hgb 12.7 (12.0-15.0) g/dL Hct 38.9 (36.0-48.0) % POC Hct (36-48) % MCV 87.8 (80.0-100.0) fL MCH 28.7 (26.0-34.0) pg MCHC 32.6 (31.0-36.0) g/dL RDW 18.0 H (11.5-14.5) % Plt Count 186 (140-440) K/mcL MPV 12.7 H (7.4-10.4) fL Neut % (Auto) 68.1 (38.0-78.0) % Lymph % (Auto) 22.6 (15.0-49.0) % [place] % (Auto) 7.1 (1.0-12.0) % Eos % (Auto) 1.5 (0.0-7.0) % Baso % (Auto) 0.7 (0.0-2.0) % Lymph # (Auto) 3.05 (1.50-4.80) K/mcL [place] # (Auto) 0.96 H (0.10-0.90) K/mcL Eos # (Auto) 0.20 (0.00-0.70) K/mcL Baso # (Auto) 0.09 (0.00-0.20) K/mcL Absolute Neutrophils 9.20 H (1.80-8.00) K/mcL VBG Lactic Acid (0.5-2.0) mmol/L POC Sodium (133-145) mEq/L Sodium 132 L (133-145) mmol/L POC Potassium (3.3-5.1) mEql/L Potassium 6.9 H* (3.3-5.1) mmol/L POC Chloride (96-108) mEq/L Chloride 94 L (96-108) mmol/L Carbon Dioxide 17 L (22-30) mmol/L POC Total CO2 (22-30) mmol/L Anion Gap 21.0 H (8.0-16.0) POC BUN (6-20) mg/dL BUN 35 H (8-23) mg/dL Creatinine 2.6 H (0.6-1.1) mg/dL POC Creatinine (0.6-1.2) mg/dL GFR Calculation 19 Glucose 103 (70-105) mg/dL POC Glucose (70-105) mg/dL Calcium 9.4 (8.6-10.4) mg/dL POC WB Ioniz Calcium (1.16-1.32) mmEq/L Total Bilirubin 0.6 (0.1-1.0) mg/dL AST 106 H (<32) U/L ALT 41 H (<40) U/L Alkaline Phosphatase 136 H (39-117) U/L Ammonia (11-51) umol/L Troponin T < 0.01 (<0.03) ng/mL Total Protein 6.8 (5.9-8.4) gm/dL Albumin 4.5 (3.2-5.2) gm/dL Globulin 2.3 (2.2-3.7) gm/dL Albumin/Globulin Ratio 2.0 (1.0-2.3) Procalcitonin (<0.10) ng/mL Urine Color Urine Appearance (Clear) Urine pH (5.0-9.0) Ur Specific [place] (1.000-1.035) Urine Protein (Negative) mg/dL Urine Glucose (UA) (Negative) mg/dL Urine Ketones (Negative) mg/dL Urine Occult Blood (Negative) mg/dL Urine Nitrate (Negative) Urine Bilirubin (Negative) mg/dL Prot Sulfosalicylic Acd (NEGATIVE) mg/dL Urine Urobilinogen mg/dL Ur Leukocyte Esterase (Negative) /ug Urine RBC (0-3) /hpf Urine WBC (0-4) /hpf Ur Squamous Epith Cells (0-4) /hpf Urine Bacteria (0) /hpf Hyaline Casts (0-2) /lph Ur Culture Indicated? 09/19/20 09/19/20 09/19/20 Range/Units 12:19 13:39 13:52 WBC (4.5-11.0) K/mcL RBC (4.00-5.20) M/mcL Hgb (12.0-15.0) g/dL Hct (36.0-48.0) % POC Hct (36-48) % MCV (80.0-100.0) fL MCH (26.0-34.0) pg MCHC (31.0-36.0) g/dL RDW (11.5-14.5) % Plt Count (140-440) K/mcL MPV (7.4-10.4) fL Neut % (Auto) (38.0-78.0) % Lymph % (Auto) (15.0-49.0) % [place] % (Auto) (1.0-12.0) % Eos % (Auto) (0.0-7.0) % Baso % (Auto) (0.0-2.0) % Lymph # (Auto) (1.50-4.80) K/mcL [place] # (Auto) (0.10-0.90) K/mcL Eos # (Auto) (0.00-0.70) K/mcL Baso # (Auto) (0.00-0.20) K/mcL Absolute Neutrophils (1.80-8.00) K/mcL VBG Lactic Acid 5.5 H* (0.5-2.0) mmol/L POC Sodium (133-145) mEq/L Sodium (133-145) mmol/L POC Potassium (3.3-5.1) mEql/L Potassium (3.3-5.1) mmol/L POC Chloride (96-108) mEq/L Chloride (96-108) mmol/L Carbon Dioxide (22-30) mmol/L POC Total CO2 (22-30) mmol/L Anion Gap (8.0-16.0) POC BUN (6-20) mg/dL BUN (8-23) mg/dL Creatinine (0.6-1.1) mg/dL POC Creatinine (0.6-1.2) mg/dL GFR Calculation Glucose (70-105) mg/dL POC Glucose (70-105) mg/dL Calcium (8.6-10.4) mg/dL POC WB Ioniz Calcium (1.16-1.32) mmEq/L Total Bilirubin (0.1-1.0) mg/dL AST (<32) U/L ALT (<40) U/L Alkaline Phosphatase (39-117) U/L Ammonia (11-51) umol/L Troponin T (<0.03) ng/mL Total Protein (5.9-8.4) gm/dL Albumin (3.2-5.2) gm/dL Globulin (2.2-3.7) gm/dL Albumin/Globulin Ratio (1.0-2.3) Procalcitonin 0.31 H (<0.10) ng/mL Urine Color [place] Urine Appearance Clear (Clear) Urine pH 5.0 (5.0-9.0) Ur Specific [place] 1.012 (1.000-1.035) Urine Protein Negative (Negative) mg/dL Urine Glucose (UA) Negative (Negative) mg/dL Urine Ketones Color interference A (Negative) mg/dL Urine Occult Blood Negative (Negative) mg/dL Urine Nitrate Color interference A (Negative) Urine Bilirubin Negative (Negative) mg/dL Prot Sulfosalicylic Acd Negative (NEGATIVE) mg/dL Urine Urobilinogen Color interfernce A mg/dL Ur Leukocyte Esterase Color interference A (Negative) /ug Urine RBC < 1 (0-3) /hpf Urine WBC 1 (0-4) /hpf Ur Squamous Epith Cells 3 (0-4) /hpf Urine Bacteria Few A (0) /hpf Hyaline Casts 9 H (0-2) /lph Ur Culture Indicated? Yes 09/19/20 09/19/20 09/19/20 Range/Units 18:08 18:18 19:34 WBC (4.5-11.0) K/mcL RBC (4.00-5.20) M/mcL Hgb (12.0-15.0) g/dL Hct (36.0-48.0) % POC Hct 37 (36-48) % MCV (80.0-100.0) fL MCH (26.0-34.0) pg MCHC (31.0-36.0) g/dL RDW (11.5-14.5) % Plt Count (140-440) K/mcL MPV (7.4-10.4) fL Neut % (Auto) (38.0-78.0) % Lymph % (Auto) (15.0-49.0) % [place] % (Auto) (1.0-12.0) % Eos % (Auto) (0.0-7.0) % Baso % (Auto) (0.0-2.0) % Lymph # (Auto) (1.50-4.80) K/mcL [place] # (Auto) (0.10-0.90) K/mcL Eos # (Auto) (0.00-0.70) K/mcL Baso # (Auto) (0.00-0.20) K/mcL Absolute Neutrophils (1.80-8.00) K/mcL VBG Lactic Acid (0.5-2.0) mmol/L POC Sodium 133 (133-145) mEq/L Sodium (133-145) mmol/L POC Potassium 6.1 H* (3.3-5.1) mEql/L Potassium (3.3-5.1) mmol/L POC Chloride 102 (96-108) mEq/L Chloride (96-108) mmol/L Carbon Dioxide (22-30) mmol/L POC Total CO2 20 L (22-30) mmol/L Anion Gap (8.0-16.0) POC BUN 36 H (6-20) mg/dL BUN (8-23) mg/dL Creatinine (0.6-1.1) mg/dL POC Creatinine 3.1 H (0.6-1.2) mg/dL GFR Calculation Glucose (70-105) mg/dL POC Glucose 136 H (70-105) mg/dL Calcium (8.6-10.4) mg/dL POC WB Ioniz Calcium 1.18 (1.16-1.32) mmEq/L Total Bilirubin (0.1-1.0) mg/dL AST (<32) U/L ALT (<40) U/L Alkaline Phosphatase (39-117) U/L Ammonia 105 H (11-51) umol/L Troponin T (<0.03) ng/mL Total Protein (5.9-8.4) gm/dL Albumin (3.2-5.2) gm/dL Globulin (2.2-3.7) gm/dL Albumin/Globulin Ratio (1.0-2.3) Procalcitonin (<0.10) ng/mL Urine Color Urine Appearance (Clear) Urine pH (5.0-9.0) Ur Specific [place] (1.000-1.035) Urine Protein (Negative) mg/dL Urine Glucose (UA) (Negative) mg/dL Urine Ketones (Negative) mg/dL Urine Occult Blood (Negative) mg/dL Urine Nitrate (Negative) Urine Bilirubin (Negative) mg/dL Prot Sulfosalicylic Acd (NEGATIVE) mg/dL Urine Urobilinogen mg/dL Ur Leukocyte Esterase (Negative) /ug Urine RBC (0-3) /hpf Urine WBC (0-4) /hpf Ur Squamous Epith Cells (0-4) /hpf Urine Bacteria (0) /hpf Hyaline Casts (0-2) /lph Ur Culture Indicated? 09/19/20 09/19/20 Range/Units 19:34 21:47 WBC (4.5-11.0) K/mcL RBC (4.00-5.20) M/mcL Hgb (12.0-15.0) g/dL Hct (36.0-48.0) % POC Hct (36-48) % MCV (80.0-100.0) fL MCH (26.0-34.0) pg MCHC (31.0-36.0) g/dL RDW (11.5-14.5) % Plt Count (140-440) K/mcL MPV (7.4-10.4) fL Neut % (Auto) (38.0-78.0) % Lymph % (Auto) (15.0-49.0) % [place] % (Auto) (1.0-12.0) % Eos % (Auto) (0.0-7.0) % Baso % (Auto) (0.0-2.0) % Lymph # (Auto) (1.50-4.80) K/mcL [place] # (Auto) (0.10-0.90) K/mcL Eos # (Auto) (0.00-0.70) K/mcL Baso # (Auto) (0.00-0.20) K/mcL Absolute Neutrophils (1.80-8.00) K/mcL VBG Lactic Acid 2.1 H (0.5-2.0) mmol/L POC Sodium (133-145) mEq/L Sodium 130 L (133-145) mmol/L POC Potassium (3.3-5.1) mEql/L Potassium 6.4 H* (3.3-5.1) mmol/L POC Chloride (96-108) mEq/L Chloride 95 L (96-108) mmol/L Carbon Dioxide 18 L (22-30) mmol/L POC Total CO2 (22-30) mmol/L Anion Gap 17.0 H (8.0-16.0) POC BUN (6-20) mg/dL BUN 35 H (8-23) mg/dL Creatinine 2.5 H (0.6-1.1) mg/dL POC Creatinine (0.6-1.2) mg/dL GFR Calculation 20 Glucose 136 H (70-105) mg/dL POC Glucose (70-105) mg/dL Calcium 9.2 (8.6-10.4) mg/dL POC WB Ioniz Calcium (1.16-1.32) mmEq/L Total Bilirubin (0.1-1.0) mg/dL AST (<32) U/L ALT (<40) U/L Alkaline Phosphatase (39-117) U/L Ammonia (11-51) umol/L Troponin T (<0.03) ng/mL Total Protein (5.9-8.4) gm/dL Albumin (3.2-5.2) gm/dL Globulin (2.2-3.7) gm/dL Albumin/Globulin Ratio (1.0-2.3) Procalcitonin (<0.10) ng/mL Urine Color Urine Appearance (Clear) Urine pH (5.0-9.0) Ur Specific [place] (1.000-1.035) Urine Protein (Negative) mg/dL Urine Glucose (UA) (Negative) mg/dL Urine Ketones (Negative) mg/dL Urine Occult Blood (Negative) mg/dL Urine Nitrate (Negative) Urine Bilirubin (Negative) mg/dL Prot Sulfosalicylic Acd (NEGATIVE) mg/dL Urine Urobilinogen mg/dL Ur Leukocyte Esterase (Negative) /ug Urine RBC (0-3) /hpf Urine WBC (0-4) /hpf Ur Squamous Epith Cells (0-4) /hpf Urine Bacteria (0) /hpf Hyaline Casts (0-2) /lph Ur Culture Indicated? ED POC Tests ED POC Tests: AIME - SARS Antigen Negative CC TIME Critical Care Time Critical Care Time: Yes Total Critical Care Time: 45 Attestation: Due to a high probability of clinically significant, life threatening deterioration, the patient required my highest level of preparedness to intervene emergently and I personally spent this critical care time directly and personally managing the patient. This critical care time included obtaining a history; examining the patient; pulse oximetry; ordering and review of studies ; arranging urgent treatment with development of a management plan; evaluation of patient's response to treatment; frequent reassessment; and, discussions with other providers. This critical care time was performed to assess and manage the high probability of imminent, life-threatening deterioration that could result in multi-organ failure. It was exclusive of separately billable procedures and treating other patients and teaching time. Discharge Plan Patient/Caregiver Discharge Instructions Pt seen by DIGITAL MARKETING EXECUTIVE/PA only: No Clinical Impression: NATASHA (acute kidney injury), Hyperkalemia Patient Disposition: Xfer As Outpt/Obs ([facility]) Condition: Fair Discharge Date/Time: 09/19/20 22:18
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
[2020-09-19 20:05] LABS: POC Blood Urea Nitrogen 36 mg/dL (6-20); POC CO2 20 mmol/L (22-30); POC Calcium, Ionized 1.18 mmEq/L (1.16-1.32); POC Chloride 102 mEq/L (96-108); POC Creatinine 3.1 mg/dL (0.6-1.2); POC Glucose, Random 136 mg/dL (70-105); POC Hematocrit 37 % (36-48); POC Potassium 6.1 mEql/L (3.3-5.1); POC Sodium 133 mEq/L (133-145)
--- NOTE | 2020-09-19 20:53 | Emergency Department Note ---
ED Note Addendum Note Addendum: Patient with some improvement with the IV fluids, but labs appear to still be with some degree of renal insufficiency/failure with improved potassium. Contact with hospitalist who is kindly agreed to manage the patient. Some of the repeat labs that hemolyzed therefore repeat samples are sent. Patient with stable vitals and will proceed with the hospital admission.
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
[2020-09-19 21:17] LABS: Blood Urea Nitrogen 35 mg/dL (8-23); Calcium 9.2 mg/dL (8.6-10.4); Carbon Dioxide 18 mmol/L (22-30); Chloride 95 mmol/L (96-108); Glomerular Filtration Rate 20; Glucose 136 mg/dL (70-105)
[2020-09-19] MEDS ORDERED: RIFAXIMIN 550 MG PO SCH (22:24)
[2020-09-19] MEDS ORDERED: ALBUTEROL SULFATE 200 PUFF INHALER INH PRN (22:24)
[2020-09-19] MEDS ORDERED: NON FORMULARY MEDICATION 1 DOSE MISCELL (Duloxetine 60 mg capsule,delayed release(DR/EC)) PO SCH (22:24)
[2020-09-19] MEDS ORDERED: ONDANSETRON 4 MG/2 ML VIAL IV PRN (22:24)
[2020-09-19] MEDS ORDERED: lamoTRIgine 150 MG TABLET PO SCH (22:24)
[2020-09-19] MEDS: CEFEPIME 2 GM VIAL IV SCH (23:25)
[2020-09-19] MEDS: 0.9 % SODIUM CHLORIDE 1,000 ML IV SCH (23:25)
[2020-09-19] MEDS: 0.9 % SODIUM CHLORIDE 10 ML SYRINGE IV SCH (23:26)
[2020-09-19] MEDS: PREGABALIN 150 MG CAPSULE PO SCH (23:39)
[2020-09-19] MEDS: SODIUM BICARBONATE 650 MG TABLET PO SCH (23:40)
[2020-09-19 23:48] LABS: Blood Urea Nitrogen 35 mg/dL (8-23); Calcium 8.6 mg/dL (8.6-10.4); Carbon Dioxide 19 mmol/L (22-30); Chloride 98 mmol/L (96-108); Glomerular Filtration Rate 23; Glucose 94 mg/dL (70-105)
[2020-09-20] MEDS: 0.9 % SODIUM CHLORIDE 10 ML SYRINGE IV SCH ×3 (05:40→22:11)
[2020-09-20] MEDS ORDERED: VANCOMYCIN PER PHARMACY IV SCH (06:30)
[2020-09-20 07:10] LABS: Basophils # (Auto) 0.07 K/mcL (0.00-0.20); Basophils % (Auto) 0.7 % (0.0-2.0); Eosinophils # (Auto) 0.47 K/mcL (0.00-0.70); Hematocrit 32.8 % (36.0-48.0); Hemoglobin 10.6 g/dL (12.0-15.0); Lymphocytes # (Auto) 3.82 K/mcL (1.50-4.80); Lymphocytes % (Auto) 40.5 % (15.0-49.0); Mean Cell Volume 88.4 fL (80.0-100.0); Mean Corpuscular HGB Conc 32.3 g/dL (31.0-36.0); Mean Platelet Volume 12.2 fL (7.4-10.4); Monocytes # (Auto) 0.79 K/mcL (0.10-0.90); Monocytes % (Auto) 8.4 % (1.0-12.0); Neutrophils % (Auto) 45.4 % (38.0-78.0); Platelet Count 126 K/mcL (140-440); RBC 3.71 M/mcL (4.00-5.20); Red Cell Distribution Width 18.2 % (11.5-14.5); WBC 9.4 K/mcL (4.5-11.0)
[2020-09-20 07:13] LABS: Blood Urea Nitrogen 33 mg/dL (8-23); Calcium 8.3 mg/dL (8.6-10.4); Carbon Dioxide 19 mmol/L (22-30); Chloride 103 mmol/L (96-108); Glomerular Filtration Rate 27; Glucose 132 mg/dL (70-105)
[2020-09-20] MEDS: LEVOTHYROXINE 25 MCG TABLET PO SCH (07:37)
[2020-09-20] MEDS: LEVOTHYROXINE SODIUM 112 MCG TABLET PO SCH (07:37)
[2020-09-20] MEDS: PREGABALIN 150 MG CAPSULE PO SCH ×3 (07:37→22:11)
--- NOTE | 2020-09-20 07:45 | Nephrology Progress Note ---
SUBJECTIVE Subjective Patient information: Note initiated : 09/20/20 at 7:43 am Patient: Mic Hein 65 y/o F admitted on 09/19/20 for UTI s/s. Chief Complaint: Abdominal pain Pertinent ROS: Weakness improved Lower extremity edema Abdominal pain Constitutional Vitals: Vital Signs Temp Pulse Resp BP Pulse Ox 97.8 F 85 15 103/55 92 09/20/20 04:01 09/20/20 06:01 09/20/20 06:01 09/20/20 06:01 09/20/20 06:01 Period Temp Pulse Resp BP Sys/Panchal Pulse Ox Last 24 Hr 97.7 F-98.4 F 68-105 11-31 99-156/45-137 90-97 Intake and Output 09/19/20 09/20/20 09/20/20 21:59 05:59 13:59 Intake Total 3565.0537 120 Output Total 350 Balance 3565.0537 -230 Weight 194 lb 2 oz Intake & Output: Intake & Output 09/19/20 09/20/20 09/20/20 21:59 05:59 13:59 Intake Total 3565.0537 120 Output Total 350 Balance 3565.0537 -230 Weight 194 lb 2 oz Intake: IV 3565.0537 Sodium Chloride 0.9% 1,000 ml @ 2000 Wide Open IV BOLUS ONE Rx#: [id number] Calcium Gluconate 7 Meq In 65.0537 Dextrose 5% in Water 50 ml @ 200 mls/hr IV ONCE ONE Rx#: [id number] Lactated Ringers 1,000 ml @ 1000 Wide Open IV BOLUS ONE Rx#: [id number] Vancomycin 1,500 mg In Sodium 500 Chloride 0.9% 500 ml @ 333.3 mls/hr IV ONCE ONE Rx#: [id number] Oral 120 Output: Void Amount 350 Other: Meal Nourishment/Supplement Percent of Meal Consumed 100% Feeding Ability Independent Urine Appearance Clear Urine Color [place] Urine Odor Normal General appearance: cooperative and no acute distress Head Head exam: Present normal inspection Eye Eye exam: Present normal appearance ENT ENT exam: Present mucous membranes moist Respiratory Respiratory exam: Absent respiratory distress Cardiovascular Cardiovascular exam: Present normal rate and rhythm GI/Abdominal GI/Abdominal exam: Present soft and tenderness Extremities Exam Extremities exam: Present pedal edema; Absent joint swelling Neurological Exam Neurological exam: Present alert and oriented X3 Psychiatric Psychiatric exam: Present normal affect and normal mood Skin Skin exam: Present warm; Absent rash A/P Assessment and plan (1) Acute renal failure superimposed on stage 3a chronic kidney disease: Assessment and plan: Mic Hein is a 65-year-old female with cirrhosis of liver, hypertension, diabetes mellitus type 2 presented to [facility] ED on 09/19/20 for altered mental status and diffuse weakness from a nursing facility. In ED, she had acute kidney injury with hyperkalemia, metabolic acidosis and hyponatremia. Chest x-ray was without acute cardiopulmonary process. EKG showed no T wave changes. Patient was given insulin, dextrose, calcium gluconate, 2 L of IV fluids, vancomycin and cefepime. Patient will be admitted after improvement of hyperkalemia was confirmed. Nephrology consultation was requested for acute kidney injury. Acute kidney injury on chronic kidney disease stage 3a with hyperkalemia, metabolic acidosis and hyponatremia associated with Ibuprofen, Spironolactone, Lisinopril and Bactrim, present on arrival. There is no recent history of IV contrast administration. Work up: Urinalysis on 09/19/20: [place], Clear, pH 5.0, SG 1.012, protein negative, blood negative, leukocyte esterase color interface. Previous workup: CT Abdomen and Pelvis without contrast on 08/05/20: Kidneys, ureters, bladder:No obstructing or nonobstructing renal calculi. No hydronephrosis. No renal mass identified on this noncontrast enhanced examination. Urine random microalbumin/creatinine on 07/01/17: 6.8 mg/g creatinine. Progress: Serum creatinine increased from a baseline 1.0 on 08/10/20 to 2.6 (09/19/20), 1.9 (09/20/20). Baseline serum creatinine: 1.0 (eGFR 59) on 08/10/20. Metabolic acidosis, receiving Sodium Bicarbonate 1,300 mg three times daily, improved. Hyponatremia, resolved. Hyperkalemia, resolved. Fluid overload. No uremic symptoms. Recommendations/Plan: Anticipate no acute hemodialysis need. Avoid Spironolactone, Lisinopril, Bactrim, NSAIDs, nephrotoxic medications and IV contrast. Hold Metformin. Loop diuretics as needed. Monitor BMP and urine output. Status: Acute (2) Hyperkalemia: Status: Acute (3) Hyponatremia: Status: Acute (4) Metabolic acidosis: Status: Acute Time Spent With Patient Time: Total time spent is greater than 50% in coordination of care (as documented) at patient's floor/unit and/or counseling patient:
[2020-09-20] MEDS ORDERED: LACTULOSE 20 GM/30 ML ORAL.SOL PO PRN (08:18)
[2020-09-20] MEDS ORDERED: buPROPion 150 MG TAB.XL.24H PO SCH (09:00)
[2020-09-20] MEDS ORDERED: PRAVASTATIN 20 MG TABLET PO SCH (09:00)
[2020-09-20] MEDS ORDERED: LEVOTHYROXINE 137 MCG PO SCH (09:00)
[2020-09-20] MEDS ORDERED: HYDROmorphone 0.5 MG/0.5 ML SYRINGE IV PRN (09:02)
--- NOTE | 2020-09-20 09:46 | XRay Report ---
CLINICAL INFORMATION: Abdominal pain R L LQ COMPARISON: 07/21/2019 FINDINGS: Stomach and small bowel are normal caliber. The colon is mildly dilated to the rectosigmoid region. There is no gas or stool within the rectum.. There is no free air or soft tissue mass. There is increased density in the false pelvis which may represent ascites. IMPRESSION: Moderate colonic dilatation with moderate stool. Colon is dilated to the rectosigmoid level. There is still more likely atypical ileus rather than distal colonic obstruction. Consider repeat abdomen and pelvic CT with IV and enteric contrast. Possible ascites in the false pelvis. Interpreted and Authenticated by: Rory High 09/20/20
[2020-09-20 10:03] LABS: Vancomycin,Random 9.6 ug/mL
[2020-09-20] MEDS: LACTULOSE 20 GM/30 ML ORAL.SOL PO SCH ×3 (10:11→22:06)
[2020-09-20] MEDS: HEPARIN 5,000 UNIT/ML VIAL SQ SCH ×2 (10:12→22:07)
[2020-09-20] MEDS: SODIUM BICARBONATE 650 MG TABLET PO SCH ×3 (10:13→22:07)
[2020-09-20] MEDS: SIMVASTATIN 10 MG TABLET PO SCH (10:13)
[2020-09-20] MEDS: RIFAXIMIN 550 MG TABLET PO SCH ×2 (10:13→22:07)
[2020-09-20] MEDS: ALLOPURINOL 100 MG TABLET PO SCH (10:13)
[2020-09-20] MEDS: 0.9 % SODIUM CHLORIDE 1,000 ML IV SCH (10:26)
[2020-09-20] MEDS: VANCOMYCIN 1,000 MG in 0.9 % SODIUM CHLORIDE 250 ML IV SCH (11:21)
[2020-09-20] MEDS: CEFEPIME 2 GM VIAL IV SCH ×2 (11:25→22:17)
[2020-09-20] MEDS ORDERED: DEXTROSE 31 GM ORAL.SUSP PO PRN (13:52)
[2020-09-20] MEDS ORDERED: DEXTROSE 50% 50 ML VIAL IV PRN (13:52)
[2020-09-20] MEDS ORDERED: LACTULOSE 20 GM/30 ML ORAL.SOL PR ONE (15:21)
--- NOTE | 2020-09-20 15:48 | Internal Med Progress Note ---
SUBJECTIVE Subjective Patient information: Note initiated : 09/20/20 at 3:47 pm Service Date, if different from initiated Date: [] Patient: Mic Hein 65 y/o F admitted on 09/19/20 for UTI s/s. Chief Complaint: [] Interval history: Ms. Hein is a 65 year old female with multiple comorbidities presented to the ED not feeling well and fount to have an acute kidney injury and hyperkalemia as well as SIRS concerning for possible sepsis. In addition the patient's ammonia level was elevated on admission. Suspect the patient's acute kidney in partly explained by Bactrim (started for UTI), Lisinopril, Lasix, Spironolactone, Ibuprofen and the patient may or may not have been septic on admission. The patient was also taking Metformin prior to admission. 09/20 Renal function stable, slightly improved, potassium normal. Ammonia level trendi ng up, started lactulose PO and enemax1. Continue home Rifaximin. Abdominal xray showed moderate colonic dilation with moderate stool burden, possible ileus. Will consider CT scan with contrast if the patient's renal function recovers soon. lWBC resolved, lactic acid improved. Blood culture showing no growth at on day, urine cultures pending, continues on Vancomycin IV and Cefepime. The patient appears volume overloaded, discontinued IV fluid, ordered one dose of lasix IV. Continue sodium bicarbonate tablets for metabolic acidosis. Lantus and correction sliding scale insulin. Review of systems: feels bloated, no bowel movement, denies shortness of breath Physical exam Head: Atraumatic, normal inspection. Eyes: normal appearance, no scleral icterus. Neck: full ROM Respiratory: no respiratory distress. Cardiovascular: normal rate and rhythm, S1, S2. GI/Abdominal: distended, soft, no guarding Extremities: full range of motion, nontender. Neurological: CN II-XII intact, intact motor, intact sensation. Psychiatric: normal mood. Skin: warm, normal color Constitutional Vitals: Vital Signs Temp Pulse Resp BP Pulse Ox 97.9 F 82 11 L 133/59 96 09/20/20 12:01 09/20/20 14:01 09/20/20 08:01 09/20/20 14:01 09/20/20 14:01 Period Temp Pulse Resp BP Sys/Panchal Pulse Ox Last 24 Hr 97.7 F-98.4 F 68-105 11-31 99-147/45-83 90-97 Intake and Output 09/20/20 09/20/20 09/20/20 05:59 13:59 21:59 Intake Total 120 1250 Output Total 350 250 Balance -230 1000 Weight 88.054 kg Intake & Output: Intake & Output 09/20/20 09/20/20 09/20/20 05:59 13:59 21:59 Intake Total 120 1250 Output Total 350 250 Balance -230 1000 Weight 88.054 kg Intake: IV 1250 Sodium Chloride 0.9% 1,000 ml @ 1000 100 mls/hr IV .Q10H [facility] Rx#: [id number] Vancomycin 1,000 mg In Sodium 250 Chloride 0.9% 250 ml @ 250 mls/ hr IV Q24H [facility] Rx#:[id number] Oral 120 Output: Void Amount 350 250 Other: Meal Nourishment/Supplement Lunch Percent of Meal Consumed 100% 50% Feeding Ability Independent Assist with Tray Set Up Urine Appearance Clear Clear Urine Color [place] Urine Odor Normal Strong OBJ DATA Labs CBC & Chem 7: 09/20/20 05:31 09/20/20 05:32 Labs: Abnormal Lab Results 09/20/20 09/20/20 09/20/20 05:32 05:31 05:31 WBC RBC 3.71 L Hgb 10.6 L Hct 32.8 L RDW 18.2 H Plt Count 126 L MPV 12.2 H Power # (Auto) Absolute Neutrophils VBG Lactic Acid Sodium POC Potassium Potassium Chloride Carbon Dioxide 19 L POC Total CO2 Anion Gap POC BUN BUN 33 H Creatinine 1.9 H POC Creatinine Glucose 132 H POC Glucose Calcium 8.3 L AST ALT Alkaline Phosphatase Ammonia 112 H Procalcitonin Urine Ketones Urine Nitrate Urine Urobilinogen Ur Leukocyte Esterase Urine Bacteria Hyaline Casts 09/19/20 09/19/20 09/19/20 22:40 21:47 19:34 WBC RBC Hgb Hct RDW Plt Count MPV Power # (Auto) Absolute Neutrophils VBG Lactic Acid 2.1 H Sodium 130 L POC Potassium Potassium 5.2 H 6.4 H* Chloride 95 L Carbon Dioxide 19 L 18 L POC Total CO2 Anion Gap 17.0 H POC BUN BUN 35 H 35 H Creatinine 2.2 H 2.5 H POC Creatinine Glucose 136 H POC Glucose Calcium AST ALT Alkaline Phosphatase Ammonia Procalcitonin Urine Ketones Urine Nitrate Urine Urobilinogen Ur Leukocyte Esterase Urine Bacteria Hyaline Casts 09/19/20 09/19/20 09/19/20 19:34 18:18 13:52 WBC RBC Hgb Hct RDW Plt Count MPV Power # (Auto) Absolute Neutrophils VBG Lactic Acid Sodium POC Potassium 6.1 H* Potassium Chloride Carbon Dioxide POC Total CO2 20 L Anion Gap POC BUN 36 H BUN Creatinine POC Creatinine 3.1 H Glucose POC Glucose 136 H Calcium AST ALT Alkaline Phosphatase Ammonia 105 H Procalcitonin 0.31 H Urine Ketones Urine Nitrate Urine Urobilinogen Ur Leukocyte Esterase Urine Bacteria Hyaline Casts 09/19/20 09/19/20 09/19/20 13:39 12:19 12:15 WBC RBC Hgb Hct RDW Plt Count MPV Power # (Auto) Absolute Neutrophils VBG Lactic Acid 5.5 H* Sodium 132 L POC Potassium Potassium 6.9 H* Chloride 94 L Carbon Dioxide 17 L POC Total CO2 Anion Gap 21.0 H POC BUN BUN 35 H Creatinine 2.6 H POC Creatinine Glucose POC Glucose Calcium AST 106 H ALT 41 H Alkaline Phosphatase 136 H Ammonia Procalcitonin Urine Ketones Color interference A Urine Nitrate Color interference A Urine Urobilinogen Color interfernce A Ur Leukocyte Esterase Color interference A Urine Bacteria Few A Hyaline Casts 9 H 09/19/20 12:15 WBC 13.5 H RBC Hgb Hct RDW 18.0 H Plt Count MPV 12.7 H Power # (Auto) 0.96 H Absolute Neutrophils 9.20 H VBG Lactic Acid Sodium POC Potassium Potassium Chloride Carbon Dioxide POC Total CO2 Anion Gap POC BUN BUN Creatinine POC Creatinine Glucose POC Glucose Calcium AST ALT Alkaline Phosphatase Ammonia Procalcitonin Urine Ketones Urine Nitrate Urine Urobilinogen Ur Leukocyte Esterase Urine Bacteria Hyaline Casts Meds: Medications Albuterol Sulfate (Albuterol Sulfate 200 Puff Inhaler) 2 puff INH Q4HP PRN PRN Reason: shortness of breath or wheezin Allopurinol (Allopurinol 100 Mg Tablet) 100 mg PO QDAY [facility] Last Admin: 09/20/20 10:13 Dose: 100 mg Documented by: Bupropion HCl (Bupropion 150 Mg Tab.Xl.24h) 150 mg PO QAM [facility] Cefepime HCl (Cefepime 2 Gm Vial) 2 gm IV Q12H [facility]; Protocol Last Admin: 09/20/20 11:25 Dose: 2 gm Documented by: Dextrose (Dextrose 50% 50 Ml Vial) 0 ml IV UD PRN PRN Reason: Hypoglycemia Diagnostic Test (Pha) (Accu-Chek 1 Each Strip) 1 each FS [facility] Duloxetine HCl (Duloxetine 30 Mg Capsule) 120 mg PO QHS [facility] Glucose (Dextrose 31 Gm Oral.Susp) 15 gm PO PRN PRN PRN Reason: Hypoglycemia Heparin Sodium (Porcine) (Heparin 5,000 Unit/Ml Vial) 5,000 unit SQ Q12 [facility] Last Admin: 09/20/20 10:12 Dose: 5,000 unit Documented by: Sodium Chloride (Sodium Chloride 0.9%) 1,000 mls @ 100 mls/hr IV .Q10H [facility] Last Admin: 09/20/20 10:26 Dose: 100 mls/hr Documented by: Vancomycin HCl 1,000 mg/ (Sodium Chloride) 250 mls @ 250 mls/hr IV Q24H [facility] Last Infusion: 09/20/20 12:21 Dose: Infused Documented by: Insulin Glargine (Insulin Glargine, Human 1 Unit/0.01 Ml) 20 unit SQ [facility] Insulin Human Lispro (Insulin Lispro 1 Unit/0.01 Ml Unit) 0 unit SQ [facility]; Protocol Lactulose (Lactulose 20 Gm/30 Ml Oral.Octavia) 30 gm PO TID [facility] Last Admin: 09/20/20 10:11 Dose: 30 gm Documented by: Lactulose (Lactulose 20 Gm/30 Ml Oral.Octavia) 20 gm PO BID PRN PRN Reason: other Lamotrigine (Lamotrigine 100 Mg Tablet) 150 mg PO QHS [facility] Levothyroxine Sodium (Levothyroxine Sodium 112 Mcg Tablet) 112 mcg PO QAMAC [facility] Last Admin: 09/20/20 07:37 Dose: 112 mcg Documented by: Levothyroxine Sodium (Levothyroxine 25 Mcg Tablet) 25 mcg PO QAMAC [facility] Last Admin: 09/20/20 07:37 Dose: 25 mcg Documented by: Ondansetron HCl (Ondansetron 4 Mg/2 Ml Vial) 4 mg IV Q4HP PRN; Protocol PRN Reason: Nausea And Vomiting Aripiprazole 400 Mg (Inj) 1 dose IM QMONTH [facility] Pregabalin (Pregabalin 150 Mg Capsule) 150 mg PO Q8H [facility] Last Admin: 09/20/20 14:59 Dose: 150 mg Documented by: Quetiapine Fumarate (Quetiapine 25 Mg Tablet) 50 mg PO HS [facility] Quetiapine Fumarate (Quetiapine 25 Mg Tablet) 12.5 mg PO DAILY [facility] Simvastatin (Simvastatin 10 Mg Tablet) 10 mg PO DAILY [facility] Last Admin: 09/20/20 10:13 Dose: 10 mg Documented by: Sodium Bicarbonate (Sodium Bicarbonate 650 Mg Tablet) 1,300 mg PO TID [facility] Last Admin: 09/20/20 10:13 Dose: 1,300 mg Documented by: Sodium Chloride (0.9 % Sodium Chloride 10 Ml Syringe) 10 ml IV Q8 [facility] Last Admin: 09/20/20 05:40 Dose: Not Given Documented by: Vancomycin HCl (Vancomycin Per Pharmacy) 1 order IV UD [facility]; Protocol A/P Narrative A/P Narrative: #Possible sepsis however unknown source #Acute kidney injury #Volume overload #Metabolic acidosis #Constipation #Resolved hyperkalemia #Liver cirrhosis complicated by hepatic encephalopathy #Hx of liver resection #Diabetes mellitus type II #Hypothyroidism #Gout #Bipolar disorder #Obesity BMI 39 #Polypharmacy Plan -Continue Vancomycin and Cefepime for now, deescalate abx when able. -Follow all cultures. -Discontinue IV fluid. -Lasix IV x1, follow renal function and urine output likely more IV lasix tomorrow. -Start lactulose, continue Rifaximin, trend ammonia. -Lantus and SSI, hold home Metformin. -Home allopurinol, lamotrigine, pravastatin, continue psychotropic meds. -Hold Bactrim, Lisinopril, Spironolactone for NATASHA. -Consider CT abdomen/pelvis if pain does not improve with a bowel regimen. -Nephrology following. -DVT ppx: heparin SQ -Code status: DNR -Disposition: TBD Time Spent With Patient Time: Total time spent is greater than 50% in coordination of care (as documented) at patient's floor/unit and/or counseling patient: QUALITY VTE Deep Vein Thrombosis/Pulmonary Embolism Present on Admission: No
[2020-09-20] MEDS ORDERED: FUROSEMIDE 40 MG/4 ML VIAL IV ONE (16:12)
[2020-09-20] MEDS: INSULIN LISPRO 1 UNIT/0.01 ML UNIT SQ SCH ×2 (17:39→22:06)
[2020-09-20] MEDS ORDERED: QUEtiapine 25 MG TABLET PO SCH (21:00)
[2020-09-20] MEDS ORDERED: DULoxetine 30 MG CAPSULE PO SCH (21:00)
[2020-09-20] MEDS: INSULIN GLARGINE, HUMAN 1 UNIT/0.01 ML SQ SCH (22:06)
[2020-09-20] MEDS: lamoTRIgine 100 MG TABLET PO SCH (22:08)
[2020-09-21] MEDS ORDERED: ACETAMINOPHEN 325 MG TABLET PO PRN (01:57)
[2020-09-21] MEDS ORDERED: ACETAMINOPHEN 325 MG TABLET PO ONE (01:59)
[2020-09-21] MEDS: 0.9 % SODIUM CHLORIDE 10 ML SYRINGE IV SCH ×3 (05:41→21:25)
[2020-09-21] MEDS: PREGABALIN 150 MG CAPSULE PO SCH ×2 (05:41→17:16)
[2020-09-21 07:54] LABS: Blood Urea Nitrogen 29 mg/dL (8-23); Calcium 8.9 mg/dL (8.6-10.4); Carbon Dioxide 17 mmol/L (22-30); Chloride 102 mmol/L (96-108); Glomerular Filtration Rate 29; Glucose 242 mg/dL (70-105)
[2020-09-21] MEDS ORDERED: FUROSEMIDE 100 MG/10 ML VIAL IV ONE (07:56)
[2020-09-21] MEDS ORDERED: DEXTROSE 50% 50 ML VIAL IV ONE (07:56)
[2020-09-21] MEDS ORDERED: INSULIN REGULAR, HUMAN 1 UNIT/0.01 ML UNIT IV ONE (07:56)
[2020-09-21] MEDS: LEVOTHYROXINE 25 MCG TABLET PO SCH (07:59)
[2020-09-21] MEDS: LEVOTHYROXINE SODIUM 112 MCG TABLET PO SCH (07:59)
[2020-09-21] MEDS ORDERED: SODIUM BICARBONATE 50 MEQ/50 ML VIAL IV ONE (08:00)
[2020-09-21] MEDS: INSULIN LISPRO 1 UNIT/0.01 ML UNIT SQ SCH ×4 (08:01→21:15)
--- NOTE | 2020-09-21 08:16 | Nephrology Progress Note ---
SUBJECTIVE Subjective Patient information: Note initiated : 09/21/20 at 8:15 am Patient: Mic Hein 65 y/o F admitted on 09/19/20 for UTI s/s. Chief Complaint: Abdominal pain Pertinent ROS: Edema Abdominal pain Constitutional Vitals: Vital Signs Temp Pulse Resp BP Pulse Ox 97.2 F 88 16 119/62 97 09/21/20 04:00 09/21/20 07:01 09/21/20 07:01 09/21/20 07:01 09/21/20 07:01 Period Temp Pulse Resp BP Sys/Panchal Pulse Ox Last 24 Hr 97.1 F-98.4 F 69-88 16-20 86-133/46-96 92-97 Intake and Output 09/20/20 09/21/20 09/21/20 21:59 05:59 13:59 Intake Total 1000 360 Output Total 1500 Balance -500 360 Weight 194 lb 3.2 oz Intake & Output: Intake & Output 09/20/20 09/21/20 09/21/20 21:59 05:59 13:59 Intake Total 1000 360 Output Total 1500 Balance -500 360 Weight 194 lb 3.2 oz Intake: Oral 1000 360 Output: Urine/Stool Mix 1500 Other: Meal Dinner Percent of Meal Consumed 75% Feeding Ability Assist with Tray Set Up Stool Size Copious Stool Color Brown Stool Consistency Soft Formed Watery # Voids 1 # Bowel Movements 1 General appearance: cooperative and no acute distress Head Head exam: Present normal inspection Eye Eye exam: Present normal appearance ENT ENT exam: Present mucous membranes moist Respiratory Respiratory exam: Absent respiratory distress Cardiovascular Cardiovascular exam: Present normal rate and rhythm GI/Abdominal GI/Abdominal exam: Present soft and distended; Absent tenderness Extremities Exam Extremities exam: Present pedal edema; Absent joint swelling Neurological Exam Neurological exam: Present alert and oriented X3 Psychiatric Psychiatric exam: Present normal affect and normal mood Skin Skin exam: Present warm; Absent rash A/P Assessment and plan (1) Acute renal failure superimposed on stage 3a chronic kidney disease: Assessment and plan: Mic Hein is a 65-year-old female with cirrhosis of liver, hypertension, diabetes mellitus type 2 presented to [facility] ED on 09/19/20 for altered mental status and diffuse weakness from a nursing facility. In ED, she had acute kidney injury with hyperkalemia, metabolic acidosis and hyponatremia. Chest x-ray was without acute cardiopulmonary process. EKG showed no T wave changes. Patient was given insulin, dextrose, calcium gluconate, 2 L of IV fluids, vancomycin and cefepime. Patient will be admitted after improvement of hyperkalemia was confirmed. Nephrology consultation was requested for acute kidney injury. Acute kidney injury on chronic kidney disease stage 3a with hyperkalemia, metabolic acidosis and hyponatremia associated with Ibuprofen, Spironolactone, Lisinopril and Bactrim, present on arrival. There is no recent history of IV contrast administration. Work up: Urinalysis on 09/19/20: [place], Clear, pH 5.0, SG 1.012, protein negative, blood negative, leukocyte esterase color interface. Previous workup: CT Abdomen and Pelvis without contrast on 08/05/20: Kidneys, ureters, bladder:No obstructing or nonobstructing renal calculi. No hydronephrosis. No renal mass identified on this noncontrast enhanced examination. Urine random microalbumin/creatinine on 07/01/17: 6.8 mg/g creatinine. Progress: Serum creatinine increased from a baseline 1.0 on 08/10/20 to 2.6 (09/19/20), 1.9 (09/20/20), 1.8 (09/21/20). Baseline serum creatinine: 1.0 (eGFR 59) on 08/10/20. Metabolic acidosis, receiving Sodium Bicarbonate 1,300 mg three times daily, improved. Hyponatremia. Hyperkalemia. Fluid overload. No uremic symptoms. Recommendations/Plan: Anticipate no acute hemodialysis need. Recommend loop diuretics for hyperkalemia and fluid overload. Furosemide infusion 10 mg/hour may work better. Avoid Spironolactone, Lisinopril, Bactrim, NSAIDs, nephrotoxic medications and IV contrast. Hold Metformin. Monitor BMP and urine output. Status: Acute (2) Hyperkalemia: Status: Acute (3) Hyponatremia: Status: Acute (4) Metabolic acidosis: Status: Acute Time Spent With Patient Time: Total time spent is greater than 50% in coordination of care (as documented) at patient's floor/unit and/or counseling patient:
[2020-09-21] MEDS ORDERED: buPROPion 150 MG TAB.XL.24H PO SCH (09:00)
[2020-09-21] MEDS: HEPARIN 5,000 UNIT/ML VIAL SQ SCH ×2 (09:38→20:33)
[2020-09-21] MEDS: LACTULOSE 20 GM/30 ML ORAL.SOL PO SCH ×2 (09:38→15:57)
[2020-09-21] MEDS: SIMVASTATIN 10 MG TABLET PO SCH (09:39)
[2020-09-21] MEDS: RIFAXIMIN 550 MG TABLET PO SCH ×2 (09:39→20:33)
[2020-09-21] MEDS: ALLOPURINOL 100 MG TABLET PO SCH (09:39)
[2020-09-21] MEDS: SODIUM BICARBONATE 650 MG TABLET PO SCH ×3 (09:39→20:32)
[2020-09-21] MEDS: VANCOMYCIN 1,000 MG in 0.9 % SODIUM CHLORIDE 250 ML IV SCH (09:40)
--- NOTE | 2020-09-21 10:00 | Cat Scan Report ---
CLINICAL INFORMATION: Abdominal pain COMPARISON: Abdomen and pelvic CT 08/05/2020. TECHNIQUE: 0.625 mm helical slices were obtained from the mid heart through the subtrochanteric regions. Following reconstruction, 2.5 mm sagittal, coronal and axial reformatted images were processed and reviewed at bone and soft tissue windows.The exam was performed using radiation dose optimization techniques including, but not limited to, automated exposure control, adjustment of the mA and/or kV according to patient size and use of iterative reconstruction technique. Abdominal images show resection of the right hepatic lobe with compensatory hypertrophy of the caudate and left hepatic lobes. No focal Hepatic lesions are seen on the noncontrast exam. Spleen has decreased from 17 cm to 13 cm in vertical dimension. It is now only mildly enlarged.. Both noncontrasted kidneys, adrenal glands, pancreas and aorta are unremarkable. There is no free air, free fluid or adenopathy. Pelvic images show anteflexed uterus which is normal in size 8 x 3 cm. The region of the ovaries is normal. Urinary bladder is mildly distended. The stomach, small and large bowel show mild symmetric dilatation with a moderate amount of colonic stool compatible with mild ileus. Bone windows show large L4-5 disc spur complex resulting in severe central canal, left lateral recess and left IV foraminal narrowing. There is impingement of the exiting left L4 and descending left L5 nerve root.. IMPRESSION: 1. No cause identified for acute abdominal pain. 2. Mild splenomegaly. The spleen has actually decreased in size since the earliest CT 07/11/2020 3. Resection right hepatic lobe with compensatory hypertrophy of the left hepatic lobe and caudate lobes stable. 4. Small right pleural effusion-new. 5. L4-5: Large broad disc spur complex resulting in severe central canal, left lateral recess and left IV foraminal narrowing. There is impingement of the exiting left L4 and descending left L5 nerve roots. This is stable Interpreted and Authenticated by: Rory High 09/21/20
[2020-09-21] MEDS: QUEtiapine 25 MG TABLET PO SCH (10:24)
--- NOTE | 2020-09-21 10:55 | Internal Med Progress Note ---
SUBJECTIVE Subjective Patient information: Note initiated : 09/21/20 at 10:53 am Service Date, if different from initiated Date: [] Patient: Mic Hein 65 y/o F admitted on 09/19/20 for UTI s/s. Chief Complaint: [] Interval history: Ms. Hein is a 65 year old female with multiple comorbidities presented to the ED not feeling well and fount to have an acute kidney injury and hyperkalemia as well as SIRS concerning for possible sepsis. In addition the patient's ammonia level was elevated on admission. Suspect the patient's acute kidney in partly explained by Bactrim (started for UTI), Lisinopril, Lasix, Spironolactone, Ibuprofen and the patient may or may not have been septic on admission. The patient was also taking Metformin prior to admission. 09/20 Renal function stable, slightly improved, potassium normal. Ammonia level trend ing up, started lactulose PO and enemax1. Continue home Rifaximin. Abdominal xray showed moderate colonic dilation with moderate stool burden, possible ileus. Will consider CT scan with contrast if the patient's renal function recovers soon. lWBC resolved, lactic acid improved. Blood culture showing no growth at on day, urine cultures pending, continues on Vancomycin IV and Cefepime. The patient appears volume overloaded, discontinued IV fluid, ordered one dose of lasix IV. Continue sodium bicarbonate tablets for metabolic acidosis. Lantus and correction sliding scale insulin. 09/21 Potassium increased today and worsening metabolic acidosis, gave D50 and regular insulin IV, Lasix IV, Bicarbonate IV. Creatinine about the same as yesterday. The patient had a large bowel movement after lactulose enema. CT abdomen/pelvis with contrast did not show any reason for acute abdominal pain. Blood cultures showing no growth to date, urine culture pending. Discontinued Vancomycin IV, continued Cefepime for now. Trending ammonia. Review of systems: feels bloated, no bowel movement, denies shortness of breath Physical exam Head: Atraumatic, normal inspection. Eyes: normal appearance, no scleral icterus. Neck: full ROM Respiratory: no respiratory distress. Cardiovascular: normal rate and rhythm, S1, S2. GI/Abdominal: distended, soft, diffuse tenderness but greatest in the right lower quadrant, no guarding Extremities: full range of motion, nontender. Neurological: CN II-XII intact, intact motor, intact sensation. Psychiatric: normal mood. Skin: warm, normal color Constitutional Vitals: Vital Signs Temp Pulse Resp BP Pulse Ox 97 F 102 H 16 102/57 97 09/21/20 08:01 09/21/20 10:01 09/21/20 10:01 09/21/20 10:01 09/21/20 10:01 Period Temp Pulse Resp BP Sys/Panchal Pulse Ox Last 24 Hr 97 F-98.4 F 69-102 16-20 86-133/46-96 92-97 Intake and Output 09/20/20 09/21/20 09/21/20 21:59 05:59 13:59 Intake Total 1000 360 Output Total 1500 350 Balance -500 360 -350 Weight 88.088 kg Intake & Output: Intake & Output 09/20/20 09/21/20 09/21/20 21:59 05:59 13:59 Intake Total 1000 360 Output Total 1500 350 Balance -500 360 -350 Weight 88.088 kg Intake: Oral 1000 360 Output: Void Amount 350 Urine/Stool Mix 1500 Other: Meal Dinner Percent of Meal Consumed 75% Feeding Ability Assist with Tray Set Up Urine Appearance Clear Urine Color [place] Stool Size Copious Stool Color Brown Stool Consistency Soft Formed Watery # Voids 1 # Bowel Movements 1 OBJ DATA Labs CBC & Chem 7: 09/20/20 05:31 09/21/20 05:14 Labs: Abnormal Lab Results 09/21/20 09/20/20 09/20/20 05:14 05:32 05:31 WBC RBC Hgb Hct RDW Plt Count MPV [place] # (Auto) Absolute Neutrophils VBG Lactic Acid Sodium 131 L POC Potassium Potassium 5.9 H* Chloride Carbon Dioxide 17 L 19 L POC Total CO2 Anion Gap POC BUN BUN 29 H 33 H Creatinine 1.8 H 1.9 H POC Creatinine Glucose 242 H 132 H POC Glucose Calcium 8.3 L AST ALT Alkaline Phosphatase Ammonia 112 H Procalcitonin Urine Ketones Urine Nitrate Urine Urobilinogen Ur Leukocyte Esterase Urine Bacteria Hyaline Casts 09/20/20 09/19/20 09/19/20 05:31 22:40 21:47 WBC RBC 3.71 L Hgb 10.6 L Hct 32.8 L RDW 18.2 H Plt Count 126 L MPV 12.2 H [place] # (Auto) Absolute Neutrophils VBG Lactic Acid 2.1 H Sodium POC Potassium Potassium 5.2 H Chloride Carbon Dioxide 19 L POC Total CO2 Anion Gap POC BUN BUN 35 H Creatinine 2.2 H POC Creatinine Glucose POC Glucose Calcium AST ALT Alkaline Phosphatase Ammonia Procalcitonin Urine Ketones Urine Nitrate Urine Urobilinogen Ur Leukocyte Esterase Urine Bacteria Hyaline Casts 09/19/20 09/19/20 09/19/20 19:34 19:34 18:18 WBC RBC Hgb Hct RDW Plt Count MPV [place] # (Auto) Absolute Neutrophils VBG Lactic Acid Sodium 130 L POC Potassium 6.1 H* Potassium 6.4 H* Chloride 95 L Carbon Dioxide 18 L POC Total CO2 20 L Anion Gap 17.0 H POC BUN 36 H BUN 35 H Creatinine 2.5 H POC Creatinine 3.1 H Glucose 136 H POC Glucose 136 H Calcium AST ALT Alkaline Phosphatase Ammonia 105 H Procalcitonin Urine Ketones Urine Nitrate Urine Urobilinogen Ur Leukocyte Esterase Urine Bacteria Hyaline Casts 09/19/20 09/19/20 09/19/20 13:52 13:39 12:19 WBC RBC Hgb Hct RDW Plt Count MPV [place] # (Auto) Absolute Neutrophils VBG Lactic Acid 5.5 H* Sodium POC Potassium Potassium Chloride Carbon Dioxide POC Total CO2 Anion Gap POC BUN BUN Creatinine POC Creatinine Glucose POC Glucose Calcium AST ALT Alkaline Phosphatase Ammonia Procalcitonin 0.31 H Urine Ketones Color interference A Urine Nitrate Color interference A Urine Urobilinogen Color interfernce A Ur Leukocyte Esterase Color interference A Urine Bacteria Few A Hyaline Casts 9 H 09/19/20 09/19/20 12:15 12:15 WBC 13.5 H RBC Hgb Hct RDW 18.0 H Plt Count MPV 12.7 H [place] # (Auto) 0.96 H Absolute Neutrophils 9.20 H VBG Lactic Acid Sodium 132 L POC Potassium Potassium 6.9 H* Chloride 94 L Carbon Dioxide 17 L POC Total CO2 Anion Gap 21.0 H POC BUN BUN 35 H Creatinine 2.6 H POC Creatinine Glucose POC Glucose Calcium AST 106 H ALT 41 H Alkaline Phosphatase 136 H Ammonia Procalcitonin Urine Ketones Urine Nitrate Urine Urobilinogen Ur Leukocyte Esterase Urine Bacteria Hyaline Casts Meds: Medications Acetaminophen (Acetaminophen 325 Mg Tablet) 325 mg PO Q6HP PRN; Protocol PRN Reason: Per Pain Protocol Last Admin: 09/21/20 01:58 Dose: 325 mg Documented by: Albuterol Sulfate (Albuterol Sulfate 200 Puff Inhaler) 2 puff INH Q4HP PRN PRN Reason: shortness of breath or wheezin Allopurinol (Allopurinol 100 Mg Tablet) 100 mg PO QDAY [facility] Last Admin: 09/21/20 09:39 Dose: 100 mg Documented by: Bupropion HCl (Bupropion 150 Mg Tab.Xl.24h) 150 mg PO QAM [facility] Last Admin: 09/21/20 09:39 Dose: 150 mg Documented by: Cefepime HCl (Cefepime 2 Gm Vial) 2 gm IV Q12H [facility]; Protocol Last Admin: 09/20/20 22:17 Dose: 2 gm Documented by: Dextrose (Dextrose 50% 50 Ml Vial) 0 ml IV UD PRN PRN Reason: Hypoglycemia Diagnostic Test (Pha) (Accu-Chek 1 Each Strip) 1 each FS ACHS [facility] Last Admin: 09/21/20 08:00 Dose: 1 each Documented by: Diagnostic Test (Pha) (Accu-Chek 1 Each Strip) 1 each FS Q1 [facility] Stop: 09/21/20 14:00 Last Admin: 09/21/20 10:24 Dose: 1 each Documented by: Duloxetine HCl (Duloxetine 30 Mg Capsule) 120 mg PO QHS [facility] Last Admin: 09/20/20 22:07 Dose: 120 mg Documented by: Glucose (Dextrose 31 Gm Oral.Susp) 15 gm PO PRN PRN PRN Reason: Hypoglycemia Heparin Sodium (Porcine) (Heparin 5,000 Unit/Ml Vial) 5,000 unit SQ Q12 [facility] Last Admin: 09/21/20 09:38 Dose: 5,000 unit Documented by: Vancomycin HCl 1,000 mg/ (Sodium Chloride) 250 mls @ 250 mls/hr IV Q24H [facility] Last Admin: 09/21/20 09:40 Dose: 250 mls/hr Documented by: Insulin Glargine (Insulin Glargine, Human 1 Unit/0.01 Ml) 20 unit SQ HS [facility] Last Admin: 09/20/20 22:06 Dose: 20 units Documented by: Insulin Human Lispro (Insulin Lispro 1 Unit/0.01 Ml Unit) 0 unit SQ ACHS [facility]; Protocol Last Admin: 09/21/20 10:53 Dose: 5 unit Documented by: Lactulose (Lactulose 20 Gm/30 Ml Oral.Octavia) 30 gm PO TID [facility] Last Admin: 09/21/20 09:38 Dose: 30 gm Documented by: Lactulose (Lactulose 20 Gm/30 Ml Oral.Octavia) 20 gm PO BID PRN PRN Reason: other Lamotrigine (Lamotrigine 100 Mg Tablet) 150 mg PO QHS [facility] Last Admin: 09/20/20 22:08 Dose: 150 mg Documented by: Levothyroxine Sodium ([facility]othyroxine S[facility] 112 Mcg Tablet) [facility] Admin: 09/21/20 07:59 Dose: 112 mcg Documented by: Levothyroxine Sodium (Levothyroxine 25 Mcg Tablet) 25 mcg PO QAMAC [facility] Last Admin: 09/21/20 07:59 Dose: 25 mcg Documented by: Ondansetron HCl (Ondansetron 4 Mg/2 Ml Vial) 4 mg IV Q4HP PRN; Protocol PRN Reason: Nausea And Vomiting Aripiprazole 400 Mg (Inj) 1 dose IM QMONTH [facility] Pregabalin (Pregabalin 150 Mg Capsule) 150 mg PO Q8H [facility] Last Admin: 09/21/20 05:41 Dose: 150 mg Documented by: Quetiapine Fumarate (Quetiapine 25 Mg Tablet) 50 mg PO HS [facility] Last Admin: 09/20/20 22:06 Dose: 50 mg Documented by: Quetiapine Fumarate (Quetiapine 25 Mg Tablet) 12.5 mg PO DAILY [facility] Last Admin: 09/21/20 10:24 Dose: Not Given Documented by: Simvastatin (Simvastatin 10 Mg Tablet) 10 mg PO DAILY [facility] Last Admin: 09/21/20 09:39 Dose: 10 mg Documented by: Sodium Bicarbonate (Sodium Bicarbonate 650 Mg Tablet) 1,300 mg PO TID [facility] Last Admin: 09/21/20 09:39 Dose: 1,300 mg Documented by: Sodium Chloride (0.9 % Sodium Chloride 10 Ml Syringe) 10 ml IV Q8 [facility] Last Admin: 09/21/20 05:41 Dose: 10 ml Documented by: Vancomycin HCl (Vancomycin Per Pharmacy) 1 order IV UD [facility]; Protocol A/P Narrative A/P Narrative: #Possible sepsis however unknown source #Acute kidney injury #Hyperkalemia #Volume overload #Metabolic acidosis #Constipation #Liver cirrhosis complicated by hepatic encephalopathy #Hx of liver resection #Diabetes mellitus type II #Hypothyroidism #Gout #Bipolar disorder #Obesity BMI 39 #Polypharmacy Plan -Hyperkalemia intervention-D50 and IV regular insulin, Lasix 80 mg IV, IV Bic arbonate. -Trend potassium, avoid Kayexalate now due to abdominal complaints, if potassium trends up then EKG and possibly temporizing Calcium gluconate, consider lasix infusion if persistent hyperkalemia. -CT abdomen/pelvis wo contrast. -Continue Cefepime for now, discontinue Vancomycin IV. -Follow all cultures. -Follow renal function for NATASHA. -Continue lactulose and Rifaximin, trend ammonia. -Lantus and SSI, hold home Metformin. -Home allopurinol, lamotrigine, pravastatin, continue psychotropic meds. -Hold Bactrim, Lisinopril, Spironolactone, Ibuprofen for NATASHA. -Nephrology following. -Telemetry -DVT ppx: heparin SQ -Code status: DNR -Disposition: TBD Time Spent With Patient Time: Total time spent is greater than 50% in coordination of care (as documented) at patient's floor/unit and/or counseling patient: QUALITY VTE Deep Vein Thrombosis/Pulmonary Embolism Present on Admission: No
[2020-09-21] MEDS: CEFEPIME 2 GM VIAL IV SCH (11:47)
--- NOTE | 2020-09-21 13:08 | Internal Med Progress Note ---
SUBJECTIVE Subjective Patient information: Note initiated : 09/21/20 at 1:02 pm Service Date, if different from initiated Date: [] Patient: Mic Hein 65 y/o F admitted on 09/19/20 for UTI s/s. Chief Complaint: [] Interval history: Ms. Hein is a 65 year old female with multiple comorbidities presented to the ED not feeling well and fount to have an acute kidney injury and hyperkalemia as well as SIRS concerning for possible sepsis. In addition the patient's ammonia level was elevated on admission. Suspect the patient's acute kidney in partly explained by Bactrim (started for UTI), Lisinopril, Lasix, Spironolactone, Ibuprofen and the patient may or may not have been septic on admission. The patient was also taking Metformin prior to admission. 09/20 Renal function stable, slightly improved, potassium normal. Ammonia level trendi ng up, started lactulose PO and enemax1. Continue home Rifaximin. Abdominal xray showed moderate colonic dilation with moderate stool burden, possible ileus. Will consider CT scan with contrast if the patient's renal function recovers soon. lWBC resolved, lactic acid improved. Blood culture showing no growth at on day, urine cultures pending, continues on Vancomycin IV and Cefepime. The patient appears volume overloaded, discontinued IV fluid, ordered one dose of lasix IV. Continue sodium bicarbonate tablets for metabolic acidosis. Lantus and correction sliding scale insulin. 09/21 Potassium increased today and worsening metabolic acidosis, gave D50 and regular insulin IV, Lasix IV, Bicarbonate IV. Creatinine about the same as yesterday. The patient had a large bowel movement after lactulose enema. CT abdomen/pelvis with contrast did not show any reason for acute abdominal pain. Blood cultures showing no growth to date, urine culture pending. Discontinued Vancomycin IV, continued Cefepime for now. Trending ammonia. 09/22 Constitutional Vitals: Vital Signs Temp Pulse Resp BP Pulse Ox 97.8 F 102 H 16 107/61 95 09/21/20 12:01 09/21/20 12:01 09/21/20 10:01 09/21/20 12:01 09/21/20 12:01 Period Temp Pulse Resp BP Sys/Panchal Pulse Ox Last 24 Hr 97 F-98.4 F 69-102 16-20 86-133/46-96 94-97 Intake and Output 09/20/20 09/21/20 09/21/20 21:59 05:59 13:59 Intake Total 1000 360 Output Total 1500 350 Balance -500 360 -350 Weight 88.088 kg Intake & Output: Intake & Output 09/20/20 09/21/20 09/21/20 21:59 05:59 13:59 Intake Total 1000 360 Output Total 1500 350 Balance -500 360 -350 Weight 88.088 kg Intake: Oral 1000 360 Output: Void Amount 350 Urine/Stool Mix 1500 Other: Meal Dinner Percent of Meal Consumed 75% Feeding Ability Assist with Tray Set Up Urine Appearance Clear Urine Color [place] Stool Size Copious Stool Color Brown Stool Consistency Soft Formed Watery # Voids 1 # Bowel Movements 1 Exam: General: Alert, Awake, No acute Distress Eyes/N/T: EOMI, Head/Neck: neck supple, CV: RRR, No murmurs, Pulm: Clear b/l, no wheezing/rhonchi/rales Abd: distended, soft, diffuse tenderness but greatest in the right lower quadrant, no guarding Ext: no clubbing/cyanosis/edema Neuro: Alert, no focal deficits, moves all extremities, Skin: warm/dry OBJ DATA Labs CBC & Chem 7: 09/20/20 05:31 09/21/20 10:18 Labs: Abnormal Lab Results 09/21/20 09/21/20 09/20/20 10:18 05:14 05:32 WBC RBC Hgb Hct RDW Plt Count MPV [place] # (Auto) Absolute Neutrophils VBG Lactic Acid Sodium 131 L POC Potassium Potassium 5.2 H 5.9 H* Chloride Carbon Dioxide 17 L 19 L POC Total CO2 Anion Gap POC BUN BUN 29 H 33 H Creatinine 1.8 H 1.9 H POC Creatinine Glucose 242 H 132 H POC Glucose Calcium 8.3 L AST ALT Alkaline Phosphatase Ammonia Procalcitonin Urine Ketones Urine Nitrate Urine Urobilinogen Ur Leukocyte Esterase Urine Bacteria Hyaline Casts 09/20/20 09/20/20 09/19/20 05:31 05:31 22:40 WBC RBC 3.71 L Hgb 10.6 L Hct 32.8 L RDW 18.2 H Plt Count 126 L MPV 12.2 H [place] # (Auto) Absolute Neutrophils VBG Lactic Acid Sodium POC Potassium Potassium 5.2 H Chloride Carbon Dioxide 19 L POC Total CO2 Anion Gap POC BUN BUN 35 H Creatinine 2.2 H POC Creatinine Glucose POC Glucose Calcium AST ALT Alkaline Phosphatase Ammonia 112 H Procalcitonin Urine Ketones Urine Nitrate Urine Urobilinogen Ur Leukocyte Esterase Urine Bacteria Hyaline Casts 09/19/20 09/19/20 09/19/20 21:47 19:34 19:34 WBC RBC Hgb Hct RDW Plt Count MPV [place] # (Auto) Absolute Neutrophils VBG Lactic Acid 2.1 H Sodium 130 L POC Potassium 6.1 H* Potassium 6.4 H* Chloride 95 L Carbon Dioxide 18 L POC Total CO2 20 L Anion Gap 17.0 H POC BUN 36 H BUN 35 H Creatinine 2.5 H POC Creatinine 3.1 H Glucose 136 H POC Glucose 136 H Calcium AST ALT Alkaline Phosphatase Ammonia Procalcitonin Urine Ketones Urine Nitrate Urine Urobilinogen Ur Leukocyte Esterase Urine Bacteria Hyaline Casts 09/19/20 09/19/20 09/19/20 18:18 13:52 13:39 WBC RBC Hgb Hct RDW Plt Count MPV [place] # (Auto) Absolute Neutrophils VBG Lactic Acid Sodium POC Potassium Potassium Chloride Carbon Dioxide POC Total CO2 Anion Gap POC BUN BUN Creatinine POC Creatinine Glucose POC Glucose Calcium AST ALT Alkaline Phosphatase Ammonia 105 H Procalcitonin 0.31 H Urine Ketones Color interference A Urine Nitrate Color interference A Urine Urobilinogen Color interfernce A Ur Leukocyte Esterase Color interference A Urine Bacteria Few A Hyaline Casts 9 H 09/19/20 09/19/20 09/19/20 12:19 12:15 12:15 WBC 13.5 H RBC Hgb Hct RDW 18.0 H Plt Count MPV 12.7 H [place] # (Auto) 0.96 H Absolute Neutrophils 9.20 H VBG Lactic Acid 5.5 H* Sodium 132 L POC Potassium Potassium 6.9 H* Chloride 94 L Carbon Dioxide 17 L POC Total CO2 Anion Gap 21.0 H POC BUN BUN 35 H Creatinine 2.6 H POC Creatinine Glucose POC Glucose Calcium AST 106 H ALT 41 H Alkaline Phosphatase 136 H Ammonia Procalcitonin Urine Ketones Urine Nitrate Urine Urobilinogen Ur Leukocyte Esterase Urine Bacteria Hyaline Casts Meds: Medications Acetaminophen (Acetaminophen 325 Mg Tablet) 325 mg PO Q6HP PRN; Protocol PRN Reason: Per Pain Protocol Last Admin: 09/21/20 01:58 Dose: 325 mg Documented by: Albuterol Sulfate (Albuterol Sulfate 200 Puff Inhaler) 2 puff INH Q4HP PRN PRN Reason: shortness of breath or wheezin Allopurinol (Allopurinol 100 Mg Tablet) 100 mg PO QDAY [facility] Last Admin: 09/21/20 09:39 Dose: 100 mg Documented by: Bupropion HCl (Bupropion 150 Mg Tab.Xl.24h) 150 mg PO QAM [facility] Last Admin: 09/21/20 09:39 Dose: 150 mg Documented by: Cefepime HCl (Cefepime 2 Gm Vial) 2 gm IV Q12H [facility]; Protocol Last Admin: 09/21/20 11:47 Dose: 2 gm Documented by: Dextrose (Dextrose 50% 50 Ml Vial) 0 ml IV UD PRN PRN Reason: Hypoglycemia Diagnostic Test (Pha) (Accu-Chek 1 Each Strip) 1 each FS ACHS [facility] Last Admin: 09/21/20 10:54 Dose: Not Given Documented by: Diagnostic Test (Pha) (Accu-Chek 1 Each Strip) 1 each FS Q1 [facility] Stop: 09/21/20 14:00 Last Admin: 09/21/20 11:50 Dose: 1 each Documented by: Duloxetine HCl (Duloxetine 30 Mg Capsule) 120 mg PO QHS [facility] Last Admin: 09/20/20 22:07 Dose: 120 mg Documented by: Glucose (Dextrose 31 Gm Oral.Susp) 15 gm PO PRN PRN PRN Reason: Hypoglycemia Heparin Sodium (Porcine) (Heparin 5,000 Unit/Ml Vial) 5,000 unit SQ Q12 [facility] Last Admin: 09/21/20 09:38 Dose: 5,000 unit Documented by: Insulin Glargine (Insulin Glargine, Human 1 Unit/0.01 Ml) 20 unit SQ HS [facility] Last Admin: 09/20/20 22:06 Dose: 20 units Documented by: Insulin Human Lispro (Insulin Lispro 1 Unit/0.01 Ml Unit) 0 unit SQ [facility]; Protocol Last Admin: 09/21/20 10:53 Dose: 5 unit Documented by: Lactulose (Lactulose 20 Gm/30 Ml Oral.Octavia) 30 gm PO TID [facility] Last Admin: 09/21/20 09:38 Dose: 30 gm Documented by: Lactulose (Lactulose 20 Gm/30 Ml Oral.Octavia) 20 gm PO BID PRN PRN Reason: other Lamotrigine (Lamotrigine 100 Mg Tablet) 150 mg PO QHS [facility] Last Admin: 09/20/20 22:08 Dose: 150 mg Documented by: Levothyroxine Sodium (Levothyroxine Sodium 112 Mcg Tablet) [facility] Last Admin: 09/21/20 07:59 Dose: 112 mcg Documented by: Levothyroxine Sodium (Levothyroxine 25 Mcg Tablet) [facility] Last Admin: 09/21/20 07:59 Dose: 25 mcg Documented by: Ondansetron HCl (Ondansetron 4 Mg/2 Ml Vial) 4 mg IV Q4HP PRN; Protocol PRN Reason: Nausea And Vomiting Aripiprazole 400 Mg (Inj) 1 dose IM QMONTH [facility] Pregabalin (Pregabalin 150 Mg Capsule) 150 mg PO Q8H [facility] Last Admin: 09/21/20 05:41 Dose: 150 mg Documented by: Quetiapine Fumarate (Quetiapine 25 Mg Tablet) 50 mg PO [facility] Last Admin: 09/20/20 22:06 Dose: 50 mg Documented by: Quetiapine Fumarate (Quetiapine 25 Mg Tablet) 12.5 mg PO DAILY [facility] Last Admin: 09/21/20 10:24 Dose: Not Given Documented by: Simvastatin (Simvastatin 10 Mg Tablet) 10 mg PO DAILY [facility] Last Admin: 09/21/20 09:39 Dose: 10 mg Documented by: Sodium Bicarbonate (Sodium Bicarbonate 650 Mg Tablet) 1,300 mg PO TID [facility] Last Admin: 09/21/20 09:39 Dose: 1,300 mg Documented by: Sodium Chloride (0.9 % Sodium Chloride 10 Ml Syringe) 10 ml IV Q8 [facility] Last Admin: 09/21/20 05:41 Dose: 10 ml Documented by: A/P Narrative A/P Narrative: A: #Possible sepsis: however unknown source #NATASHA on CKD III: improving #Hyperkalemia: #Volume overload : #Metabolic acidosis: #Ileus/Constipation: #Cirrhosis complicated by Hepatic Encephalopathy: -mild thrombocytopenia #Hx of liver resection #Diabetes mellitus type II: #Hypothyroidism #Gout #Bipolar disorder #Obesity BMI 39 #Polypharmacy Plan: -Hyperkalemia intervention-D50 and IV regular insulin, Lasix 80 mg IV, IV Bicarbonate -Trend potassium, avoid Kayexalate now due to abdominal complaints, if potassium trends up then EKG and possibly temporizing Calcium gluconate, consider lasix infusion if persistent hyperkalemia. -Continue Cefepime for now, discontinue Vancomycin IV, pending Cx's -Continue lactulose and Rifaximin, trend ammonia -Lantus and SSI, hold home Metformin. -Home allopurinol, lamotrigine, pravastatin, continue psychotropic meds. -Hold Bactrim, Lisinopril, Spironolactone, Ibuprofen for NATASHA. -Nephrology following -DVT ppx: heparin SQ Code status: DNR Time Spent With Patient Time: Total time spent is greater than 50% in coordination of care (as documented) at patient's floor/unit and/or counseling patient: QUALITY VTE Deep Vein Thrombosis/Pulmonary Embolism Present on Admission: No
[2020-09-21] MEDS ORDERED: LACTULOSE 20 GM/30 ML ORAL.SOL PR ONE (15:47)
[2020-09-21] MEDS ORDERED: LACTULOSE 20 GM/30 ML ORAL.SOL PO PRN (16:00)
--- NOTE | 2020-09-21 16:24 | Cat Scan Report ---
CLINICAL INFORMATION: Decreased cognition COMPARISON: Head CT 08/05/2020. TECHNIQUE: 2.5 mm helical slices were obtained in the skull base to vertex. Following reconstruction, axial reformatted images were reviewed at bone and parenchymal windows. The exam was performed using radiation dose optimization techniques including, but not limited to, automated exposure control, adjustment of the mA and/or kV according to patient size and use of iterative reconstruction technique. FINDINGS: The ventricles, sulci, fissures, and cisterns are symmetrically enlarged patible with mild age-related atrophy. No extra-axial fluid collections are identified. Mild patchy chronic ischemic changes in the deep cerebral white matter, slightly more than expected for age, are unchanged. There is no cerebral hemorrhage, mass effect, or edema. Bone windows show no osseous abnormality. IMPRESSION: Mild atrophy and patchy chronic ischemic changes in the cerebral white matter, slightly more than expected for age, but unchanged. No acute finding. . Interpreted and Authenticated by: Rory High 09/21/20
[2020-09-21] MEDS: lamoTRIgine 100 MG TABLET PO SCH (20:33)
[2020-09-21] MEDS: INSULIN GLARGINE, HUMAN 1 UNIT/0.01 ML SQ SCH (21:15)
[2020-09-22] MEDS: CEFEPIME 2 GM VIAL IV SCH ×3 (00:21→22:04)
[2020-09-22] MEDS: LACTULOSE 20 GM/30 ML ORAL.SOL PO SCH ×5 (00:27→20:43)
[2020-09-22] MEDS: 0.9 % SODIUM CHLORIDE 10 ML SYRINGE IV SCH ×3 (05:12→22:04)
[2020-09-22 06:53] LABS: Basophils # (Auto) 0.04 K/mcL (0.00-0.20); Basophils % (Auto) 0.3 % (0.0-2.0); Eosinophils # (Auto) 0.01 K/mcL (0.00-0.70); Eosinophils % (Auto) 0.1 % (0.0-7.0); Hematocrit 32.4 % (36.0-48.0); Hemoglobin 10.3 g/dL (12.0-15.0); Lymphocytes # (Auto) 2.04 K/mcL (1.50-4.80); Lymphocytes % (Auto) 13.4 % (15.0-49.0); Mean Cell Volume 90.3 fL (80.0-100.0); Mean Corpuscular HGB Conc 31.8 g/dL (31.0-36.0); Mean Platelet Volume 12.7 fL (7.4-10.4); Monocytes # (Auto) 1.12 K/mcL (0.10-0.90); Monocytes % (Auto) 7.4 % (1.0-12.0); Neutrophils % (Auto) 78.8 % (38.0-78.0); Platelet Count 98 K/mcL (140-440); RBC 3.59 M/mcL (4.00-5.20); Red Cell Distribution Width 19.2 % (11.5-14.5); WBC 15.2 K/mcL (4.5-11.0)
[2020-09-22 07:09] LABS: ALT/SGPT 31 U/L (<40); AST/SGOT 44 U/L (<32); Albumin 3.4 gm/dL (3.2-5.2); Albumin/Globulin Ratio 1.6 (1.0-2.3); Alkaline Phosphatase 150 U/L (39-117); Bilirubin,Direct 0.4 mg/dL (<0.3); Bilirubin,Total 0.8 mg/dL (0.1-1.0); Blood Urea Nitrogen 36 mg/dL (8-23); Carbon Dioxide 21 mmol/L (22-30); Chloride 105 mmol/L (96-108); Globulin 2.1 gm/dL (2.2-3.7); Glomerular Filtration Rate 31; Glucose 209 mg/dL (70-105); Lactate Dehydrogenase 294 U/L (135-225); Phosphorous 2.8 mg/dL (2.5-4.5); Triglycerides 78 mg/dL (<150); Uric Acid 7.9 mg/dL (2.5-8.0)
[2020-09-22] MEDS: INSULIN LISPRO 1 UNIT/0.01 ML UNIT SQ SCH ×4 (07:30→21:05)
[2020-09-22] MEDS: LEVOTHYROXINE 25 MCG TABLET PO SCH (07:31)
[2020-09-22] MEDS: LEVOTHYROXINE SODIUM 112 MCG TABLET PO SCH (07:31)
--- NOTE | 2020-09-22 07:32 | Internal Med Progress Note ---
SUBJECTIVE Subjective Patient information: Note initiated : 09/22/20 at 7:30 am Service Date, if different from initiated Date: [] Patient: Mic Hein a 65 y/o F admitted on 09/19/20 for UTI s/s. Chief Complaint: [] Interval history: Ms. Hein is a 65 year old female with multiple comorbidities presented to the ED not feeling well and fount to have an acute kidney injury and hyperkalemia as well as SIRS concerning for possible sepsis. In addition the patient's ammonia level was elevated on admission. Suspect the patient's acute kidney in partly explained by Bactrim (started for UTI), Lisinopril, Lasix, Spironolactone, Ibuprofen and the patient may or may not have been septic on admission. The patient was also taking Metformin prior to admission. 09/20 Renal function stable, slightly improved, potassium normal. Ammonia level trendi ng up, started lactulose PO and enemax1. Continue home Rifaximin. Abdominal xray showed moderate colonic dilation with moderate stool burden, possible ileus. Will consider CT scan with contrast if the patient's renal function recovers soon. lWBC resolved, lactic acid improved. Blood culture showing no growth at on day, urine cultures pending, continues on Vancomycin IV and Cefepime. The patient appears volume overloaded, discontinued IV fluid, ordered one dose of lasix IV. Continue sodium bicarbonate tablets for metabolic acidosis. Lantus and correction sliding scale insulin. 09/21 Potassium increased today and worsening metabolic acidosis, gave D50 and regular insulin IV, Lasix IV, Bicarbonate IV. Creatinine about the same as yesterday. The patient had a large bowel movement after lactulose enema. CT abdomen/pelvis with contrast did not show any reason for acute abdominal pain. Blood cultures showing no growth to date, urine culture pending. Discontinued Vancomycin IV, continued Cefepime for now. Trending ammonia. 09/22 Good BM after lactulose enema yesterday evening. Patient awake and answering questions although sometimes difficult to understand. Starting Lasix drip. Brain MRI with moderate atrophy and chronic ischemic changes but no acute infarct or other findings. Sodium potassium within normal limits. Admits to shortness of breath occasional cough Review of Systems: denies headache/fever/chills/nausea/vomiting/chest or abdominal pain/diarrhea. Otherwise see above. Constitutional Vitals: Vital Signs Temp Pulse Resp BP Pulse Ox 98.2 F 104 H 16 104/60 93 09/22/20 04:01 09/22/20 07:01 09/22/20 07:01 09/22/20 07:01 09/22/20 07:01 Period Temp Pulse Resp BP Sys/Panchal Pulse Ox Last 24 Hr 97 F-99.1 F 90-108 16-20 84-133/47-71 90-97 Intake and Output 09/21/20 09/22/20 09/22/20 21:59 05:59 13:59 Intake Total 320 250 Output Total 1200 Balance 320 250 -1200 Weight 88.054 kg Intake & Output: Intake & Output 09/21/20 09/22/20 09/22/20 21:59 05:59 13:59 Intake Total 320 250 Output Total 1200 Balance 320 250 -1200 Weight 88.054 kg Intake: IV 250 Vancomycin 1,000 mg In Sodium 250 Chloride 0.9% 250 ml @ 250 mls/ hr IV Q24H [facility] Rx#:[id number] Oral 320 Output: Urine Catheter Amount 1200 Straight 600 Other: Urine Appearance Clear Straight Clear Clear Urine Color Dark Yellow Straight Dark Yellow Dark Yellow Urine Odor Normal Stool Size Moderate Stool Color Brown Stool Consistency Soft Mar # Bowel Movements 1 Exam: General: Awake, No acute Distress Eyes/N/T: EOMI, Head/Neck: neck supple, CV: RRR, No murmurs, Pulm: Clear b/l, no wheezing/rhonchi/rales Abd: distended, diffuse tenderness but greatest in the right lower quadrant, decreased BS Ext: no clubbing/cyanosis, b/l LE mild edema Neuro: awake, no focal deficits, moves all extremities, answers questions although sometimes slowly and difficult to understand Skin: warm/dry OBJ DATA Labs CBC & Chem 7: 09/22/20 05:09 09/22/20 05:09 Labs: Abnormal Lab Results 09/22/20 09/22/20 09/22/20 05:09 05:09 05:09 WBC 15.2 H RBC 3.59 L Hgb 10.3 L Hct 32.4 L RDW 19.2 H Plt Count 98 L MPV 12.7 H Neut % (Auto) 78.8 H Lymph % (Auto) 13.4 L [place] # (Auto) 1.12 H Absolute Neutrophils 12.01 H VBG Lactic Acid Sodium POC Potassium Potassium Chloride Carbon Dioxide 21 L POC Total CO2 Anion Gap POC BUN BUN 36 H Creatinine 1.7 H POC Creatinine Glucose 209 H POC Glucose Calcium Direct Bilirubin 0.4 H GGT 66 H AST 44 H ALT Alkaline Phosphatase 150 H Ammonia 57 H Lactate Dehydrogenase 294 H Total Protein 5.5 L Globulin 2.1 L Procalcitonin TSH Prolactin Urine Ketones Urine Nitrate Urine Urobilinogen Ur Leukocyte Esterase Urine Bacteria Hyaline Casts 09/21/20 09/21/20 09/21/20 10:18 10:18 10:18 WBC RBC Hgb Hct RDW Plt Count MPV Neut % (Auto) Lymph % (Auto) [place] # (Auto) Absolute Neutrophils VBG Lactic Acid Sodium POC Potassium Potassium 5.2 H Chloride Carbon Dioxide POC Total CO2 Anion Gap POC BUN BUN Creatinine POC Creatinine Glucose POC Glucose Calcium Direct Bilirubin GGT AST ALT Alkaline Phosphatase Ammonia Lactate Dehydrogenase Total Protein Globulin Procalcitonin TSH 0.15 L Prolactin 1.1 L Urine Ketones Urine Nitrate Urine Urobilinogen Ur Leukocyte Esterase Urine Bacteria Hyaline Casts 09/21/20 09/20/20 09/20/20 05:14 05:32 05:31 WBC RBC Hgb Hct RDW Plt Count MPV Neut % (Auto) Lymph % (Auto) [place] # (Auto) Absolute Neutrophils VBG Lactic Acid Sodium 131 L POC Potassium Potassium 5.9 H* Chloride Carbon Dioxide 17 L 19 L POC Total CO2 Anion Gap POC BUN BUN 29 H 33 H Creatinine 1.8 H 1.9 H POC Creatinine Glucose 242 H 132 H POC Glucose Calcium 8.3 L Direct Bilirubin GGT AST ALT Alkaline Phosphatase Ammonia 112 H Lactate Dehydrogenase Total Protein Globulin Procalcitonin TSH Prolactin Urine Ketones Urine Nitrate Urine Urobilinogen Ur Leukocyte Esterase Urine Bacteria Hyaline Casts 09/20/20 09/19/20 09/19/20 05:31 22:40 21:47 WBC RBC 3.71 L Hgb 10.6 L Hct 32.8 L RDW 18.2 H Plt Count 126 L MPV 12.2 H Neut % (Auto) Lymph % (Auto) [place] # (Auto) Absolute Neutrophils VBG Lactic Acid 2.1 H Sodium POC Potassium Potassium 5.2 H Chloride Carbon Dioxide 19 L POC Total CO2 Anion Gap POC BUN BUN 35 H Creatinine 2.2 H POC Creatinine Glucose POC Glucose Calcium Direct Bilirubin GGT AST ALT Alkaline Phosphatase Ammonia Lactate Dehydrogenase Total Protein Globulin Procalcitonin TSH Prolactin Urine Ketones Urine Nitrate Urine Urobilinogen Ur Leukocyte Esterase Urine Bacteria Hyaline Casts 09/19/20 09/19/20 09/19/20 19:34 19:34 18:18 WBC RBC Hgb Hct RDW Plt Count MPV Neut % (Auto) Lymph % (Auto) [place] # (Auto) Absolute Neutrophils VBG Lactic Acid Sodium 130 L POC Potassium 6.1 H* Potassium 6.4 H* Chloride 95 L Carbon Dioxide 18 L POC Total CO2 20 L Anion Gap 17.0 H POC BUN 36 H BUN 35 H Creatinine 2.5 H POC Creatinine 3.1 H Glucose 136 H POC Glucose 136 H Calcium Direct Bilirubin GGT AST ALT Alkaline Phosphatase Ammonia 105 H Lactate Dehydrogenase Total Protein Globulin Procalcitonin TSH Prolactin Urine Ketones Urine Nitrate Urine Urobilinogen Ur Leukocyte Esterase Urine Bacteria Hyaline Casts 09/19/20 09/19/20 09/19/20 13:52 13:39 12:19 WBC RBC Hgb Hct RDW Plt Count MPV Neut % (Auto) Lymph % (Auto) [place] # (Auto) Absolute Neutrophils VBG Lactic Acid 5.5 H* Sodium POC Potassium Potassium Chloride Carbon Dioxide POC Total CO2 Anion Gap POC BUN BUN Creatinine POC Creatinine Glucose POC Glucose Calcium Direct Bilirubin GGT AST ALT Alkaline Phosphatase Ammonia Lactate Dehydrogenase Total Protein Globulin Procalcitonin 0.31 H TSH Prolactin Urine Ketones Color interference A Urine Nitrate Color interference A Urine Urobilinogen Color interfernce A Ur Leukocyte Esterase Color interference A Urine Bacteria Few A Hyaline Casts 9 H 09/19/20 09/19/20 12:15 12:15 WBC 13.5 H RBC Hgb Hct RDW 18.0 H Plt Count MPV 12.7 H Neut % (Auto) Lymph % (Auto) [place] # (Auto) 0.96 H Absolute Neutrophils 9.20 H VBG Lactic Acid Sodium 132 L POC Potassium Potassium 6.9 H* Chloride 94 L Carbon Dioxide 17 L POC Total CO2 Anion Gap 21.0 H POC BUN BUN 35 H Creatinine 2.6 H POC Creatinine Glucose POC Glucose Calcium Direct Bilirubin GGT AST 106 H ALT 41 H Alkaline Phosphatase 136 H Ammonia Lactate Dehydrogenase Total Protein Globulin Procalcitonin TSH Prolactin Urine Ketones Urine Nitrate Urine Urobilinogen Ur Leukocyte Esterase Urine Bacteria Hyaline Casts Meds: Medications Acetaminophen (Acetaminophen 325 Mg Tablet) 325 mg PO Q6HP PRN; Protocol PRN Reason: Per Pain Protocol Last Admin: 09/21/20 01:58 Dose: 325 mg Documented by: Albuterol Sulfate (Albuterol Sulfate 200 Puff Inhaler) 2 puff INH Q4HP PRN PRN Reason: shortness of breath or wheezin Allopurinol (Allopurinol 100 Mg Tablet) 100 mg PO QDAY [facility] Last Admin: 09/21/20 09:39 Dose: 100 mg Documented by: Bupropion HCl (Bupropion 150 Mg Tab.Xl.24h) 150 mg PO QAM [facility] Cefepime HCl (Cefepime 2 Gm Vial) 2 gm IV Q12H [facility]; Protocol Last Admin: 09/22/20 00:21 Dose: 2 gm Documented by: Dextrose (Dextrose 50% 50 Ml Vial) 0 ml IV UD PRN PRN Reason: Hypoglycemia Diagnostic Test (Pha) (Accu-Chek 1 Each Strip) [address] [facility] Last Admin: 09/21/20 21:00 Dose: 1 each Documented by: Duloxetine HCl (Duloxetine 30 Mg Capsule) 120 mg PO HS [facility] Glucose (Dextrose 31 Gm Oral.Susp) 15 gm PO PRN PRN PRN Reason: Hypoglycemia Heparin Sodium (Porcine) (Heparin 5,000 Unit/Ml Vial) 5,000 unit SQ Q12 [facility] Last Admin: 09/21/20 20:33 Dose: 5,000 unit Documented by: Insulin Glargine (Insulin Glargine, Human 1 Unit/0.01 Ml) 20 unit SQ [facility] Last Admin: 09/21/20 21:15 Dose: 20 units Documented by: Insulin Human Lispro (Insulin Lispro 1 Unit/0.01 Ml Unit) 0 unit SQ [facility]; Protocol Last Admin: 09/21/20 21:15 Dose: 6 unit Documented by: Lactulose (Lactulose 20 Gm/30 Ml Oral.Octavia) 30 gm PO TID [facility] Last Admin: 09/22/20 00:27 Dose: Not Given Documented by: Lactulose (Lactulose 20 Gm/30 Ml Oral.Octavia) 20 gm PO BIDP PRN PRN Reason: other Lamotrigine (Lamotrigine 100 Mg Tablet) 150 mg PO QHS [facility] Last Admin: 09/21/20 20:33 Dose: 150 mg Documented by: Levothyroxine Sodium (Levothyroxine Sodium 112 Mcg Tablet) 112 mcg PO QAMAC [facility] Last Admin: 09/21/20 07:59 Dose: 112 mcg Documented by: Levothyroxine Sodium (Levothyroxine 25 Mcg Tablet) 25 mcg PO QAMAC [facility] Last Admin: 09/21/20 07:59 Dose: 25 mcg Documented by: Ondansetron HCl (Ondansetron 4 Mg/2 Ml Vial) 4 mg IV Q4HP PRN; Protocol PRN Reason: Nausea And Vomiting Aripiprazole 400 Mg (Inj) 1 dose IM QMONTH [facility] Pregabalin (Pregabalin 150 Mg Capsule) 150 mg PO Q8H [facility] Quetiapine Fumarate (Quetiapine 25 Mg Tablet) 12.5 mg PO DAILY [facility] Last Admin: 09/21/20 10:24 Dose: Not Given Documented by: Simvastatin (Simvastatin 10 Mg Tablet) 10 mg PO DAILY [facility] Last Admin: 09/21/20 09:39 Dose: 10 mg Documented by: Sodium Bicarbonate (Sodium Bicarbonate 650 Mg Tablet) 1,300 mg PO TID [facility] Last Admin: 09/21/20 20:32 Dose: 1,300 mg Documented by: Sodium Chloride (0.9 % Sodium Chloride 10 Ml Syringe) 10 ml IV Q8 [facility] Last Admin: 09/22/20 05:12 Dose: 10 ml Documented by: A/P Narrative A/P Narrative: A: #Possible sepsis: however unknown source #NATASHA on CKD III: improving #Hyperkalemia: resolved #Volume overload: #Metabolic acidosis: improving #Ileus/Constipation: -CT abd/pelv w/o contrast no other acute findings #Cirrhosis complicated by Hepatic Encephalopathy: -mild thrombocytopenia *Encephalopathy: 2/2 HE + unknown (?nonconvulsive seizure vs vs meds vs delerium - pt has similar h/o previous hospitalizations per staff) -CT brain no acute, abg unremarkable, MRI with moderate atrophy -awake and talking answering q's this morning although sometime slow to answer and difficult to understand #Hx of liver resection #Diabetes mellitus type II: #Hypothyroidism #Gout #Bipolar disorder #Obesity: BMI 39 #Polypharmacy #Transaminitis: Improved Plan: -Hyperkalemia and volume overload per Nephrology, on lasix gtt -Trend potassium, avoid Kayexalate d/t ileus, if trends up then EKG and possibly temporizing Calcium gluconate, lasix -Continue Cefepime for now, pending Cx's -Continue lactulose (goal 2-3 soft BM's/day) and Rifaximin, -Lantus change to bid, SSI, hold home Metformin. -Home allopurinol, lamotrigine, pravastatin, continue psychotropic meds. -Hold Bactrim, Lisinopril, Spironolactone, Ibuprofen for NATASHA. -DVT ppx: heparin SQ (hold for plt<50k) Code status: DNR Time Spent With Patient Time: Total time spent is greater than 50% in coordination of care (as documented) at patient's floor/unit and/or counseling patient: QUALITY VTE Deep Vein Thrombosis/Pulmonary Embolism Present on Admission: No
[2020-09-22] MEDS ORDERED: FUROSEMIDE 250 MG in 0.9 % SODIUM CHLORIDE 225 ML IV SCH (08:00)
--- NOTE | 2020-09-22 08:27 | Nephrology Progress Note ---
SUBJECTIVE Subjective Patient information: Note initiated : 09/22/20 at 8:24 am Patient: Mic Hein 65 y/o F admitted on 09/19/20 for UTI s/s. Chief Complaint: Weakness Pertinent ROS: Weakness Fluid overload Abdominal pain and distention Lower extremity edema Constitutional Vitals: Vital Signs Temp Pulse Resp BP Pulse Ox 98.4 F 109 H 18 125/75 92 09/22/20 08:01 09/22/20 08:01 09/22/20 08:01 09/22/20 08:01 09/22/20 08:01 Period Temp Pulse Resp BP Sys/Panchal Pulse Ox Last 24 Hr 97.8 F-99.1 F 101-109 16-18 84-125/47-75 90-97 Intake and Output 09/21/20 09/22/20 09/22/20 21:59 05:59 13:59 Intake Total 320 250 Output Total 1200 Balance 320 250 -1200 Weight 194 lb 2 oz Intake & Output: Intake & Output 09/21/20 09/22/20 09/22/20 21:59 05:59 13:59 Intake Total 320 250 Output Total 1200 Balance 320 250 -1200 Weight 194 lb 2 oz Intake: IV 250 Vancomycin 1,000 mg In Sodium 250 Chloride 0.9% 250 ml @ 250 mls/ hr IV Q24H [facility] Rx#:[id number] Oral 320 Output: Urine Catheter Amount 1200 Straight 600 Other: Urine Appearance Clear Straight Clear Clear Urine Color Dark Yellow Straight Dark Yellow Dark Yellow Urine Odor Normal Stool Size Moderate Stool Color Brown Stool Consistency Soft Mar # Bowel Movements 1 General appearance: cooperative and no acute distress Head Head exam: Present normal inspection Eye Eye exam: Present normal appearance ENT ENT exam: Present mucous membranes moist Respiratory Respiratory exam: Absent respiratory distress Cardiovascular Cardiovascular exam: Present normal rate and rhythm GI/Abdominal GI/Abdominal exam: Present soft and distended; Absent tenderness Extremities Exam Extremities exam: Present pedal edema; Absent joint swelling Neurological Exam Neurological exam: Present alert and oriented X3 Psychiatric Psychiatric exam: Present normal affect and normal mood Skin Skin exam: Present warm; Absent rash A/P Assessment and plan (1) Acute renal failure superimposed on stage 3a chronic kidney disease: Assessment and plan: Mic Hein is a 65-year-old female with cirrhosis of liver, hypertension, diabetes mellitus type 2 presented to [facility] ED on 09/19/20 for altered mental status and diffuse weakness from a nursing facility. In ED, she had acute kidney injury with hyperkalemia, metabolic acidosis and hyponatremia. Chest x-ray was without acute cardiopulmonary process. EKG showed no T wave changes. Patient was given insulin, dextrose, calcium gluconate, 2 L of IV fluids, vancomycin and cefepime. Patient will be admitted after improvement of hyperkalemia was confirmed. Nephrology consultation was requested for acute kidney injury. Acute kidney injury on chronic kidney disease stage 3a with hyperkalemia, metabolic acidosis and hyponatremia associated with Ibuprofen, Spironolactone, Lisinopril and Bactrim, present on arrival. There is no recent history of IV contrast administration. Work up: Urinalysis on 09/19/20: [place], Clear, pH 5.0, SG 1.012, protein negative, blood negative, leukocyte esterase color interface. Previous workup: CT Abdomen and Pelvis without contrast on 08/05/20: Kidneys, ureters, bladder:No obstructing or nonobstructing renal calculi. No hydronephrosis. No renal mass identified on this noncontrast enhanced examination. Urine random microalbumin/creatinine on 07/01/17: 6.8 mg/g creatinine. Progress: Serum creatinine increased from a baseline 1.0 on 08/10/20 to 2.6 (09/19/20), 1.9 (09/20/20), 1.8 (09/21/20), 1.7 (09/22/20). Baseline serum creatinine: 1.0 (eGFR 59) on 08/10/20. Urine output: 1,800 ml reported in the past 24 hours. Metabolic acidosis, receiving Sodium Bicarbonate 1,300 mg three times daily, improved. Hyperkalemia, resolved. Fluid overload. No uremic symptoms. Recommendations/Plan: Loop diuretics as needed. Avoid Spironolactone, Lisinopril, Bactrim, NSAIDs, nephrotoxic medications and IV contrast. Hold Metformin. Monitor BMP and urine output. Status: Acute (2) Hyperkalemia: Status: Acute (3) Hyponatremia: Status: Acute (4) Metabolic acidosis: Status: Acute Time Spent With Patient Time: Total time spent is greater than 50% in coordination of care (as documented) at patient's floor/unit and/or counseling patient:
--- NOTE | 2020-09-22 08:52 | Magnetic Resonance Report ---
CLINICAL INFORMATION: Stroke COMPARISON: Brain MRI 04/02/2015 TECHNIQUE: Sagittal T1 FLAIR, axial T2 FLAIR diffusion ADC weighted images were acquired FINDINGS: The ventricles, sulci, fissures and cisterns are symmetrically enlarged compatible with moderate atrophy-more than expected for age-no extra-axial fluid collections or masses appreciated. Scattered chronic ischemic foci in the cerebral white matter are typical for age are appreciated. There is no regions of restricted diffusion to suggest acute infarct. No hemorrhage mass effect edema or other acute finding. IMPRESSION: Moderate atrophy and scattered chronic ischemic foci in the cerebral white matter-stable. No evidence of acute infarct or other acute finding Interpreted and Authenticated by: Rory High 09/22/20
[2020-09-22 08:56] LABS: Anisocytosis 3+ (None Seen); Band Neutrophils % 4 % (0-10); Lymphocytes % 13 % (15-49); Monocytes % (Manual) 5 % (1-12); Platelet Estimate DECREASED (Normal); RBC Morphology ABNORMAL (Normal); Segmented Neutrophils % 78 % (38-78)
[2020-09-22] MEDS: ALLOPURINOL 100 MG TABLET PO SCH (09:36)
[2020-09-22] MEDS: SODIUM BICARBONATE 650 MG TABLET PO SCH ×3 (09:36→20:43)
[2020-09-22] MEDS: HEPARIN 5,000 UNIT/ML VIAL SQ SCH ×2 (09:36→21:09)
[2020-09-22] MEDS: RIFAXIMIN 550 MG TABLET PO SCH ×2 (09:36→20:43)
[2020-09-22] MEDS: SIMVASTATIN 10 MG TABLET PO SCH (09:36)
[2020-09-22] MEDS: QUEtiapine 25 MG TABLET PO SCH (09:54)
[2020-09-22] MEDS: INSULIN GLARGINE, HUMAN 1 UNIT/0.01 ML SQ SCH ×2 (10:21→21:05)
[2020-09-22] MEDS: ACETAMINOPHEN 650 MG/65 ML BAG IV PRN ×2 (11:56→19:45)
[2020-09-22 14:08] LABS: Appearance,Urine HAZY (Clear); Bilirubin,Urine Negative (Negative); Color,Urine YELLOW; Culture Indicated,Urine No; Glucose,Urine (UA) Negative (Negative); Ketones,Urine Negative (Negative); Leukocyte Esterase,Urine 25 /ug (Negative); Mucus,Urine FEW /hpf; Nitrate,Urine Negative (Negative); Protein,Urine Negative (Negative); Specific Gravity,Urine 1.016 (1.000-1.035); Urine Blood 0.03 mg/dL (Negative); Urine Hyaline Cast 23 /lph (0-2); Urine RBC 3 /hpf (0-3); Urine Squamous Epithelial Cell 2 /hpf (0-4); Urine WBC 4 /hpf (0-4); Urobilinogen,Urine Negative
--- NOTE | 2020-09-22 14:57 | XRay Report ---
CLINICAL INFORMATION: NG tube placement COMPARISON: None. FINDINGS: NG tube is present within the gastric body in satisfactory position. Small amount of enteric contrast is seen within the gastric lumen. Moderate gastric small bowel and colonic dilatation appreciated IMPRESSION: NG tubes in satisfactory position. Moderate ileus versus distal colonic obstruction pattern. No change Interpreted and Authenticated by: Rory High 09/22/20
--- NOTE | 2020-09-22 15:07 | XRay Report ---
CLINICAL INFORMATION: hypoxia COMPARISON: 09/19/2020 FINDINGS: Heart size, mediastinum and pulmonary vessels are normal. Small infiltrates have developed in both medial bases. No effusions. IMPRESSION: Christopher infiltrates-both medial bases. Interpreted and Authenticated by: Rory High 09/22/20
[2020-09-22] MEDS ORDERED: levETIRAcetam 1,500 MG in 0.9 % SODIUM CHLORIDE 100 ML IV ONE (16:28)
[2020-09-22] MEDS ORDERED: METOCLOPRAMIDE 10 MG/2 ML VIAL IV ONE (16:29)
--- NOTE | 2020-09-22 16:43 | EKG ---
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 Measurements Intervals [place] Rate: 96 P: 55 SC: 172 QRS: 39 QRSD: 88 T: 8 QT: 348 QTc: 440 Interpretive Statements SINUS RHYTHM CONSIDER ANTERIOR INFARCT NO PRIOR TRACING FOR COMPARISON ABNORMAL ECG Electronically Signed On 09-22-2020 16:42:52 PDT by Rehan Zabala M.D. /store/[email or web address]/[id number]
[2020-09-22] MEDS ORDERED: METOCLOPRAMIDE 10 MG/2 ML VIAL ONE (16:48)
[2020-09-22] MEDS: 0.45 % SODIUM CHLORIDE 1,000 ML IV SCH (16:54)
--- NOTE | 2020-09-22 17:35 | XRay Report ---
CLINICAL INFORMATION: Sudden desaturation with increased O2 needs COMPARISON: None. FINDINGS: Heart size, mediastinum and pulmonary vessels are normal. Small infiltrate or atelectasis in both medial bases show slight improvement. No effusion. NG tube is in the gastric body stomach is markedly dilated. IMPRESSION: Minimal airspace disease in both medial bases actually improved and more likely atelectasis than infiltrate. Marked dilatation, NG tube is in satisfactory position. At this point, consider resuming NG suction. Small bowel follow-through exam is essentially complete Interpreted and Authenticated by: Rory High 09/22/20
[2020-09-22] MEDS ORDERED: DIATRIZOATE MEGLU/DIATRIZO SOD 30 ML BOTTLE PO ONE (19:34)
[2020-09-22] MEDS: lamoTRIgine 100 MG TABLET PO SCH (20:43)
[2020-09-22] MEDS: PREGABALIN 150 MG CAPSULE PO SCH (20:43)
[2020-09-22] MEDS: DULoxetine 30 MG CAPSULE PO SCH (20:43)
[2020-09-22] MEDS ORDERED: PREGABALIN 150 MG CAPSULE PO SCH (22:24)
--- NOTE | 2020-09-23 02:10 | XRay Report ---
CLINICAL INFORMATION: Abdominal pain and distention TECHNIQUE: Following livestock counter image,, water-soluble enteric contrast was injected through the NG tube and serial imaging was performed over five hours of the abdomen and pelvis COMPARISON: Plain films of 2020 FINDINGS: The stomach, and multiple loops of moderately dilated small bowel slowly opacified. There is no definite enteric contrast on the two or five hour delayed films in the distal small bowel or colon.. (NG suction was resumed following the two hour film because of concerns about presumed hydrostatic pressure the upper GI tract.) IMPRESSION: Probable high-grade distal small bowel obstruction. Suggest abdomen and pelvic CT at this point in time with enteric contrast remaining to determine the level and cause Interpreted and Authenticated by: Rory High 09/23/20
[2020-09-23] MEDS: 0.45 % SODIUM CHLORIDE 1,000 ML IV SCH ×3 (05:46→18:30)
[2020-09-23] MEDS: 0.9 % SODIUM CHLORIDE 10 ML SYRINGE IV SCH ×3 (05:55→21:52)
[2020-09-23] MEDS: ACETAMINOPHEN 650 MG/65 ML BAG IV PRN ×2 (05:59→18:33)
[2020-09-23 07:35] LABS: Hematocrit 35.3 % (36.0-48.0); Hemoglobin 10.9 g/dL (12.0-15.0); Mean Cell Volume 92.9 fL (80.0-100.0); Mean Corpuscular HGB Conc 30.9 g/dL (31.0-36.0); Mean Platelet Volume 12.7 fL (7.4-10.4); Platelet Count 99 K/mcL (140-440); Red Cell Distribution Width 19.6 % (11.5-14.5); WBC 14.1 K/mcL (4.5-11.0)
[2020-09-23 07:48] LABS: ALT/SGPT 27 U/L (<40); AST/SGOT 33 U/L (<32); Albumin 3.3 gm/dL (3.2-5.2); Albumin/Globulin Ratio 1.2 (1.0-2.3); Alkaline Phosphatase 134 U/L (39-117); Bilirubin,Direct 0.3 mg/dL (<0.3); Bilirubin,Total 0.6 mg/dL (0.1-1.0); Blood Urea Nitrogen 44 mg/dL (8-23); Calcium 9.8 mg/dL (8.6-10.4); Carbon Dioxide 23 mmol/L (22-30); Chloride 107 mmol/L (96-108); Globulin 2.7 gm/dL (2.2-3.7); Glomerular Filtration Rate 31; Glucose 140 mg/dL (70-105); Lactate Dehydrogenase 371 U/L (135-225); Phosphorous 2.7 mg/dL (2.5-4.5); Triglycerides 96 mg/dL (<150); Uric Acid 8.7 mg/dL (2.5-8.0)
--- NOTE | 2020-09-23 07:48 | Internal Med Progress Note ---
SUBJECTIVE Subjective Patient information: Note initiated : 09/23/20 at 7:42 am Service Date, if different from initiated Date: [] Patient: Mci Hein a 65 y/o F admitted on 09/19/20 for UTI s/s. Chief Complaint: [] Interval history: Ms. Hein is a 65 year old female with multiple comorbidities presented to the ED not feeling well and fount to have an acute kidney injury and hyperkalemia as well as SIRS concerning for possible sepsis. In addition the patient's ammonia level was elevated on admission. Suspect the patient's acute kidney in partly explained by Bactrim (started for UTI), Lisinopril, Lasix, Spironolactone, Ibuprofen and the patient may or may not have been septic on admission. The patient was also taking Metformin prior to admission. 09/20 Renal function stable, slightly improved, potassium normal. Ammonia level trendi ng up, started lactulose PO and enemax1. Continue home Rifaximin. Abdominal xray showed moderate colonic dilation with moderate stool burden, possible ileus. Will consider CT scan with contrast if the patient's renal function recovers soon. lWBC resolved, lactic acid improved. Blood culture showing no growth at on day, urine cultures pending, continues on Vancomycin IV and Cefepime. The patient appears volume overloaded, discontinued IV fluid, ordered one dose of lasix IV. Continue sodium bicarbonate tablets for metabolic acidosis. Lantus and correction sliding scale insulin. 09/21 Potassium increased today and worsening metabolic acidosis, gave D50 and regular insulin IV, Lasix IV, Bicarbonate IV. Creatinine about the same as yesterday. The patient had a large bowel movement after lactulose enema. CT abdomen/pelvis with contrast did not show any reason for acute abdominal pain. Blood cultures showing no growth to date, urine culture pending. Discontinued Vancomycin IV, continued Cefepime for now. Trending ammonia. 09/22 Good BM after lactulose enema yesterday evening. Patient awake and answering questions although sometimes difficult to understand. Starting Lasix drip. Brain MRI with moderate atrophy and chronic ischemic changes but no acute infarct or other findings. Sodium potassium within normal limits. Admits to shortness of breath occasional cough bupropion and abilify stopped last admission after discussion with psychiatry, but still see on med list. other meds that were stopped include lisinopril/ibuprofen/lasix/aldactone/brompheniramine-pseduo, but still see those on admit med list. 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 h/o Dysphagia: will get ST to [facility]. Suspected aspiration of liquids while here. 09/23 titrated off oxygen overnight. Sitting up in bed with PT unable to stand without max assist. Small bowel obstruction pending CT results. Surgery consulted. Patient n.p.o. and on IV fluids. She complains of headache and some nausea but no vomiting. Review of Systems: denies fever/chills/vomiting/chest pain/. Otherwise see above. Constitutional Vitals: Vital Signs Temp Pulse Resp BP Pulse Ox 98.6 F 99 H 17 130/61 94 09/23/20 06:01 09/23/20 06:01 09/23/20 06:01 09/23/20 06:01 09/23/20 06:01 Period Temp Pulse Resp BP Sys/Panchal Pulse Ox Last 24 Hr 98.3 F-100.0 F 90-115 14-31 90-138/53-122 89-99 Intake and Output 09/22/20 09/23/20 09/23/20 21:59 05:59 13:59 Intake Total 251 965 65 Output Total 2209 1385 Balance -1958 -420 65 Weight 87.815 kg Intake & Output: Intake & Output 09/22/20 09/23/20 09/23/20 21:59 05:59 13:59 Intake Total 251 965 65 Output Total 2209 1385 Balance -1958 -420 65 Weight 87.815 kg Intake: IV 251 965 65 Sodium Chloride 0.45% 1,000 ml 965 @ 75 mls/hr IV .[id number] [facility] Rx# :[id number] Lasix 250 mg In Sodium Chloride 71 0.9% 225 ml @ 10 MG/HR 10 mls/ hr IV DAILY@0800 [facility] Rx#: [id number] Keppra 1,500 mg In Sodium 115 Chloride 0.9% 100 ml @ 200 mls/ hr IV ONCE ONE Rx#:[id number] Tube Feeding 0 Output: Gastric Drainage 2049 1049 Right Nare 2049 1049 Urine Catheter Amount 159 335 Other: Urine Appearance Clear Clear Urine Color Light Shraddha Dark Yellow Urine Odor Normal Exam: General: Awake, No acute Distress Eyes/N/T: EOMI, Head/Neck: neck supple, CV: RRR, No murmurs, Pulm: mild rales b/l, no wheezing/rhonchi/rales Abd: distended, TTP, + BS Ext: no clubbing/cyanosis, b/l LE mild edema Neuro: awake, no focal deficits, moves all extremities, answers questions although sometimes slowly, follow commands Skin: warm/dry OBJ DATA Labs CBC & Chem 7: 09/23/20 05:35 09/23/20 05:35 Labs: Abnormal Lab Results 09/23/20 09/23/20 09/22/20 05:35 05:34 12:54 WBC 14.1 H RBC 3.80 L Hgb 10.9 L Hct 35.3 L MCHC 30.9 L RDW 19.6 H Plt Count 99 L MPV 12.7 H Neut % (Auto) Lymph % (Auto) Faulk # (Auto) Lymphocytes % Absolute Neutrophils Platelet Estimate RBC Morphology Anisocytosis Sodium Potassium Carbon Dioxide BUN Creatinine Glucose Direct Bilirubin GGT AST Alkaline Phosphatase Ammonia 81 H Lactate Dehydrogenase Total Protein Globulin TSH Prolactin Urine Appearance Hazy A Ur Leukocyte Esterase 25 A Hyaline Casts 23 H Urine Mucus Few A 09/22/20 09/22/20 09/22/20 05:09 05:09 05:09 WBC RBC Hgb Hct MCHC RDW Plt Count MPV Neut % (Auto) Lymph % (Auto) Faulk # (Auto) Lymphocytes % 13 L Absolute Neutrophils Platelet Estimate Decreased A RBC Morphology Abnormal A Anisocytosis 3+ A Sodium Potassium Carbon Dioxide 21 L BUN 36 H Creatinine 1.7 H Glucose 209 H Direct Bilirubin 0.4 H GGT 66 H AST 44 H Alkaline Phosphatase 150 H Ammonia Lactate Dehydrogenase 294 H Total Protein 5.5 L Globulin 2.1 L TSH Prolactin 1.1 L Urine Appearance Ur Leukocyte Esterase Hyaline Casts Urine Mucus 09/22/20 09/22/20 09/21/20 05:09 05:09 10:18 WBC 15.2 H RBC 3.59 L Hgb 10.3 L Hct 32.4 L MCHC RDW 19.2 H Plt Count 98 L MPV 12.7 H Neut % (Auto) 78.8 H Lymph % (Auto) 13.4 L Faulk # (Auto) 1.12 H Lymphocytes % Absolute Neutrophils 12.01 H Platelet Estimate RBC Morphology Anisocytosis Sodium Potassium Carbon Dioxide BUN Creatinine Glucose Direct Bilirubin GGT AST Alkaline Phosphatase Ammonia 57 H Lactate Dehydrogenase Total Protein Globulin TSH 0.15 L Prolactin Urine Appearance Ur Leukocyte Esterase Hyaline Casts Urine Mucus 09/21/20 09/21/20 09/21/20 10:18 10:18 05:14 WBC RBC Hgb Hct MCHC RDW Plt Count MPV Neut % (Auto) Lymph % (Auto) Faulk # (Auto) Lymphocytes % Absolute Neutrophils Platelet Estimate RBC Morphology Anisocytosis Sodium 131 L Potassium 5.2 H 5.9 H* Carbon Dioxide 17 L BUN 29 H Creatinine 1.8 H Glucose 242 H Direct Bilirubin GGT AST Alkaline Phosphatase Ammonia Lactate Dehydrogenase Total Protein Globulin TSH Prolactin 1.1 L Urine Appearance Ur Leukocyte Esterase Hyaline Casts Urine Mucus Meds: Medications Acetaminophen (Acetaminophen 325 Mg Tablet) 325 mg PO Q6HP PRN; Protocol PRN Reason: Per Pain Protocol Last Admin: 09/21/20 01:58 Dose: 325 mg Documented by: Albuterol Sulfate (Albuterol Sulfate 200 Puff Inhaler) 2 puff INH Q4HP PRN PRN Reason: shortness of breath or wheezin Allopurinol (Allopurinol 100 Mg Tablet) 100 mg PO QDAY [facility] Last Admin: 09/22/20 09:36 Dose: 100 mg Documented by: Cefepime HCl (Cefepime 2 Gm Vial) 2 gm IV Q12H [facility]; Protocol Last Admin: 09/22/20 22:04 Dose: 2 gm Documented by: Dextrose (Dextrose 50% 50 Ml Vial) 0 ml IV UD PRN PRN Reason: Hypoglycemia Diagnostic Test (Pha) (Accu-Chek 1 Each Strip) 1 each FS ACHS [facility] Last Admin: 09/22/20 20:49 Dose: 1 each Documented by: Duloxetine HCl (Duloxetine 30 Mg Capsule) 120 mg PO HS [facility] Last Admin: 09/22/20 20:43 Dose: Not Given Documented by: Glucose (Dextrose 31 Gm Oral.Susp) 15 gm PO PRN PRN PRN Reason: Hypoglycemia Heparin Sodium (Porcine) (Heparin 5,000 Unit/Ml Vial) 5,000 unit SQ Q12 [facility] Last Admin: 09/22/20 21:09 Dose: 5,000 unit Documented by: Acetaminophen (Ofirmev) 650 mg in 65 mls @ 130 mls/hr IV Q8HP PRN; Protocol PRN Reason: PAIN/FEVER > 101 Last Infusion: 09/23/20 06:29 Dose: Infused Documented by: Sodium Chloride (Sodium Chloride 0.45%) 1,000 mls @ 75 mls/hr IV .[id number] [facility] Last Admin: 09/23/20 05:46 Dose: 75 mls/hr Documented by: Insulin Glargine (Insulin Glargine, Human 1 Unit/0.01 Ml) 20 unit SQ BID [facility] Last Admin: 09/22/20 21:05 Dose: 20 unit Documented by: Insulin Human Lispro (Insulin Lispro 1 Unit/0.01 Ml Unit) 0 unit SQ ACHS [facility]; Protocol Last Admin: 09/22/20 21:05 Dose: 6 unit Documented by: Lactulose (Lactulose 20 Gm/30 Ml Oral.Octavia) 30 gm PO TID [facility] Last Admin: 09/22/20 20:43 Dose: Not Given Documented by: Lactulose (Lactulose 20 Gm/30 Ml Oral.Octavia) 20 gm PO BIDP PRN PRN Reason: other Lamotrigine (Lamotrigine 100 Mg Tablet) 150 mg PO QHS [facility] Last Admin: 09/22/20 20:43 Dose: Not Given Documented by: Levothyroxine Sodium (Levothyroxine Sodium 112 Mcg Tablet) 112 mcg PO [facility] Last Admin: 09/22/20 07:31 Dose: 112 mcg Documented by: Levothyroxine Sodium (Levothyroxine 25 Mcg Tablet) 25 mcg PO [facility] Last Admin: 09/22/20 07:31 Dose: 25 mcg Documented by: Ondansetron HCl (Ondansetron 4 Mg/2 Ml Vial) 4 mg IV Q4HP PRN; Protocol PRN Reason: Nausea And Vomiting Pregabalin (Pregabalin 150 Mg Capsule) 150 mg PO BID [facility] Last Admin: 09/22/20 20:43 Dose: Not Given Documented by: Quetiapine Fumarate (Quetiapine 25 Mg Tablet) 12.5 mg PO DAILY [facility] Last Admin: 09/22/20 09:54 Dose: Not Given Documented by: Simvastatin (Simvastatin 10 Mg Tablet) 10 mg PO DAILY [facility] Last Admin: 09/22/20 09:36 Dose: 10 mg Documented by: Sodium Bicarbonate (Sodium Bicarbonate 650 Mg Tablet) 1,300 mg PO TID [facility] Last Admin: 09/22/20 20:43 Dose: Not Given Documented by: Sodium Chloride (0.9 % Sodium Chloride 10 Ml Syringe) 10 ml IV Q8 [facility] Last Admin: 09/23/20 05:55 Dose: 10 ml Documented by: A/P Narrative A/P Narrative: A: #Possible sepsis from UTI: #UTI (Enterobacter): #NATASHA on CKD III: improving #Hyperkalemia: resolved #Metabolic acidosis: resolved #pSBO: #Cirrhosis complicated by Hepatic Encephalopathy: -mild thrombocytopenia *Encephalopathy: 2/2 HE + unknown (?nonconvulsive seizure vs vs meds vs delerium - pt has similar h/o previous hospitalizations per staff) - -CT brain no acute, abg unremarkable, MRI with moderate atrophy -improved, unknown baseline #Hx of liver resection #Diabetes mellitus type II: A1c 8.8 in July #Hypothyroidism #Gout #Bipolar disorder #Obesity: BMI 39 #Polypharmacy #Transaminitis: Improved Plan: -NPO, IVF's, CT a/p pending -NGT -surgery consulted -Continue lactulose (goal 2-3 soft BM's/day) and Rifaximin - held for SBO, -monitor electrolytes -Continue levaquin/flagyl for now -Lantus changed to bid, SSI, hold home Metformin. -Hold Bactrim, Lisinopril, Spironolactone, Ibuprofen for NATASHA. -bupropion/abilify stopped last admission after discussion with psychiatry, but still see on med list. other meds that were stopped include lisinopril/ibuprofen/la six/aldactone/brompheniramine-pseduo, but still admit list -DVT ppx: heparin SQ (hold for plt<50k) Code status: DNR Time Spent With Patient Time: Total time spent is greater than 50% in coordination of care (as documented) at patient's floor/unit and/or counseling patient: QUALITY VTE Deep Vein Thrombosis/Pulmonary Embolism Present on Admission: No
--- NOTE | 2020-09-23 08:24 | Nephrology Progress Note ---
SUBJECTIVE Subjective Patient information: Note initiated : 09/23/20 at 8:22 am Service Date, if different from initiated Date: [] Patient: Mic Hein 65 y/o F admitted on 09/19/20 for UTI s/s. Chief Complaint: Weakness Pertinent ROS: Somnolent Constitutional Vitals: Vital Signs Temp Pulse Resp BP Pulse Ox 98.5 F 88 15 128/59 93 09/23/20 08:00 09/23/20 08:00 09/23/20 08:00 09/23/20 08:00 09/23/20 08:00 Period Temp Pulse Resp BP Sys/Panchal Pulse Ox Last 24 Hr 98.3 F-100.0 F 82-115 14-31 90-138/49-122 89-99 Intake and Output 09/22/20 09/23/20 09/23/20 21:59 05:59 13:59 Intake Total 251 965 65 Output Total 2209 1385 Balance -1958 -420 65 Weight 193 lb 9.6 oz Intake & Output: Intake & Output 09/22/20 09/23/20 09/23/20 21:59 05:59 13:59 Intake Total 251 965 65 Output Total 2209 1385 Balance -1958 -420 65 Weight 193 lb 9.6 oz Intake: IV 251 965 65 Sodium Chloride 0.45% 1,000 ml 965 @ 75 mls/hr IV .[id number] [facility] Rx# :[id number] Lasix 250 mg In Sodium Chloride 71 0.9% 225 ml @ 10 MG/HR 10 mls/ hr IV DAILY@0800 [facility] Rx#: [id number] Keppra 1,500 mg In Sodium 115 Chloride 0.9% 100 ml @ 200 mls/ hr IV ONCE ONE Rx#:[id number] Tube Feeding 0 Output: Gastric Drainage 2049 105 Right Nare 2049 1049 Urine Catheter Amount 159 335 Other: Urine Appearance Clear Clear Urine Color Light Shraddha Dark Yellow Urine Odor Normal General appearance: cooperative and no acute distress Head Head exam: Present normal inspection Eye Eye exam: Present normal appearance ENT Additional comments: NG tube Respiratory Respiratory exam: Absent respiratory distress Cardiovascular Cardiovascular exam: Present normal rate and rhythm GI/Abdominal GI/Abdominal exam: Present soft and distended; Absent tenderness Extremities Exam Extremities exam: Absent joint swelling and pedal edema Psychiatric Psychiatric exam: Present normal affect and normal mood Skin Skin exam: Present warm; Absent rash A/P Assessment and plan (1) Acute renal failure superimposed on stage 3a chronic kidney disease: Assessment and plan: Mic Hein is a 65-year-old female with cirrhosis of liver, hypertension, diabetes mellitus type 2 presented to [facility] ED on 09/19/20 for altered mental status and diffuse weakness from a nursing facility. In ED, she had acute kidney injury with hyperkalemia, metabolic acidosis and hyponatremia. Chest x-ray was without acute cardiopulmonary process. EKG showed no T wave changes. Patient was given insulin, dextrose, calcium gluconate, 2 L of IV fluids, vancomycin and cefepime. Patient will be admitted after improvement of hyperkalemia was confirmed. Nephrology consultation was requested for acute kidney injury. Acute kidney injury on chronic kidney disease stage 3a with hyperkalemia, metabolic acidosis and hyponatremia associated with Ibuprofen, Spironolactone, Lisinopril and Bactrim, present on arrival. There is no recent history of IV contrast administration. Work up: Urinalysis on 09/19/20: [place], Clear, pH 5.0, SG 1.012, protein negative, blood negative, leukocyte esterase color interface. Previous workup: CT Abdomen and Pelvis without contrast on 08/05/20: Kidneys, ureters, bladder:No obstructing or nonobstructing renal calculi. No hydronephrosis. No renal mass identified on this noncontrast enhanced examination. Urine random microalbumin/creatinine on 07/01/17: 6.8 mg/g creatinine. Progress: Serum creatinine increased from a baseline 1.0 on 08/10/20 to 2.6 (09/19/20), 1.9 (09/20/20), 1.8 (09/21/20), 1.7 (09/22/20), 1.7 (09/23/20). Baseline serum creatinine: 1.0 (eGFR 59) on 08/10/20. Urine output: 2,400 ml reported in the past 24 hours. Metabolic acidosis, resolved. Hyperkalemia, resolved. Fluid overload, improved. No uremic symptoms. Recommendations/Plan: Avoid Spironolactone, Lisinopril, Bactrim, NSAIDs, nephrotoxic medications and IV contrast. Hold Metformin. Nephrology will sign off. Status: Acute (2) Hyperkalemia: Status: Acute (3) Hyponatremia: Status: Acute (4) Metabolic acidosis: Status: Acute Time Spent With Patient Time: Total time spent is greater than 50% in coordination of care (as documented) at patient's floor/unit and/or counseling patient:
[2020-09-23 08:57] LABS: Anisocytosis 3+ (None Seen); Lymphocytes % 24 % (15-49); Monocytes % (Manual) 6 % (1-12); Platelet Estimate DECREASED (Normal); RBC Morphology ABNORMAL (Normal); Segmented Neutrophils % 70 % (38-78)
[2020-09-23] MEDS ORDERED: levETIRAcetam 1,500 MG in 0.9 % SODIUM CHLORIDE 100 ML IV SCH (09:00)
[2020-09-23] MEDS ORDERED: buPROPion 150 MG TAB.XL.24H PO SCH (09:00)
[2020-09-23] MEDS: INSULIN LISPRO 1 UNIT/0.01 ML UNIT SQ SCH ×4 (09:08→21:51)
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
[2020-09-23] MEDS: HEPARIN 5,000 UNIT/ML VIAL SQ SCH ×2 (10:13→21:51)
[2020-09-23] MEDS: PIPERACILLIN SODIUM/TAZOBACTAM 3.375 GM in DEXTROSE 5% IN WATER 50 ML IV SCH ×3 (10:15→21:58)
[2020-09-23] MEDS: INSULIN GLARGINE, HUMAN 1 UNIT/0.01 ML SQ SCH ×2 (10:30→21:52)
[2020-09-23] MEDS: QUEtiapine 25 MG TABLET PO SCH (11:30)
[2020-09-23] MEDS: PREGABALIN 150 MG CAPSULE PO SCH ×2 (11:30→21:51)
[2020-09-23] MEDS: RIFAXIMIN 550 MG TABLET PO SCH ×2 (11:30→21:51)
[2020-09-23] MEDS: LEVOTHYROXINE 100 MCG VIAL IV SCH (12:00)
[2020-09-23] MEDS: LEVOTHYROXINE 25 MCG TABLET PO SCH (12:53)
[2020-09-23] MEDS: LACTULOSE 20 GM/30 ML ORAL.SOL PO SCH (12:54)
[2020-09-23] MEDS: LEVOTHYROXINE SODIUM 112 MCG TABLET PO SCH (12:54)
[2020-09-23] MEDS: ALLOPURINOL 100 MG TABLET PO SCH (13:00)
[2020-09-23] MEDS: SIMVASTATIN 10 MG TABLET PO SCH (13:00)
--- NOTE | 2020-09-23 13:57 | Cat Scan Report ---
CLINICAL INFORMATION: Abdominal pain and distention. Bowel obstruction COMPARISON: Abdomen and pelvic CT two days prior 09/21/2020. TECHNIQUE: 0.625 mm helical slices were obtained from the mid heart through the subtrochanteric regions. Following reconstruction, 2.5 mm sagittal, coronal and axial reformatted images were processed and reviewed at bone and soft tissue windows.The exam was performed using radiation dose optimization techniques including, but not limited to, automated exposure control, adjustment of the mA and/or kV according to patient size and use of iterative reconstruction technique. FINDINGS:Lung bases show small right and tiny left pleural effusions which have increased. Subsegmental atelectasis in both posterior lower lobes. The heart is mildly enlarged, but unchanged. Abdominal images show resection of the right hepatic lobe with compensatory hypertrophy of the caudate and left hepatic lobes. No focal hepatic lesions are seen on the noncontrast exam. Spleen is minimally enlarged: 13 cm in vertical dimension. Both noncontrasted kidneys, adrenal glands, pancreas and aorta are unremarkable. There is no free air, free fluid or adenopathy. Pelvic images show anteflexed uterus which is normal in size 8 x 3 cm. The region of the ovaries is normal. Urinary bladder is mildly distended. On today's examination, the stomach, small bowel and large bowel are moderately dilated to the mid sigmoid level. In this region, there is abrupt narrowing into a severely decompressed distal sigmoid and rectum. The transition point is visualized on axial image 154, coronal image 42 and sagittal image 103. The colonic wall is normal thickness at the transition point. In addition, there is moderate concentric wall thickening of the cecum and proximal right colon with pericolonic edema and free fluid. Prior CT, there was mild cecal thickening in retrospect but is not well visualized due to lack of enteric contrast. It has progressed. Bone windows show large L4-5 disc spur complex resulting in severe central canal, left lateral recess and left IV foraminal narrowing. There is impingement of the exiting left L4 and descending left L5 nerve root.. IMPRESSION: 1. Moderate dilatation of the stomach, small and large bowel with abrupt narrowing in the mid sigmoid. There may be spasm, stricture or adhesions in this region. The distal sigmoid and rectum are decompressed. This is a new finding from the CT just two days prior. Hypaque enema will be performed to determine whether this represents a true stricture. Moderate concentric wall thickening of the cecum and proximal right colon with pericolonic edema suggests the possibility of ischemic, infectious or inflammatory colitis. Colonoscopy to be performed 2. Mild, stable splenomegaly. 3. Resection right hepatic lobe with compensatory hypertrophy of the left hepatic lobe and caudate lobes stable. 4 .Large L4-5 disc spur complex resulting in severe central canal, left lateral recess and left IV foraminal narrowing. There is impingement of the exiting left L4 and descending left L5 nerve root.. Interpreted and Authenticated by: Rory High 09/23/20
[2020-09-23] MEDS ORDERED: DIATRIZOATE MEGLU/DIATRIZO SOD 30 ML BOTTLE PO ONE (15:09)
--- NOTE | 2020-09-23 18:37 | XRay Report ---
CLINICAL INFORMATION: Possible distal colonic obstruction on abdomen pelvic CT COMPARISON: Abdomen and pelvic CT 09/23/2020 TECHNIQUE: Hypaque was infused through indwelling rectal catheter and and refluxed to the cecum. Fluoroscopic observation and lateral films were obtained FINDINGS: The colon is normal in contour and caliber. There is no evidence of a stricture in the mid sigmoid colon that was suspected on CT. This area should be considered spasm the prior CT. Moderate stool seen throughout the colon. IMPRESSION: No evidence of stricture in the mid sigmoid colon. Negative exam Interpreted and Authenticated by: Rory High 09/23/20
[2020-09-23] MEDS: lamoTRIgine 100 MG TABLET PO SCH (21:50)
[2020-09-23] MEDS: DULoxetine 30 MG CAPSULE PO SCH (21:51)
[2020-09-24] MEDS: 0.45 % SODIUM CHLORIDE 1,000 ML IV SCH (05:18)
[2020-09-24] MEDS: PIPERACILLIN SODIUM/TAZOBACTAM 3.375 GM in DEXTROSE 5% IN WATER 50 ML IV SCH ×3 (05:53→21:49)
[2020-09-24] MEDS: 0.9 % SODIUM CHLORIDE 10 ML SYRINGE IV SCH ×3 (05:53→21:51)
[2020-09-24 07:00] LABS: Basophils # (Auto) 0.03 K/mcL (0.00-0.20); Basophils % (Auto) 0.3 % (0.0-2.0); Eosinophils # (Auto) 0.04 K/mcL (0.00-0.70); Eosinophils % (Auto) 0.5 % (0.0-7.0); Hemoglobin 9.9 g/dL (12.0-15.0); Lymphocytes # (Auto) 1.71 K/mcL (1.50-4.80); Lymphocytes % (Auto) 19.9 % (15.0-49.0); Mean Cell Volume 93.8 fL (80.0-100.0); Mean Corpuscular HGB Conc 30.9 g/dL (31.0-36.0); Mean Platelet Volume 12.3 fL (7.4-10.4); Monocytes # (Auto) 0.62 K/mcL (0.10-0.90); Monocytes % (Auto) 7.2 % (1.0-12.0); Neutrophils % (Auto) 72.1 % (38.0-78.0); Platelet Count 89 K/mcL (140-440); RBC 3.41 M/mcL (4.00-5.20); Red Cell Distribution Width 19.1 % (11.5-14.5); WBC 8.6 K/mcL (4.5-11.0)
[2020-09-24 07:16] LABS: ALT/SGPT 20 U/L (<40); AST/SGOT 18 U/L (<32); Albumin/Globulin Ratio 1.2 (1.0-2.3); Alkaline Phosphatase 109 U/L (39-117); Bilirubin,Direct 0.2 mg/dL (<0.3); Bilirubin,Total 0.4 mg/dL (0.1-1.0); Blood Urea Nitrogen 37 mg/dL (8-23); Carbon Dioxide 25 mmol/L (22-30); Chloride 110 mmol/L (96-108); Globulin 2.5 gm/dL (2.2-3.7); Glomerular Filtration Rate 43; Glucose 120 mg/dL (70-105); Lactate Dehydrogenase 229 U/L (135-225); Phosphorous 3.5 mg/dL (2.5-4.5); Triglycerides 131 mg/dL (<150); Uric Acid 5.5 mg/dL (2.5-8.0)
[2020-09-24] MEDS: INSULIN LISPRO 1 UNIT/0.01 ML UNIT SQ SCH ×4 (07:22→20:34)
--- NOTE | 2020-09-24 07:29 | Internal Med Progress Note ---
SUBJECTIVE Subjective Patient information: Note initiated : 09/24/20 at 7:24 am Service Date, if different from initiated Date: [] Patient: Mic Hein a 65 y/o F admitted on 09/19/20 for UTI s/s. Chief Complaint: [] Interval history: Ms. Hein is a 65 year old female with multiple comorbidities presented to the ED not feeling well and fount to have an acute kidney injury and hyperkalemia as well as SIRS concerning for possible sepsis. In addition the patient's ammonia level was elevated on admission. Suspect the patient's acute kidney in partly explained by Bactrim (started for UTI), Lisinopril, Lasix, Spironolactone, Ibuprofen and the patient may or may not have been septic on admission. The patient was also taking Metformin prior to admission. 09/20 Renal function stable, slightly improved, potassium normal. Ammonia level trendi ng up, started lactulose PO and enemax1. Continue home Rifaximin. Abdominal xray showed moderate colonic dilation with moderate stool burden, possible ileus. Will consider CT scan with contrast if the patient's renal function recovers soon. lWBC resolved, lactic acid improved. Blood culture showing no growth at on day, urine cultures pending, continues on Vancomycin IV and Cefepime. The patient appears volume overloaded, discontinued IV fluid, ordered one dose of lasix IV. Continue sodium bicarbonate tablets for metabolic acidosis. Lantus and correction sliding scale insulin. 09/21 Potassium increased today and worsening metabolic acidosis, gave D50 and regular insulin IV, Lasix IV, Bicarbonate IV. Creatinine about the same as yesterday. The patient had a large bowel movement after lactulose enema. CT abdomen/pelvis with contrast did not show any reason for acute abdominal pain. Blood cultures showing no growth to date, urine culture pending. Discontinued Vancomycin IV, continued Cefepime for now. Trending ammonia. 09/22 Good BM after lactulose enema yesterday evening. Patient awake and answering questions although sometimes difficult to understand. Starting Lasix drip. Brain MRI with moderate atrophy and chronic ischemic changes but no acute infarct or other findings. Sodium potassium within normal limits. Admits to shortness of breath occasional cough bupropion and abilify stopped last admission after discussion with psychiatry, but still see on med list. other meds that were stopped include lisinopril/ibuprofen/lasix/aldactone/brompheniramine-pseduo, but still see those on admit med list. 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 h/o Dysphagia: will get ST to [facility]. Suspected aspiration of liquids while here. 09/23 titrated off oxygen overnight. Sitting up in bed with PT unable to stand without max assist. Small bowel obstruction pending CT results. Surgery consulted. Patient n.p.o. and on IV fluids. She complains of headache and some nausea but no vomiting. 09/24 Patient with large amount of stooling overnight. No overnight event or new complaints. Patient on room air. Leukocytosis resolved. Mildly hyponatremic today. Renal function good. Review of Systems: denies fever/chills/vomiting/chest pain/. Otherwise see above. Constitutional Vitals: Vital Signs Temp Pulse Resp BP Pulse Ox 98.2 F 88 20 126/65 93 09/24/20 07:07 09/24/20 07:07 09/24/20 07:01 09/24/20 07:01 09/24/20 07:07 Period Temp Pulse Resp BP Sys/Panchal Pulse Ox Last 24 Hr 97.7 F-99.1 F 70-100 15-26 88-144/44-82 91-99 Intake and Output 09/23/20 09/24/20 09/24/20 21:59 05:59 13:59 Intake Total 873 1050 50 Output Total 235 1150 Balance 638 -100 50 Weight 86.908 kg Intake & Output: Intake & Output 09/23/20 09/24/20 09/24/20 21:59 05:59 13:59 Intake Total 873 1050 50 Output Total 235 1150 Balance 638 -100 50 Weight 86.908 kg Intake: IV 873 1050 50 Sodium Chloride 0.45% 1,000 ml 758 1000 @ 100 mls/hr IV .Q10H [facility] Rx#: [id number] Zosyn 3.375 gm In Dextrose 5% 50 50 50 in Water 50 ml @ 100 mls/hr IV Q8H [facility] Rx#:[id number] Tube Feeding 0 Output: Gastric Drainage 750 Rectal 650 Right Nare 100 Urine Catheter Amount 235 400 Other: Urine Appearance Cloudy Cloudy Sediment Sediment Urine Color Light Shraddha Light Shraddha Urine Odor Strong Stool Size Large Copious Stool Color Brown Brown Yellow Stool Consistency Liquid Liquid Watery # Bowel Movements 1 # of times incontinent of 0 3 Bowels Exam: General: Awake, No acute Distress Eyes/N/T: EOMI, Head/Neck: neck supple, CV: RRR, No murmurs, Pulm: mild rales b/l, no wheezing/rhonchi/rales Abd: distended, TTP, + BS Ext: no clubbing/cyanosis, b/l LE mild edema Neuro: awake, no focal deficits, moves all extremities, answers questions although sometimes slowly, follow commands Skin: warm/dry OBJ DATA Labs CBC & Chem 7: 09/24/20 05:53 09/24/20 05:52 Labs: Abnormal Lab Results 09/24/20 09/24/20 09/23/20 05:53 05:52 05:35 WBC 14.1 H RBC 3.41 L 3.80 L Hgb 9.9 L 10.9 L Hct 32.0 L 35.3 L MCHC 30.9 L 30.9 L RDW 19.1 H 19.6 H Plt Count 89 L 99 L MPV 12.3 H 12.7 H Neut % (Auto) Lymph % (Auto) [place] # (Auto) Lymphocytes % Absolute Neutrophils Platelet Estimate Decreased A RBC Morphology Abnormal A Anisocytosis 3+ A Sodium 147 H Potassium Chloride 110 H Carbon Dioxide BUN 37 H Creatinine 1.3 H Glucose 120 H Uric Acid Direct Bilirubin GGT 48 H AST Alkaline Phosphatase Ammonia Lactate Dehydrogenase 229 H Total Protein 5.5 L Albumin 3.0 L Globulin TSH Prolactin Urine Appearance Ur Leukocyte Esterase Hyaline Casts Urine Mucus 09/23/20 09/23/20 09/22/20 05:35 05:34 12:54 WBC RBC Hgb Hct MCHC RDW Plt Count MPV Neut % (Auto) Lymph % (Auto) [place] # (Auto) Lymphocytes % Absolute Neutrophils Platelet Estimate RBC Morphology Anisocytosis Sodium Potassium Chloride Carbon Dioxide BUN 44 H Creatinine 1.7 H Glucose 140 H Uric Acid 8.7 H Direct Bilirubin 0.3 H GGT 58 H AST 33 H Alkaline Phosphatase 134 H Ammonia 81 H Lactate Dehydrogenase 371 H Total Protein Albumin Globulin TSH Prolactin Urine Appearance Hazy A Ur Leukocyte Esterase 25 A Hyaline Casts 23 H Urine Mucus Few A 09/22/20 09/22/20 09/22/20 05:09 05:09 05:09 WBC RBC Hgb Hct MCHC RDW Plt Count MPV Neut % (Auto) Lymph % (Auto) [place] # (Auto) Lymphocytes % 13 L Absolute Neutrophils Platelet Estimate Decreased A RBC Morphology Abnormal A Anisocytosis 3+ A Sodium Potassium Chloride Carbon Dioxide 21 L BUN 36 H Creatinine 1.7 H Glucose 209 H Uric Acid Direct Bilirubin 0.4 H GGT 66 H AST 44 H Alkaline Phosphatase 150 H Ammonia Lactate Dehydrogenase 294 H Total Protein 5.5 L Albumin Globulin 2.1 L TSH Prolactin 1.1 L Urine Appearance Ur Leukocyte Esterase Hyaline Casts Urine Mucus 09/22/20 09/22/20 09/21/20 05:09 05:09 10:18 WBC 15.2 H RBC 3.59 L Hgb 10.3 L Hct 32.4 L MCHC RDW 19.2 H Plt Count 98 L MPV 12.7 H Neut % (Auto) 78.8 H Lymph % (Auto) 13.4 L [place] # (Auto) 1.12 H Lymphocytes % Absolute Neutrophils 12.01 H Platelet Estimate RBC Morphology Anisocytosis Sodium Potassium Chloride Carbon Dioxide BUN Creatinine Glucose Uric Acid Direct Bilirubin GGT AST Alkaline Phosphatase Ammonia 57 H Lactate Dehydrogenase Total Protein Albumin Globulin TSH 0.15 L Prolactin Urine Appearance Ur Leukocyte Esterase Hyaline Casts Urine Mucus 09/21/20 09/21/20 09/21/20 10:18 10:18 05:14 WBC RBC Hgb Hct MCHC RDW Plt Count MPV Neut % (Auto) Lymph % (Auto) [place] # (Auto) Lymphocytes % Absolute Neutrophils Platelet Estimate RBC Morphology Anisocytosis Sodium 131 L Potassium 5.2 H 5.9 H* Chloride Carbon Dioxide 17 L BUN 29 H Creatinine 1.8 H Glucose 242 H Uric Acid Direct Bilirubin GGT AST Alkaline Phosphatase Ammonia Lactate Dehydrogenase Total Protein Albumin Globulin TSH Prolactin 1.1 L Urine Appearance Ur Leukocyte Esterase Hyaline Casts Urine Mucus Meds: Medications Acetaminophen (Acetaminophen 325 Mg Tablet) 325 mg PO Q6HP PRN; Protocol PRN Reason: Per Pain Protocol Last Admin: 09/21/20 01:58 Dose: 325 mg Documented by: Albuterol Sulfate (Albuterol Sulfate 200 Puff Inhaler) 2 puff INH Q4HP PRN PRN Reason: shortness of breath or wheezin Allopurinol (Allopurinol 100 Mg Tablet) 100 mg PO QDAY [facility] Dextrose (Dextrose 50% 50 Ml Vial) 0 ml IV UD PRN PRN Reason: Hypoglycemia Diagnostic Test (Pha) (Accu-Chek 1 Each Strip) 1 each FS ACHS [facility] Last Admin: 09/24/20 07:06 Dose: 1 each Documented by: Duloxetine HCl (Duloxetine 30 Mg Capsule) 120 mg PO HS [facility] Last Admin: 09/23/20 21:51 Dose: 120 mg Documented by: Glucose (Dextrose 31 Gm Oral.Susp) 15 gm PO PRN PRN PRN Reason: Hypoglycemia Heparin Sodium (Porcine) (Heparin 5,000 Unit/Ml Vial) 5,000 unit SQ Q12 [facility] Last Admin: 09/23/20 21:51 Dose: 5,000 unit Documented by: Acetaminophen (Ofirmev) 650 mg in 65 mls @ 130 mls/hr IV Q8HP PRN; Protocol PRN Reason: PAIN/FEVER > 101 Last Infusion: 09/23/20 20:09 Dose: Infused Documented by: Piperacillin Sod/Tazobactam (Sod 3.375 gm/ Dextrose) 50 mls @ 100 mls/hr IV Q8H [facility]; Protocol Last Infusion: 09/24/20 07:01 Dose: Infused Documented by: Sodium Chloride (Sodium Chloride 0.45%) 1,000 mls @ 100 mls/hr IV .Q10H [facility] Last Admin: 09/24/20 05:18 Dose: 100 mls/hr Documented by: Insulin Glargine (Insulin Glargine, Human 1 Unit/0.01 Ml) 20 unit SQ BID [facility] Last Admin: 09/23/20 21:52 Dose: 20 unit Documented by: Insulin Human Lispro (Insulin Lispro 1 Unit/0.01 Ml Unit) 0 unit SQ [facility]; Protocol Last Admin: 09/24/20 07:22 Dose: Not Given Documented by: Lactulose (Lactulose 20 Gm/30 Ml Oral.Octavia) 20 gm PO BIDP PRN PRN Reason: other Lamotrigine (Lamotrigine 100 Mg Tablet) 150 mg PO QHS [facility] Last Admin: 09/23/20 21:50 Dose: 150 mg Documented by: Levothyroxine Sodium ([facility]othyroxine 100 Mcg Vial) [facility] Last Admin: 09/23/20 12:00 Dose: 100 mcg Documented by: Ondansetron HCl (Ondansetron 4 Mg/2 Ml Vial) 4 mg IV Q4HP PRN; Protocol PRN Reason: Nausea And Vomiting Last Admin: 09/23/20 22:34 Dose: 4 mg Documented by: Pregabalin (Pregabalin 150 Mg Capsule) 150 mg PO BID [facility] Last Admin: 09/23/20 21:51 Dose: 150 mg Documented by: Quetiapine Fumarate (Quetiapine 25 Mg Tablet) 12.5 mg PO DAILY [facility] Last Admin: 09/23/20 11:30 Dose: 12.5 mg Documented by: Simvastatin (Simvastatin 10 Mg Tablet) 10 mg PO DAILY [facility] Sodium Chloride (0.9 % Sodium Chloride 10 Ml Syringe) 10 ml IV Q8 [facility] Last Admin: 09/24/20 05:53 Dose: 10 ml Documented by: A/P Narrative A/P Narrative: A: #Possible sepsis from UTI: #UTI (Enterobacter): #NATASHA on CKD III: improved #Hyperkalemia: resolved #Metabolic acidosis: resolved #pSBO: improving -still having NG outpu #Cirrhosis complicated by Hepatic Encephalopathy: -mild thrombocytopenia *Encephalopathy: 2/2 HE + unknown (?nonconvulsive seizure vs vs meds vs delerium - pt has similar h/o previous hospitalizations per staff) - -CT brain no acute, abg unremarkable, MRI with moderate atrophy -improved, unknown baseline #Hx of liver resection #Diabetes mellitus type II: A1c 8.8 in July #Hypothyroidism #Gout #Bipolar disorder #Obesity: BMI 39 #Polypharmacy #Transaminitis: Improved #hypernatremia,mild: d5w ordered and f/u Plan: -NPO, IVF's -NGT -surgery following -Continue lactulose (goal 2-3 soft BM's/day) and Rifaximin -monitor electrolytes -Continue levaquin -Lantus changed to bid, SSI, hold home Metformin. -Hold Bactrim, Lisinopril, Spironolactone, Ibuprofen for NATASHA. -bupropion/abilify stopped last admission after discussion with psychiatry, but still see on med list. other meds that were stopped include lisinopril/ibuprofen/lasix/aldactone/brompheniramine-pseduo, but still admit list -DVT ppx: heparin SQ (hold for plt<50k) Code status: DNR Time Spent With Patient Time: Total time spent is greater than 50% in coordination of care (as documented) at patient's floor/unit and/or counseling patient: QUALITY VTE Deep Vein Thrombosis/Pulmonary Embolism Present on Admission: No
[2020-09-24] MEDS ORDERED: LEVOTHYROXINE 100 MCG VIAL IV SCH (07:30)
[2020-09-24] MEDS ORDERED: DEXTROSE 5% IN WATER 500 ML IV SCH (07:30)
[2020-09-24] MEDS: LEVOTHYROXINE 100 MCG VIAL IV SCH (07:56)
[2020-09-24] MEDS: INSULIN GLARGINE, HUMAN 1 UNIT/0.01 ML SQ SCH ×2 (08:27→20:34)
[2020-09-24] MEDS: HEPARIN 5,000 UNIT/ML VIAL SQ SCH ×2 (08:27→20:14)
[2020-09-24] MEDS: QUEtiapine 25 MG TABLET PO SCH (08:27)
[2020-09-24] MEDS: PREGABALIN 150 MG CAPSULE PO SCH ×2 (08:28→20:15)
[2020-09-24] MEDS: RIFAXIMIN 550 MG TABLET PO SCH ×2 (08:36→20:12)
[2020-09-24] MEDS ORDERED: buPROPion 150 MG TAB.XL.24H PO SCH (09:00)
[2020-09-24] MEDS: ACETAMINOPHEN 650 MG/65 ML BAG IV PRN (09:56)
[2020-09-24] MEDS ORDERED: DEXTROSE 5% IN WATER 1,000 ML IV SCH ×2 (11:00→17:00)
[2020-09-24 19:12] LABS: POC Blood Urea Nitrogen 28 mg/dL (6-20); POC CO2 24 mmol/L (22-30); POC Calcium, Ionized 1.14 mmEq/L (1.16-1.32); POC Chloride 106 mEq/L (96-108); POC Creatinine 1.2 mg/dL (0.6-1.2); POC Glucose, Random 138 mg/dL (70-105); POC Hematocrit 32 % (36-48); POC Potassium 3.5 mEql/L (3.3-5.1); POC Sodium 144 mEq/L (133-145)
[2020-09-24] MEDS ORDERED: 0.45 % SODIUM CHLORIDE 1,000 ML IV SCH (19:30)
[2020-09-24] MEDS: lamoTRIgine 100 MG TABLET PO SCH (20:12)
[2020-09-24] MEDS: DULoxetine 30 MG CAPSULE PO SCH (20:13)
[2020-09-24] MEDS: LACTULOSE 20 GM/30 ML ORAL.SOL PO SCH (20:15)
[2020-09-25] MEDS: 0.9 % SODIUM CHLORIDE 10 ML SYRINGE IV SCH ×3 (05:34→20:53)
[2020-09-25] MEDS: PIPERACILLIN SODIUM/TAZOBACTAM 3.375 GM in DEXTROSE 5% IN WATER 50 ML IV SCH ×3 (05:34→22:41)
[2020-09-25 06:52] LABS: Basophils # (Auto) 0.04 K/mcL (0.00-0.20); Basophils % (Auto) 0.5 % (0.0-2.0); Eosinophils # (Auto) 0.14 K/mcL (0.00-0.70); Eosinophils % (Auto) 1.9 % (0.0-7.0); Hematocrit 32.4 % (36.0-48.0); Hemoglobin 10.1 g/dL (12.0-15.0); Lymphocytes # (Auto) 2.21 K/mcL (1.50-4.80); Lymphocytes % (Auto) 29.8 % (15.0-49.0); Mean Cell Volume 91.3 fL (80.0-100.0); Mean Corpuscular HGB Conc 31.2 g/dL (31.0-36.0); Mean Platelet Volume 11.8 fL (7.4-10.4); Monocytes # (Auto) 0.54 K/mcL (0.10-0.90); Monocytes % (Auto) 7.3 % (1.0-12.0); Neutrophils % (Auto) 60.5 % (38.0-78.0); Platelet Count 95 K/mcL (140-440); RBC 3.55 M/mcL (4.00-5.20); Red Cell Distribution Width 18.2 % (11.5-14.5); WBC 7.4 K/mcL (4.5-11.0)
[2020-09-25] MEDS: LEVOTHYROXINE 100 MCG VIAL IV SCH (07:06)
[2020-09-25] MEDS: INSULIN LISPRO 1 UNIT/0.01 ML UNIT SQ SCH ×5 (07:08→20:53)
[2020-09-25 07:23] LABS: Blood Urea Nitrogen 22 mg/dL (8-23); Calcium 8.4 mg/dL (8.6-10.4); Carbon Dioxide 25 mmol/L (22-30); Chloride 106 mmol/L (96-108); Glomerular Filtration Rate 67; Glucose 89 mg/dL (70-105)
--- NOTE | 2020-09-25 08:08 | Internal Med Progress Note ---
SUBJECTIVE Subjective Patient information: Note initiated : 09/25/20 at 8:06 am Service Date, if different from initiated Date: [] Patient: Mic Hein a 65 y/o F admitted on 09/19/20 for UTI s/s. Chief Complaint: [] Interval history: Ms. Hein is a 65 year old female with multiple comorbidities presented to the ED not feeling well and fount to have an acute kidney injury and hyperkalemia as well as SIRS concerning for possible sepsis. In addition the patient's ammonia level was elevated on admission. Suspect the patient's acute kidney in partly explained by Bactrim (started for UTI), Lisinopril, Lasix, Spironolactone, Ibuprofen and the patient may or may not have been septic on admission. The patient was also taking Metformin prior to admission. 09/20 Renal function stable, slightly improved, potassium normal. Ammonia level trendi ng up, started lactulose PO and enemax1. Continue home Rifaximin. Abdominal xray showed moderate colonic dilation with moderate stool burden, possible ileus. Will consider CT scan with contrast if the patient's renal function recovers soon. lWBC resolved, lactic acid improved. Blood culture showing no growth at on day, urine cultures pending, continues on Vancomycin IV and Cefepime. The patient appears volume overloaded, discontinued IV fluid, ordered one dose of lasix IV. Continue sodium bicarbonate tablets for metabolic acidosis. Lantus and correction sliding scale insulin. 09/21 Potassium increased today and worsening metabolic acidosis, gave D50 and regular insulin IV, Lasix IV, Bicarbonate IV. Creatinine about the same as yesterday. The patient had a large bowel movement after lactulose enema. CT abdomen/pelvis with contrast did not show any reason for acute abdominal pain. Blood cultures showing no growth to date, urine culture pending. Discontinued Vancomycin IV, continued Cefepime for now. Trending ammonia. 09/22 Good BM after lactulose enema yesterday evening. Patient awake and answering questions although sometimes difficult to understand. Starting Lasix drip. Brain MRI with moderate atrophy and chronic ischemic changes but no acute infarct or other findings. Sodium potassium within normal limits. Admits to shortness of breath occasional cough bupropion and abilify stopped last admission after discussion with psychiatry, but still see on med list. other meds that were stopped include lisinopril/ibuprofen/lasix/aldactone/brompheniramine-pseduo, but still see those on admit med list. 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 h/o Dysphagia: will get ST to [facility]. Suspected aspiration of liquids while here. 09/23 titrated off oxygen overnight. Sitting up in bed with PT unable to stand without max assist. Small bowel obstruction pending CT results. Surgery consulted. Patient n.p.o. and on IV fluids. She complains of headache and some nausea but no vomiting. 09/24 Patient with large amount of stooling overnight. No overnight event or new complaints. Patient on room air. Leukocytosis resolved. Mildly hyponatremic today. Renal function good. 09/25 Patient stooling. Patient feeling better. Mentation much more clear today. Sodium normal. Renal function normalized. Review of Systems: denies fever/chills/vomiting/chest pain/. Otherwise see above. Constitutional Vitals: Vital Signs Temp Pulse Resp BP Pulse Ox 98.4 F 75 18 109/55 93 09/25/20 07:49 09/25/20 07:49 09/24/20 11:01 09/25/20 07:01 09/25/20 07:49 Period Temp Pulse Resp BP Sys/Panchal Pulse Ox Last 24 Hr 98.1 F-98.9 F 65-90 18 88-131/44-79 90-97 Intake and Output 09/24/20 09/25/20 09/25/20 21:59 05:59 13:59 Intake Total 1015 550 50 Output Total 799 1050 Balance 216 -500 50 Weight 85.91 kg Intake & Output: Intake & Output 09/24/20 09/25/20 09/25/20 21:59 05:59 13:59 Intake Total 1015 550 50 Output Total 799 1050 Balance 216 -500 50 Weight 85.91 kg Intake: IV 815 550 50 Sodium Chloride 0.45% 1,000 ml 0 @ 100 mls/hr IV .Q10H [facility] Rx#: [id number] Dextrose 5% in Water 500 ml @ 765 500 125 mls/hr IV .Q4H [facility] Rx#: [id number] Zosyn 3.375 gm In Dextrose 5% 50 50 50 in Water 50 ml @ 100 mls/hr IV Q8H [facility] Rx#:[id number] Oral 200 Tube Feeding 0 0 Output: Gastric Drainage 425 650 Rectal 400 650 Right Nare 25 Urine Catheter Amount 374 400 Other: Urine Appearance Clear Urine Color Dark Yellow Dark Yellow Urine Odor Normal Exam: General: Awake, No acute Distress Eyes/N/T: EOMI, Head/Neck: neck supple, CV: RRR, No murmurs, Pulm: mild rales b/l, no wheezing/rhonchi/rales Abd: distended, TTP, + BS Ext: no clubbing/cyanosis, mild b/l LE edema Neuro: alert, no focal deficits, moves all extremities, mentation clear and much improved Skin: warm/dry OBJ DATA Labs CBC & Chem 7: 09/25/20 05:04 09/25/20 05:04 Labs: Abnormal Lab Results 09/25/20 09/25/20 09/24/20 05:04 05:04 19:05 WBC RBC 3.55 L Hgb 10.1 L Hct 32.4 L POC Hct 32 L MCHC RDW 18.2 H Plt Count 95 L MPV 11.8 H Lymphocytes % Platelet Estimate RBC Morphology Anisocytosis Sodium Chloride POC BUN 28 H BUN Creatinine Glucose POC Glucose 138 H Uric Acid Calcium 8.4 L POC WB Ioniz Calcium 1.14 L Direct Bilirubin GGT AST Alkaline Phosphatase Ammonia Lactate Dehydrogenase Total Protein Albumin Prolactin Urine Appearance Ur Leukocyte Esterase Hyaline Casts Urine Mucus 09/24/20 09/24/20 09/23/20 05:53 05:52 05:35 WBC 14.1 H RBC 3.41 L 3.80 L Hgb 9.9 L 10.9 L Hct 32.0 L 35.3 L POC Hct MCHC 30.9 L 30.9 L RDW 19.1 H 19.6 H Plt Count 89 L 99 L MPV 12.3 H 12.7 H Lymphocytes % Platelet Estimate Decreased A RBC Morphology Abnormal A Anisocytosis 3+ A Sodium 147 H Chloride 110 H POC BUN BUN 37 H Creatinine 1.3 H Glucose 120 H POC Glucose Uric Acid Calcium POC WB Ioniz Calcium Direct Bilirubin GGT 48 H AST Alkaline Phosphatase Ammonia Lactate Dehydrogenase 229 H Total Protein 5.5 L Albumin 3.0 L Prolactin Urine Appearance Ur Leukocyte Esterase Hyaline Casts Urine Mucus 09/23/20 09/23/20 09/22/20 05:35 05:34 12:54 WBC RBC Hgb Hct POC Hct MCHC RDW Plt Count MPV Lymphocytes % Platelet Estimate RBC Morphology Anisocytosis Sodium Chloride POC BUN BUN 44 H Creatinine 1.7 H Glucose 140 H POC Glucose Uric Acid 8.7 H Calcium POC WB Ioniz Calcium Direct Bilirubin 0.3 H GGT 58 H AST 33 H Alkaline Phosphatase 134 H Ammonia 81 H Lactate Dehydrogenase 371 H Total Protein Albumin Prolactin Urine Appearance Hazy A Ur Leukocyte Esterase 25 A Hyaline Casts 23 H Urine Mucus Few A 09/22/20 09/22/20 05:09 05:09 WBC RBC Hgb Hct POC Hct MCHC RDW Plt Count MPV Lymphocytes % 13 L Platelet Estimate Decreased A RBC Morphology Abnormal A Anisocytosis 3+ A Sodium Chloride POC BUN BUN Creatinine Glucose POC Glucose Uric Acid Calcium POC WB Ioniz Calcium Direct Bilirubin GGT AST Alkaline Phosphatase Ammonia Lactate Dehydrogenase Total Protein Albumin Prolactin 1.1 L Urine Appearance Ur Leukocyte Esterase Hyaline Casts Urine Mucus Meds: Medications Acetaminophen (Acetaminophen 325 Mg Tablet) 325 mg PO Q6HP PRN; Protocol PRN Reason: Per Pain Protocol Last Admin: 09/21/20 01:58 Dose: 325 mg Documented by: Albuterol Sulfate (Albuterol Sulfate 200 Puff Inhaler) 2 puff INH Q4HP PRN PRN Reason: shortness of breath or wheezin Allopurinol (Allopurinol 100 Mg Tablet) 100 mg PO QDAY [facility] Dextrose (Dextrose 50% 50 Ml Vial) 0 ml IV UD PRN PRN Reason: Hypoglycemia Diagnostic Test (Pha) (Accu-Chek 1 Each Strip) 1 each FS ACHS [facility] Last Admin: 09/25/20 07:06 Dose: 1 each Documented by: Duloxetine HCl (Duloxetine 30 Mg Capsule) 120 mg PO HS [facility] Last Admin: 09/24/20 20:13 Dose: 120 mg Documented by: Glucose (Dextrose 31 Gm Oral.Susp) 15 gm PO PRN PRN PRN Reason: Hypoglycemia Heparin Sodium (Porcine) (Heparin 5,000 Unit/Ml Vial) 5,000 unit SQ Q12 [facility] Last Admin: 09/24/20 20:14 Dose: 5,000 unit Documented by: Acetaminophen (Ofirmev) 650 mg in 65 mls @ 130 mls/hr IV Q8HP PRN; Protocol PRN Reason: PAIN/FEVER > 101 Last Infusion: 09/24/20 11:17 Dose: Infused Documented by: Piperacillin Sod/Tazobactam (Sod 3.375 gm/ Dextrose) 50 mls @ 100 mls/hr IV Q8H [facility]; Protocol Last Infusion: 09/25/20 06:06 Dose: Infused Documented by: Sodium Chloride (Sodium Chloride 0.45%) 1,000 mls @ 50 mls/hr IV .Q20H [facility] Last Admin: 09/24/20 20:09 Dose: 50 mls/hr Documented by: Insulin Glargine (Insulin Glargine, Human 1 Unit/0.01 Ml) 20 unit SQ BID [facility] Last Admin: 09/24/20 20:34 Dose: 20 unit Documented by: Insulin Human Lispro (Insulin Lispro 1 Unit/0.01 Ml Unit) 0 unit SQ ACHS [facility]; Protocol Last Admin: 09/25/20 07:08 Dose: Not Given Documented by: Lactulose (Lactulose 20 Gm/30 Ml Oral.Octavia) 20 gm PO BIDP PRN PRN Reason: other Lactulose (Lactulose 20 Gm/30 Ml Oral.Octavia) 30 gm PO TID [facility] Last Admin: 09/24/20 20:15 Dose: Not Given Documented by: Lamotrigine (Lamotrigine 100 Mg Tablet) 150 mg PO QHS [facility] Last Admin: 09/24/20 20:12 Dose: 150 mg Documented by: Levothyroxine Sodium (Levothyroxine 100 Mcg Vial) 100 mcg IV QAMAC [facility] Last Admin: 09/25/20 07:06 Dose: 100 mcg Documented by: Ondansetron HCl (Ondansetron 4 Mg/2 Ml Vial) 4 mg IV Q4HP PRN; Protocol PRN Reason: Nausea And Vomiting Last Admin: 09/23/20 22:34 Dose: 4 mg Documented by: Pregabalin (Pregabalin 150 Mg Capsule) 150 mg PO BID [facility] Last Admin: 09/24/20 20:15 Dose: 150 mg Documented by: Quetiapine Fumarate (Quetiapine 25 Mg Tablet) 12.5 mg PO DAILY [facility] Last Admin: 09/24/20 08:27 Dose: 12.5 mg Documented by: Simvastatin (Simvastatin 10 Mg Tablet) 10 mg PO DAILY [facility] Sodium Chloride (0.9 % Sodium Chloride 10 Ml Syringe) 10 ml IV Q8 [facility] Last Admin: 09/25/20 05:34 Dose: 10 ml Documented by: A/P Narrative A/P Narrative: A: #Possible sepsis from UTI: improved #UTI (Enterobacter): #NATASHA on CKD III: resolved #Hyperkalemia: resolved #Metabolic acidosis: resolved #pSBO: improved -still having NG outpu #Cirrhosis complicated by Hepatic Encephalopathy: -mild thrombocytopenia *Encephalopathy: 2/2 HE + metabolic disturbance + meds vs delerium - pt has similar h/o previous hospitalizations per staff -CT brain no acute, abg unremarkable, MRI with moderate atrophy -improved, unknown baseline #Hx of liver resection #Diabetes mellitus type II: A1c 8.8 in July #Hypothyroidism #Gout #Bipolar disorder #Obesity: BMI 39 #Polypharmacy #Transaminitis: Improved #hypernatremia,mild: resolved Plan: -clears liquids, advance as tolerated -NGT clamped -surgery following -Continue lactulose (goal 2-3 soft BM's/day) and Rifaximin -monitor electrolytes -Continue levaquin -Lantus changed to bid, SSI, hold home Metformin. -Hold Bactrim, Lisinopril, Spironolactone, Ibuprofen for NATASHA. -bupropion/abilify stopped last admission after discussion with psychiatry, but still see on med list. other meds that were stopped include lisinopril/ibuprofen/las ix/aldactone/brompheniramine-pseduo, but still admit list -decreased quetiapine/pregabalin/duloxetine -DVT ppx: heparin SQ (hold for plt<50k) Code status: DNR Time Spent With Patient Time: Total time spent is greater than 50% in coordination of care (as documented) at patient's floor/unit and/or counseling patient: QUALITY VTE Deep Vein Thrombosis/Pulmonary Embolism Present on Admission: No
[2020-09-25] MEDS: LACTULOSE 20 GM/30 ML ORAL.SOL PO SCH ×3 (08:54→20:39)
[2020-09-25] MEDS: RIFAXIMIN 550 MG TABLET PO SCH ×2 (08:55→20:53)
[2020-09-25] MEDS: HEPARIN 5,000 UNIT/ML VIAL SQ SCH ×2 (08:55→20:52)
[2020-09-25] MEDS: PREGABALIN 150 MG CAPSULE PO SCH ×2 (08:55→20:53)
[2020-09-25] MEDS: INSULIN GLARGINE, HUMAN 1 UNIT/0.01 ML SQ SCH ×2 (08:55→22:26)
[2020-09-25] MEDS ORDERED: ALLOPURINOL 100 MG TABLET PO SCH (09:00)
[2020-09-25] MEDS ORDERED: SIMVASTATIN 10 MG TABLET PO SCH (09:00)
[2020-09-25] MEDS ORDERED: ALBUTEROL SULFATE 200 PUFF INHALER INH PRN (11:19)
[2020-09-25] MEDS ORDERED: ONDANSETRON 4 MG/2 ML VIAL IV PRN (11:19)
[2020-09-25] MEDS ORDERED: DEXTROSE 31 GM ORAL.SUSP PO PRN (11:19)
[2020-09-25] MEDS ORDERED: DIATRIZOATE MEGLU/DIATRIZO SOD 30 ML BOTTLE PO ONE ×2 (11:19)
[2020-09-25] MEDS ORDERED: ACETAMINOPHEN 650 MG/65 ML BAG IV PRN (11:19)
[2020-09-25] MEDS ORDERED: LACTULOSE 20 GM/30 ML ORAL.SOL PO PRN (11:19)
[2020-09-25] MEDS ORDERED: DEXTROSE 50% 50 ML VIAL IV PRN (11:19)
[2020-09-25] MEDS ORDERED: ACETAMINOPHEN 325 MG TABLET PO PRN (11:19)
[2020-09-25] MEDS: 0.45 % SODIUM CHLORIDE 1,000 ML IV SCH (12:05)
--- NOTE | 2020-09-25 12:11 | Discharge Summary ---
Discharge Provider Provider Patient information: Note initiated : 09/25/20 at 12:09 pm Service Date, if different from initiated Date: [] Patient: Mic Hein 65 y/o F admitted on 09/19/20 for UTI s/s. Chief Complaint: [] Date of admission: 09/19/20 22:18 Discharge date: 09/26/20 Primary care physician: Maryuri Cr Consults: 09/19/20 Consult to Physician [CONS] Stat Comment: Consulting Provider: Richie Camacho Reason For Exam: Physician to Consult Consult to Physician [CONS] Stat Comment: Consulting Provider: Bradly Alberto Reason For Exam: Physician to Consult 09/23/20 08:03 Consult to Physician [CONS] Routine Comment: pSBO Consulting Provider: Rey Licea Reason For Exam: Physician to Consult Discharge Meds Discharge Medications Home Medications Disability Parking Permit #1 each 10/27/14 [Rx Confirmed 09/19/20 Last Taken Unknown] lubiprostone 24 mcg capsule 24 mcg PO BID 11/17/16 [History Confirmed 09/20/20 Last Taken 09/19/20 08:00] pen needle, diabetic 32 gauge x 1/4" #100 each 09/23/17 [Rx Confirmed 09/19/20 Last Taken Unknown] bisacodyl 10 mg PO DAILY 10/28/17 [History Confirmed 09/20/20 Last Taken 09/19/20 08:00] lactulose 10 gram/15 mL oral solution 30 g PO TID 01/07/18 [History Confirmed 09/20/20 Last Taken 09/19/20 08:00] lancets #100 each 01/26/18 [Rx Confirmed 09/19/20 Last Taken Unknown] allopurinol 100 mg tablet 100 mg PO QDAY #30 tab 02/08/18 [Rx Confirmed 09/20/20 Last Taken 09/19/20 08:00] blood sugar diagnostic #100 each 02/08/18 [Rx Confirmed 09/19/20 Last Taken Unknown] levothyroxine 137 mcg capsule 137 mcg PO QDAY #30 cap 02/08/18 [Rx Confirmed 09/20/20 Last Taken 09/19/20 07:00] insulin glargine 100 unit/mL (3 mL) subcutaneous pen 54 unit SUB-Q QPM ml 07/07/18 [History Confirmed 09/20/20 Last Taken 09/18/20 17:30] cholecalciferol (vitamin D3) 25 mcg (1,000 unit) capsule 1,000 unit PO QDAY 12/02/18 [History Confirmed 09/20/20 Last Taken 09/19/20 08:00] docusate sodium 100 mg capsule 100 mg PO QDAY 12/02/18 [History Confirmed 09/20/20 Last Taken 09/19/20 08:00] rifaximin 550 mg tablet 550 mg PO BID 05/04/19 [History Confirmed 09/20/20 Last Taken 09/19/20 08:00] pravastatin 20 mg PO DAILY 01/29/20 [History Confirmed 09/20/20 Last Taken 09/19/20 08:00] lamotrigine 150 mg tablet 150 mg PO QHS #30 tab 03/14/20 [Rx Confirmed 09/20/20 Last Taken 09/18/20 21:00] albuterol sulfate [ProAir HFA] 2 puff INHALATION Q4H PRN 07/12/20 [History Confirmed 09/20/20 Last Taken 05/07/20] carboxymethylcellulose sodium 1 - 2 drp OPHTHALMIC (EYE) Q1H PRN 07/12/20 [History Confirmed 09/20/20 Last Taken Unknown] insulin aspart U-100 [Novolog Flexpen U-100 Insulin] See Rx Instructions .ROUTE .COMPLEX 07/12/20 [History Confirmed 09/20/20 Last Taken 09/15/20] nystatin 1 applic TOPICAL BID 07/12/20 [History Confirmed 09/20/20 Last Taken 07/11/20 10:00] polyethylene glycol 3350 [Miralax] 17 g PO BID PRN 07/12/20 [History Confirmed 09/20/20 Last Taken Unknown] ferrous sulfate 325 mg (65 mg iron) tablet 325 mg PO BID 09/06/20 [History Confirmed 09/20/20 Last Taken 09/19/20 08:00] duloxetine 90 mg PO QHS #1 cap 09/25/20 [Rx Last Taken Unknown] pregabalin 150 mg PO BID #20 cap 09/25/20 [Rx Last Taken Unknown] quetiapine 25 mg PO QHS #1 tab 09/25/20 [Rx Last Taken Unknown] COURSE Hospital Course Hospital course: Interval history: Ms. Hein is a 65 year old female with multiple comorbidities presented to the ED not feeling well and fount to have an acute kidney injury and hyperkalemia as well as SIRS concerning for possible sepsis. In addition the patient's ammonia level was elevated on admission. Suspect the patient's acute kidney in partly explained by Bactrim (started for UTI), Lisinopril, Lasix, Spironolactone, Ibuprofen and the patient may or may not have been septic on admission. The patient was also taking Metformin prior to admission. 09/20 Renal function stable, slightly improved, potassium normal. Ammonia level trending up, started lactulose PO and enemax1. Continue home Rifaximin. Abdominal xray showed moderate colonic dilation with moderate stool burden, possible ileus. Will consider CT scan with contrast if the patient's renal function recovers soon. lWBC resolved, lactic acid improved. Blood culture showing no growth at on day, urine cultures pending, continues on Vancomycin IV and Cefepime. The patient appears volume overloaded, discontinued IV fluid, ordered one dose of lasix IV. Continue sodium bicarbonate tablets for metabolic acidosis. Lantus and correction sliding scale insulin. 09/21 Potassium increased today and worsening metabolic acidosis, gave D50 and regular insulin IV, Lasix IV, Bicarbonate IV. Creatinine about the same as yesterday. The patient had a large bowel movement after lactulose enema. CT abdomen/pelvis with contrast did not show any reason for acute abdominal pain. Blood cultures showing no growth to date, urine culture pending. Discontinued Vancomycin IV, continued Cefepime for now. Trending ammonia. 09/22 Good BM after lactulose enema yesterday evening. Patient awake and answering questions although sometimes difficult to understand. Starting Lasix drip. Brain MRI with moderate atrophy and chronic ischemic changes but no acute infarct or other findings. Sodium potassium within normal limits. Admits to shortness of breath occasional cough bupropion and abilify stopped last admission after discussion with psychiatry, but still see on med list. other meds that were stopped include lisinopril/ibuprofen/lasix/aldactone/brompheniramine-pseduo, but still see those on admit med list. 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 h/o Dysphagia: will get ST to [facility]. Suspected aspiration of liquids while here. 7/18 titrated off oxygen overnight. Sitting up in bed with PT unable to stand without max assist. Small bowel obstruction pending CT results. Surgery consulted. Patient n.p.o. and on IV fluids. She complains of headache and some nausea but no vomiting. 09/24 Patient with large amount of stooling overnight. No overnight event or new complaints. Patient on room air. Leukocytosis resolved. Mildly hyponatremic today. Renal function good. 09/25 Patient stooling. Patient feeling better. Mentation much more clear today. Sodium normal. Renal function normalized. 09/26 Patient tends to feel better. Excited to go home. 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: -mild thrombocytopenia *Encephalopathy: 2/2 HE + metabolic disturbance + meds vs delerium - pt has similar h/o previous hospitalizations per staff -CT brain no acute, abg unremarkable, MRI with moderate atrophy -improved, unknown baseline #Hx of liver resection #Diabetes mellitus type II: A1c 8.8 in July #Hypothyroidism #Gout #Bipolar disorder #Obesity: BMI 39 #Polypharmacy #Transaminitis: Improved #hypernatremia,mild: resolved Discharge diagnosis: UTI with possible sepsis NATASHA electrolyte abnormalities metabolic acidosis p Secondary discharge diagnosis: Partial small bowel obstruction cirrhosis with hepatic encephalopathy encephalopathy secondary to to hepatic encephalopathy metabolic disturbance polypharmacy. Diabetes hypothyroidism gout bipolar disorder obesity polypharmacy transaminitis Time Spent with Patient Time attestation: Total time spent providing and/or coordinating discharge services: Time spent: Greater than 30 minutes EXAM Constitutional Vitals: Temp Pulse Resp BP Pulse Ox 98.5 F 76 18 120/63 95 09/25/20 11:30 09/25/20 11:30 09/24/20 11:01 09/25/20 11:30 09/25/20 11:30 Discharge Data Data Completed and Pending Labs on day of discharge: Labs from last 24 hours 09/25/20 09/25/20 09/24/20 05:04 05:04 19:05 WBC 7.4 RBC 3.55 L Hgb 10.1 L Hct 32.4 L POC Hct 32 L MCV 91.3 MCH 28.5 MCHC 31.2 RDW 18.2 H Plt Count 95 L MPV 11.8 H Neut % (Auto) 60.5 Lymph % (Auto) 29.8 [place] % (Auto) 7.3 Eos % (Auto) 1.9 Baso % (Auto) 0.5 Lymph # (Auto) 2.21 [place] # (Auto) 0.54 Eos # (Auto) 0.14 Baso # (Auto) 0.04 Absolute Neutrophils 4.49 POC Sodium 144 Sodium 142 POC Potassium 3.5 Potassium 3.6 POC Chloride 106 Chloride 106 Carbon Dioxide 25 POC Total CO2 24 Anion Gap 11.0 POC BUN 28 H BUN 22 Creatinine 0.9 POC Creatinine 1.2 GFR Calculation 67 Glucose 89 POC Glucose 138 H Calcium 8.4 L POC WB Ioniz Calcium 1.14 L 09/24/20 13:35 WBC RBC Hgb Hct POC Hct MCV MCH MCHC RDW Plt Count MPV Neut % (Auto) Lymph % (Auto) [place] % (Auto) Eos % (Auto) Baso % (Auto) Lymph # (Auto) [place] # (Auto) Eos # (Auto) Baso # (Auto) Absolute Neutrophils POC Sodium Sodium Pending POC Potassium Potassium Pending POC Chloride Chloride Pending Carbon Dioxide Pending POC Total CO2 Anion Gap Pending POC BUN BUN Pending Creatinine Pending POC Creatinine GFR Calculation Pending Glucose Pending POC Glucose Calcium Pending POC WB Ioniz Calcium Discharge Plan Patient/Caregiver Discharge Instructions Activity: increase activity as tolerated Diet: Consistent Carbohydrate Activity Restrictions/Additional Instructions: Follow-up with your psychiatrist in 1 to 2 weeks to evaluate medications -some of her psychiatric medications were reduced in dose. Prescriptions: New quetiapine 25 mg tablet 25 mg PO QHS Qty: 1 RF: 0 Continued rifaximin 550 mg tablet 550 mg PO BID RF: 0 lamotrigine 150 mg tablet 150 mg PO QHS Qty: 30 RF: 3 (DME) Disability Parking Permit Qty: 1 RF: 0 (DME) pen needle, diabetic [Comfort EZ Pen [place]] 32 gauge x 1/4" needle See Dose Instructions .ROUTE .MEDSUPPLY Qty: 100 RF: 12 (DME) lancets misc See Dose Instructions .ROUTE .MEDSUPPLY Qty: 100 RF: 2 allopurinol 100 mg tablet 100 mg PO QDAY Qty: 30 RF: 5 (DME) blood sugar diagnostic [True Metrix Glucose Test Strip] strip See Dose Instructions .ROUTE .MEDSUPPLY Qty: 100 RF: 5 levothyroxine 137 mcg capsule 137 mcg PO QDAY Qty: 30 RF: 5 lubiprostone [Amitiza] 24 mcg capsule 24 mcg PO BID RF: 0 lactulose [Constulose] 10 gram/15 mL solution 30 g PO TID RF: 0 Basaglar KwikPen U-100 Insulin 100 unit/mL (3 mL) insulin pen 54 unit SUB-Q QPM RF: 0 ferrous sulfate 325 mg (65 mg iron) tablet 325 mg PO BID RF: 0 bisacodyl 5 MG tablet 10 mg PO DAILY RF: 0 pravastatin 20 mg Tablet 20 mg PO DAILY RF: 0 albuterol sulfate [ProAir HFA] 90 mcg/actuation HFA aerosol inhaler 2 puff INHALATION Q4H PRN (Reason: shortness of breath or wheezing) RF: 0 nystatin 100,000 unit/gram Powder 1 applic TOPICAL BID RF: 0 polyethylene glycol 3350 [Miralax] 17 gram powder in packet 17 g PO BID PRN (Reason: constipation ) RF: 0 insulin aspart U-100 [Novolog Flexpen U-100 Insulin] 100 unit/mL (3 mL) Insulin Pen See Rx Instructions .ROUTE .COMPLEX RF: 0 carboxymethylcellulose sodium 1 % Drops, Liquid Gel 1 - 2 drp OPHTHALMIC (EYE) Q1H PRN (Reason: Eye Irritation) RF: 0 docusate sodium [Stool Softener] 100 mg capsule 100 mg PO QDAY RF: 0 cholecalciferol (vitamin D3) 1,000 unit capsule 1,000 unit PO QDAY RF: 0 Changed duloxetine 60 mg capsule,delayed release(DR/EC) 90 mg PO QHS Qty: 1 RF: 0 pregabalin 150 mg capsule 150 mg PO BID Qty: 20 RF: 0 Discontinued metformin 500 mg tablet extended release 24 hr 1,000 mg PO BID Qty: 120 RF: 5 quetiapine 25 mg tablet See Rx Instructions .ROUTE .COMPLEX Qty: 75 RF: 1 aripiprazole 400 mg 400 mg IM QMONTH RF: 0 diphenhydramine HCl [Benadryl] 25 mg capsule 50 mg PO Q6H PRN (Reason: Rash) RF: 0 yjsklqucxslpnsq-vllbeuolj-VX 230-10 mg/5 mL syrup 5 ml PO Q6H PRN (Reason: cough) RF: 0 ibuprofen [IBU-200] 200 mg tablet 600 mg PO BID RF: 0 lisinopril 5 mg tablet 5 mg PO QDAY RF: 0 spironolactone 100 mg tablet 100 mg PO QAM RF: 0 cetirizine 10 mg Tablet 10 mg PO QDAY RF: 0 phenazopyridine 95 mg Tablet 95 mg PO TID PRN (Reason: bladder discomfort) RF: 0 sulfamethoxazole-trimethoprim [Bactrim DS] 800-160 mg tablet 1 tab PO BID Qty: 14 RF: 0 phenazopyridine [Pyridium] 200 mg tablet 200 mg PO TID Qty: 6 RF: 0 furosemide 40 mg Tablet 40 mg PO QAM RF: 0 bupropion HCl 150 mg Tablet Extended Release 24 Hr 150 mg PO QAM RF: 0 Follow Up Plan Follow up with: Maryuri Cr, OSVALDO, [employer] ESTIMATOR [Primary Care Provider] - Patient Disposition: Xfer SNF Prognosis: Undetermined Rehab Potential: Fair I certify that the patient requires SNF services: Yes Overall status at discharge: patient is progressing back to baseline Discharge Orders: Discharge Order (Routine); Ordered 09/26/20 Ordered By: Brandon White [facility] Deep Vein Thrombosis/Pulmonary Embolism Present on Admission: No
--- NOTE | 2020-09-25 12:40 | General Surgery Progress Note ---
SUBJECTIVE Subjective Patient information: Note initiated : 09/25/20 at 12:39 pm Service Date, if different from initiated Date: [] Patient: Mic Hein 65 y/o F admitted on 09/19/20 for UTI s/s. Chief Complaint: [] Interval history: Patient with return of bowel function, no further evidence of bowel obstruction. Constitutional Vitals: Vital Signs Temp Pulse Resp BP Pulse Ox 98.5 F 76 18 120/63 95 09/25/20 11:30 09/25/20 11:30 09/24/20 11:01 09/25/20 11:30 09/25/20 11:30 Period Temp Pulse Resp BP Sys/Panchal Pulse Ox Last 24 Hr 98.1 F-98.9 F 65-81 88-124/44-79 90-97 Intake and Output 09/24/20 09/25/20 09/25/20 21:59 05:59 13:59 Intake Total 1015 550 50 Output Total 799 1050 Balance 216 -500 50 Weight 189 lb 6.4 oz Intake & Output: Intake & Output 09/24/20 09/25/20 09/25/20 21:59 05:59 13:59 Intake Total 1015 550 50 Output Total 799 1050 Balance 216 -500 50 Weight 189 lb 6.4 oz Intake: IV 815 550 50 Sodium Chloride 0.45% 1,000 ml 0 @ 100 mls/hr IV .Q10H [facility]BBY Rx#: [id number] Dextrose 5% in Water 500 ml @ 765 500 125 mls/hr IV .Q4H ABBY Rx#: [id number] Zosyn 3.375 gm In Dextrose 5% 50 50 50 in Water 50 ml @ 100 mls/hr IV Q8H ABBY Rx#:[id number] Oral 200 Tube Feeding 0 0 Output: Gastric Drainage 425 650 Rectal 400 650 Right Nare 25 Urine Catheter Amount 374 400 Other: Meal Breakfast Percent of Meal Consumed 25% Urine Appearance Clear Urine Color Dark Yellow Dark Yellow Urine Odor Normal General appearance: no acute distress GI/Abdominal GI/Abdominal exam: Present soft; Absent distended and tenderness A/P Narrative A/P Narrative: Return of bowel function, no further evidence of bowel obstruction. Clear to advance diet as tolerated. Please call with any further questions. Time Spent With Patient Time: Total time spent is greater than 50% in coordination of care (as documented) at patient's floor/unit and/or counseling patient:
[2020-09-25 17:46] LABS: Blood Urea Nitrogen 32 mg/dL (8-23); Calcium 8.3 mg/dL (8.6-10.4); Carbon Dioxide 25 mmol/L (22-30); Chloride 107 mmol/L (96-108); Glomerular Filtration Rate 53; Glucose 170 mg/dL (70-105)
[2020-09-25] MEDS ORDERED: lamoTRIgine 100 MG TABLET PO SCH (21:00)
[2020-09-25] MEDS ORDERED: DULoxetine 30 MG CAPSULE PO SCH ×2 (21:00)
[2020-09-26] MEDS: PIPERACILLIN SODIUM/TAZOBACTAM 3.375 GM in DEXTROSE 5% IN WATER 50 ML IV SCH (05:39)
[2020-09-26] MEDS: 0.45 % SODIUM CHLORIDE 1,000 ML IV SCH (05:39)
[2020-09-26] MEDS: 0.9 % SODIUM CHLORIDE 10 ML SYRINGE IV SCH (05:40)
[2020-09-26 06:52] LABS: Blood Urea Nitrogen 13 mg/dL (8-23); Calcium 8.6 mg/dL (8.6-10.4); Carbon Dioxide 23 mmol/L (22-30); Chloride 105 mmol/L (96-108); Glomerular Filtration Rate 67; Glucose 99 mg/dL (70-105)
[2020-09-26] MEDS ORDERED: LEVOTHYROXINE 100 MCG VIAL IV SCH (07:30)
[2020-09-26] MEDS: INSULIN LISPRO 1 UNIT/0.01 ML UNIT SQ SCH (08:23)
[2020-09-26] MEDS ORDERED: SIMVASTATIN 10 MG TABLET PO SCH (09:00)
[2020-09-26] MEDS ORDERED: QUEtiapine 25 MG TABLET PO SCH ×2 (09:00)
[2020-09-26] MEDS ORDERED: ALLOPURINOL 100 MG TABLET PO SCH (09:00)
[2020-09-26] MEDS: LACTULOSE 20 GM/30 ML ORAL.SOL PO SCH (09:04)
[2020-09-26] MEDS: HEPARIN 5,000 UNIT/ML VIAL SQ SCH (09:24)
[2020-09-26] MEDS: INSULIN GLARGINE, HUMAN 1 UNIT/0.01 ML SQ SCH (09:24)
[2020-09-26] MEDS: RIFAXIMIN 550 MG TABLET PO SCH (09:25)
[2020-09-26] MEDS: PREGABALIN 150 MG CAPSULE PO SCH (09:31)
== END 2020-09-26 10:15 | DRG 871 ==
LOC: ED 11:15 → ICU 22:18 → MEDSUR 09-25 19:07
PROVIDERS: ADMIT Internal Medicine; ATTEND Internal Medicine

== ENCOUNTER 2023-10-01 12:38 | Inpatient (IN) ==
[2023-10-01] MEDS: HYDROmorphone 1 MG/ML SYRINGE IV ONE ×2 (13:30→13:58)
[2023-10-01] MEDS: KETOROLAC 30 MG/ML VIAL IV ONE (13:31)
[2023-10-01 14:51] LABS: Basophils # (Auto) 0.04 K/mcL (0.00-0.30); Basophils % (Auto) 0.4 % (0.0-2.0); Eosinophils # (Auto) 0.07 K/mcL (0.00-0.70); Eosinophils % (Auto) 0.7 % (0.0-7.0); Hematocrit 26.6 % (34.1-44.9); Hemoglobin 8.5 g/dL (11.2-15.7); Lymphocytes # (Auto) 1.72 K/mcL (1.50-4.80); Lymphocytes % (Auto) 18.2 % (15.5-49.0); Mean Cell Volume 95.3 fL (80.0-100.0); Mean Platelet Volume 11.6 fL (8.8-12.5); Monocytes # (Auto) 0.61 K/mcL (0.10-0.90); Monocytes % (Auto) 6.5 % (1.0-12.0); Platelet Count 117 K/mcL (140-440); RBC 2.79 M/mcL (3.59-5.38); Red Cell Distribution Width 14.3 % (11.5-14.5); WBC 9.5 K/mcL (4.5-11.0)
[2023-10-01 14:51] LABS: Blood Urea Nitrogen 10 mg/dL (8-23); Calcium 8.5 mg/dL (8.6-10.4); Carbon Dioxide 23 mmol/L (22-30); Chloride 101 mmol/L (96-108); Glomerular Filtration Rate 76; Glucose 266 mg/dL (70-105); Potassium 4.6 mmol/L (3.3-5.1); Sodium 136 mmol/L (133-145)
[2023-10-01] MEDS: hydrOXYzine 25 MG TABLET PO ONE (16:50)
[2023-10-01] MEDS ORDERED: IPRATROPIUM/ALBUTEROL 3 ML AMPUL.NEB NEB PRN (16:59)
[2023-10-01] MEDS ORDERED: DEXTROSE 50% 50 ML VIAL IV PRN (16:59)
[2023-10-01] MEDS ORDERED: ACETAMINOPHEN 325 MG TABLET PO PRN (16:59)
[2023-10-01] MEDS ORDERED: DEXTROSE 31 GM ORAL.SUSP PO PRN (16:59)
[2023-10-01] MEDS ORDERED: ONDANSETRON 4 MG/2 ML VIAL IV PRN (16:59)
[2023-10-01] MEDS ORDERED: POLYETHYLENE GLYCOL 3350 17 GM PACKET PO PRN (17:26)
[2023-10-01] MEDS: PREGABALIN 150 MG CAPSULE PO SCH (17:33)
[2023-10-01] MEDS ORDERED: ALBUTEROL SULFATE 60 PUFF INHALER INH PRN (17:33)
[2023-10-01] MEDS ORDERED: CARBOXYMETHYLCELLULOSE SODIUM 1 EACH DROPER.GEL OU PRN (17:51)
[2023-10-01] MEDS: INSULIN LISPRO 1 UNIT/0.01 ML UNIT SQ SCH (18:03)
[2023-10-01] MEDS: HYDROmorphone 1 MG/ML SYRINGE IV PRN (20:15)
[2023-10-01] MEDS: DULoxetine 30 MG CAPSULE PO SCH ×2 (20:18→20:19)
[2023-10-01] MEDS: BISACODYL 5 MG TABLET PO SCH (20:18)
[2023-10-01] MEDS: DOCUSATE SODIUM 100 MG CAPSULE PO SCH ×2 (20:18)
[2023-10-01] MEDS: SENNOSIDES 1 TABLET PO SCH (20:20)
[2023-10-01] MEDS: lamoTRIgine 100 MG TABLET PO SCH (20:20)
[2023-10-01] MEDS: RIFAXIMIN 550 MG TABLET PO SCH (20:22)
[2023-10-01] MEDS: INSULIN GLARGINE, HUMAN 1 UNIT/0.01 ML SQ SCH (20:45)
[2023-10-01] MEDS: LORazepam 0.5 MG TABLET PO PRN (21:43)
[2023-10-01] MEDS: KETOROLAC 30 MG/ML VIAL IV PRN (21:43)
[2023-10-01] MEDS: SIMVASTATIN 10 MG TABLET PO SCH (21:43)
[2023-10-01] MEDS: 0.9 % SODIUM CHLORIDE 10 ML SYRINGE IV SCH (21:44)
[2023-10-01] MEDS: oxyCODONE IR 5 MG TABLET PO PRN (22:31)
[2023-10-01] MEDS: NYSTATIN POWDER BOTTLE 15GM TOPICAL SCH (22:36)
[2023-10-01] MEDS: LACTULOSE 10 GM/15 ML PO SCH (22:36)
[2023-10-02 06:46] LABS: Basophils # (Auto) 0.03 K/mcL (0.00-0.30); Basophils % (Auto) 0.4 % (0.0-2.0); Eosinophils % (Auto) 2.4 % (0.0-7.0); Hematocrit 26.8 % (34.1-44.9); Hemoglobin 8.4 g/dL (11.2-15.7); Lymphocytes # (Auto) 2.31 K/mcL (1.50-4.80); Lymphocytes % (Auto) 27.5 % (15.5-49.0); Mean Cell Volume 98.2 fL (80.0-100.0); Mean Corpuscular HGB Conc 31.3 g/dL (31.0-36.0); Mean Platelet Volume 11.6 fL (8.8-12.5); Monocytes # (Auto) 0.63 K/mcL (0.10-0.90); Monocytes % (Auto) 7.5 % (1.0-12.0); Neutrophils % (Auto) 61.6 % (38.0-78.0); Platelet Count 118 K/mcL (140-440); RBC 2.73 M/mcL (3.59-5.38); Red Cell Distribution Width 14.4 % (11.5-14.5); WBC 8.4 K/mcL (4.5-11.0)
[2023-10-02 07:09] LABS: ALT/SGPT 15 U/L (<40); AST/SGOT 29 U/L (<32); Albumin 3.4 gm/dL (3.2-5.2); Albumin/Globulin Ratio 1.8 (1.0-2.3); Alkaline Phosphatase 127 U/L (39-117); Bilirubin,Total 0.7 mg/dL (0.1-1.0); Blood Urea Nitrogen 14 mg/dL (8-23); Calcium 8.5 mg/dL (8.6-10.4); Carbon Dioxide 26 mmol/L (22-30); Chloride 103 mmol/L (96-108); Globulin 1.9 gm/dL (2.2-3.7); Glomerular Filtration Rate 58; Glucose 239 mg/dL (70-105); Potassium 4.5 mmol/L (3.3-5.1); Sodium 137 mmol/L (133-145)
[2023-10-02] MEDS: sitaGLIPtin 50 MG TABLET PO SCH (09:01)
[2023-10-02] MEDS: FUROSEMIDE 40 MG TABLET PO SCH (09:01)
[2023-10-02] MEDS: LEVOTHYROXINE 125 MCG TABLET PO SCH (09:01)
[2023-10-02] MEDS: FERROUS SULFATE 325 MG TABLET PO SCH (09:01)
[2023-10-02] MEDS: VITAMIN D3 25 MCG TABLET PO SCH (09:01)
[2023-10-02] MEDS: ALLOPURINOL 100 MG TABLET PO SCH (09:01)
[2023-10-02] MEDS: LISINOPRIL 5 MG TABLET PO SCH (09:01)
[2023-10-02] MEDS: CETIRIZINE 10 MG TABLET PO SCH (09:01)
[2023-10-02] MEDS: LACTULOSE 20 GM/30 ML ORAL.SOL PO SCH (09:02)
[2023-10-02] MEDS: SPIRONOLACTONE 25 MG TABLET PO SCH (09:02)
[2023-10-02] MEDS: IBUPROFEN 200 MG TABLET PO PRN (17:58)
[2023-10-02] MEDS: CYCLOBENZAPRINE 10 MG TABLET PO PRN (17:58)
[2023-10-03] MEDS: COLD 0.9 % SODIUM CHLORIDE 1,000 ML IV SCH (00:05)
[2023-10-03] MEDS: NALOXONE HCL 0.4 MG/ML VIAL IV ONE (00:07)
[2023-10-03] MEDS: NALOXONE HCL 0.4 MG/ML VIAL ONE ×2 (01:05→02:51)
[2023-10-03] MEDS ORDERED: NALOXONE HCL 0.4 MG/ML VIAL IV PRN (01:29)
[2023-10-03] MEDS: 0.9 % SODIUM CHLORIDE 1,000 ML IV SCH (02:00)
[2023-10-03] MEDS: NOREPINEPHRINE BITARTRATE 8 MG in 0.9 % SODIUM CHLORIDE 242 ML IV SCH (04:20)
[2023-10-03] MEDS: 0.9 % SODIUM CHLORIDE 250 ML IV SCH (04:26)
[2023-10-03] MEDS: NOREPINEPHRINE BITARTRATE 4 MG/4 ML VIAL IV ONE (04:26)
[2023-10-03] MEDS ORDERED: KETOROLAC 30 MG/ML VIAL IV PRN (08:36)
[2023-10-03] MEDS: LIDOCAINE 4% TOP PATCH TOPICAL SCH (10:50)
[2023-10-03] MEDS ORDERED: LACTULOSE 20 GM/30 ML ORAL.SOL PT PRN (15:05)
[2023-10-03] MEDS: LACTULOSE 20 GM/30 ML ORAL.SOL PR SCH (15:30)
[2023-10-03] MEDS: LACTATED RINGERS 500 ML IV ONE (16:50)
[2023-10-03] MEDS ORDERED: IOPAMIDOL 100 ML BOTTLE IV ONE (18:21)
[2023-10-03] MEDS: PANTOPRAZOLE 40 MG VIAL IV SCH (18:23)
[2023-10-03] MEDS: PIPERACILLIN SODIUM/TAZOBACTAM 3.375 GM in DEXTROSE 5% IN WATER 50 ML IV SCH (19:19)
[2023-10-03 20:46] LABS: ABG Methemoglobin 0.4 % (0.4-1.5); Total Hemoglobin 11.4 gm/Dl (12.0-15.0); VBG Base Excess -6 (-2-3); VBG HCO3 19.2 mmol/L (24.0-28.0); VBG Oxygen Saturation 85.9 % (40.0-70.0); VBG PCO2 38.2 mmHg (41.0-51.0); VBG PH 7.32 U (7.32-7.42); VBG PO2 64.2 mmHg (25.0-40.0); VBG Total CO2 20.4 mmol/L (25.0-29.0)
[2023-10-03 20:55] LABS: ALT/SGPT 21 U/L (<40); AST/SGOT 55 U/L (<32); Albumin 3.3 gm/dL (3.2-5.2); Albumin/Globulin Ratio 1.8 (1.0-2.3); Alkaline Phosphatase 203 U/L (39-117); Bilirubin,Total 1.4 mg/dL (0.1-1.0); Blood Urea Nitrogen 19 mg/dL (8-23); Calcium 9.3 mg/dL (8.6-10.4); Carbon Dioxide 19 mmol/L (22-30); Chloride 104 mmol/L (96-108); Globulin 1.8 gm/dL (2.2-3.7); Glomerular Filtration Rate 33; Glucose 260 mg/dL (70-105); Sodium 137 mmol/L (133-145)
[2023-10-03 21:08] LABS: Appearance,Urine Clear (Clear); Bilirubin,Urine Negative (Negative); Color,Urine Yellow; Culture Indicated,Urine No; Glucose,Urine (UA) Negative (Negative); Ketones,Urine Negative (Negative); Leukocyte Esterase,Urine Negative /uL (Negative); Nitrate,Urine Negative (Negative); Protein,Urine Negative (Negative); Specific Gravity,Urine <= 1.005 (1.000-1.035); Urine Blood Negative ery/mcL (Negative); Urobilinogen,Urine Normal
[2023-10-03 22:01] LABS: Anisocytosis 1+ (None Seen); Band Neutrophils % 24 % (0-10); Hemoglobin 8.5 g/dL (11.2-15.7); Hypochromasia 1+ (None Seen); Lymphocytes % 5 % (15-49); Macrocytosis 1+ (None Seen); Mean Cell Volume 101.4 fL (80.0-100.0); Mean Corpuscular HGB Conc 30.4 g/dL (31.0-36.0); Mean Platelet Volume 11.4 fL (8.8-12.5); Monocytes % (Manual) 1 % (1-12); Nucleated Red Blood Cells 2 % (0-0); Platelet Count 228 K/mcL (140-440); Platelet Estimate NORMAL (Normal); RBC 2.76 M/mcL (3.59-5.38); RBC Morphology ABNORMAL (Normal); Segmented Neutrophils % 70 % (38-78); WBC 23.5 K/mcL (4.5-11.0)
[2023-10-03 22:06] LABS: Basophils # (Auto) 0.02 K/mcL (0.00-0.30); Basophils % (Auto) 0.1 % (0.0-2.0); Eosinophils # (Auto) 0.01 K/mcL (0.00-0.70); Eosinophils % (Auto) 0 % (0.0-7.0); Hematocrit 32.1 % (34.1-44.9); Lymphocytes % (Auto) 5.1 % (15.5-49.0); Mean Cell Volume 97.3 fL (80.0-100.0); Mean Corpuscular HGB Conc 31.2 g/dL (31.0-36.0); Mean Platelet Volume 11.6 fL (8.8-12.5); Monocytes # (Auto) 1.05 K/mcL (0.10-0.90); Monocytes % (Auto) 4.2 % (1.0-12.0); Neutrophils % (Auto) 90.3 % (38.0-78.0); Platelet Count 269 K/mcL (140-440); Red Cell Distribution Width 14.8 % (11.5-14.5); WBC 25.3 K/mcL (4.5-11.0)
[2023-10-04] MEDS: PIPERACILLIN SODIUM/TAZOBACTAM 3.375 GM in DEXTROSE 5% IN WATER 100 ML IV SCH (00:39)
[2023-10-04 06:23] LABS: Hemoglobin 9.1 g/dL (11.2-15.7); Mean Corpuscular HGB Conc 31.4 g/dL (31.0-36.0); Mean Platelet Volume 11.2 fL (8.8-12.5); Platelet Count 204 K/mcL (140-440); RBC 2.96 M/mcL (3.59-5.38); Red Cell Distribution Width 15.6 % (11.5-14.5)
[2023-10-04 06:41] LABS: ALT/SGPT 32 U/L (<40); AST/SGOT 77 U/L (<32); Albumin 2.8 gm/dL (3.2-5.2); Albumin/Globulin Ratio 1.6 (1.0-2.3); Alkaline Phosphatase 210 U/L (39-117); Bilirubin,Direct 0.7 mg/dL (<0.3); Bilirubin,Total 1.2 mg/dL (0.1-1.0); Blood Urea Nitrogen 26 mg/dL (8-23); Calcium 8.9 mg/dL (8.6-10.4); Carbon Dioxide 18 mmol/L (22-30); Chloride 106 mmol/L (96-108); Globulin 1.8 gm/dL (2.2-3.7); Glomerular Filtration Rate 36; Glucose 213 mg/dL (70-105); Lactate Dehydrogenase 322 U/L (135-225); Phosphorous 4.1 mg/dL (2.5-4.5); Potassium 4.3 mmol/L (3.3-5.1); Sodium 138 mmol/L (133-145); Triglycerides 103 mg/dL (<150); Uric Acid 5.8 mg/dL (2.5-8.0)
[2023-10-04] MEDS: ENOXAPARIN 60 MG/0.6 ML SYRINGE SQ SCH (08:32)
[2023-10-04] MEDS: ALBUMIN HUMAN 12.5 GM/50 ML VIAL IV SCH (08:35)
[2023-10-04 08:55] LABS: Band Neutrophils % 22 % (0-10); Lymphocytes % 6 % (15-49); Monocytes % (Manual) 1 % (1-12); Platelet Estimate NORMAL (Normal); RBC Morphology NORMAL (Normal); Segmented Neutrophils % 71 % (38-78)
[2023-10-04] MEDS: SODIUM BICARBONATE 650 MG TABLET PO SCH (09:17)
[2023-10-04] MEDS ORDERED: 0.9 % SODIUM CHLORIDE 10 ML SYRINGE IV PRN (09:50)
[2023-10-04] MEDS ORDERED: SODIUM CHLORIDE IRRIG SOLUTION 500 ML BOTTLE IRR ONE (11:49)
[2023-10-04] MEDS: LACTATED RINGERS 250 ML IV ONE (14:36)
[2023-10-04 16:38] LABS: Appearance,Synovial Fluid Cloudy; Color,Synovial Fluid Red; Lymphocytes,Synovial Fluid 0 %; Neutrophils,Synovial Fluid 92 % (0-25); Other Cells,Synovial Fluid 8 %
[2023-10-04] MEDS: SODIUM BICARBONATE VIAL 50 MEQ in EMPTYBAG 0 ML IV SCH (17:02)
[2023-10-04] MEDS: SODIUM BICARBONATE 50 MEQ/50 ML VIAL ONE (17:03)
[2023-10-04] MEDS: SODIUM BICARBONATE 50 MEQ/50 ML VIAL IV ONE (17:12)
[2023-10-04] MEDS: INSULIN LISPRO 1 UNIT/0.01 ML UNIT SQ SCH (17:18)
[2023-10-04] MEDS: ENOXAPARIN 40 MG/0.4 ML SYRINGE SQ SCH (21:16)
[2023-10-04] MEDS: 0.9 % SODIUM CHLORIDE 10 ML SYRINGE IV SCH (21:41)
[2023-10-05 07:11] LABS: ALT/SGPT 36 U/L (<40); AST/SGOT 64 U/L (<32); Albumin 2.7 gm/dL (3.2-5.2); Albumin/Globulin Ratio 1.5 (1.0-2.3); Alkaline Phosphatase 185 U/L (39-117); Bilirubin,Direct 0.6 mg/dL (<0.3); Bilirubin,Total 0.9 mg/dL (0.1-1.0); Blood Urea Nitrogen 32 mg/dL (8-23); Carbon Dioxide 18 mmol/L (22-30); Chloride 112 mmol/L (96-108); Globulin 1.8 gm/dL (2.2-3.7); Glomerular Filtration Rate 39; Glucose 221 mg/dL (70-105); Lactate Dehydrogenase 324 U/L (135-225); Phosphorous 2.7 mg/dL (2.5-4.5); Potassium 3.5 mmol/L (3.3-5.1); Sodium 144 mmol/L (133-145); Triglycerides 147 mg/dL (<150); Uric Acid 5.2 mg/dL (2.5-8.0)
[2023-10-05 08:32] LABS: Hematocrit 25.6 % (34.1-44.9); Hemoglobin 7.8 g/dL (11.2-15.7); Mean Cell Volume 98.1 fL (80.0-100.0); Mean Corpuscular HGB Conc 30.5 g/dL (31.0-36.0); Mean Platelet Volume 11.5 fL (8.8-12.5); Platelet Count 101 K/mcL (140-440); RBC 2.61 M/mcL (3.59-5.38); Red Cell Distribution Width 16.2 % (11.5-14.5); WBC 6.3 K/mcL (4.5-11.0)
[2023-10-05 09:50] LABS: Anisocytosis 1+ (None Seen); Band Neutrophils % 51 % (0-10); Hypochromasia FEW (None Seen); Lymphocytes % 10 % (15-49); Monocytes % (Manual) 7 % (1-12); Platelet Estimate DECREASED (Normal); Polychromasia OCC (None Seen); RBC Morphology ABNORMAL (Normal); Segmented Neutrophils % 32 % (38-78)
[2023-10-05] MEDS: SODIUM BICARBONATE 650 MG TABLET PO SCH (10:23)
[2023-10-05] MEDS: SIMETHICONE 80 MG TAB.CHEW CHEWED SCH (12:30)
[2023-10-06] MEDS: METOPROLOL TARTRATE 5 MG/5 ML VIAL IV ONE ×2 (03:25→03:26)
[2023-10-06] MEDS: METOPROLOL TARTRATE 25 MG TABLET PO ONE (03:25)
[2023-10-06] MEDS: METOPROLOL TARTRATE 25 MG TABLET ONE (03:26)
[2023-10-06] MEDS: DILTIAZEM 125 MG in DEXTROSE 5% IN WATER 100 ML IV SCH (03:40)
[2023-10-06] MEDS: DILTIAZEM 125 MG/25 ML VIAL IV ONE (03:40)
[2023-10-06 03:42] LABS: Hemoglobin 7.6 g/dL (11.2-15.7); Mean Corpuscular HGB Conc 31.7 g/dL (31.0-36.0); Mean Platelet Volume 11.2 fL (8.8-12.5); Platelet Count 86 K/mcL (140-440); Red Cell Distribution Width 15.7 % (11.5-14.5); WBC 6.9 K/mcL (4.5-11.0)
[2023-10-06 04:11] LABS: ALT/SGPT 34 U/L (<40); AST/SGOT 51 U/L (<32); Albumin 2.8 gm/dL (3.2-5.2); Albumin/Globulin Ratio 1.4 (1.0-2.3); Alkaline Phosphatase 165 U/L (39-117); Bilirubin,Direct 0.6 mg/dL (<0.3); Bilirubin,Total 0.9 mg/dL (0.1-1.0); Blood Urea Nitrogen 28 mg/dL (8-23); Carbon Dioxide 23 mmol/L (22-30); Chloride 113 mmol/L (96-108); Glomerular Filtration Rate 52; Glucose 143 mg/dL (70-105); Lactate Dehydrogenase 417 U/L (135-225); Phosphorous 1.9 mg/dL (2.5-4.5); Potassium 2.9 mmol/L (3.3-5.1); Sodium 148 mmol/L (133-145); Triglycerides 139 mg/dL (<150); Uric Acid 4.1 mg/dL (2.5-8.0)
[2023-10-06] MEDS: POTASSIUM CHLORIDE 40 MEQ in DEXTROSE 5% IN WATER 250 ML IV ONE (04:21)
[2023-10-06] MEDS: POTASSIUM CHLORIDE 20 MEQ/10 ML VIAL IV ONE (04:21)
[2023-10-06] MEDS: POTASSIUM CHLORIDE 20 MEQ TABLET PO ONE ×2 (04:21)
[2023-10-06] MEDS ORDERED: POTASSIUM CHLORIDE 20 MEQ TABLET PO PRN ×2 (04:52)
[2023-10-06] MEDS ORDERED: POTASSIUM CHLORIDE 40 MEQ in DEXTROSE 5% IN WATER 500 ML IV PRN (04:52)
[2023-10-06 05:06] LABS: Band Neutrophils % 1 % (0-10); Lymphocytes % 8 % (15-49); Monocytes % (Manual) 5 % (1-12); Myelocytes % 2 %; Platelet Estimate DECREASED (Normal); Polychromasia 1+ (None Seen); RBC Morphology ABNORMAL (Normal); Reactive Lymphocytes 1 % (0-2); Segmented Neutrophils % 83 % (38-78)
[2023-10-06] MEDS: LACTULOSE 20 GM/30 ML ORAL.SOL PO SCH (08:31)
[2023-10-06] MEDS: DEXTROSE 5% IN WATER 1,000 ML IV ONE (08:34)
[2023-10-06] MEDS: POTASSIUM PHOSPHATE 20 MEQ in DEXTROSE 5% IN WATER 250 ML IV ONE (08:39)
[2023-10-06] MEDS: NEUTRA PHOS 1 PACKET PO SCH (08:48)
[2023-10-06] MEDS: AMIODARONE 150 MG in DEXTROSE 5% IN WATER 50 ML IV ONE (10:01)
[2023-10-06] MEDS: POTASSIUM CHLORIDE 40 MEQ in DEXTROSE 5% IN WATER 500 ML IV ONE (14:09)
[2023-10-06] MEDS: HALOPERIDOL LACTATE 5 MG/ML VIAL IV ONE (17:40)
[2023-10-06] MEDS ORDERED: morphine 4 MG/ML VIAL NEB PRN (20:30)
[2023-10-06] MEDS ORDERED: ONDANSETRON 4 MG/2 ML VIAL IV PRN (20:30)
[2023-10-06] MEDS ORDERED: LACTOPEROXI/GLUC OXID/POT THIO 1 EACH GEL..EA. TOPICAL PRN (20:30)
[2023-10-06] MEDS: HYDROmorphone 1 MG/ML SYRINGE IV PRN (20:53)
[2023-10-06] MEDS ORDERED: QUEtiapine 25 MG TABLET PO SCH (21:00)
[2023-10-06] MEDS: DOCUSATE SODIUM 100 MG CAPSULE PO SCH (22:13)
[2023-10-07] MEDS ORDERED: PANTOPRAZOLE 40 MG VIAL IV SCH (07:30)
[2023-10-07] MEDS: LORazepam 2 MG/ML VIAL IV PRN (16:15)
[2023-10-08] MEDS: SCOPOLAMINE 1 PATCH PATCH TOPICAL SCH (11:51)
[2023-10-09 08:23] VITALS: TEMP 97.9; O2SAT 79
[2023-10-13 03:37] LABS: Nucleated Cells,Synovial Fld 46440 /cumm
== END 2023-10-09 18:06 | disposition expired | DRG 871 ==
LOC: ED 12:38 → INTOOBSV 16:49 → MEDSUR 16:49 → ICU 10-03 01:21 → MEDSUR 10-09 13:24
PROVIDERS: ADMIT Internal Medicine; ATTEND Student in an Organized Health Care Education/Training Program